=== PATIENT | male | born 1975 | race African-American/Black ===

== ENCOUNTER 2017-08-13 22:10 | Emergency (ER) | payer OTHER ==
[2017-08-13 22:36] VITALS: BP 116/68; PULSE 69; TEMP 97.5; BMI 23.0
--- NOTE | 2017-08-13 23:41 | PDOC ---
History of Present Illness - History of Present Illness Initial Comments: 08/13/17 23:54 The patient is a 41 year old male, with a significant past medical history of asthma, who presents to the emergency department with shortness of breath, wheezing and cough for 4 days. The patient states he was seen at [facility] 2 days ago where he was treated with a breathing treatment and discharged home. He states his breathing has not improved despite using his rescue inhaler since his discharge from [facility]. He reports his cough is productive of green mucus and states he coughs so hard I vomit. He reports chest pain with coughing. He reports night sweats and chills. He states it has never been this bad before. He denies headache and dizziness. He denies fever, nausea, diarrhea and constipation. He denies dysuria, frequency, urgency and hematuria. Allergies: NKDA PCP - Dr. Brodie Yan <Mia Almanzar - Last Filed: 08/13/17 23:54> <Colleen Junior - Last Filed: 08/14/17 02:12> <Marika Ball - Last Filed: 08/16/17 08:46> - General Chief Complaint: Asthma Stated Complaint: SOB/CHEST PAIN Time Seen by Provider: 08/13/17 23:24 Past History <Mia Almanzar - Last Filed: 08/13/17 23:54> <Colleen Junior - Last Filed: 08/14/17 02:12> - Past Medical History Asthma: Yes - Suicide/Smoking/Psychosocial Hx Smoking History: Never smoked Have you smoked in the past 12 months: No Information on smoking cessation initiated: No Hx Alcohol Use: No Drug/Substance Use Hx: No Substance Use Type: Marijuana <Marika Ball - Last Filed: 08/16/17 08:46> - Past Medical History Allergies/Adverse Reactions: Allergies Allergy/AdvReac Type Severity Reaction Status Date / Time No Known Allergies Allergy Verified 08/13/17 22:34 Home Medications: Ambulatory Orders Azithromycin [Zithromax 250mg Tablets -] 250 mg PO UTDICT #6 tab 08/14/17 Prednisone [Deltasone -] 40 mg PO DAILY #8 tablet 08/14/17 Review of Systems - Review of Systems Able to Perform ROS?: Yes Comments:: 08/13/17 23:55 GENERAL/CONSTITUTIONAL:(+)chills and "night sweats". No fever No weakness. HEAD, EYES, EARS, NOSE AND THROAT: No change in vision. No ear pain or discharge. No sore throat. CARDIOVASCULAR: No chest pain or shortness of breath. RESPIRATORY: (+) cough, wheezing, SOB. No hemoptysis. GASTROINTESTINAL: No nausea, vomiting, diarrhea or constipation. GENITOURINARY: No dysuria, frequency, or change in urination. MUSCULOSKELETAL: No joint or muscle swelling or pain. No neck or back pain. SKIN: No rash NEUROLOGIC: No headache, vertigo, loss of consciousness, or change in strength/ sensation. ENDOCRINE: No increased thirst. No abnormal weight change. HEMATOLOGIC/LYMPHATIC: No anemia, easy bleeding, or history of blood clots. ALLERGIC/IMMUNOLOGIC: No hives or skin allergy. <Mia Almanzar - Last Filed: 08/13/17 23:54> *Physical Exam - Vital Signs Last Vital Signs Temp Pulse Resp BP Pulse Ox 97.5 F L 69 26 H 116/68 97 08/13/17 22:34 08/13/17 22:34 08/13/17 22:34 08/13/17 22:34 08/13/17 22:34 <Mia Almanzar - Last Filed: 08/13/17 23:54> - Vital Signs Last Vital Signs Temp Pulse Resp BP Pulse Ox 97.5 F L 69 26 H 116/68 97 08/13/17 22:34 08/13/17 22:34 08/13/17 22:34 08/13/17 22:34 08/13/17 22:34 <Colleen Junior - Last Filed: 08/14/17 02:12> - Vital Signs Last Vital Signs Temp Pulse Resp BP Pulse Ox 97.5 F L 69 26 H 116/68 97 08/13/17 22:34 08/13/17 22:34 08/13/17 22:34 08/13/17 22:34 08/13/17 22:34 - Physical Exam Comments: GENERAL: Awake, alert, and fully oriented. +Tachypnea. HEAD: No signs of trauma EYES: PERRLA, EOMI, sclera anicteric, conjunctiva clear ENT: Auricles normal inspection, hearing grossly normal, nares patent, oropharynx clear without exudates. Moist mucosa NECK: Normal ROM, supple, no lymphadenopathy, JVD, or masses LUNGS: Dec air entry B/L. Diffuse exp wheezes. Speaking 1-2 word sentences. HEART: Regular rate and rhythm, normal S1 and S2, no murmurs, rubs or gallops ABDOMEN: Soft, nontender, normoactive bowel sounds. No guarding, no rebound. No masses EXTREMITIES: Normal range of motion, no edema. No clubbing or cyanosis. No cords, erythema, or tenderness NEUROLOGICAL: Cranial nerves II through XII grossly intact. Normal gait. Motor and sensation intact. SKIN: Warm, Dry, normal turgor, no rashes or lesions noted. <Marika Ball - Last Filed: 08/16/17 08:46> ED Treatment Course - Medications Given in the ED: ED Medications Discontinued Medications Generic Name Dose Route Start Last Admin Trade Name Freq PRN Reason Stop Dose Admin Albuterol/Ipratropium 1 amp 08/13/17 23:45 08/14/17 00:30 Duoneb - NEB 08/14/17 00:16 1 amp Q15M IRVING Administration Sodium Chloride 1,000 mls @ 1,000 mls/hr 08/13/17 23:44 08/14/17 00:16 Normal Saline - IV 08/14/17 00:43 1,000 mls/hr ASDIR STA Administration Magnesium Sulfate 2 gm 08/13/17 23:46 08/14/17 00:35 Magnesium Sulfate IVPB 08/13/17 23:47 2 gm ONCE ONE Administration Methylprednisolone Sodium Succinate 125 mg 08/13/17 23:44 08/14/17 00:16 Solu-Medrol - IVPB 08/13/17 23:45 125 mg ONCE ONE Administration <Colleen Junior - Last Filed: 08/14/17 02:12> Medical Decision Making - Medical Decision Making 08/14/17 02:12 <Colleen Junior - Last Filed: 08/14/17 02:12> - Medical Decision Making 08/14/17 02:[address] Junior. I have reassessed multiple times. He is able to speak full sentences, but still with wheezing on exam. I have given azithro for bronchitis, as he has history of smoking. Would keep in ED for another 1-2 hours of obs before poss DC home. <Marika Ball - Last Filed: 08/16/17 08:46> *DC/Admit/Observation/Transfer - Attestations Scribe Attestion: 08/13/17 23:55 Documentation prepared by Mia Almanzar, acting as medical attendant for Marika Ball MD, <Mia Almanzar - Last Filed: 08/13/17 23:54> - Discharge Dispostion Admit: No <Colleen Junior - Last Filed: 08/14/17 02:12> <Marika Ball - Last Filed: 08/16/17 08:46> Diagnosis at time of Disposition: Bronchitis Asthma Qualifiers: Asthma severity: unspecified severity Asthma persistence: unspecified Asthma complication type: unspecified Qualified Code(s): J45.909 - Unspecified asthma, uncomplicated - Discharge Dispostion Disposition: HOME Condition at time of disposition: Improved - Prescriptions Prescriptions: Prednisone [Deltasone -] 40 mg PO DAILY #8 tablet Azithromycin [Zithromax 250mg Tablets -] 250 mg PO UTDICT #6 tab - Referrals Referrals: Brodie Yan MD [Primary Care Provider] - - Patient Instructions Printed Discharge Instructions: Asthma -- Adult, DI for Chronic Bronchitis
[2017-08-13] MEDS ORDERED: SODIUM CHLORIDE 1,000 ML IV STA (23:44)
[2017-08-13] MEDS ORDERED: methylPREDNISolone NA SUCC 125 MG/2 ML VIAL IVPB ONE (23:44)
[2017-08-13] MEDS ORDERED: MAGNESIUM SULF 50% (8.12 MEQ/2 ML-1 GM VIAL) IVPB ONE (23:46)
[2017-08-14] MEDS ORDERED: ALBUTEROL SO4 2.5/IPRATROPIUM 0.5 INH SOL 3 ML VIAL.NEB. NEB ONE (00:01)
[2017-08-14] MEDS ORDERED: methylPREDNISolone NA SUCC 125 MG/2 ML VIAL ONE (00:01)
[2017-08-14] MEDS ORDERED: MAGNESIUM SULF 50% (8.12 MEQ/2 ML-1 GM VIAL) ONE (00:01)
[2017-08-14] MEDS: ALBUTEROL SO4 2.5/IPRATROPIUM 0.5 INH SOL 3 ML VIAL.NEB. NEB SCH ×3 (00:15→00:30)
[2017-08-14] MEDS ORDERED: AZITHROMYCIN IVPB 500 MG in DEXTROSE 5%-WATER - 250 ML IVPB ONE (01:37)
[2017-08-14] MEDS ORDERED: SODIUM CHLORIDE 1,000 ML IV STA (01:37)
[2017-08-14] MEDS ORDERED: AZITHROMYCIN IVPB 250 ML IVPB ONE (02:04)
--- NOTE | 2017-08-18 09:17 | EKG ---
Test Reason : Blood Pressure : / mmHG Vent. Rate : 069 BPM Atrial Rate : 069 BPM P-R Int : 134 ms QRS Dur : 082 ms QT Int : 384 ms P-R-T Axes : 083 036 048 degrees QTc Int : 411 ms NORMAL SINUS RHYTHM NORMAL ECG NO PREVIOUS ECGS AVAILABLE Confirmed by AGUSTIN ROMANO MD ([id number]) on 08/18/2017 9:17:12 AM Referred By: Confirmed By:AGUSTIN ROMANO MD
== END 2017-08-14 04:31 | disposition home or self-care (01) ==
LOC: JER 22:10
PROC: 3E033GC Introduction of Other Therapeutic Substance into Peripheral Vein, Percutaneous Approach (ICD-10-PCS; principal; 2017-08-13)
PROC: 3E03329 Introduction of Other Anti-infective into Peripheral Vein, Percutaneous Approach (ICD-10-PCS; 2017-08-13)
PROC: 3E0337Z Introduction of Electrolytic and Water Balance Substance into Peripheral Vein, Percutaneous Approach (ICD-10-PCS; 2017-08-13)
PROC: 3E0F7GC Introduction of Other Therapeutic Substance into Respiratory Tract, Via Natural or Artificial Opening (ICD-10-PCS; 2017-08-13)
DX: J42 Unspecified chronic bronchitis (principal); J45.909 Unspecified asthma, uncomplicated
CPT/HCPCS: 71010-TC; 93005; 93010; 99282-25

== ENCOUNTER 2017-08-17 13:34 | Emergency (ER) | payer OTHER ==
[2017-08-17 13:49] VITALS: BMI 23.0
--- NOTE | 2017-08-17 14:06 | PDOC ---
History of Present Illness - General Chief Complaint: Shortness of Breath Stated Complaint: ASTHMA Time Seen by Provider: 08/17/17 13:54 - History of Present Illness Initial Comments: 08/17/17 14:39 41m with with juvenile history of asthma and recent ED visits for bronchitis vs asthma exacerbation 3 days ago presents today with severe shortness of breath and dry cough, speaking in 2 word sentences, tachypnea, diaphoresis despite a ventolin and prednisone prescription from his last visit and having been given an albuterol nebulizer dose by EMS. Patient complains of recent viral URI syndrome. No wheezing no headaches, vomiting, or chest pain. Patient denies history of intubation or chronic asthma treatment. Currently saturating well at 99% 08/17/17 15:00 Past History - Past Medical History Allergies/Adverse Reactions: Allergies Allergy/AdvReac Type Severity Reaction Status Date / Time No Known Allergies Allergy Verified 08/17/17 13:49 Home Medications: Ambulatory Orders Prednisone [Deltasone -] 40 mg PO DAILY #8 tablet 08/14/17 Albuterol Sulfate [Proair Respiclick] 90 mcg IH PRN PRN 08/17/17 Benzonatate [Tessalon Pearls -] 100 mg PO TID #21 capsule 08/17/17 Asthma: Yes Psychiatric Problems: Yes (Depression) - Suicide/Smoking/Psychosocial Hx Smoking History: Former smoker Have you smoked in the past 12 months: Yes If you are a former smoker, when did you quit?: 08/2017 Information on smoking cessation initiated: Yes 'Breaking Loose' booklet given: 08/17/17 Hx Alcohol Use: No Drug/Substance Use Hx: Yes (marijuana) Substance Use Type: None Review of Systems - Review of Systems Able to Perform ROS?: Yes Is the patient limited Ivorian proficient: No Constitutional: Yes: Diaphoresis. No: Fever HEENTM: No: Symptoms Reported Respiratory: Yes: Cough, Shortness of Breath Cardiac (ROS): No: Symptoms Reported ABD/GI: No: Symptoms Reported *Physical Exam - Vital Signs Last Vital Signs Temp Pulse Resp BP Pulse Ox 98.2 F 89 18 116/79 99 08/17/17 13:44 08/17/17 13:44 08/17/17 13:44 08/17/17 13:44 08/17/17 13:44 - Physical Exam General Appearance: Yes: Moderate Distress HEENT: positive: EOMI, Rhinorrhea Respiratory/Chest: positive: Respiratory Distress, Labored Respiration, Rhonchi (b/l). negative: Chest Tender, Wheezing Cardiovascular: positive: Regular Rhythm, Regular Rate, S1, S2 Gastrointestinal/Abdominal: positive: Normal Bowel Sounds, Tender, Flat Integumentary: positive: Diaphoresis ED Treatment Course - LABORATORY CBC & Chemistry Diagram: 08/17/17 14:20 08/17/17 14:20 Medical Decision Making - Medical Decision Making 08/17/17 14:59 41M presenting with moderate resp distress for the past 2 weeks asthma exacerbation vs acute bronchitis 08/17/17 16:37 Xray negative. Symptoms resolved with albuterol and ipratropium nebulizer and IV steroids. *DC/Admit/Observation/Transfer Diagnosis at time of Disposition: Bronchitis - Discharge Dispostion Disposition: HOME Admit: No - Prescriptions Prescriptions: Benzonatate [Tessalon Pearls -] 100 mg PO TID #21 capsule
[2017-08-17] MEDS ORDERED: ALBUTEROL SO4 2.5/IPRATROPIUM 0.5 INH SOL 3 ML VIAL.NEB. NEB ONE (14:09)
[2017-08-17] MEDS ORDERED: methylPREDNISolone NA SUCC 40 MG/1 ML VIAL IVPB ONE (14:11)
[2017-08-17] MEDS ORDERED: MAGNESIUM SULF 50% (8.12 MEQ/2 ML-1 GM VIAL) IVPB ONE (14:14)
[2017-08-17] MEDS ORDERED: methylPREDNISolone NA SUCC 40 MG/1 ML VIAL ONE (14:17)
[2017-08-17 14:39] LABS: BASOPHIL 0.6 % (0-2.0); EOSINOPHIL 13.6 % (0-4.5); MCH 32.5 pg (25.7-33.7); MCHC 33.1 g/dl (32.0-35.9); MEAN CELL VOLUME 98.2 fl (80-96); MEAN PLT VOLUME 8.1 fl (7.5-11.1); NEUTROPHILS 44.7 % (42.8-82.8); PLATELET COUNT 264 K/MM3 (134-434); RDW 13.2 % (11.9-15.9); WHITE BLOOD COUNT 10.1 K/mm3 (4.0-10.0)
--- NOTE | 2017-08-17 14:39 | PDOC ---
Attending Attestation - Resident Resident Name: Modesto Thompson - ED Attending Attestation I have performed the following: I have examined & evaluated the patient, The case was reviewed & discussed with the resident, I agree w/resident's findings & plan, Exceptions are as noted - HPI HPI: 08/17/17 14:36 41y M hx of childhood asthma, daily smoking, presents with complaint of cough. Pt was seen in the ED 2 x previously - cough x 2 weeks, nonproductive, w/o associated fever/chills, was seen [facility] got albuterol, azithromycin, prednisone, was not significantly improved, and came here on the . pt ont significnlty better so came to for evlauation. On exam pt appears in mil drespiratory distress, lungs shows mild rhonchi with minimal wheezing. suspect reactive airway, possible pna will ck labs, cxr will give nebs, steroids will erassess - Physicial Exam PE: 08/17/17 17:13 see above - Medical Decision Making 08/17/17 16:16 cxr negative labs unremarkable will dc the pt with pmd fu [t feeling improved, lungs clear n orespiratory distress, speaking sentences suspect reactive airway disease will dc with pmd fu return precaution swere discussed Heart Score/ECG Review - ECG Impressions Comment:: 08/17/17 16:41 Twelve-lead EKG was performed and reviewed by me. There is normal sinus rhythm with a normal rate. Rate of 71 The axis is normal. The intervals are normal. There is normal R wave progression There are no ST or T wave abnormalities. Impression: Normal twelve-lead EKG
[2017-08-17 15:04] LABS: ALBUMIN 3.7 g/dl (3.4-5.0); ALK PHOS 69 U/L (45-117); ANION GAP 9 (8-16); BILIRUBIN,TOTAL 0.7 mg/dL (0.2-1.0); CALCIUM 8.8 mg/dL (8.5-10.1); CO2 28 mmol/L (21-32); CREATININE 1.2 mg/dL (0.7-1.3); GLUCOSE,RANDOM 75 mg/dL (74-106); SGOT/AST 20 U/L (15-37); SGPT/ALT 25 U/L (12-78); TOT PROT 6.9 g/dl (6.4-8.2)
[2017-08-17 15:22] LABS: VENOUS BLOOD GAS HCO3 30.1 meq/L (19-25); VENOUS PH 7.38 (7.32-7.42)
[2017-08-17 17:03] VITALS: BP 120/81; PULSE 81; TEMP 98.1
--- NOTE | 2017-08-18 09:09 | EKG ---
Test Reason : Blood Pressure : / mmHG Vent. Rate : 071 BPM Atrial Rate : 071 BPM P-R Int : 138 ms QRS Dur : 084 ms QT Int : 382 ms P-R-T Axes : 077 023 037 degrees QTc Int : 415 ms NORMAL SINUS RHYTHM WITH SINUS ARRHYTHMIA POSSIBLE LEFT ATRIAL ENLARGEMENT WHEN COMPARED WITH ECG OF 13-AUG-2017 22:28, NO SIGNIFICANT CHANGE WAS FOUND Confirmed by AGUSTIN ROMANO MD ([id number]) on 08/18/2017 9:09:22 AM Referred By: Confirmed By:AGUSTIN ROMANO MD
== END 2017-08-17 16:45 | disposition home or self-care (01) ==
LOC: JER 13:34
PROC: 3E033GC Introduction of Other Therapeutic Substance into Peripheral Vein, Percutaneous Approach (ICD-10-PCS; principal; 2017-08-17)
PROC: 3E0F7GC Introduction of Other Therapeutic Substance into Respiratory Tract, Via Natural or Artificial Opening (ICD-10-PCS; 2017-08-17)
DX: J20.9 Acute bronchitis, unspecified (principal); Z87.891 Personal history of nicotine dependence
CPT/HCPCS: 36415; 71010-TC; 80053; 82803; 85025; 93005; 93010; 99284-25

== ENCOUNTER 2017-08-18 04:47 | Inpatient (IN) | payer OTHER ==
[2017-08-18] MEDS ORDERED: diphenhydrAMINE HCL 25 MG CAPSULE (FP) PO ONE ×2 (05:26→05:31)
--- NOTE | 2017-08-18 05:50 | PDOC ---
History of Present Illness - General Chief Complaint: Asthma Stated Complaint: ASTHMA/DIFFICULTY BREATHING Time Seen by Provider: 08/18/17 04:53 - History of Present Illness Initial Comments: 08/18/17 05:47 CHIEF COMPLAINT: cough, SOB HISTORY OF PRESENT ILLNESS: 41y M hx of childhood asthma, daily smoking, returns to ED with cough, SOB, and wheezing. Pt was seen in the ED 3x previously for a cough x 2 weeks. Patient was seen by [facility] and received albuterol, azithromycin, prednisone, without significant improvement and was last seen here yesterday for exact same complaint. Patient had negative CXR, was given Mg sulfate and methylprednisone and discharged to home. Patient denies any fever, chills, vomiting, diarrhea. PAST MEDICAL HISTORY: Denies past medical history FAMILY HISTORY: Denies SOCIAL HISTORY: 25 pack year smoking history. Denies alcohol, illicit drug use. SURGICAL HISTORY: Denies ALLERGIES: No known drug allergies REVIEW OF SYSTEMS General/Constitutional: Denies fever or chills. Denies weakness, weight change. HEENT: Denies change in vision. Denies ear pain or discharge. Denies sore throat. Cardiovascular: Denies chest pain. Respiratory: Cough x 2 weeks, wheezing, SOB. Gastrointestinal: Denies nausea, vomiting, diarrhea or constipation. Denies rectal bleeding. Genitourinary: Denies dysuria, frequency, or change in urination. Musculoskeletal: Denies joint or muscle swelling or pain. Denies neck or back pain. Skin and breasts: Denies rash or easy bruising. PHYSICAL EXAM General Appearance: Well-appearing, appropriately dressed. No apparent distress. HEENT: EOMI, PERRLA. No conjunctival pallor. No photophobia, scleral icterus. Respiratory/Chest: Rhonchi to lower lobes b/l. No crackles, rales, stridor. Cardiovascular: RRR. S1, S2. Gastrointestinal/Abdominal: Normal bowel sounds. Abdomen soft, non-distended. No tenderness or rebound tenderness. No organomegaly, pulsatile mass, guarding , hernia, hepatomegaly, splenomegaly. Musculoskeletal/Extremities: Normal inspection. FROM of all extremities, normal capillary refill. Pelvis Stable. No CVA tenderness. No tenderness to extremities, pedal edema, swelling, erythema or deformity. Integumentary: Appropriate color, dry, warm. No cyanosis, erythema, jaundice or rash Neurologic: ladderman II-XII intact. Fully oriented, alert. Appropriate mood/affect. Motor strength 5/5. No appreciable EOM palsy, facial droop or sensory deficit. Past History - Past Medical History Allergies/Adverse Reactions: Allergies Allergy/AdvReac Type Severity Reaction Status Date / Time No Known Allergies Allergy Verified 08/18/17 04:52 Home Medications: Ambulatory Orders Prednisone [Deltasone -] 40 mg PO DAILY #8 tablet 08/14/17 Albuterol Sulfate [Proair Respiclick] 90 mcg IH PRN PRN 08/17/17 Benzonatate [Tessalon Pearls -] 100 mg PO TID #21 capsule 08/17/17 Asthma: Yes Psychiatric Problems: Yes (Depression) - Immunization History Immunization Up to Date: Yes - Suicide/Smoking/Psychosocial Hx Smoking History: Unknown if ever smoked Have you smoked in the past 12 months: No If you are a former smoker, when did you quit?: 08/2017 Information on smoking cessation initiated: No 'Breaking Loose' booklet given: 08/17/17 Hx Alcohol Use: No Drug/Substance Use Hx: No Substance Use Type: None *Physical Exam - Vital Signs Last Vital Signs Temp Pulse Resp BP Pulse Ox 97.4 F L 65 20 131/94 99 08/18/17 04:52 08/18/17 04:52 08/18/17 04:52 08/18/17 04:52 08/18/17 04:52 ED Treatment Course - LABORATORY CBC & Chemistry Diagram: 08/20/17 06:40 08/20/17 06:40 - Medications Given in the ED: ED Medications Discontinued Medications Generic Name Dose Route Start Last Admin Trade Name Litoq PRN Reason Stop Dose Admin Diphenhydramine HCl 25 mg 08/18/17 05:26 08/18/17 05:41 Benadryl - PO 08/18/17 05:27 25 mg ONCE ONE Administration Medical Decision Making - Medical Decision Making 08/18/17 06:11 41y M hx of childhood asthma, daily smoking, returns to ED with cough, SOB, and wheezing. Patient with marked rhonchi to b/l lower lobes. -Duoneb -Benadryl 08/18/17 06:20 Patient continues to have diffuse rhonchi s/p 2x Duoneb treatments and Benadryl. -Mg Sulfate 2g ordered Discussed case with attending MD Encarnacion, will order CTA to r/o PE Case discussed in detail with oncoming emergency provider including history, physical exam and ancillary studies. In brief, this patient is being seen in the ED for a chief complaint of: I have completed the initial assessment interview note and have ordered the following labs: none, labs available from yesterday Pending results: CTA Please call the PCP: Brodie Yan Plan for disposition as follows: pending CTA Oncoming RASHMI Chu has assumed care for the patient and will complete the evaluation and treatment. *DC/Admit/Observation/Transfer Diagnosis at time of Disposition: Respiratory distress, Wheezing
[2017-08-18] MEDS ORDERED: ALBUTEROL SO4 2.5/IPRATROPIUM 0.5 INH SOL 3 ML VIAL.NEB. NEB ONE ×4 (06:07→11:29)
[2017-08-18] MEDS ORDERED: MAGNESIUM SULF 50% (8.12 MEQ/2 ML-1 GM VIAL) IVPB ONE (06:19)
[2017-08-18] MEDS ORDERED: MAGNESIUM SULF 50% (8.12 MEQ/2 ML-1 GM VIAL) ONE (06:21)
--- NOTE | 2017-08-18 07:43 | PDOC ---
*Physical Exam - Vital Signs Last Vital Signs Temp Pulse Resp BP Pulse Ox 97.4 F L 65 20 131/94 99 08/18/17 04:52 08/18/17 04:52 08/18/17 04:52 08/18/17 04:52 08/18/17 04:52 ED Treatment Course - Medications Given in the ED: ED Medications Discontinued Medications Generic Name Dose Route Start Last Admin Trade Name Freq PRN Reason Stop Dose Admin Albuterol/Ipratropium 1 amp 08/18/17 06:07 08/18/17 05:15 Duoneb - NEB 08/18/17 06:08 1 amp ONCE ONE Administration Albuterol/Ipratropium 1 amp 08/18/17 06:07 08/18/17 06:12 Duoneb - NEB 08/18/17 06:08 1 amp ONCE ONE Administration Diphenhydramine HCl 25 mg 08/18/17 05:26 08/18/17 05:41 Benadryl - PO 08/18/17 05:27 25 mg ONCE ONE Administration Magnesium Sulfate 2 gm 08/18/17 06:19 08/18/17 06:32 Magnesium Sulfate IVPB 08/18/17 06:20 2 gm ONCE ONE Administration Medical Decision Making - Medical Decision Making 08/18/17 07:43 Patient received in sign out from SEJAL Carey. Patient awaiting CTA results. Due to patient's frequent ER visits with no official diagnosis or history of respiratory disease including asthma, COPD or obstructive airway disease and will consider observation status along with pulmonary consult. 08/18/17 08:39 CT of the chest shows no evidence of pulmonary embolism. Hyperaeration with focal areas of ground glass opacification seen, most marked within the left upper lobe medially. 08/18/17 08:[address] Yan to discuss admission. Awaiting callback. 08/18/17 10:29 Patient on reexam had inspiratory wheezing with coarse breath sounds to both lung murrell. Patient has mild accessory usage. Case discussed with Dr. Chavez and states patient was to see a sales contractor last year after receiving a PFT that showed restrictive airway. Patient states has a follow-up and Dr. Chavez agrees patient should be observed and consult at by sales contractor. He states to call Dr. Dejesus for admission. 08/18/17 11:[address] Hutton and states to admit to med/surg obs and consult pulmonology. *DC/Admit/Observation/Transfer Diagnosis at time of Disposition: Respiratory distress, Wheezing - Discharge Dispostion Admit: Yes
--- NOTE | 2017-08-18 12:35 | HP ---
Admitting History and Physical - Primary Care Physician PCP: Brodie Yan - Admission Chief Complaint: sob for 2 weeks History of Present Illness: HISTORY OF PRESENT ILLNESS: 41y M hx of childhood asthma, daily smoking, returns to ED with cough, SOB, and wheezing. Pt was seen in the ED 3x previously for a cough x 2 weeks. Patient was seen [facility] and received albuterol, azithromycin, prednisone, without significant improvement and was last seen here yesterday for exact same complaint. Patient had negative CXR, was given Mg sulfate and methylprednisone and discharged to home. Patient denies any fever, chills, vomiting, diarrhea. PAST MEDICAL HISTORY: Denies past medical history FAMILY HISTORY: Denies SOCIAL HISTORY: 25 pack year smoking history. Denies alcohol, illicit drug use. SURGICAL HISTORY: Denies ALLERGIES: No known drug allergies today he comes in with SOB on exertion and dry cough , no fever, no chest discomfort was noted to be wheezing got albuterol and Mg sulfate SOB is more with exertion and talking, per his PMD he was supposed to see lung doctor be never followed up History Source: Patient - Past Medical History Pulmonary: Yes: Asthma - Smoking History Smoking history: Unknown if ever smoked Have you smoked in the past 12 months: No If you are a former smoker, when did you quit?: 08/2017 - Alcohol/Substance Use Hx Alcohol Use: No Home Medications - Allergies Allergies/Adverse Reactions: Allergies Allergy/AdvReac Type Severity Reaction Status Date / Time No Known Allergies Allergy Verified 08/18/17 04:52 - Home Medications Home Medications: Ambulatory Orders Prednisone [Deltasone -] 40 mg PO DAILY #8 tablet 08/14/17 Albuterol Sulfate [Proair Respiclick] 90 mcg IH PRN PRN 08/17/17 Benzonatate [Tessalon Pearls -] 100 mg PO TID #21 capsule 08/17/17 Physical Examination Vital Signs: Vital Signs Temperature 97.8 F 08/18/17 11:41 Pulse Rate 72 08/18/17 11:41 Respiratory Rate 20 08/18/17 11:41 Blood Pressure 117/77 08/18/17 11:41 O2 Sat by Pulse Oximetry (%) 96 08/18/17 11:41 Imaging - Results Cat Scan: Report Reviewed (ground glass opacifications seen) Problem List - Problems (1) Respiratory distress Assessment/Plan: pulm consult nebulizers iv steroids gi/[id number] Code(s): R06.00 - DYSPNEA, UNSPECIFIED (2) Asthma Assessment/Plan: see above Code(s): J45.909 - UNSPECIFIED ASTHMA, UNCOMPLICATED
--- NOTE | 2017-08-18 14:20 | PN ---
Progress Note (short form) - Note Progress Note: PULMONARY CONSULTATION DICTATED 08/22/17 IMP ACUTE HYPERCAPNEIC RESPIRATORY FAILURE ACUTE ASTHMA EXACERBATION GROUND GLASS OPACITIES PLAN IV STEROIDS INHALED BRONCHODILATORS O2 MONITOR PEAK FLOW SERUM IGE LEVEL,ALPHA-1- ANTI-TRYPSIN LEVEL OUTPATIENT PFTS OUTPATIENT F/U CHEST CT OUTPATIENT SMOKING CESSATIONS COUNSELED DR MANCINI Problem List - Problems (1) Respiratory distress Code(s): R06.00 - DYSPNEA, UNSPECIFIED (2) Wheezing Code(s): R06.2 - WHEEZING (3) Acute hypercapnic respiratory failure Code(s): J96.02 - ACUTE RESPIRATORY FAILURE WITH HYPERCAPNIA (4) Asthma exacerbation Code(s): J45.901 - UNSPECIFIED ASTHMA WITH (ACUTE) EXACERBATION (5) Tobacco abuse Code(s): Z72.0 - TOBACCO USE (6) Tobacco abuse counseling Code(s): Z71.6 - TOBACCO ABUSE COUNSELING (7) Ground glass opacity present on imaging of lung Code(s): R91.8 - OTHER NONSPECIFIC ABNORMAL FINDING OF LUNG FIELD
[2017-08-18] MEDS ORDERED: ALBUTEROL SO4 0.5 % INH SOLN 2.5 MG/0.5 ML VIAL.NEB. NEB PRN (14:23)
[2017-08-18 14:24] LABS: ALBUMIN 3.7 g/dl (3.4-5.0); ANION GAP 10 (8-16); BILIRUBIN,TOTAL 0.6 mg/dL (0.2-1.0); CO2 30 mmol/L (21-32); CREATININE 1.1 mg/dL (0.7-1.3); GLUCOSE,RANDOM 106 mg/dL (74-106); SGOT/AST 15 U/L (15-37); SGPT/ALT 23 U/L (12-78); TOT PROT 6.9 g/dl (6.4-8.2)
[2017-08-18 14:25] LABS: ALK PHOS 68 U/L (45-117)
[2017-08-18 14:29] LABS: BASOPHIL 0.2 % (0-2.0); EOSINOPHIL 0.3 % (0-4.5); MCH 32.8 pg (25.7-33.7); MCHC 33.4 g/dl (32.0-35.9); MEAN CELL VOLUME 98.2 fl (80-96); MEAN PLT VOLUME 8.2 fl (7.5-11.1); NEUTROPHILS 86.4 % (42.8-82.8); PLATELET COUNT 244 K/MM3 (134-434); RDW 13.4 % (11.9-15.9)
[2017-08-18 15:14] VITALS: BMI 22.5
--- NOTE | 2017-08-18 16:14 | CONS ---
DATE OF CONSULTATION: 08/18/2017 PULMONARY CONSULTATION REFERRING PHYSICIAN: Anni Carreno M.D. HISTORY OF PRESENT ILLNESS: The patient is a 41-year-old black male with a past medical history of childhood asthma. He has never been intubated. He is currently maintained on an inhaled bronchodilator daily. He has a smoking tobacco, previously smoking 2 packs per day for many years, since age 14. He currently smokes 1 pack a day. History of occasional marijuana smoking. He was admitted to [facility] with complaint of 2-week history of increasing shortness of breath, cough and bronchospasm. The patient apparently was seen in the emergency room 3 times prior. He went to [facility] ER prior to this admission and received albuterol, Zithromax and prednisone, without improvement. He presented yesterday to [facility] ER. In the emergency room, he was found to be in moderate respiratory distress. At that time he was treated with steroids and bronchodilators, and transferred up to the floor for further management. He underwent a CTA of the chest, which revealed no evidence of pulmonary emboli, but did reveal some ground glass opacities in the left upper lobe. The patient states that he has had URI symptoms for the past few days. He denies any hemoptysis. He denies any chest pain or palpitations. He is a retired operations welder. There is no history of recent travel. There is no history of DVT or PE in the past. PAST MEDICAL HISTORY: Asthma since childhood. SOCIAL HISTORY: Smoker. Currently unemployed. MEDICATIONS: Medications prior this admission included Tessalon Perles, ProAir and prednisone. REVIEW OF SYSTEMS: Positive shortness of breath, positive cough, positive bronchospasm. No chest pain, no palpitations, no nausea, no vomiting, no abdominal pain, no fever, no chills, no hemoptysis. PHYSICAL EXAMINATION: General: The patient is a thin black male, well-developed, awake, alert, in no acute distress. Vitals: He is currently afebrile. Heart rate 66. Blood pressure 110/67. Respiratory rate 20. O2 saturation is 95% on room air. HEENT: Normocephalic, atraumatic. Neck: Supple. Heart: Regular S1, S2. Chest: Scattered bilateral wheezes. Abdomen: Soft. Bowel sounds are positive. Extremities: No cyanosis or edema. DIAGNOSTIC STUDIES: WBC 10.1, hemoglobin 13.6, hematocrit 40.9; platelet count 264,000; polys 44, lymphs 35, monos 6, eosinophils 13. Blood gas pH 7.38, pCO2 of 52, venous pO2 of 29, bicarbonate 30.1. Electrolytes essentially normal except potassium 3.4. Chest CT revealed no evidence of pulmonary emboli and ground glass opacities in the left upper lobe. IMPRESSION: 1. Acute asthma exacerbation, likely secondary to upper respiratory infection. 2. Ground glass opacities, likely inflammation. 3. History of tobacco abuse. PLAN: Supplemental oxygen, inhaled bronchodilators, IV steroids. Monitor peak flow. PFT as an outpatient. Also obtain follow-up chest CT in 6 to 8 weeks to document resolution of ground glass opacities. Serum IgE level, alpha-1 antitrypsin level. MENA MANCINI M.D. [id number]
[2017-08-18] MEDS: methylPREDNISolone NA SUCC 40 MG/1 ML VIAL IVPB SCH ×2 (16:56→21:23)
[2017-08-18] MEDS: ALBUTEROL SO4 2.5/IPRATROPIUM 0.5 INH SOL 3 ML VIAL.NEB. NEB SCH ×2 (18:00→23:58)
[2017-08-19] MEDS: methylPREDNISolone NA SUCC 40 MG/1 ML VIAL IVPB SCH ×4 (02:50→22:59)
[2017-08-19] MEDS: ALBUTEROL SO4 2.5/IPRATROPIUM 0.5 INH SOL 3 ML VIAL.NEB. NEB SCH ×3 (06:30→17:59)
[2017-08-19 07:22] LABS: BASOPHIL 0.6 % (0-2.0); MCH 32.3 pg (25.7-33.7); MCHC 32.9 g/dl (32.0-35.9); MEAN CELL VOLUME 98.2 fl (80-96); MEAN PLT VOLUME 8.3 fl (7.5-11.1); NEUTROPHILS 87.7 % (42.8-82.8); PLATELET COUNT 247 K/MM3 (134-434); RDW 13.4 % (11.9-15.9); WHITE BLOOD COUNT 15.7 K/mm3 (4.0-10.0)
[2017-08-19 07:59] LABS: ALBUMIN 3.6 g/dl (3.4-5.0); ANION GAP 8 (8-16); CALCIUM 9.6 mg/dL (8.5-10.1); CO2 29 mmol/L (21-32); GLUCOSE,RANDOM 118 mg/dL (74-106); MAGNESIUM 2.4 mg/dL (1.8-2.4); PHOSPHOROUS 4.1 mg/dL (2.5-4.9); SGOT/AST 12 U/L (15-37); SGPT/ALT 24 U/L (12-78)
[2017-08-19 08:01] LABS: ALK PHOS 68 U/L (45-117); BILIRUBIN,TOTAL 0.7 mg/dL (0.2-1.0); TOT PROT 6.9 g/dl (6.4-8.2)
[2017-08-19] MEDS: PANTOPRAZOLE 40 MG TABLET (FP) PO SCH (09:52)
--- NOTE | 2017-08-19 10:57 | PN ---
Progress Note (short form) - Note Progress Note: Still with congested cough with white sputum. No CP. No Hemoptysis. Intake & Output 08/16/17 08/17/17 08/18/17 08/19/17 23:59 23:59 23:59 23:59 Intake Total 500 Balance 500 Weight 127 lb 6.4 oz Last Vital Signs Temp Pulse Resp BP Pulse Ox 98.2 F 80 18 126/68 97 08/19/17 08:00 08/19/17 08:00 08/19/17 08:00 08/19/17 08:00 08/18/17 20:36 Active Medications Albuterol Sulfate (Ventolin 0.5% -) 1 amp NEB Q4H PRN PRN Reason: SHORT OF BREATH/WHEEZING Albuterol/Ipratropium (Duoneb -) 1 amp NEB QIDR [facility] Last Admin: 08/19/17 06:30 Dose: 1 amp Methylprednisolone Sodium Succinate (Solu-Medrol -) 40 mg IVPB Q6H-IV [facility] Last Admin: 08/19/17 09:52 Dose: 40 mg Pantoprazole Sodium (Protonix -) 40 mg PO DAILY [facility] Last Admin: 08/19/17 09:52 Dose: 40 mg General: NAD HEENT: (-) scleral icterus. Respiratory: Bilateral expiratory wheezing with rhonchi Cardiovascular: RRR. S1, S2. Gastrointestinal: Normal bowel sounds. Musculoskeletal: No tenderness to extremities, pedal edema, swelling, erythema or deformity. Integumentary: Appropriate color, dry, warm. No cyanosis, erythema, jaundice or rash Neurologic: Non-focal Laboratory Results - last 24 hr 08/18/17 08/18/17 08/19/17 13:30 13:30 06:30 WBC 12.0 H 15.7 H D RBC 3.97 L 4.12 Hgb 13.0 13.3 Hct 39.0 40.4 MCV 98.2 H 98.2 H MCH 32.8 32.3 MCHC 33.4 32.9 RDW 13.4 13.4 Plt Count 244 247 MPV 8.2 8.3 Neutrophils % 86.4 H D 87.7 H Lymphocytes % 9.3 D 9.8 Monocytes % 3.8 1.9 L Eosinophils % 0.3 D 0.0 D Basophils % 0.2 0.6 Sodium 139 Potassium 3.9 Chloride 99 Carbon Dioxide 30 Anion Gap 10 BUN 11 Creatinine 1.1 Creat Clearance w eGFR > 60 Random Glucose 106 D Calcium 9.0 Phosphorus Magnesium Total Bilirubin 0.6 AST 15 D ALT 23 Alkaline Phosphatase 68 Total Protein 6.9 Albumin 3.7 08/19/17 06:30 WBC RBC Hgb Hct MCV MCH MCHC RDW Plt Count MPV Neutrophils % Lymphocytes % Monocytes % Eosinophils % Basophils % Sodium 138 Potassium 4.3 Chloride 101 Carbon Dioxide 29 Anion Gap 8 BUN 11 Creatinine 1.0 Creat Clearance w eGFR > 60 Random Glucose 118 H Calcium 9.6 Phosphorus 4.1 Magnesium 2.4 Total Bilirubin 0.7 AST 12 L ALT 24 Alkaline Phosphatase 68 Total Protein 6.9 Albumin 3.6 Problem List - Problems (1) Respiratory distress Code(s): R06.00 - DYSPNEA, UNSPECIFIED (2) Wheezing Code(s): R06.2 - WHEEZING (3) Acute hypercapnic respiratory failure Code(s): J96.02 - ACUTE RESPIRATORY FAILURE WITH HYPERCAPNIA (4) Asthma exacerbation Code(s): J45.901 - UNSPECIFIED ASTHMA WITH (ACUTE) EXACERBATION (5) Tobacco abuse Code(s): Z72.0 - TOBACCO USE (6) Tobacco abuse counseling Code(s): Z71.6 - TOBACCO ABUSE COUNSELING (7) Ground glass opacity present on imaging of lung Code(s): R91.8 - OTHER NONSPECIFIC ABNORMAL FINDING OF LUNG FIELD PLAN IV STEROIDS INHALED BRONCHODILATORS O2 MONITOR PEAK FLOW SERUM IGE LEVEL,ALPHA-1- ANTI-TRYPSIN LEVEL OUTPATIENT PFTS OUTPATIENT F/U CHEST CT OUTPATIENT SMOKING CESSATION COUNSELED Dr Hussein
--- NOTE | 2017-08-19 11:49 | PN ---
Progress Note, Physician - Current Medication List Current Medications: Active Medications Albuterol Sulfate (Ventolin 0.5% -) 1 amp NEB Q4H PRN PRN Reason: SHORT OF BREATH/WHEEZING Albuterol/Ipratropium (Duoneb -) 1 amp NEB QIDR [facility] Last Admin: 08/19/17 06:30 Dose: 1 amp Methylprednisolone Sodium Succinate (Solu-Medrol -) 40 mg IVPB Q6H-IV [facility] Last Admin: 08/19/17 09:52 Dose: 40 mg Pantoprazole Sodium (Protonix -) 40 mg PO DAILY [facility] Last Admin: 08/19/17 09:52 Dose: 40 mg - Objective Vital Signs: Vital Signs Temperature 98.2 F 08/19/17 08:00 Pulse Rate 80 08/19/17 08:00 Respiratory Rate 18 08/19/17 08:00 Blood Pressure 126/68 08/19/17 08:00 O2 Sat by Pulse Oximetry (%) 97 08/18/17 20:36 Labs: CBC, BMP 08/19/17 06:30 08/19/17 06:30 Problem List - Problems (1) Asthma exacerbation Assessment/Plan: IV STEROIDS INHALED BRONCHODILATORS O2 MONITOR PEAK FLOW F/U CHEST CT OUTPATIENT Code(s): J45.901 - UNSPECIFIED ASTHMA WITH (ACUTE) EXACERBATION (2) Tobacco abuse Assessment/Plan: SMOKING CESSATION COUNSELED Code(s): Z72.0 - TOBACCO USE
[2017-08-19] MEDS: MONTELUKAST NA 10 MG TABLET PO SCH (23:00)
[2017-08-20] MEDS: methylPREDNISolone NA SUCC 40 MG/1 ML VIAL IVPB SCH ×4 (04:14→21:52)
[2017-08-20] MEDS: ALBUTEROL SO4 2.5/IPRATROPIUM 0.5 INH SOL 3 ML VIAL.NEB. NEB SCH ×4 (06:20→18:10)
[2017-08-20 07:44] LABS: BASOPHIL 0.3 % (0-2.0); MCH 32.6 pg (25.7-33.7); MCHC 33.3 g/dl (32.0-35.9); MEAN PLT VOLUME 8.3 fl (7.5-11.1); NEUTROPHILS 91.7 % (42.8-82.8); PLATELET COUNT 253 K/MM3 (134-434); RDW 13.2 % (11.9-15.9)
[2017-08-20 08:08] LABS: ALBUMIN 3.5 g/dl (3.4-5.0); ANION GAP 9 (8-16); CALCIUM 9.1 mg/dL (8.5-10.1); CO2 28 mmol/L (21-32); GLUCOSE,RANDOM 121 mg/dL (74-106)
[2017-08-20 08:13] LABS: ALK PHOS 64 U/L (45-117); BILIRUBIN,TOTAL 0.6 mg/dL (0.2-1.0); CREATININE 1.1 mg/dL (0.7-1.3); SGOT/AST 7 U/L (15-37); SGPT/ALT 21 U/L (12-78); TOT PROT 6.7 g/dl (6.4-8.2)
--- NOTE | 2017-08-20 08:59 | PN ---
Progress Note, Physician History of Present Illness: SOME IMPROVEMENT - Current Medication List Current Medications: Active Medications Albuterol Sulfate (Ventolin 0.5% -) 1 amp NEB Q4H PRN PRN Reason: SHORT OF BREATH/WHEEZING Albuterol/Ipratropium (Duoneb -) 1 amp NEB QIDR [facility] Last Admin: 08/20/17 06:20 Dose: 1 amp Methylprednisolone Sodium Succinate (Solu-Medrol -) 40 mg IVPB Q6H-IV [facility] Last Admin: 08/20/17 04:14 Dose: 40 mg Montelukast Sodium (Singulair -) 10 mg PO HS [facility] Last Admin: 08/19/17 23:00 Dose: 10 mg Pantoprazole Sodium (Protonix -) 40 mg PO DAILY [facility] Last Admin: 08/19/17 09:52 Dose: 40 mg - Objective Vital Signs: Vital Signs Temperature 97.8 F 08/20/17 05:56 Pulse Rate 77 08/20/17 05:56 Respiratory Rate 20 08/20/17 05:56 Blood Pressure 123/76 08/20/17 05:56 O2 Sat by Pulse Oximetry (%) 96 08/20/17 04:00 Neck: Yes: Supple Cardiovascular: Yes: Regular Rate and Rhythm Respiratory: Yes: Rhonchi, Wheezes Gastrointestinal: Yes: Normal Bowel Sounds, Soft Labs: CBC, BMP 08/20/17 06:40 08/20/17 06:40 Problem List - Problems (1) Asthma exacerbation Assessment/Plan: IV STEROIDS INHALED BRONCHODILATORS O2 MONITOR PEAK FLOW F/U CHEST CT OUTPATIENT Code(s): J45.901 - UNSPECIFIED ASTHMA WITH (ACUTE) EXACERBATION (2) Tobacco abuse Assessment/Plan: SMOKING CESSATION COUNSELED Code(s): Z72.0 - TOBACCO USE
[2017-08-20] MEDS: PANTOPRAZOLE 40 MG TABLET (FP) PO SCH (09:06)
--- NOTE | 2017-08-20 11:12 | PN ---
Progress Note (short form) - Note Progress Note: Feels a little better today. Less congested cough / SOB. No CP. No Hemoptysis. Intake & Output 08/17/17 08/18/17 08/19/17 08/20/17 23:59 23:59 23:59 23:59 Intake Total 500 450 0 Balance 500 450 0 Weight 127 lb 6.4 oz Last Vital Signs Temp Pulse Resp BP Pulse Ox 98.3 F 76 18 122/75 96 08/20/17 09:00 08/20/17 09:00 08/20/17 09:00 08/20/17 09:00 08/20/17 04:00 Active Medications Albuterol Sulfate (Ventolin 0.5% -) 1 amp NEB Q4H PRN PRN Reason: SHORT OF BREATH/WHEEZING Albuterol/Ipratropium (Duoneb -) 1 amp NEB QIDR [facility] Last Admin: 08/20/17 06:20 Dose: 1 amp Methylprednisolone Sodium Succinate (Solu-Medrol -) 40 mg IVPB Q6H-IV [facility] Last Admin: 08/20/17 09:05 Dose: 40 mg Montelukast Sodium (Singulair -) 10 mg PO HS [facility] Last Admin: 08/19/17 23:00 Dose: 10 mg Pantoprazole Sodium (Protonix -) 40 mg PO DAILY [facility] Last Admin: 08/20/17 09:06 Dose: 40 mg General: NAD HEENT: (-) scleral icterus. Respiratory: Less bilateral expiratory wheezing with rhonchi Cardiovascular: RRR. S1, S2. Gastrointestinal: Normal bowel sounds. Musculoskeletal: No tenderness to extremities, pedal edema, swelling, erythema or deformity. Integumentary: Appropriate color, dry, warm. No cyanosis, erythema, jaundice or rash Neurologic: Non-focal Laboratory Results - last 24 hr 08/20/17 08/20/17 06:40 06:40 WBC 16.0 H RBC 4.00 Hgb 13.1 Hct 39.2 MCV 98.0 H MCH 32.6 MCHC 33.3 RDW 13.2 Plt Count 253 MPV 8.3 Neutrophils % 91.7 H Lymphocytes % 6.3 L D Monocytes % 1.7 L Eosinophils % 0.0 Basophils % 0.3 Sodium 138 Potassium 4.4 Chloride 101 Carbon Dioxide 28 Anion Gap 9 BUN 16 D Creatinine 1.1 Creat Clearance w eGFR > 60 Random Glucose 121 H Calcium 9.1 Total Bilirubin 0.6 AST 7 L D ALT 21 Alkaline Phosphatase 64 Total Protein 6.7 Albumin 3.5 Problem List - Problems (1) Respiratory distress Code(s): R06.00 - DYSPNEA, UNSPECIFIED (2) Wheezing Code(s): R06.2 - WHEEZING (3) Acute hypercapnic respiratory failure Code(s): J96.02 - ACUTE RESPIRATORY FAILURE WITH HYPERCAPNIA (4) Asthma exacerbation Code(s): J45.901 - UNSPECIFIED ASTHMA WITH (ACUTE) EXACERBATION (5) Tobacco abuse Code(s): Z72.0 - TOBACCO USE (6) Tobacco abuse counseling Code(s): Z71.6 - TOBACCO ABUSE COUNSELING (7) Ground glass opacity present on imaging of lung Code(s): R91.8 - OTHER NONSPECIFIC ABNORMAL FINDING OF LUNG FIELD PLAN IV STEROIDS INHALED BRONCHODILATORS O2 MONITOR PEAK FLOW SERUM IGE LEVEL,ALPHA-1- ANTI-TRYPSIN LEVEL OUTPATIENT PFTS OUTPATIENT F/U CHEST CT OUTPATIENT SMOKING CESSATION COUNSELED Dr Hussein
[2017-08-20] MEDS: MONTELUKAST NA 10 MG TABLET PO SCH (21:52)
[2017-08-21] MEDS: ALBUTEROL SO4 2.5/IPRATROPIUM 0.5 INH SOL 3 ML VIAL.NEB. NEB SCH ×4 (00:05→18:51)
[2017-08-21] MEDS: methylPREDNISolone NA SUCC 40 MG/1 ML VIAL IVPB SCH ×4 (02:27→22:00)
[2017-08-21] MEDS: PANTOPRAZOLE 40 MG TABLET (FP) PO SCH (09:20)
--- NOTE | 2017-08-21 11:06 | PN ---
Progress Note (short form) - Note Progress Note: PULMONARY Feels slightly better today. No chest pain. +cough with yellowish sputum. No fevers or chills. Last Vital Signs Temp Pulse Resp BP Pulse Ox 97.8 F 90 20 136/82 96 08/21/17 08:00 08/21/17 08:00 08/21/17 08:00 08/21/17 08:00 08/20/17 20:00 Gen: NAD at rest Heart: RRR Lung: scattered wheeze, good air movement Abd: soft, nontender Ext: no edema CBC, BMP 08/20/17 06:40 08/20/17 06:40 Active Medications Albuterol Sulfate (Ventolin 0.5% -) 1 amp NEB Q4H PRN PRN Reason: SHORT OF BREATH/WHEEZING Albuterol/Ipratropium (Duoneb -) 1 amp NEB QIDR [facility] Last Admin: 08/21/17 06:00 Dose: 1 amp Methylprednisolone Sodium Succinate (Solu-Medrol -) 40 mg IVPB Q6H-IV [facility] Last Admin: 08/21/17 08:42 Dose: 40 mg Montelukast Sodium (Singulair -) 10 mg PO HS [facility] Last Admin: 08/20/17 21:52 Dose: 10 mg Pantoprazole Sodium (Protonix -) 40 mg PO DAILY [facility] Last Admin: 08/21/17 09:20 Dose: 40 mg A/P Acute Asthma Exacerbation Nonspecific Ground Glass Opacities Smoker - will decrease medrol to q8h - inhaled bronchodilators standing and PRN - singulair - outpt f/u of CT findings - outpt PFTs - smoking cessation
[2017-08-21] MEDS ORDERED: guaiFENesin/CODEINE 5 ML UNIT-DOSE CUPS PO PRN (16:08)
--- NOTE | 2017-08-21 16:10 | PN ---
Progress Note, Physician Chief Complaint: AWAKE COUGHING SOB - Current Medication List Current Medications: Active Medications Albuterol Sulfate (Ventolin 0.5% -) 1 amp NEB Q4H PRN PRN Reason: SHORT OF BREATH/WHEEZING Albuterol/Ipratropium (Duoneb -) 1 amp NEB QIDR [facility] Last Admin: 08/21/17 13:02 Dose: 1 amp Methylprednisolone Sodium Succinate (Solu-Medrol -) 40 mg IVPB Q6H-IV [facility] Last Admin: 08/21/17 15:18 Dose: 40 mg Montelukast Sodium (Singulair -) 10 mg PO HS [facility] Last Admin: 08/20/17 21:52 Dose: 10 mg Pantoprazole Sodium (Protonix -) 40 mg PO DAILY [facility] Last Admin: 08/21/17 09:20 Dose: 40 mg - Objective Vital Signs: Vital Signs Temperature 98.5 F 08/21/17 15:12 Pulse Rate 82 08/21/17 15:12 Respiratory Rate 20 08/21/17 15:12 Blood Pressure 130/74 08/21/17 15:12 O2 Sat by Pulse Oximetry (%) 99 08/21/17 12:00 Constitutional: Yes: Mild Distress Eyes: Yes: WNL HENT: Yes: WNL Neck: Yes: WNL Cardiovascular: Yes: WNL Respiratory: Yes: Cough, On Nasal O2, Rhonchi Gastrointestinal: Yes: WNL Genitourinary: Yes: WNL Musculoskeletal: Yes: WNL Extremities: Yes: WNL Edema: No Peripheral Pulses WNL: Yes Integumentary: Yes: WNL Wound/Incision: Yes: Clean/Dry Neurological: Yes: WNL ...Motor Strength: WNL Psychiatric: Yes: WNL Problem List - Problems (1) Asthma exacerbation Code(s): J45.901 - UNSPECIFIED ASTHMA WITH (ACUTE) EXACERBATION Qualifiers: Asthma severity: moderate (2) Respiratory distress Code(s): R06.00 - DYSPNEA, UNSPECIFIED (3) Tobacco abuse Code(s): Z72.0 - TOBACCO USE (4) Tobacco abuse counseling Code(s): Z71.6 - TOBACCO ABUSE COUNSELING (5) Wheezing Code(s): R06.2 - WHEEZING Assessment/Plan IV STEROIDS NEBS ROBITUSSIN AC 02 SUPPORT OOB TO CHAIR PULMONARY F/U
[2017-08-21] MEDS: MONTELUKAST NA 10 MG TABLET PO SCH (22:00)
[2017-08-22] MEDS: methylPREDNISolone NA SUCC 40 MG/1 ML VIAL IVPB SCH ×3 (02:55→21:53)
[2017-08-22] MEDS: ALBUTEROL SO4 2.5/IPRATROPIUM 0.5 INH SOL 3 ML VIAL.NEB. NEB SCH ×5 (05:37→23:40)
--- NOTE | 2017-08-22 07:19 | EKG ---
Test Reason : Blood Pressure : / mmHG Vent. Rate : 069 BPM Atrial Rate : 069 BPM P-R Int : 136 ms QRS Dur : 082 ms QT Int : 408 ms P-R-T Axes : 077 023 031 degrees QTc Int : 437 ms NORMAL SINUS RHYTHM WITH SINUS ARRHYTHMIA POSSIBLE LEFT ATRIAL ENLARGEMENT BORDERLINE ECG NO PREVIOUS ECGS AVAILABLE Confirmed by CHARLES ELIZABETH, CHUY ([id number]) on 08/22/2017 7:19:08 AM Referred By: Confirmed By:CHUY SOTO MD
[2017-08-22] MEDS: PANTOPRAZOLE 40 MG TABLET (FP) PO SCH (09:29)
--- NOTE | 2017-08-22 10:44 | PN ---
Progress Note (short form) - Note Progress Note: PULMONARY Feels slightly improved. No chest pain. +cough with yellowish sputum. No fevers or chills. Last Vital Signs Temp Pulse Resp BP Pulse Ox 97.6 F 64 20 117/72 99 08/22/17 06:00 08/22/17 06:00 08/22/17 06:00 08/22/17 06:00 08/21/17 20:00 Gen: NAD at rest Heart: RRR Lung: scattered wheeze, good air movement Abd: soft, nontender Ext: no edema CBC, BMP 08/20/17 06:40 08/20/17 06:40 Active Medications Albuterol Sulfate (Ventolin 0.5% -) 1 amp NEB Q4H PRN PRN Reason: SHORT OF BREATH/WHEEZING Albuterol/Ipratropium (Duoneb -) 1 amp NEB QIDR [facility] Last Admin: 08/22/17 05:37 Dose: 1 amp Guaifenesin/Codeine Phosphate (Robitussin Ac -) 5 ml PO Q8H PRN PRN Reason: COUGH Methylprednisolone Sodium Succinate (Solu-Medrol -) 40 mg IVPB Q6H-IV [facility] Last Admin: 08/22/17 09:29 Dose: 40 mg Montelukast Sodium (Singulair -) 10 mg PO HS [facility] Last Admin: 08/21/17 22:00 Dose: 10 mg Pantoprazole Sodium (Protonix -) 40 mg PO DAILY [facility] Last Admin: 08/22/17 09:29 Dose: 40 mg A/P Acute Asthma Exacerbation Nonspecific Ground Glass Opacities Smoker - will decrease medrol to q12h - inhaled bronchodilators standing and PRN - singulair - outpt f/u of CT findings - outpt PFTs - smoking cessation
--- NOTE | 2017-08-22 12:51 | PN ---
Progress Note, Physician Chief Complaint: TAPERING STEROIDS DOWN FEELING SLIGHTLY BETTER - Current Medication List Current Medications: Active Medications Albuterol Sulfate (Ventolin 0.5% -) 1 amp NEB Q4H PRN PRN Reason: SHORT OF BREATH/WHEEZING Albuterol/Ipratropium (Duoneb -) 1 amp NEB QIDR [facility] Last Admin: 08/22/17 05:37 Dose: 1 amp Guaifenesin/Codeine Phosphate (Robitussin Ac -) 5 ml PO Q8H PRN PRN Reason: COUGH Methylprednisolone Sodium Succinate (Solu-Medrol -) 40 mg IVPB BID [facility] Montelukast Sodium (Singulair -) 10 mg PO HS [facility] Last Admin: 08/21/17 22:00 Dose: 10 mg Pantoprazole Sodium (Protonix -) 40 mg PO DAILY [facility] Last Admin: 08/22/17 09:29 Dose: 40 mg - Objective Vital Signs: Vital Signs Temperature 97.6 F 08/22/17 06:00 Pulse Rate 64 08/22/17 06:00 Respiratory Rate 20 08/22/17 06:00 Blood Pressure 117/72 08/22/17 06:00 O2 Sat by Pulse Oximetry (%) 99 08/21/17 20:00 Constitutional: Yes: Mild Distress Eyes: Yes: WNL HENT: Yes: WNL Neck: Yes: WNL Cardiovascular: Yes: WNL Respiratory: Yes: Cough, On Nasal O2, Rhonchi Gastrointestinal: Yes: WNL Genitourinary: Yes: WNL Musculoskeletal: Yes: WNL Extremities: Yes: WNL Edema: No Integumentary: Yes: WNL Wound/Incision: Yes: Clean/Dry Neurological: Yes: WNL ...Motor Strength: WNL Psychiatric: Yes: WNL Problem List - Problems (1) Asthma exacerbation Code(s): J45.901 - UNSPECIFIED ASTHMA WITH (ACUTE) EXACERBATION Qualifiers: Asthma severity: moderate (2) Respiratory distress Code(s): R06.00 - DYSPNEA, UNSPECIFIED (3) Tobacco abuse Code(s): Z72.0 - TOBACCO USE (4) Tobacco abuse counseling Code(s): Z71.6 - TOBACCO ABUSE COUNSELING (5) Wheezing Code(s): R06.2 - WHEEZING Assessment/Plan IV STEROIDS TAPER DOEN NEBS ROBITUSSIN AC 02 SUPPORT OOB TO CHAIR PULMONARY F/U
[2017-08-22] MEDS: MONTELUKAST NA 10 MG TABLET PO SCH (21:53)
[2017-08-23] MEDS: ALBUTEROL SO4 2.5/IPRATROPIUM 0.5 INH SOL 3 ML VIAL.NEB. NEB SCH ×3 (05:58→18:32)
[2017-08-23] MEDS: PANTOPRAZOLE 40 MG TABLET (FP) PO SCH (09:57)
[2017-08-23] MEDS: methylPREDNISolone NA SUCC 40 MG/1 ML VIAL IVPB SCH (09:57)
--- NOTE | 2017-08-23 10:47 | DS ---
Physical Examination Vital Signs: Vital Signs Temperature 98.2 F 08/23/17 09:00 Pulse Rate 79 08/23/17 09:00 Respiratory Rate 20 08/23/17 09:00 Blood Pressure 135/83 08/23/17 09:00 O2 Sat by Pulse Oximetry (%) 96 08/23/17 04:00 Constitutional: Yes: No Distress Eyes: Yes: WNL HENT: Yes: WNL Neck: Yes: WNL Cardiovascular: Yes: WNL Respiratory: Yes: Wheezes Gastrointestinal: Yes: WNL Renal/: Yes: WNL Musculoskeletal: Yes: WNL Extremities: Yes: WNL Edema: No Peripheral Pulses WNL: Yes Integumentary: Yes: WNL Wound/Incision: Yes: Clean/Dry Neurological: Yes: WNL ...Motor Strength: WNL Psychiatric: Yes: WNL Discharge Summary Reason For Visit: RESPIRATORY DISTRESS Current Active Problems Acute hypercapnic respiratory failure (Acute) Asthma exacerbation (Acute) Ground glass opacity present on imaging of lung (Acute) Respiratory distress (Acute) Tobacco abuse (Acute) Tobacco abuse counseling (Acute) Wheezing (Acute) Procedures: Principal: CXR/LABS Other Procedures: CTA RULE OUT PE Hospital Course: ADMITTED ACUTE ASTHMA EXACERBATION, TREATED IV ABX/IV STEROIDS, IMPROVED DISCHARGE HOME F/U PULM/PMD IN 1-2 DAYS Condition: Improved - Instructions Diet, Activity, Other Instructions: REG SEE DR ALVARENGA IN [address] MANCINI IN 1 WEEK Referrals: Brodie Alvarenga MD [Primary Care Provider] - Disposition: HOME - Home Medications Comprehensive Discharge Medication List: Ambulatory Orders Prednisone [Deltasone -] 40 mg PO DAILY #8 tablet 08/14/17 Albuterol Sulfate [Proair Respiclick] 90 mcg IH PRN PRN 08/17/17 Benzonatate [Tessalon Pearls -] 100 mg PO TID #21 capsule 08/17/17
--- NOTE | 2017-08-23 12:53 | PN ---
Progress Note (short form) - Note Progress Note: PULMONARY VSS/AFEBRILE ANICTERIC B/L RHONCHI RSR BS+ NO EDEMA LABS/MEDS/NOTES/IMAGING REVIEWED Acute Asthma Exacerbation Nonspecific Ground Glass Opacities Smoker - change to oral prednisone - inhaled bronchodilators standing and PRN - singulair - outpt f/u of CT findings - outpt PFTs - smoking cessation Nabeel JIMENEZ MD
[2017-08-23] MEDS: predniSONE 10 MG TABLET (UD) PO SCH (13:07)
[2017-08-23] MEDS: MONTELUKAST NA 10 MG TABLET PO SCH (22:24)
[2017-08-24] MEDS: ALBUTEROL SO4 2.5/IPRATROPIUM 0.5 INH SOL 3 ML VIAL.NEB. NEB SCH ×4 (06:59→23:19)
[2017-08-24] MEDS: PANTOPRAZOLE 40 MG TABLET (FP) PO SCH (09:11)
[2017-08-24] MEDS: predniSONE 10 MG TABLET (UD) PO SCH (09:11)
--- NOTE | 2017-08-24 10:39 | PN ---
Progress Note, Physician Chief Complaint: CANCEL DISCHARGE RESTART IV STEROIDS FOR RESP DISTRESS COUGH/WHEEZING - Current Medication List Current Medications: Active Medications Albuterol Sulfate (Ventolin 0.5% -) 1 amp NEB Q4H PRN PRN Reason: SHORT OF BREATH/WHEEZING Albuterol/Ipratropium (Duoneb -) 1 amp NEB QIDR [facility] Last Admin: 08/24/17 06:59 Dose: 1 amp Methylprednisolone Sodium Succinate (Solu-Medrol -) 40 mg IVPUSH Q6H-IV [facility] Montelukast Sodium (Singulair -) 10 mg PO HS [facility] Last Admin: 08/23/17 22:24 Dose: 10 mg Pantoprazole Sodium (Protonix -) 40 mg PO DAILY [facility] Last Admin: 08/24/17 09:11 Dose: 40 mg - Objective Vital Signs: Vital Signs Temperature 98.5 F 08/24/17 08:56 Pulse Rate 95 H 08/24/17 08:56 Respiratory Rate 20 08/24/17 08:56 Blood Pressure 126/78 08/24/17 08:56 O2 Sat by Pulse Oximetry (%) 96 08/23/17 20:00 Constitutional: Yes: Moderate Distress Eyes: Yes: WNL HENT: Yes: WNL Neck: Yes: WNL Cardiovascular: Yes: WNL Respiratory: Yes: Cough, On Nasal O2, Rhonchi, SOB on Exertion, Wheezes Gastrointestinal: Yes: WNL Genitourinary: Yes: WNL Musculoskeletal: Yes: WNL Extremities: Yes: WNL Edema: No Peripheral Pulses WNL: Yes Integumentary: Yes: WNL Wound/Incision: Yes: Clean/Dry Neurological: Yes: WNL ...Motor Strength: WNL Psychiatric: Yes: WNL Problem List - Problems (1) Asthma exacerbation Code(s): J45.901 - UNSPECIFIED ASTHMA WITH (ACUTE) EXACERBATION Qualifiers: Asthma severity: moderate (2) Respiratory distress Code(s): R06.00 - DYSPNEA, UNSPECIFIED (3) Tobacco abuse Code(s): Z72.0 - TOBACCO USE (4) Tobacco abuse counseling Code(s): Z71.6 - TOBACCO ABUSE COUNSELING (5) Wheezing Code(s): R06.2 - WHEEZING Assessment/Plan RESTART IV SOLUMEDROL NEBS PULM FOLLOW UP
--- NOTE | 2017-08-24 10:49 | PN ---
Progress Note (short form) - Note Progress Note: PULMONARY Feels slightly improved. No chest pain. Still with cough and wheezing. No fevers or chills. Last Vital Signs Temp Pulse Resp BP Pulse Ox 98.5 F 95 H 20 126/78 96 08/24/17 08:56 08/24/17 08:56 08/24/17 08:56 08/24/17 08:56 08/23/17 20:00 Gen: NAD at rest Heart: RRR Lung: scattered wheeze, good air movement Abd: soft, nontender Ext: no edema CBC, BMP 08/20/17 06:40 08/20/17 06:40 Active Medications Albuterol Sulfate (Ventolin 0.5% -) 1 amp NEB Q4H PRN PRN Reason: SHORT OF BREATH/WHEEZING Albuterol/Ipratropium (Duoneb -) 1 amp NEB QIDR [facility] Last Admin: 08/24/17 06:59 Dose: 1 amp Methylprednisolone Sodium Succinate (Solu-Medrol -) 40 mg IVPUSH Q6H-IV [facility] Mometasone Furoate (Asmanex 220mcg -) 1 puff IH BID [facility] Montelukast Sodium (Singulair -) 10 mg PO HS [facility] Last Admin: 08/23/17 22:24 Dose: 10 mg Pantoprazole Sodium (Protonix -) 40 mg PO DAILY [facility] Last Admin: 08/24/17 09:11 Dose: 40 mg A/P Acute Asthma Exacerbation Nonspecific Ground Glass Opacities Smoker - medrol restarted - can likely change steroids to PO in AM - inhaled bronchodilators standing and PRN - singulair - outpt f/u of CT findings - outpt PFTs - smoking cessation
[2017-08-24] MEDS: MOMETASONE FUROATE 220 MCG/IH INHALER IH SCH ×2 (13:27→21:17)
[2017-08-24] MEDS ORDERED: PT OWN MED DRAWER 7, Y5N ONE ×2 (13:35→21:05)
[2017-08-24] MEDS: methylPREDNISolone NA SUCC 40 MG/1 ML VIAL IVPUSH SCH ×2 (14:54→21:17)
[2017-08-24] MEDS ORDERED: MAGNESIUM HYDROX 2400MG/30ML ORAL SUSPENSION 30 ML CUP PO ONE (19:45)
[2017-08-24] MEDS: MONTELUKAST NA 10 MG TABLET PO SCH (21:17)
[2017-08-25] MEDS: methylPREDNISolone NA SUCC 40 MG/1 ML VIAL IVPUSH SCH ×3 (02:11→14:51)
[2017-08-25] MEDS: ALBUTEROL SO4 2.5/IPRATROPIUM 0.5 INH SOL 3 ML VIAL.NEB. NEB SCH ×2 (06:35→11:11)
[2017-08-25] MEDS ORDERED: PT OWN MED DRAWER 7, Y5N ONE (08:44)
[2017-08-25] MEDS: MOMETASONE FUROATE 220 MCG/IH INHALER IH SCH (09:08)
[2017-08-25] MEDS: PANTOPRAZOLE 40 MG TABLET (FP) PO SCH (09:08)
--- NOTE | 2017-08-25 12:14 | DS ---
Physical Examination Vital Signs: Vital Signs Temperature 97.7 F 08/25/17 05:43 Pulse Rate 85 08/25/17 05:43 Respiratory Rate 20 08/25/17 09:00 Blood Pressure 138/60 08/25/17 05:43 O2 Sat by Pulse Oximetry (%) 97 08/25/17 09:00 Constitutional: Yes: No Distress Eyes: Yes: WNL HENT: Yes: WNL Neck: Yes: WNL Cardiovascular: Yes: WNL Respiratory: Yes: WNL Gastrointestinal: Yes: WNL Renal/: Yes: WNL Musculoskeletal: Yes: WNL Extremities: Yes: WNL Edema: No Peripheral Pulses WNL: Yes Integumentary: Yes: WNL Wound/Incision: Yes: Clean/Dry Neurological: Yes: WNL ...Motor Strength: WNL Psychiatric: Yes: WNL Discharge Summary Reason For Visit: RESPIRATORY DISTRESS Current Active Problems Acute hypercapnic respiratory failure (Acute) Asthma exacerbation (Acute) Ground glass opacity present on imaging of lung (Acute) Respiratory distress (Acute) Tobacco abuse (Acute) Tobacco abuse counseling (Acute) Wheezing (Acute) Procedures: Principal: cta Other Procedures: cxr, labs, admitted iv steroids, nebs, 02 support Hospital Course: see above Condition: Improved - Instructions Diet, Activity, Other Instructions: smoking cessation discussed, REG SEE DR ALVARENGA IN [address] MANCINI IN 1 WEEK Referrals: Brodie Alvarenga MD [Primary Care Provider] - Disposition: HOME - Home Medications Comprehensive Discharge Medication List: Ambulatory Orders Benzonatate [Tessalon Perle -] 100 mg PO TID #21 capsule 08/17/17 Albuterol 2.5/Ipratropium 0.5 [Duoneb -] 1 amp NEB QIDR #120 amp 08/23/17 Albuterol Sulfate [Proair Respiclick] 90 mcg IH PRN PRN #0 inh 08/23/17 Montelukast Na [Singulair -] 10 mg PO HS #30 tablet 08/23/17 Pantoprazole Sodium [Protonix -] 40 mg PO DAILY #30 tab 08/23/17 Prednisone [Deltasone -] 30 mg PO DAILY #30 tablet 08/23/17 Mometasone Furoate [Asmanex 220Mcg -] 1 puff IH BID #1 inhaler 08/25/17
--- NOTE | 2017-08-25 12:15 | PN ---
Progress Note (short form) - Note Progress Note: nicotine patch started f/u with pmd as outpatient Problem List - Problems (1) Asthma exacerbation Code(s): J45.901 - UNSPECIFIED ASTHMA WITH (ACUTE) EXACERBATION Qualifiers: Asthma severity: moderate (2) Respiratory distress Code(s): R06.00 - DYSPNEA, UNSPECIFIED (3) Tobacco abuse Code(s): Z72.0 - TOBACCO USE (4) Tobacco abuse counseling Code(s): Z71.6 - TOBACCO ABUSE COUNSELING (5) Wheezing Code(s): R06.2 - WHEEZING
--- NOTE | 2017-08-25 12:36 | PN ---
Progress Note (short form) - Note Progress Note: PULMONARY VSS/AFEBRILE ANICTERIC MINIMAL END EXP MILD WHEEZE RSR BS+ NO EDEMA LABS/MEDS/NOTES/IMAGING REVIEWED Acute Asthma Exacerbation resolved Nonspecific Ground Glass Opacities to be followed Smoker - changed to oral prednisone with taper as an outpatient - inhaled bronchodilators standing and PRN - singulair - outpt f/u of CT findings - outpt PFTs - smoking cessation - agree with continuing treatment as an outpatient Nabeel JIMENEZ MD
[2017-08-25 13:51] VITALS: BP 131/96; PULSE 89; TEMP 98
== END 2017-08-25 15:39 | disposition home or self-care (01) | DRG 133 ==
LOC: JER 04:47 → JERBED 11:34 → J6S 13:08 → OBSVTOIN 08-21 11:29
PROVIDERS: ADMIT Family Medicine; ATTEND Family Medicine
DX: J96.02 Acute respiratory failure with hypercapnia (principal); J45.901 Unspecified asthma with (acute) exacerbation; F17.210 Nicotine dependence, cigarettes, uncomplicated; F12.10 Cannabis abuse, uncomplicated; J06.9 Acute upper respiratory infection, unspecified; R91.8 Other nonspecific abnormal finding of lung field
CPT/HCPCS: 36415; 71020-TC; 71275-TC; 80053; 83735; 84100; 85025; 93005; 93010; 94640; 99284-25; G0378

== ENCOUNTER 2017-09-02 03:16 | Emergency (ER) | payer OTHER ==
--- NOTE | 2017-09-02 03:21 | PDOC ---
History of Present Illness <Josr Caraballo - Last Filed: 09/02/17 06:26> - General History Source: Patient Exam Limitations: No Limitations - History of Present Illness Initial Comments: 09/02/17 03:22 42 y/o M with a PMHx of asthma presents to the ED via EMS with SOB. Patient was recently admitted with similar symptoms and discharged on 08/25/17. Patient states he was given steroids but has not taken any since he was discharged. He reports associated cough. Denies chest pain. Denies fever, chills, NVD. <Jazmin Oliver - Last Filed: 09/02/17 06:30> <Delaney Suárez - Last Filed: 09/02/17 08:46> - General Chief Complaint: Shortness of Breath Stated Complaint: DIFFICULTY BREATHING Time Seen by Provider: 09/02/17 03:21 Past History - Past Medical History Anemia: No Asthma: Yes Cancer: No Cardiac Disorders: No CVA: No COPD: No CHF: No Dementia: No Diabetes: No GI Disorders: No Disorders: No HTN: No Hypercholesterolemia: No Liver Disease: No Psychiatric Problems: Yes (Depression) Seizures: No Thyroid Disease: No - Surgical History Abdominal Surgery: No Appendectomy: No Cardiac Surgery: No Cholecystectomy: No Lung Surgery: No Neurologic Surgery: No Orthopedic Surgery: No - Immunization History Immunization Up to Date: Yes - Suicide/Smoking/Psychosocial Hx Smoking History: Unknown if ever smoked Have you smoked in the past 12 months: No If you are a former smoker, when did you quit?: 08/2017 'Breaking Loose' booklet given: 08/17/17 Hx Alcohol Use: No Drug/Substance Use Hx: No Substance Use Type: None Hx Substance Use Treatment: No <Josr Caraballo - Last Filed: 09/02/17 06:26> <Jazmin Oliver - Last Filed: 09/02/17 06:30> <Delaney Suárez - Last Filed: 09/02/17 08:46> - Past Medical History Allergies/Adverse Reactions: Allergies Allergy/AdvReac Type Severity Reaction Status Date / Time No Known Allergies Allergy Verified 08/18/17 04:52 Home Medications: Ambulatory Orders Benzonatate [Tessalon Perle -] 100 mg PO TID #21 capsule 08/17/17 Albuterol 2.5/Ipratropium 0.5 [Duoneb -] 1 amp NEB QIDR #120 amp 08/23/17 Albuterol Sulfate [Proair Respiclick] 90 mcg IH PRN PRN #0 inh 08/23/17 Montelukast Na [Singulair -] 10 mg PO HS #30 tablet 08/23/17 Pantoprazole Sodium [Protonix -] 40 mg PO DAILY #30 tab 08/23/17 Prednisone [Deltasone -] 30 mg PO DAILY #30 tablet 08/23/17 Mometasone Furoate [Asmanex 220Mcg -] 1 puff IH BID #1 inhaler 08/25/17 Nicotine [Nicotine Patch] 1 each TD DAILY #30 patch.td24 08/25/17 Review of Systems - Review of Systems Comments:: 09/02/17 03:32 GENERAL/CONSTITUTIONAL: No fever or chills. No weakness. HEAD, EYES, EARS, NOSE AND THROAT: No change in vision. No ear pain or discharge. No sore throat. CARDIOVASCULAR: (+) SOB. No chest pain. RESPIRATORY: (+) cough. No wheezing, or hemoptysis. GASTROINTESTINAL: No nausea, vomiting, diarrhea or constipation. GENITOURINARY: No dysuria, frequency, or change in urination. MUSCULOSKELETAL: No joint or muscle swelling or pain. No neck or back pain. SKIN: No rash NEUROLOGIC: No headache, vertigo, loss of consciousness, or change in strength/ sensation. ENDOCRINE: No increased thirst. No abnormal weight change. HEMATOLOGIC/LYMPHATIC: No anemia, easy bleeding, or history of blood clots. ALLERGIC/IMMUNOLOGIC: No hives or skin allergy. <Jazmin Oliver - Last Filed: 09/02/17 06:30> *Physical Exam - Physical Exam Comments: 09/02/17 03:33 GENERAL: Awake, alert, and fully oriented HEAD: No signs of trauma EYES: PERRLA, EOMI, sclera anicteric, conjunctiva clear ENT: Auricles normal inspection, hearing grossly normal, nares patent, oropharynx clear without exudates. Moist mucosa NECK: Normal ROM, supple, no lymphadenopathy, JVD, or masses LUNGS: Not conversationally dyspneic. Wheezes in all lung murrell. HEART: Regular rate and rhythm, normal S1 and S2, no murmurs, rubs or gallops ABDOMEN: Soft, nontender, normoactive bowel sounds. No guarding, no rebound. No masses EXTREMITIES: Normal range of motion, no edema. No clubbing or cyanosis. No cords, erythema, or tenderness NEUROLOGICAL: Cranial nerves II through XII grossly intact. Normal speech, normal gait SKIN: Warm, Dry, normal turgor, no rashes or lesions noted. <Raad Oliverobhan A - Last Filed: 09/02/17 06:30> - Vital Signs Last Vital Signs Temp Pulse Resp BP Pulse Ox 98.4 F 93 H 32 H 133/83 100 09/02/17 03:29 09/02/17 04:08 09/02/17 03:29 09/02/17 03:29 09/02/17 04:08 <Delaney Suárez - Last Filed: 09/02/17 08:46> Heart Score/ECG Review #1 09/02/17 03:43 NSR with marked sinus arrythmia at 95 bpm #2 09/02/17 06:14 Sinus rhythm with fusion complexes at 96 bpm <Raad Oliverobhan A - Last Filed: 09/02/17 06:30> ED Treatment Course - LABORATORY CBC & Chemistry Diagram: 09/02/17 03:43 09/02/17 03:43 <Josr Caraballo - Last Filed: 09/02/17 06:26> - LABORATORY CBC & Chemistry Diagram: 09/02/17 03:43 09/02/17 03:43 <Raad Oliverobhan A - Last Filed: 09/02/17 06:30> - LABORATORY CBC & Chemistry Diagram: 09/02/17 03:43 09/02/17 03:43 - ADDITIONAL ORDERS Additional order review: Laboratory Results 09/02/17 09/02/17 09/02/17 06:38 03:43 03:43 Sodium 140 Potassium 3.5 D Chloride 105 Carbon Dioxide 25 Anion Gap 10 BUN 16 Creatinine 1.0 Creat Clearance w eGFR > 60 Random Glucose 103 Calcium 8.3 L Total Bilirubin 0.6 AST 18 D ALT 27 D Alkaline Phosphatase 52 Creatine Kinase 160 179 Creatine Kinase Index 0.7 0.7 CK-MB (CK-2) 1.159 1.302 Troponin I < 0.02 < 0.02 Total Protein 6.3 L Albumin 3.5 09/02/17 03:43 RBC 3.82 L MCV 97.7 H MCHC 34.8 RDW 13.7 MPV 7.5 Neutrophils % 72.3 D Lymphocytes % 13.2 D Monocytes % 6.4 D Eosinophils % 7.7 H D Basophils % 0.4 - Medications Given in the ED: ED Medications Discontinued Medications Generic Name Dose Route Start Last Admin Trade Name Cintia PRN Reason Stop Dose Admin Albuterol Sulfate 2 amp 09/02/17 03:23 09/02/17 04:02 Ventolin 0.083% Nebulizer Soln - NEB 09/02/17 03:24 2 amp ONCE ONE Administration Albuterol/Ipratropium 1 amp 09/02/17 03:23 09/02/17 03:57 Duoneb - NEB 09/02/17 03:24 1 amp ONCE ONE Administration Aspirin 324 mg 09/02/17 06:11 09/02/17 06:20 Asa - PO 09/02/17 06:12 324 mg ONCE ONE Administration Sodium Chloride 1,000 mls @ 1,000 mls/hr 09/02/17 03:22 09/02/17 03:57 Normal Saline - IV 09/02/17 04:21 1,000 mls/hr ASDIR STA Administration Levofloxacin 150 mls @ 100 mls/hr 09/02/17 06:25 09/02/17 06:54 Levaquin 750 Mg Premixed Ivpb - IVPB 09/02/17 07:54 100 mls/hr ONCE ONE Administration Magnesium Sulfate 2 gm 09/02/17 03:22 09/02/17 04:49 Magnesium Sulfate IVPB 09/02/17 03:23 2 gm ONCE ONE Administration Methylprednisolone Sodium Succinate 125 mg 09/02/17 03:22 09/02/17 03:57 Solu-Medrol - IVPUSH 09/02/17 03:23 125 mg ONCE ONE Administration <Delaney Suárez - Last Filed: 09/02/17 08:46> Medical Decision Making - Medical Decision Making 09/02/17 06:[address] Dejesus, who believes the patient is homeless and is trying to get admitted for a place to sleep. Dr. Dejesus requests a second set of cardiac enzymes before accepting admission. <Jazmin Oliver - Last Filed: 09/02/17 06:30> - Medical Decision Making 09/02/17 08:45 Dr. Dejesus was paged and notified via phone service. <Delaney Suárez - Last Filed: 09/02/17 08:46> *DC/Admit/Observation/Transfer - Discharge Dispostion Admit: Yes - Attestations Physician Attestion: 09/02/17 03:21 I, Dr. Josr Caraballo, attest that this document has been prepared under my direction and personally reviewed by me in its entirety. I further attest, that it accurately reflects all work, treatment, procedures and medical decision -making performed by me. <Josr Caraballo - Last Filed: 09/02/17 06:26> - Attestations Scribe Attestion: 09/02/17 03:34 Documentation prepared by Jazmin Oliver, acting as front office medical assistant for Josr Caraballo DO. <Jazmin Oliver - Last Filed: 09/02/17 06:30> <Delaney Suárez - Last Filed: 09/02/17 08:46> Diagnosis at time of Disposition: Asthma exacerbation Qualifiers: Asthma severity: moderate Asthma persistence: persistent Qualified Code(s): J45.41 - Moderate persistent asthma with (acute) exacerbation Chest pain Qualifiers: Chest pain type: unspecified Qualified Code(s): R07.9 - Chest pain, unspecified - Discharge Dispostion Condition at time of disposition: Improved
[2017-09-02] MEDS ORDERED: MAGNESIUM SULF 50% (8.12 MEQ/2 ML-1 GM VIAL) IVPB ONE (03:22)
[2017-09-02] MEDS ORDERED: SODIUM CHLORIDE 1,000 ML IV STA (03:22)
[2017-09-02] MEDS ORDERED: methylPREDNISolone NA SUCC 125 MG/2 ML VIAL IVPUSH ONE (03:22)
[2017-09-02] MEDS ORDERED: ALBUTEROL SO4 2.5/IPRATROPIUM 0.5 INH SOL 3 ML VIAL.NEB. NEB ONE ×2 (03:23→03:43)
[2017-09-02] MEDS ORDERED: ALBUTEROL SO4 0.083% IH SOL 2.5 MG/3 ML VIAL.NEB. NEB ONE ×2 (03:23→04:01)
[2017-09-02] MEDS ORDERED: IPRATROPIUM BR 0.02% 0.5 MG/2.5 ML VIAL.NEB. NEB ONE (03:33)
[2017-09-02 03:36] VITALS: BMI 23.0
[2017-09-02] MEDS ORDERED: MAGNESIUM SULF 50% (8.12 MEQ/2 ML-1 GM VIAL) ONE (03:43)
[2017-09-02] MEDS ORDERED: methylPREDNISolone NA SUCC 125 MG/2 ML VIAL ONE (03:44)
[2017-09-02 03:53] LABS: BASOPHIL 0.4 % (0-2.0); EOSINOPHIL 7.7 % (0-4.5); MCHC 34.8 g/dl (32.0-35.9); MEAN CELL VOLUME 97.7 fl (80-96); MEAN PLT VOLUME 7.5 fl (7.5-11.1); NEUTROPHILS 72.3 % (42.8-82.8); PLATELET COUNT 248 K/MM3 (134-434); RDW 13.7 % (11.9-15.9); WHITE BLOOD COUNT 12.8 K/mm3 (4.0-10.0)
[2017-09-02 04:18] LABS: ALBUMIN 3.5 g/dl (3.4-5.0); ALK PHOS 52 U/L (45-117); ANION GAP 10 (8-16); BILIRUBIN,TOTAL 0.6 mg/dL (0.2-1.0); CALCIUM 8.3 mg/dL (8.5-10.1); CO2 25 mmol/L (21-32); CPK 179 IU/L (39-308); SGOT/AST 18 U/L (15-37); SGPT/ALT 27 U/L (12-78); TOT PROT 6.3 g/dl (6.4-8.2); TROPONIN I < 0.02 ng/ml (0.00-0.05)
[2017-09-02 04:27] LABS: GLUCOSE,RANDOM 103 mg/dL (74-106)
[2017-09-02] MEDS ORDERED: NITROGLYCERIN SUBLINGUAL 1/150 0.4 MG TAB SL PRN (06:09)
[2017-09-02] MEDS ORDERED: ASPIRIN 81 MG CHEWABLE TABLETS PO ONE (06:11)
[2017-09-02] MEDS ORDERED: ASPIRIN 325 MG TABLET ONE (06:16)
[2017-09-02] MEDS ORDERED: NITROGLYCERIN SUBLINGUAL 1/150 0.4 MG TAB ONE (06:17)
[2017-09-02] MEDS ORDERED: LEVOFLOXACIN 750 MG IVPB 150 ML IVPB ONE ×2 (06:25→06:49)
[2017-09-02 07:22] LABS: CPK 160 IU/L (39-308); TROPONIN I < 0.02 ng/ml (0.00-0.05)
[2017-09-02] MEDS ORDERED: AZITHROMYCIN 500 MG TABLET PO ONE (09:10)
--- NOTE | 2017-09-02 09:11 | PDOC ---
*Physical Exam - Vital Signs Last Vital Signs Temp Pulse Resp BP Pulse Ox 98.4 F 93 H 32 H 133/83 100 09/02/17 03:29 09/02/17 04:08 09/02/17 03:29 09/02/17 03:29 09/02/17 04:08 ED Treatment Course - LABORATORY CBC & Chemistry Diagram: 09/02/17 03:43 09/02/17 03:43 - ADDITIONAL ORDERS Additional order review: Laboratory Results 09/02/17 09/02/17 09/02/17 06:38 03:43 03:43 Sodium 140 Potassium 3.5 D Chloride 105 Carbon Dioxide 25 Anion Gap 10 BUN 16 Creatinine 1.0 Creat Clearance w eGFR > 60 Random Glucose 103 Calcium 8.3 L Total Bilirubin 0.6 AST 18 D ALT 27 D Alkaline Phosphatase 52 Creatine Kinase 160 179 Creatine Kinase Index 0.7 0.7 CK-MB (CK-2) 1.159 1.302 Troponin I < 0.02 < 0.02 Total Protein 6.3 L Albumin 3.5 09/02/17 03:43 RBC 3.82 L MCV 97.7 H MCHC 34.8 RDW 13.7 MPV 7.5 Neutrophils % 72.3 D Lymphocytes % 13.2 D Monocytes % 6.4 D Eosinophils % 7.7 H D Basophils % 0.4 - Medications Given in the ED: ED Medications Discontinued Medications Generic Name Dose Route Start Last Admin Trade Name Litoq PRN Reason Stop Dose Admin Albuterol Sulfate 2 amp 09/02/17 03:23 09/02/17 04:02 Ventolin 0.083% Nebulizer Soln - NEB 09/02/17 03:24 2 amp ONCE ONE Administration Albuterol/Ipratropium 1 amp 09/02/17 03:23 09/02/17 03:57 Duoneb - NEB 09/02/17 03:24 1 amp ONCE ONE Administration Aspirin 324 mg 09/02/17 06:11 09/02/17 06:20 Asa - PO 09/02/17 06:12 324 mg ONCE ONE Administration Sodium Chloride 1,000 mls @ 1,000 mls/hr 09/02/17 03:22 09/02/17 03:57 Normal Saline - IV 09/02/17 04:21 1,000 mls/hr ASDIR STA Administration Levofloxacin 150 mls @ 100 mls/hr 09/02/17 06:25 09/02/17 06:54 Levaquin 750 Mg Premixed Ivpb - IVPB 09/02/17 07:54 100 mls/hr ONCE ONE Administration Magnesium Sulfate 2 gm 09/02/17 03:22 09/02/17 04:49 Magnesium Sulfate IVPB 09/02/17 03:23 2 gm ONCE ONE Administration Methylprednisolone Sodium Succinate 125 mg 09/02/17 03:22 09/02/17 03:57 Solu-Medrol - IVPUSH 09/02/17 03:23 125 mg ONCE ONE Administration Medical Decision Making - Medical Decision Making 09/02/17 09:13 42 M with h/o asthma, former smoker, presenting with SOB. - CXR clear, no infiltrates - Labs unremarkable, including trop x2 - Pt reassessed s/p nebs, now feeling significantly improved, denying SOB. - Lung exam completely clear at this time - Will DC with course of prednisone and Z-pack for possible COPD exacerbation given h/o smoking - Spoke with Dr. Dejeuss, who agrees that there is no indication for admission at this time and that pt is suitable for outpt f/u. - Discussed plan with pt, who is amenable to outpt f/u Pt is well appearing with normal vitals. He understands need to f/u with PMD on Monday. Clinically stable for DC at this time. *DC/Admit/Observation/Transfer Diagnosis at time of Disposition: Asthma exacerbation Qualifiers: Asthma severity: moderate Asthma persistence: persistent Qualified Code(s): J45.41 - Moderate persistent asthma with (acute) exacerbation Chest pain Qualifiers: Chest pain type: unspecified Qualified Code(s): R07.9 - Chest pain, unspecified - Discharge Dispostion Disposition: HOME Condition at time of disposition: Improved - Prescriptions Prescriptions: Azithromycin 250 mg PO DAILY #4 tablet Prednisone [Prednisone 50 MG TABLETS] 50 mg PO DAILY #5 tablet - Referrals Referrals: Sherrie Dejesus MD [Staff Physician] - - Patient Instructions Printed Discharge Instructions: DI for Acute Bronchitis Additional Instructions: Take the medications as prescribed. Use your albuterol inhaler every 4 hours as needed for coughing or wheezing. Follow up with your primary doctor on Monday. If you experience worsening chest pain, shortness of breath, or any other concerning symptoms, return to the ER immediately. - Attestations Physician Attestion: 09/02/17 09:19 I, Dr. Luke Abreu MD, attest that this document has been prepared under my direction and personally reviewed by me in its entirety. I further attest, that it accurately reflects all work, treatment, procedures and medical decision -making performed by me.
[2017-09-02] MEDS ORDERED: AZITHROMYCIN 500 MG TABLET ONE (09:22)
[2017-09-02 09:37] VITALS: BP 130/80; PULSE 92; TEMP 98.1
--- NOTE | 2017-09-02 09:37 | EKG ---
Test Reason : Blood Pressure : / mmHG Vent. Rate : 095 BPM Atrial Rate : 095 BPM P-R Int : 118 ms QRS Dur : 082 ms QT Int : 310 ms P-R-T Axes : 076 024 037 degrees QTc Int : 389 ms SINUS RHYTHM WITH MARKED SINUS ARRHYTHMIA OTHERWISE NORMAL ECG WHEN COMPARED WITH ECG OF 18-AUG-2017 05:12, NO SIGNIFICANT CHANGE WAS FOUND Confirmed by BHUMIKA MUNROE MD ([id number]) on 09/02/2017 9:37:35 AM Referred By: Confirmed By:BHUMIKA MUNROE MD
--- NOTE | 2017-09-02 09:39 | EKG ---
Test Reason : Blood Pressure : / mmHG Vent. Rate : 096 BPM Atrial Rate : 096 BPM P-R Int : 136 ms QRS Dur : 080 ms QT Int : 350 ms P-R-T Axes : 075 009 030 degrees QTc Int : 442 ms POOR DATA QUALITY, INTERPRETATION MAY BE ADVERSELY AFFECTED SINUS RHYTHM WITH FUSION COMPLEXES OTHERWISE NORMAL ECG WHEN COMPARED WITH ECG OF 02-SEP-2017 03:33, FUSION COMPLEXES ARE NOW PRESENT Confirmed by LUDWIG ELIZABETH, BHUMIKA ([id number]) on 09/02/2017 9:38:57 AM Referred By: Confirmed By:BHUMIKA MUNROE MD
== END 2017-09-02 10:06 | disposition home or self-care (01) ==
LOC: JER 03:16
PROC: 3E0F7GC Introduction of Other Therapeutic Substance into Respiratory Tract, Via Natural or Artificial Opening (ICD-10-PCS; principal; 2017-09-02)
PROC: 3E0F7GC Introduction of Other Therapeutic Substance into Respiratory Tract, Via Natural or Artificial Opening (ICD-10-PCS; 2017-09-02)
PROC: 3E03329 Introduction of Other Anti-infective into Peripheral Vein, Percutaneous Approach (ICD-10-PCS; 2017-09-02)
PROC: 3E033GC Introduction of Other Therapeutic Substance into Peripheral Vein, Percutaneous Approach (ICD-10-PCS; 2017-09-02)
PROC: 3E0233Z Introduction of Anti-inflammatory into Muscle, Percutaneous Approach (ICD-10-PCS; 2017-09-02)
DX: J45.41 Moderate persistent asthma with (acute) exacerbation (principal); R07.9 Chest pain, unspecified; F32.9 Major depressive disorder, single episode, unspecified
CPT/HCPCS: 36415; 71010-TC; 80053; 82550; 82553; 84484; 85025; 93005; 93010; 94640; 96365; 96374; 96375; 99283-25

== ENCOUNTER 2017-09-07 10:47 | Emergency (ER) | payer OTHER ==
[2017-09-07 11:14] VITALS: TEMP 98.2; BMI 23.1
[2017-09-07] MEDS ORDERED: methylPREDNISolone NA SUCC 125 MG/2 ML VIAL IVPB ONE (11:22)
[2017-09-07] MEDS ORDERED: KETOROLAC TROMETHAMINE 30 MG/1 ML VIAL IVPUSH ONE (11:22)
--- NOTE | 2017-09-07 11:53 | PDOC ---
History of Present Illness - General Chief Complaint: Asthma Stated Complaint: DIFFICULTY BREATHING Time Seen by Provider: 09/07/17 11:19 History Source: Patient Exam Limitations: No Limitations - History of Present Illness Initial Comments: 09/07/17 11:25 42-year-old male with long-standing history of asthma presents to the ED with continual cough wheezing and chest achiness for the past day unrelieved with nebulizers and inhalers. Patient states was helping his knees move yesterday and by the evening his symptoms began. Patient denies fever, chills, chest pain , shortness of breath, recent travel, recent illness. patient denies history of intubations. Patient states was seen here a few days ago with similar complaints And was discharged home with antibiotics and steroids which he did not start yet. Timing/Duration: reports: yesterday Severity: reports: moderate Possible Cause: Yes: occasional episodes Modifying Factors: improves with: activity, coughing Associated Symptoms: reports: cough, wheezing Past History - Travel Traveled outside of the country in the last 30 days: No - Past Medical History Allergies/Adverse Reactions: Allergies Allergy/AdvReac Type Severity Reaction Status Date / Time No Known Allergies Allergy Verified 08/18/17 04:52 Home Medications: Ambulatory Orders Benzonatate [Tessalon Perle -] 100 mg PO TID #21 capsule 08/17/17 Albuterol 2.5/Ipratropium 0.5 [Duoneb -] 1 amp NEB QIDR #120 amp 08/23/17 Albuterol Sulfate [Proair Respiclick] 90 mcg IH PRN PRN #0 inh 08/23/17 Montelukast Na [Singulair -] 10 mg PO HS #30 tablet 08/23/17 Pantoprazole Sodium [Protonix -] 40 mg PO DAILY #30 tab 08/23/17 Prednisone [Deltasone -] 30 mg PO DAILY #30 tablet 08/23/17 Mometasone Furoate [Asmanex 220Mcg -] 1 puff IH BID #1 inhaler 08/25/17 Nicotine [Nicotine Patch] 1 each TD DAILY #30 patch.td24 08/25/17 Azithromycin 250 mg PO DAILY #4 tablet 09/02/17 Prednisone [Prednisone 50 MG TABLETS] 50 mg PO DAILY #5 tablet 09/02/17 Anemia: No Asthma: Yes Cancer: No Cardiac Disorders: No CVA: No COPD: No CHF: No Dementia: No Diabetes: No GI Disorders: No Disorders: No HTN: No Hypercholesterolemia: No Liver Disease: No Psychiatric Problems: Yes (Depression) Seizures: No Thyroid Disease: No - Surgical History Abdominal Surgery: No Appendectomy: No Cardiac Surgery: No Cholecystectomy: No Lung Surgery: No Neurologic Surgery: No Orthopedic Surgery: No - Immunization History Immunization Up to Date: Yes - Suicide/Smoking/Psychosocial Hx Smoking History: Former smoker Have you smoked in the past 12 months: Yes Number of Cigarettes Smoked Daily: 60 If you are a former smoker, when did you quit?: 30 days ago Information on smoking cessation initiated: No 'Breaking Loose' booklet given: 08/17/17 Hx Alcohol Use: No Drug/Substance Use Hx: No Substance Use Type: None Hx Substance Use Treatment: No Patient Lives Alone: No Review of Systems - Review of Systems Able to Perform ROS?: Yes Constitutional: No: Symptoms Reported HEENTM: No: Symptoms Reported Respiratory: Yes: Cough, Shortness of Breath. No: Wheezing Cardiac (ROS): No: Symptoms Reported ABD/GI: No: Symptoms Reported Musculoskeletal: Yes: Muscle Pain Integumentary: No: Symptoms Reported Neurological: No: Symptoms reported *Physical Exam - Vital Signs Last Vital Signs Temp Pulse Resp BP Pulse Ox 98.2 F 108 H 20 107/79 100 09/07/17 11:08 09/07/17 11:08 09/07/17 11:08 09/07/17 11:08 09/07/17 11:08 - Physical Exam General Appearance: Yes: Nourished, Appropriately Dressed. No: Apparent Distress HEENT: negative: Pale Conjunctivae Neck: positive: Supple Respiratory/Chest: positive: Lungs Clear, Normal Breath Sounds, Accessory Muscle Use (mild intercostal). negative: Respiratory Distress Cardiovascular: positive: Regular Rhythm, Tachycardia. negative: Murmur Gastrointestinal/Abdominal: positive: Soft. negative: Tenderness Integumentary: positive: Normal Color, Warm, Moist Neurologic: positive: Normal Mood/Affect, Motor Strength 5/5 (ambulatory) ED Treatment Course - LABORATORY CBC & Chemistry Diagram: 09/07/17 11:12 09/07/17 11:12 Medical Decision Making - Medical Decision Making 09/07/17 12:00 Patient here for asthma exacerbation. Patient was given 3 duo nebs in route prior to arrival. Patient had no expiratory expiratory wheeze but was noted with mild intercostal muscle use. Patient was ordered for basic labs, recycling assistant, pulse oximetry and Solu- Medrol. Will reexamine shortly 09/07/17 13:19 Laboratory Tests 09/07/17 09/07/17 11:12 11:12 WBC 10.6 H Hgb 13.1 Hct 39.0 Plt Count 214 Neutrophils % 76.5 Sodium 140 Potassium 3.7 Chloride 105 Carbon Dioxide 27 Anion Gap 8 BUN 12 D Creatinine 1.3 D Random Glucose 92 AST 16 ALT 24 09/07/17 13:21 Patient reexam- lungs clear. No use of accessory muscles. Patient states feeling much better. Patient told to fill the prescription for prednisone and start tomorrow. *DC/Admit/Observation/Transfer Diagnosis at time of Disposition: Asthma exacerbation Qualifiers: Asthma severity: mild Asthma persistence: intermittent Qualified Code(s): J45.21 - Mild intermittent asthma with (acute) exacerbation; J45.21 - Mild intermittent asthma with (acute) exacerbation; J45.21 - Mild intermittent asthma with (acute) exacerbation - Discharge Dispostion Disposition: HOME Condition at time of disposition: Improved - Referrals Referrals: Brodie Yan MD [Primary Care Provider] - - Patient Instructions Printed Discharge Instructions: Asthma -- Adult Additional Instructions: Please take steroids starting tomorrow since your given your first dose here in the ER. Please carry your inhaler with you and use as needed. Please follow up with primary care physician. Return to ED if symptoms worsen despite above recommendations.
[2017-09-07] MEDS ORDERED: KETOROLAC TROMETHAMINE 30 MG/1 ML VIAL ONE (11:57)
[2017-09-07] MEDS ORDERED: methylPREDNISolone NA SUCC 125 MG/2 ML VIAL ONE (11:57)
[2017-09-07 12:26] LABS: BASOPHIL 0.7 % (0-2.0); EOSINOPHIL 9.2 % (0-4.5); MCH 32.9 pg (25.7-33.7); MCHC 33.7 g/dl (32.0-35.9); MEAN CELL VOLUME 97.4 fl (80-96); MEAN PLT VOLUME 7.9 fl (7.5-11.1); NEUTROPHILS 76.5 % (42.8-82.8); PLATELET COUNT 214 K/MM3 (134-434); RDW 13.7 % (11.9-15.9); WHITE BLOOD COUNT 10.6 K/mm3 (4.0-10.0)
[2017-09-07 12:52] LABS: ALBUMIN 3.5 g/dl (3.4-5.0); ALK PHOS 56 U/L (45-117); ANION GAP 8 (8-16); BILIRUBIN,TOTAL 0.6 mg/dL (0.2-1.0); CALCIUM 8.9 mg/dL (8.5-10.1); CO2 27 mmol/L (21-32); CREATININE 1.3 mg/dL (0.7-1.3); GLUCOSE,RANDOM 92 mg/dL (74-106); SGOT/AST 16 U/L (15-37); SGPT/ALT 24 U/L (12-78); TOT PROT 6.8 g/dl (6.4-8.2)
[2017-09-07 13:45] VITALS: BP 117/74; PULSE 74
== END 2017-09-07 13:46 | disposition home or self-care (01) ==
LOC: JER 10:47
PROC: 3E0333Z Introduction of Anti-inflammatory into Peripheral Vein, Percutaneous Approach (ICD-10-PCS; principal; 2017-09-07)
PROC: 3E0333Z Introduction of Anti-inflammatory into Peripheral Vein, Percutaneous Approach (ICD-10-PCS; 2017-09-07)
DX: J45.20 Mild intermittent asthma, uncomplicated (principal)
CPT/HCPCS: 36415; 80053; 85025; 99281-25

== ENCOUNTER 2017-09-28 23:47 | Inpatient (IN) | payer OTHER ==
[2017-09-28] MEDS ORDERED: MAGNESIUM SULF 50% (8.12 MEQ/2 ML-1 GM VIAL) IVPB ONE (23:58)
[2017-09-29] MEDS ORDERED: SODIUM CHLORIDE 0.9% 1000 ML INFUS.BAG IV ONE (00:05)
--- NOTE | 2017-09-29 00:05 | PDOC ---
History of Present Illness - General Stated Complaint: ASTHMA History Source: Patient Exam Limitations: No Limitations - History of Present Illness Initial Comments: 09/29/17 00:00 42-year-old male with a history of smoking and asthma recently admitted in August for asthma/COPD exacerbation here today complaining of cough wheezing and shortness of breath. Patient states symptoms started a few days ago, became progressively worse today. Denies recent fevers chills nausea or vomiting but does have episodes of gagging following coughing fits. Not currently taking steroids, no history of ICU admissions or prior intubations. Unaware of his usual triggers for asthma exacerbations. Patient called EMS and EMS gave him nebulizers, steroids.( decadron 10, and magnesium ) Patient reports minimal relief 09/29/17 00:07 Past History - Past Medical History Allergies/Adverse Reactions: Allergies Allergy/AdvReac Type Severity Reaction Status Date / Time No Known Allergies Allergy Verified 09/29/17 00:11 Home Medications: Ambulatory Orders Albuterol 2.5/Ipratropium 0.5 [Duoneb -] 1 neb NEB Q4H 09/29/17 Gabapentin 100 mg PO DAILY 09/29/17 Mometasone Furoate [Asmanex] 220 mcg IH DAILY 09/29/17 Montelukast Na [Singulair -] 10 mg PO HS 09/29/17 Omeprazole 20 mg PO DAILY 09/29/17 Anemia: No Asthma: Yes Cancer: No Cardiac Disorders: No CVA: No COPD: No CHF: No Dementia: No Diabetes: No GI Disorders: No Disorders: No HTN: No Hypercholesterolemia: No Liver Disease: No Psychiatric Problems: Yes (Depression) Seizures: No Thyroid Disease: No - Surgical History Abdominal Surgery: No Appendectomy: No Cardiac Surgery: No Cholecystectomy: No Lung Surgery: No Neurologic Surgery: No Orthopedic Surgery: No - Immunization History Immunization Up to Date: Yes - Suicide/Smoking/Psychosocial Hx Smoking History: Former smoker Have you smoked in the past 12 months: Yes Number of Cigarettes Smoked Daily: 60 If you are a former smoker, when did you quit?: 30 days ago 'Breaking Loose' booklet given: 08/17/17 Hx Alcohol Use: No Drug/Substance Use Hx: No Substance Use Type: None Hx Substance Use Treatment: No Review of Systems - Review of Systems Constitutional: No: Chills, Diaphoresis HEENTM: No: Eye Pain Respiratory: Yes: Cough, Shortness of Breath, Wheezing, Productive cough Cardiac (ROS): No: Chest Pain, Edema : No: Burning, Dysuria, Discharge Musculoskeletal: No: Back Pain, Gout, Joint Pain Integumentary: No: Bruising, Change in Color All Other Systems: Reviewed and Negative *Physical Exam - Physical Exam General Appearance: Yes: Appropriately Dressed Neck: positive: Trachea midline Respiratory/Chest: positive: Respiratory Distress, Accessory Muscle Use, Wheezing, Other (decreased breath sounds at bases, exp wheezing, mild increase effort) Cardiovascular: positive: Regular Rhythm, S1, S2, Edema, Tachycardia Gastrointestinal/Abdominal: positive: Normal Bowel Sounds, Flat, Soft Integumentary: positive: Normal Color, Dry, Warm Neurologic: positive: Fully Oriented, Alert, Normal Mood/Affect Heart Score/ECG Review #1 General ECG Interpretation: Sinus Rhythm, Normal Rate (sinus tachycardia 104), Normal Intervals, No acute ischemic changes ED Treatment Course - LABORATORY CBC & Chemistry Diagram: 09/29/17 00:53 09/29/17 00:53 - RADIOLOGY Radiology Studies Ordered: Category Date Time Status CXRPORT [CHEST X-RAY PORTABLE*] [RAD] Stat Radiology 09/28/17 23:58 Ordered Medical Decision Making - Medical Decision Making 09/29/17 00:04 42-year-old male with a history of asthma, COPD here with shortness of breath and wheezing and cough. Differential is asthma exacerbation, pneumonia, bronchitis, plan chest x-ray labs do a nabs we'll give magnesium. Steroids given prior to arrival patient will likely require admission based on his initial presentation 09/29/17 01:18 d/w dr. yan, would like pt admitted to dr. alberto. dr alberto [place]. *DC/Admit/Observation/Transfer Diagnosis at time of Disposition: Asthma attack - Referrals Referrals: Brodie Yan MD [Primary Care Provider] - - Patient Instructions - Post Discharge Activity
[2017-09-29] MEDS: ALBUTEROL SO4 2.5/IPRATROPIUM 0.5 INH SOL 3 ML VIAL.NEB. NEB SCH ×8 (00:15→21:48)
[2017-09-29] MEDS ORDERED: MAGNESIUM SULF 50% (8.12 MEQ/2 ML-1 GM VIAL) ONE (00:37)
[2017-09-29] MEDS ORDERED: ALBUTEROL SO4 2.5/IPRATROPIUM 0.5 INH SOL 3 ML VIAL.NEB. NEB ONE (00:37)
[2017-09-29 00:58] LABS: BASOPHIL 0.5 % (0-2.0); EOSINOPHIL 7.5 % (0-4.5); MCH 33.4 pg (25.7-33.7); MCHC 34.3 g/dl (32.0-35.9); MEAN CELL VOLUME 97.2 fl (80-96); MEAN PLT VOLUME 7.8 fl (7.5-11.1); NEUTROPHILS 81.7 % (42.8-82.8); PLATELET COUNT 193 K/MM3 (134-434); RDW 13.6 % (11.9-15.9); WHITE BLOOD COUNT 11.1 K/mm3 (4.0-10.0)
[2017-09-29 01:19] LABS: ALBUMIN 3.2 g/dl (3.4-5.0); ALK PHOS 54 U/L (45-117); ANION GAP 7 (8-16); BILIRUBIN,TOTAL 0.6 mg/dL (0.2-1.0); CALCIUM 8.1 mg/dL (8.5-10.1); CO2 28 mmol/L (21-32); CREATININE 1.4 mg/dL (0.7-1.3); GLUCOSE,RANDOM 108 mg/dL (74-106); SGOT/AST 20 U/L (15-37); SGPT/ALT 30 U/L (12-78); TOT PROT 5.8 g/dl (6.4-8.2)
--- NOTE | 2017-09-29 02:52 | PDOC ---
*Physical Exam - Vital Signs Last Vital Signs Temp Pulse Resp BP Pulse Ox 123 H 16 122/54 100 09/29/17 00:12 09/29/17 00:12 09/29/17 00:12 09/29/17 00:57 ED Treatment Course - LABORATORY CBC & Chemistry Diagram: 09/29/17 00:53 09/29/17 00:53 - ADDITIONAL ORDERS Additional order review: Laboratory Results 09/29/17 00:53 Sodium 143 Potassium 3.5 Chloride 108 H Carbon Dioxide 28 Anion Gap 7 L BUN 11 Creatinine 1.4 H Creat Clearance w eGFR 55.05 Random Glucose 108 H Calcium 8.1 L Total Bilirubin 0.6 AST 20 D ALT 30 D Alkaline Phosphatase 54 Total Protein 5.8 L Albumin 3.2 L 09/29/17 00:53 RBC 3.44 L MCV 97.2 H MCHC 34.3 RDW 13.6 MPV 7.8 Neutrophils % 81.7 Lymphocytes % 6.9 L D Monocytes % 3.4 L Eosinophils % 7.5 H Basophils % 0.5 - Medications Given in the ED: ED Medications Discontinued Medications Generic Name Dose Route Start Last Admin Trade Name Litoq PRN Reason Stop Dose Admin Albuterol/Ipratropium 1 amp 09/28/17 23:45 09/29/17 00:55 Duoneb - NEB 09/29/17 00:31 1 amp Q15M [facility] Administration Magnesium Sulfate 2 gm 09/28/17 23:58 09/29/17 00:56 Magnesium Sulfate IVPB 09/28/17 23:59 2 gm ONCE ONE Administration Sodium Chloride 1,000 ml 09/29/17 00:05 09/29/17 00:55 Normal Saline - IV 09/29/17 00:06 1,000 ml ONCE ONE Administration *DC/Admit/Observation/Transfer Diagnosis at time of Disposition: Asthma attack - Discharge Dispostion Condition at time of disposition: Stable Admit: Yes - Referrals Referrals: Brodie Yan MD [Primary Care Provider] - - Patient Instructions - Post Discharge Activity
[2017-09-29 04:21] VITALS: BMI 24.2
[2017-09-29 09:26] LABS: BASOPHIL 0.8 % (0-2.0); EOSINOPHIL 0.7 % (0-4.5); MCH 32.7 pg (25.7-33.7); MCHC 33.2 g/dl (32.0-35.9); MEAN CELL VOLUME 98.5 fl (80-96); MEAN PLT VOLUME 8.3 fl (7.5-11.1); NEUTROPHILS 90.4 % (42.8-82.8); PLATELET COUNT 185 K/MM3 (134-434); RDW 13.7 % (11.9-15.9); WHITE BLOOD COUNT 9.1 K/mm3 (4.0-10.0)
--- NOTE | 2017-09-29 09:27 | EKG ---
Test Reason : Blood Pressure : / mmHG Vent. Rate : 107 BPM Atrial Rate : 107 BPM P-R Int : 138 ms QRS Dur : 078 ms QT Int : 332 ms P-R-T Axes : 071 014 019 degrees QTc Int : 443 ms SINUS TACHYCARDIA NONSPECIFIC ST ABNORMALITY Confirmed by AGUSTIN ROMANO MD ([id number]) on 09/29/2017 9:26:49 AM Referred By: Confirmed By:AGUSTIN ROMANO MD
[2017-09-29] MEDS: PANTOPRAZOLE 40 MG TABLET (FP) PO SCH (10:08)
[2017-09-29] MEDS: GABAPENTIN 100 MG CAPSULE (FP) PO SCH (10:08)
[2017-09-29] MEDS: methylPREDNISolone NA SUCC 40 MG/1 ML VIAL IVPUSH SCH ×3 (10:09→21:06)
[2017-09-29] MEDS: HEPARIN NA (PORCINE) 5,000 UNITS/ML 1ML VIAL SQ SCH ×2 (10:09→21:10)
--- NOTE | 2017-09-29 10:15 | CON.PULM ---
Consult Consult Specialty:: PULMONARY Referred by:: MULUGETA Reason for Consultation:: COUGH/WHEEZE/SOB - History of Present Illness Chief Complaint: COUGH/WHEEZE/SOB History of Present Illness: 42 AA MALE SMOKER KNOWN TO OUR SERVICE FROM PREVIOUS ADMISSION FOR ASTHMA PRESENTS [place] ACUTE ONSET COUGH/WHEEZE AFTER INHALING SECOND HAND SMOKE AT A DEMOCRAT.M DENIES FEVER CHILLS SWEATS. STATES HE HAS NOT SMOKED. 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 Cardio/Vascular: No: AFIB Pulmonary: Yes: Asthma Gastrointestinal: No: Ascites Hepatobiliary: No: Cirrhosis Renal/: No: Renal Failure Heme/Onc: No: Anemia - Alcohol/Substance Use Hx Alcohol Use: No - Smoking History Smoking history: Former smoker Have you smoked in the past 12 months: Yes Aproximately how many cigarettes per day: 60 If you are a former smoker, when did you quit?: 30 days ago Home Medications - Allergies Allergies/Adverse Reactions: Allergies Allergy/AdvReac Type Severity Reaction Status Date / Time No Known Allergies Allergy Verified 09/29/17 00:11 - Home Medications Home Medications: Ambulatory Orders Albuterol 2.5/Ipratropium 0.5 [Duoneb -] 1 neb NEB Q4H 09/29/17 Gabapentin 100 mg PO DAILY 09/29/17 Mometasone Furoate [Asmanex] 220 mcg IH DAILY 09/29/17 Montelukast Na [Singulair -] 10 mg PO HS 09/29/17 Omeprazole 20 mg PO DAILY 09/29/17 Family Disease History - Family Disease History Family History: Unremarkable Review of Systems - Review of Systems Cardiovascular: reports: Shortness of Breath. denies: Chest Pain Respiratory: reports: Cough, Exercise Intolerance, SOB, SOB on Exertion, Wheezing. denies: Hemoptysis, Orthopnea Gastrointestinal: denies: Abdominal Pain Genitourinary: denies: Burning Breasts: reports: No Symptoms Reported Physical Exam Vital Sings: Vital Signs Temperature 97.4 F L 09/29/17 04:07 Pulse Rate 106 H 09/29/17 04:07 Respiratory Rate 20 09/29/17 04:07 Blood Pressure 120/75 09/29/17 04:07 O2 Sat by Pulse Oximetry (%) 100 09/29/17 04:07 Constitutional: Yes: Calm Eyes: Yes: EOM Intact HENT: Yes: Normocephalic Neck: Yes: Trachea Midline Cardiovascular: Yes: Regular Rate and Rhythm Respiratory: Yes: Wheezes Gastrointestinal: Yes: Normal Bowel Sounds, Soft Edema: No Neurological: Yes: WNL Labs: CBC, BMP 09/29/17 09:00 REST REVIEWED Imaging - Results Chest X-ray: Report Reviewed, Image Reviewed Problem List - Problems (1) Asthma exacerbation Code(s): J45.901 - UNSPECIFIED ASTHMA WITH (ACUTE) EXACERBATION (2) Bronchitis Code(s): J40 - BRONCHITIS, NOT SPECIFIED ACUTE OR CHRONIC (3) Ground glass opacity present on imaging of lung Code(s): R91.8 - OTHER NONSPECIFIC ABNORMAL FINDING OF LUNG FIELD Assessment/Plan A/E ASTHMA NO EVIDENCE TO SUPPORT INFECTIOUS ETIOLOGY STEROIDS/SLAVA/LABA/LAMA/ICS/CHECK IGE LEVEL O2 NEEDED ANTICIPATE 2-3 DAY HOSPITALIZATION DAILY PEAK FLOW ENCOURAGE AMBULATION Nabeel JIMENEZ MD
--- NOTE | 2017-09-29 10:48 | HP ---
Admitting History and Physical - Primary Care Physician PCP: Sherrie Dejesus - Admission Chief Complaint: SOB, Asthma exacerbation History of Present Illness: 42-year-old male with a history of smoking and asthma recently admitted in August for asthma/COPD exacerbation here today complaining of cough wheezing and shortness of breath. Patient states symptoms started a few days ago, became progressively worse today. Denies recent fevers chills nausea or vomiting but does have episodes of gagging following coughing fits. Not currently taking steroids, no history of ICU admissions or prior intubations. Unaware of his usual triggers for asthma exacerbations. 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 Cardiovascular: No: AFIB Pulmonary: Yes: Asthma Gastrointestinal: No: Ascites Hepatobiliary: No: Cirrhosis Renal/: No: Renal Failure Heme/Onc: No: Anemia - Smoking History Smoking history: Former smoker Have you smoked in the past 12 months: Yes Aproximately how many cigarettes per day: 60 If you are a former smoker, when did you quit?: 30 days ago - Alcohol/Substance Use Hx Alcohol Use: No Home Medications - Allergies Allergies/Adverse Reactions: Allergies Allergy/AdvReac Type Severity Reaction Status Date / Time No Known Allergies Allergy Verified 09/29/17 00:11 - Home Medications Home Medications: Ambulatory Orders Albuterol 2.5/Ipratropium 0.5 [Duoneb -] 1 neb NEB Q4H 09/29/17 Gabapentin 100 mg PO DAILY 09/29/17 Mometasone Furoate [Asmanex] 220 mcg IH DAILY 09/29/17 Montelukast Na [Singulair -] 10 mg PO HS 09/29/17 Omeprazole 20 mg PO DAILY 09/29/17 Review of Systems - Review of Systems Constitutional: reports: No Symptoms Eyes: reports: No Symptoms HENT: reports: No Symptoms Neck: reports: No Symptoms Cardiovascular: reports: Shortness of Breath Respiratory: reports: SOB Gastrointestinal: reports: No Symptoms Genitourinary: reports: No Symptoms Breasts: reports: No Symptoms Reported Musculoskeletal: reports: No Symptoms Integumentary: reports: No Symptoms Neurological: reports: No Symptoms Endocrine: reports: No Symptoms Hematology/Lymphatic: reports: No Symptoms Psychiatric: reports: No Symptoms Pain Intensity: 0 Physical Examination Vital Signs: Vital Signs Temperature 97.4 F L 09/29/17 04:07 Pulse Rate 106 H 09/29/17 04:07 Respiratory Rate 20 09/29/17 04:07 Blood Pressure 120/75 09/29/17 04:07 O2 Sat by Pulse Oximetry (%) 100 09/29/17 04:07 Constitutional: Yes: Well Nourished, No Distress, Calm Cardiovascular: Yes: Regular Rate and Rhythm Respiratory: Yes: Regular, Poor Air Entry, SOB, Wheezes (inspiratory RUL) Musculoskeletal: Yes: WNL Extremities: Yes: WNL Edema: No Peripheral Pulses WNL: Yes Labs: CBC, BMP 09/29/17 09:00 Imaging - Results Chest X-ray: Report Reviewed Problem List - Problems (1) Asthma exacerbation Assessment/Plan: -seen by pulmonary -laba/arsh/iv steroids as per pulmonary -nasal o2 as needed Code(s): J45.901 - UNSPECIFIED ASTHMA WITH (ACUTE) EXACERBATION (2) Acute hypercapnic respiratory failure Code(s): J96.02 - ACUTE RESPIRATORY FAILURE WITH HYPERCAPNIA Assessment/Plan see problem list DVT and GI prophylaxis
[2017-09-29 13:20] LABS: ALBUMIN 3.6 g/dl (3.4-5.0); ANION GAP 8 (8-16); BILIRUBIN,TOTAL 0.8 mg/dL (0.2-1.0); CALCIUM 9.1 mg/dL (8.5-10.1); CO2 25 mmol/L (21-32); CREATININE 1.2 mg/dL (0.7-1.3); GLUCOSE,RANDOM 139 mg/dL (74-106); SGOT/AST 19 U/L (15-37); SGPT/ALT 32 U/L (12-78); TOT PROT 6.6 g/dl (6.4-8.2)
[2017-09-29 13:21] LABS: ALK PHOS 57 U/L (45-117)
[2017-09-29 16:38] LABS: FERRITIN 146.926 ng/ml (16.4-293.9); THYROID STIMULATING HORMONE 0.24 uIU/ml (0.358-3.74)
[2017-09-29] MEDS: MONTELUKAST NA 10 MG TABLET PO SCH (21:08)
[2017-09-30] MEDS: methylPREDNISolone NA SUCC 40 MG/1 ML VIAL IVPUSH SCH ×4 (02:55→21:38)
[2017-09-30] MEDS: ALBUTEROL SO4 2.5/IPRATROPIUM 0.5 INH SOL 3 ML VIAL.NEB. NEB SCH ×5 (06:00→22:05)
[2017-09-30 06:06] LABS: SERUM IRON 59 ug/dL (38-169); TOTAL IRON BINDING CAPACITY 307 ug/dL (250-450); UIBC 248 ug/dL (111-343)
--- NOTE | 2017-09-30 09:03 | PN ---
Progress Note, Physician - Current Medication List Current Medications: Active Medications Albuterol/Ipratropium (Duoneb -) 1 amp NEB Q4HWA [facility] Last Admin: 09/30/17 06:00 Dose: Not Given Gabapentin (Neurontin -) 100 mg PO DAILY [facility] Last Admin: 09/29/17 10:08 Dose: 100 mg Heparin Sodium (Porcine) (Heparin -) 5,000 unit SQ BID [facility] Last Admin: 09/29/17 21:10 Dose: 5,000 unit Azithromycin 500 mg/ Dextrose 250 mls @ 250 mls/hr IVPB DAILY [facility] Methylprednisolone Sodium Succinate (Solu-Medrol -) 40 mg IVPUSH Q6H-IV [facility] Last Admin: 09/30/17 08:34 Dose: 40 mg Montelukast Sodium (Singulair -) 10 mg PO HS [facility] Last Admin: 09/29/17 21:08 Dose: 10 mg Pantoprazole Sodium (Protonix -) 40 mg PO DAILY [facility] Last Admin: 09/29/17 10:08 Dose: 40 mg - Objective Vital Signs: Vital Signs Temperature 98 F 09/30/17 06:45 Pulse Rate 96 H 09/30/17 06:45 Respiratory Rate 20 09/30/17 06:45 Blood Pressure 102/65 09/30/17 06:45 O2 Sat by Pulse Oximetry (%) 97 09/29/17 21:00 Cardiovascular: Yes: Regular Rate and Rhythm Respiratory: Yes: Rhonchi, Wheezes Gastrointestinal: Yes: Normal Bowel Sounds, Soft Labs: CBC, BMP 09/29/17 09:00 09/29/17 09:00 Problem List - Problems (1) Asthma exacerbation Assessment/Plan: -seen by pulmonary -laba/arsh/iv steroids as per pulmonary -nasal o2 as needed Code(s): J45.901 - UNSPECIFIED ASTHMA WITH (ACUTE) EXACERBATION (2) Bronchitis Assessment/Plan: ZITHROMAX Code(s): J40 - BRONCHITIS, NOT SPECIFIED ACUTE OR CHRONIC
[2017-09-30] MEDS: ACETAMINOPHEN 325 MG TABLET (FP) PO PRN ×2 (09:10→21:44)
[2017-09-30] MEDS: PANTOPRAZOLE 40 MG TABLET (FP) PO SCH (09:12)
[2017-09-30] MEDS: HEPARIN NA (PORCINE) 5,000 UNITS/ML 1ML VIAL SQ SCH ×2 (09:12→21:38)
[2017-09-30] MEDS: GABAPENTIN 100 MG CAPSULE (FP) PO SCH (09:12)
[2017-09-30] MEDS: AZITHROMYCIN IVPB 500 MG in DEXTROSE 5%-WATER - 250 ML IVPB SCH (10:10)
--- NOTE | 2017-09-30 10:39 | PN ---
Progress Note (short form) - Note Progress Note: Still with congested cough. (+) wheezing No hemoptysis. Intake & Output 09/27/17 09/28/17 09/29/17 09/30/17 23:59 23:59 23:59 23:59 Intake Total 200 Balance 200 Weight 136 lb 9 oz Last Vital Signs Temp Pulse Resp BP Pulse Ox 98.4 F 99 H 20 122/78 97 09/30/17 09:07 09/30/17 09:07 09/30/17 09:07 09/30/17 09:07 09/29/17 21:00 Active Medications Acetaminophen (Tylenol -) 650 mg PO Q4H PRN PRN Reason: HEADACHE Last Admin: 09/30/17 09:10 Dose: 650 mg Albuterol/Ipratropium (Duoneb -) 1 amp NEB Q4HWA [facility] Last Admin: 09/30/17 09:05 Dose: 1 amp Gabapentin (Neurontin -) 100 mg PO DAILY [facility] Last Admin: 09/30/17 09:12 Dose: 100 mg Heparin Sodium (Porcine) (Heparin -) 5,000 unit SQ BID [facility] Last Admin: 09/30/17 09:12 Dose: 5,000 unit Azithromycin 500 mg/ Dextrose 250 mls @ 250 mls/hr IVPB DAILY [facility] Last Admin: 09/30/17 10:10 Dose: 250 mls/hr Methylprednisolone Sodium Succinate (Solu-Medrol -) 40 mg IVPUSH Q6H-IV [facility] Last Admin: 09/30/17 08:34 Dose: 40 mg Montelukast Sodium (Singulair -) 10 mg PO HS [facility] Last Admin: 09/29/17 21:08 Dose: 10 mg Pantoprazole Sodium (Protonix -) 40 mg PO DAILY [facility] Last Admin: 09/30/17 09:12 Dose: 40 mg Constitutional: Yes: NAD Eyes: Yes: EOM Intact HENT: Yes: Normocephalic Neck: Yes: Trachea Midline Cardiovascular: Yes: Regular Rate and Rhythm Respiratory: Yes: Wheezes Gastrointestinal: Yes: Normal Bowel Sounds, Soft Edema: No Neurological: Yes: WNL Labs: Laboratory Results - last 24 hr 09/29/17 09/29/17 09:00 09:00 Sodium 137 Potassium 4.5 D Chloride 104 Carbon Dioxide 25 Anion Gap 8 BUN 11 Creatinine 1.2 Creat Clearance w eGFR > 60 Random Glucose 139 H D Calcium 9.1 Iron 59 TIBC 307 Iron Saturation 19 Ferritin 146.926 Total Bilirubin 0.8 D AST 19 ALT 32 Alkaline Phosphatase 57 Total Protein 6.6 Albumin 3.6 TSH 0.24 L Problem List - Problems (1) Asthma exacerbation Code(s): J45.901 - UNSPECIFIED ASTHMA WITH (ACUTE) EXACERBATION (2) Bronchitis Code(s): J40 - BRONCHITIS, NOT SPECIFIED ACUTE OR CHRONIC (3) Ground glass opacity present on imaging of lung Code(s): R91.8 - OTHER NONSPECIFIC ABNORMAL FINDING OF LUNG FIELD Assessment/Plan BD [place] Medrol O2 as needed Noted on Zmax No smoking Daily PEF Ambulate as tolerated Dr Hussein
[2017-09-30] MEDS: MONTELUKAST NA 10 MG TABLET PO SCH (21:38)
[2017-10-01] MEDS: methylPREDNISolone NA SUCC 40 MG/1 ML VIAL IVPUSH SCH ×4 (02:17→21:00)
[2017-10-01] MEDS: ALBUTEROL SO4 2.5/IPRATROPIUM 0.5 INH SOL 3 ML VIAL.NEB. NEB SCH ×4 (06:46→21:51)
[2017-10-01] MEDS ORDERED: PT OWN MED DRAWER 7, Y5N ONE (09:20)
[2017-10-01] MEDS: GABAPENTIN 100 MG CAPSULE (FP) PO SCH (09:28)
[2017-10-01] MEDS: HEPARIN NA (PORCINE) 5,000 UNITS/ML 1ML VIAL SQ SCH ×2 (09:28→21:00)
[2017-10-01] MEDS: AZITHROMYCIN IVPB 500 MG in DEXTROSE 5%-WATER - 250 ML IVPB SCH (09:28)
[2017-10-01] MEDS: PANTOPRAZOLE 40 MG TABLET (FP) PO SCH (09:28)
--- NOTE | 2017-10-01 10:52 | PN ---
Progress Note (short form) - Note Progress Note: Feels a little better today. Less SOB and wheezing No hemoptysis. Intake & Output 09/28/17 09/29/17 09/30/17 10/01/17 23:59 23:59 23:59 23:59 Intake Total 200 1500 Balance 200 1500 Weight 136 lb 9 oz Last Vital Signs Temp Pulse Resp BP Pulse Ox 98.4 F 92 H 20 150/84 97 10/01/17 09:23 10/01/17 09:23 10/01/17 09:23 10/01/17 09:23 09/30/17 21:00 Active Medications Acetaminophen (Tylenol -) 650 mg PO Q4H PRN PRN Reason: HEADACHE Last Admin: 09/30/17 21:44 Dose: 650 mg Albuterol/Ipratropium (Duoneb -) 1 amp NEB Q4HWA [facility] Last Admin: 10/01/17 09:50 Dose: 1 amp Gabapentin (Neurontin -) 100 mg PO DAILY [facility] Last Admin: 10/01/17 09:28 Dose: 100 mg Heparin Sodium (Porcine) (Heparin -) 5,000 unit SQ BID [facility] Last Admin: 10/01/17 09:28 Dose: 5,000 unit Azithromycin 500 mg/ Dextrose 250 mls @ 250 mls/hr IVPB DAILY [facility] Last Admin: 10/01/17 09:28 Dose: 250 mls/hr Methylprednisolone Sodium Succinate (Solu-Medrol -) 40 mg IVPUSH Q6H-IV [facility] Last Admin: 10/01/17 09:27 Dose: 40 mg Montelukast Sodium (Singulair -) 10 mg PO HS [facility] Last Admin: 09/30/17 21:38 Dose: 10 mg Pantoprazole Sodium (Protonix -) 40 mg PO DAILY [facility] Last Admin: 10/01/17 09:28 Dose: 40 mg Constitutional: Yes: NAD Eyes: Yes: EOM Intact HENT: Yes: Normocephalic Neck: Yes: Trachea Midline Cardiovascular: Yes: Regular Rate and Rhythm Respiratory: Yes: Less Wheezes Gastrointestinal: Yes: Normal Bowel Sounds, Soft Edema: No Neurological: Yes: WNL Labs: Problem List - Problems (1) Asthma exacerbation Code(s): J45.901 - UNSPECIFIED ASTHMA WITH (ACUTE) EXACERBATION (2) Bronchitis Code(s): J40 - BRONCHITIS, NOT SPECIFIED ACUTE OR CHRONIC (3) Ground glass opacity present on imaging of lung Code(s): R91.8 - OTHER NONSPECIFIC ABNORMAL FINDING OF LUNG FIELD Assessment/Plan BD TX Medrol O2 as needed Noted on Zmax No smoking Daily PEF Ambulate as tolerated Can likely change to Prednisone and D/C tomorrow Dr Hussein
--- NOTE | 2017-10-01 14:07 | PN ---
Progress Note, Physician History of Present Illness: feels better less sob - Current Medication List Current Medications: Active Medications Acetaminophen (Tylenol -) 650 mg PO Q4H PRN PRN Reason: HEADACHE Last Admin: 09/30/17 21:44 Dose: 650 mg Albuterol/Ipratropium (Duoneb -) 1 amp NEB Q4HWA [facility] Last Admin: 10/01/17 09:50 Dose: 1 amp Gabapentin (Neurontin -) 100 mg PO DAILY [facility] Last Admin: 10/01/17 09:28 Dose: 100 mg Heparin Sodium (Porcine) (Heparin -) 5,000 unit SQ BID [facility] Last Admin: 10/01/17 09:28 Dose: 5,000 unit Azithromycin 500 mg/ Dextrose 250 mls @ 250 mls/hr IVPB DAILY [facility] Last Admin: 10/01/17 09:28 Dose: 250 mls/hr Methylprednisolone Sodium Succinate (Solu-Medrol -) 40 mg IVPUSH Q6H-IV [facility] Last Admin: 10/01/17 09:27 Dose: 40 mg Montelukast Sodium (Singulair -) 10 mg PO HS [facility] Last Admin: 09/30/17 21:38 Dose: 10 mg Pantoprazole Sodium (Protonix -) 40 mg PO DAILY [facility] Last Admin: 10/01/17 09:28 Dose: 40 mg - Objective Vital Signs: Vital Signs Temperature 98.4 F 10/01/17 09:23 Pulse Rate 92 H 10/01/17 09:23 Respiratory Rate 20 10/01/17 09:23 Blood Pressure 150/84 10/01/17 09:23 O2 Sat by Pulse Oximetry (%) 98 10/01/17 09:00 Cardiovascular: Yes: Regular Rate and Rhythm Respiratory: Yes: Regular, Rhonchi Gastrointestinal: Yes: Normal Bowel Sounds, Soft Labs: CBC, BMP 09/29/17 09:00 09/29/17 09:00 Problem List - Problems (1) Asthma exacerbation Assessment/Plan: -seen by pulmonary -laba/arsh/iv steroids as per pulmonary -nasal o2 as needed Code(s): J45.901 - UNSPECIFIED ASTHMA WITH (ACUTE) EXACERBATION (2) Bronchitis Assessment/Plan: ZITHROMAX Code(s): J40 - BRONCHITIS, NOT SPECIFIED ACUTE OR CHRONIC
[2017-10-01] MEDS: MONTELUKAST NA 10 MG TABLET PO SCH (21:00)
[2017-10-02] MEDS: methylPREDNISolone NA SUCC 40 MG/1 ML VIAL IVPUSH SCH (02:16)
[2017-10-02] MEDS: ALBUTEROL SO4 2.5/IPRATROPIUM 0.5 INH SOL 3 ML VIAL.NEB. NEB SCH ×3 (06:39→10:25)
[2017-10-02] MEDS ORDERED: AZITHROMYCIN 250 MG TABLET PO SCH (06:45)
[2017-10-02] MEDS ORDERED: predniSONE 10 MG TABLET (UD) PO SCH (06:45)
[2017-10-02] MEDS: GABAPENTIN 100 MG CAPSULE (FP) PO SCH (10:26)
[2017-10-02] MEDS: PANTOPRAZOLE 40 MG TABLET (FP) PO SCH (10:26)
[2017-10-02] MEDS: HEPARIN NA (PORCINE) 5,000 UNITS/ML 1ML VIAL SQ SCH (10:26)
--- NOTE | 2017-10-02 11:39 | PN ---
Progress Note (short form) - Note Progress Note: PULMONARY States breathing is better but not at baseline. Still some cough and wheezing. Last Vital Signs Temp Pulse Resp BP Pulse Ox 98.1 F 77 20 118/77 98 10/02/17 07:29 10/02/17 07:29 10/02/17 07:29 10/02/17 07:29 10/01/17 20:47 Gen: NAD at rest, ambulating in halls Heart: RRR Lung: scattered basilar wheezes, rhonchi Abd: soft, nontender Ext: no edema CBC, BMP 09/29/17 09:00 09/29/17 09:00 Active Medications Acetaminophen (Tylenol -) 650 mg PO Q4H PRN PRN Reason: HEADACHE Last Admin: 09/30/17 21:44 Dose: 650 mg Albuterol/Ipratropium (Duoneb -) 1 amp NEB Q4HWA [facility] Last Admin: 10/02/17 09:02 Dose: Not Given Azithromycin (Zithromax -) 250 mg PO DAILY [facility] Last Admin: 10/02/17 10:26 Dose: 250 mg Gabapentin (Neurontin -) 100 mg PO DAILY [facility] Last Admin: 10/02/17 10:26 Dose: 100 mg Heparin Sodium (Porcine) (Heparin -) 5,000 unit SQ BID [facility] Last Admin: 10/02/17 10:26 Dose: 5,000 unit Montelukast Sodium (Singulair -) 10 mg PO HS [facility] Last Admin: 10/01/17 21:00 Dose: 10 mg Pantoprazole Sodium (Protonix -) 40 mg PO DAILY [facility] Last Admin: 10/02/17 10:26 Dose: 40 mg Prednisone (Deltasone -) 30 mg PO DAILY [facility] Last Admin: 10/02/17 10:25 Dose: 30 mg A/P Acute Asthma Exacerbation Acute Bronchitis Smoker - prednisone taper - inhaled bronchodilators - singulair - can be discharged from pulmonary standpoint - should be discharged on a LABA/ICS - outpt PFTs - smoking cessation
[2017-10-02 11:45] VITALS: PULSE 78
[2017-10-02 12:37] VITALS: BP 120/80; TEMP 97.9
== END 2017-10-02 13:54 | disposition home or self-care (01) | DRG 140 ==
LOC: JER 23:47 → JERBED 09-29 02:52 → J8W 09-29 04:03
PROVIDERS: ADMIT Family Medicine; ATTEND Family Medicine
DX: J44.1 Chronic obstructive pulmonary disease with (acute) exacerbation (principal); J96.02 Acute respiratory failure with hypercapnia; F32.89 Other specified depressive episodes; R91.8 Other nonspecific abnormal finding of lung field; J20.9 Acute bronchitis, unspecified; J44.0 Chronic obstructive pulmonary disease with (acute) lower respiratory infection; Z87.891 Personal history of nicotine dependence
CPT/HCPCS: 36415; 71010-TC; 80053; 82728; 83540; 83550; 84443; 85025; 93005; 93010; 94150; 94640; 99284-25; J1644

== ENCOUNTER 2017-10-19 20:20 | Inpatient (IN) | payer OTHER ==
[2017-10-19] MEDS ORDERED: ALBUTEROL SO4 0.083% IH SOL 2.5 MG/3 ML VIAL.NEB. NEB ONE ×2 (20:29→23:11)
[2017-10-19] MEDS ORDERED: DEXAMETHASONE SOD PHOSPHATE 10 MG/1 ML VIAL ONE (20:29)
[2017-10-19] MEDS ORDERED: IPRATROPIUM BR 0.02% 0.5 MG/2.5 ML VIAL.NEB. NEB ONE (20:30)
[2017-10-19] MEDS ORDERED: ACETAMINOPHEN 325 MG TABLET (FP) ONE (20:50)
[2017-10-19] MEDS ORDERED: ACETAMINOPHEN 325 MG TABLET (FP) PO ONE (20:54)
--- NOTE | 2017-10-19 20:58 | PDOC ---
History of Present Illness - General History Source: Patient Exam Limitations: No Limitations - History of Present Illness Initial Comments: 10/19/17 21:04 The patient is a 42 year old male brought via EMS, with a significant past medical history of bronchitis and asthma, who presents to the emergency department with shortness of breath and body aches for the past 4 days. According to EMS they administered Decadron and 2 nebulizer treatments in the field. He reports that he has been hospitalized in the past for his asthma but has never been intubated. The patient denies chest pain, headache and dizziness. Denies fever, chills, nausea, vomit, diarrhea and constipation. Allergies: None Past surgical history: None reported Social history: No alcohol, tobacco or drug use reported <Steven Cazares - Last Filed: 10/19/17 21:36> <Norma Renteria - Last Filed: 10/19/17 23:12> - General Chief Complaint: Asthma Stated Complaint: ASTHMA Time Seen by Provider: 10/19/17 20:43 Past History <Steven Cazares - Last Filed: 10/19/17 21:36> - Past Medical History Anemia: No Asthma: Yes Cancer: No Cardiac Disorders: No CVA: No COPD: No CHF: No Dementia: No Diabetes: No GI Disorders: No Disorders: No HTN: No Hypercholesterolemia: No Liver Disease: No Psychiatric Problems: Yes (Depression) Seizures: No Thyroid Disease: No - Surgical History Abdominal Surgery: No Appendectomy: No Cardiac Surgery: No Cholecystectomy: No Lung Surgery: No Neurologic Surgery: No Orthopedic Surgery: No - Immunization History Immunization Up to Date: Yes - Suicide/Smoking/Psychosocial Hx Smoking History: Unknown if ever smoked Have you smoked in the past 12 months: No Number of Cigarettes Smoked Daily: 60 If you are a former smoker, when did you quit?: 30 days ago Information on smoking cessation initiated: No 'Breaking Loose' booklet given: 08/17/17 Hx Alcohol Use: No Drug/Substance Use Hx: No Substance Use Type: None Hx Substance Use Treatment: No <Norma Renteria - Last Filed: 10/19/17 23:12> - Past Medical History Allergies/Adverse Reactions: Allergies Allergy/AdvReac Type Severity Reaction Status Date / Time No Known Allergies Allergy Verified 10/19/17 20:49 Home Medications: Ambulatory Orders Albuterol 2.5/Ipratropium 0.5 [Duoneb -] 1 neb NEB Q4H 09/29/17 Gabapentin 100 mg PO DAILY 09/29/17 Mometasone Furoate [Asmanex] 220 mcg IH DAILY 09/29/17 Montelukast Na [Singulair -] 10 mg PO HS 09/29/17 Omeprazole 20 mg PO DAILY 09/29/17 Review of Systems - Review of Systems Able to Perform ROS?: Yes Comments:: 10/19/17 21:04 GENERAL/CONSTITUTIONAL: (+) Bodyaches . No fever or chills. No weakness. HEAD, EYES, EARS, NOSE AND THROAT: No change in vision. No ear pain or discharge. No sore throat.- CARDIOVASCULAR: (+) Shortness of breath. No chest pain RESPIRATORY: (+) Cough. No wheezing, or hemoptysis. GASTROINTESTINAL: No nausea, vomiting, diarrhea or constipation. GENITOURINARY: No dysuria, frequency, or change in urination. MUSCULOSKELETAL: No joint or muscle swelling or pain. No neck or back pain. SKIN: No rash NEUROLOGIC: No headache, vertigo, loss of consciousness, or change in strength/ sensation. ENDOCRINE: No increased thirst. No abnormal weight change HEMATOLOGIC/LYMPHATIC: No anemia, easy bleeding, or history of blood clots. ALLERGIC/IMMUNOLOGIC: No hives or skin allergy. <Steven Cazares - Last Filed: 10/19/17 21:36> *Physical Exam - Vital Signs Last Vital Signs Temp Pulse Resp BP Pulse Ox 98.5 F 112 H 20 116/85 100 10/19/17 20:43 10/19/17 20:43 10/19/17 20:43 10/19/17 20:43 10/19/17 20:43 - Physical Exam Comments: 10/19/17 21:05 GENERAL: Awake, alert, and fully oriented, in no acute distress HEAD: No signs of trauma, normocephalic, atraumatic EYES: PERRLA, EOMI, sclera anicteric, conjunctiva clear ENT: Auricles normal inspection, hearing grossly normal, nares patent, oropharynx clear without exudates. Moist mucosa NECK: Normal ROM, supple, no lymphadenopathy, JVD, or masses LUNGS: (+) Diffused wheezing, bronchial cough. Speaks full sentences. HEART: (+) Tachycardia. Normal S1 and S2, no murmurs, rubs or gallops, peripheral pulses normal and equal bilaterally. ABDOMEN: Soft, nontender, normoactive bowel sounds. No guarding, no rebound. No masses EXTREMITIES : Normal inspection, Normal range of motion, no edema. No clubbing or cyanosis. NEUROLOGICAL: Cranial nerves II through XII grossly intact. Normal speech, normal gait, no focal sensorimotor deficits SKIN: Warm, Dry, normal turgor, no rashes or lesions noted. <Steven Cazares - Last Filed: 10/19/17 21:36> - Vital Signs Last Vital Signs Temp Pulse Resp BP Pulse Ox 98.5 F 112 H 20 116/85 100 10/19/17 20:43 10/19/17 20:43 10/19/17 20:43 10/19/17 20:43 10/19/17 20:43 <Norma Renteria - Last Filed: 10/19/17 23:12> Heart Score/ECG Review - ECG Intrepretation Comment:: 10/19/17 23:12 sinus at 100, nl axis, nl interval, no acute st/t wave findings <Norma Renteria - Last Filed: 10/19/17 23:12> ED Treatment Course - Medications Given in the ED: ED Medications Discontinued Medications Generic Name Dose Route Start Last Admin Trade Name Freq PRN Reason Stop Dose Admin Acetaminophen 650 mg 10/19/17 20:54 10/19/17 20:55 Tylenol - PO 10/19/17 20:55 650 mg NOW ONE Administration <tSeven Cazares - Last Filed: 10/19/17 21:36> - LABORATORY CBC & Chemistry Diagram: 10/19/17 21:35 10/19/17 21:35 - Medications Given in the ED: ED Medications Discontinued Medications Generic Name Dose Route Start Last Admin Trade Name Freq PRN Reason Stop Dose Admin Acetaminophen 650 mg 10/19/17 20:54 10/19/17 20:55 Tylenol - PO 10/19/17 20:55 650 mg NOW ONE Administration <Norma Renteria - Last Filed: 10/19/17 23:12> Medical Decision Making - Critical Care Time Total Critical Care Time (minutes): 30 Critical Care Statement: The care of this patient involved high complexity decision making to prevent further life threatening deterioration of the patient 's condition and/or to evaluate & treat vital organ system(s) failure or risk of failure. <Steven Cazares - Last Filed: 10/19/17 21:36> - Critical Care Time Total Critical Care Time (minutes): 30 Critical Care Statement: The care of this patient involved high complexity decision making to prevent further life threatening deterioration of the patient 's condition and/or to evaluate & treat vital organ system(s) failure or risk of failure. - Medical Decision Making 10/19/17 23:01 a/p: 42yo male with asthma exacerbation -hx of asthma, requiring admission, never intubations -c/o subjective f/c -cough- nonproductive -yen -will check labs, nebs, steroids, mag, ivf hydration, reglan -neuro intact will monitor and reassess 10/19/17 23:03 on reassessment, pt with mild end expiraotry wheezing will give another albuterol neb treatment pt will need to stay for obs and further eval of asthma exacerbation 10/19/17 23:11 discussed with [facility] PT for dr. herring who accepts pt to service <Norma Renteria - Last Filed: 10/19/17 23:12> *DC/Admit/Observation/Transfer - Attestations Scribe Attestion: 10/19/17 21:05 Documentation prepared by Steven Cazares, acting as medical record administrator for Norma Renteria MD <Steven Cazares - Last Filed: 10/19/17 21:36> - Discharge Dispostion Admit: Yes - Attestations Physician Attestion: 10/19/17 23:12 I, Dr. Norma Renteria, DO, attest that this document has been prepared under my direction and personally reviewed by me in its entirety. I further attest, that it accurately reflects all work, treatment, procedures and medical decision -making performed by me. <Norma Renteria - Last Filed: 10/19/17 23:12> Diagnosis at time of Disposition: Asthma - Discharge Dispostion Condition at time of disposition: Fair - Referrals Referrals: Brodie Yan MD [Primary Care Provider] - - Patient Instructions - Post Discharge Activity
[2017-10-19] MEDS ORDERED: MAGNESIUM SULF 50% (8.12 MEQ/2 ML-1 GM VIAL) IVPB ONE (20:59)
[2017-10-19] MEDS ORDERED: METOCLOPRAMIDE HCL INJECTION 10 MG/2 ML VIAL IVPUSH ONE (20:59)
[2017-10-19] MEDS ORDERED: ALBUTEROL SO4 2.5/IPRATROPIUM 0.5 INH SOL 3 ML VIAL.NEB. NEB ONE (20:59)
[2017-10-19] MEDS ORDERED: SODIUM CHLORIDE 0.9% 1000 ML INFUS.BAG IV ONE (20:59)
[2017-10-19] MEDS ORDERED: METOCLOPRAMIDE HCL INJECTION 10 MG/2 ML VIAL ONE (21:20)
[2017-10-19] MEDS ORDERED: MAGNESIUM SULF 50% (8.12 MEQ/2 ML-1 GM VIAL) ONE (21:20)
[2017-10-19 21:44] LABS: BASO % 0.5 % (0-2.0); EOS % 9.9 % (0-4.5); MCH 33.2 pg (25.7-33.7); MCHC 33.8 g/dl (32.0-35.9); MEAN CELL VOLUME 98.3 fl (80-96); MEAN PLT VOLUME 8.3 fl (7.5-11.1); NEUT % 79.1 % (42.8-82.8); PLATELET COUNT 214 K/MM3 (134-434); WHITE BLOOD COUNT 11.5 K/mm3 (4.0-10.0)
[2017-10-19 21:54] LABS: VENOUS BLOOD GAS HCO3 28.9 meq/L (19-25); VENOUS PH 7.36 (7.32-7.42)
[2017-10-19 22:16] LABS: ALBUMIN 3.6 g/dl (3.4-5.0); ALK PHOS 60 U/L (45-117); ANION GAP 5 (8-16); BILIRUBIN,TOTAL 0.6 mg/dL (0.2-1.0); CALCIUM 8.8 mg/dL (8.5-10.1); CO2 30 mmol/L (21-32); CREATININE 1.3 mg/dL (0.7-1.3); GLUCOSE,RANDOM 103 mg/dL (74-106); SGPT/ALT 34 U/L (12-78); TOT PROT 6.6 g/dl (6.4-8.2)
[2017-10-19 22:37] LABS: MAGNESIUM 2.2 mg/dL (1.8-2.4); SGOT/AST 23 U/L (15-37)
[2017-10-19] MEDS ORDERED: AZITHROMYCIN IVPB 500 MG in DEXTROSE 5%-WATER - 250 ML IVPB ONE (23:11)
[2017-10-19] MEDS ORDERED: ACETAMINOPHEN 325 MG TABLET (FP) PO PRN (23:37)
[2017-10-19] MEDS ORDERED: SODIUM CHLORIDE 1,000 ML IV SCH (23:45)
[2017-10-20] MEDS ORDERED: ALBUTEROL SO4 2.5/IPRATROPIUM 0.5 INH SOL 3 ML VIAL.NEB. NEB ONE (00:32)
[2017-10-20] MEDS ORDERED: ALBUTEROL SO4 0.083% IH SOL 2.5 MG/3 ML VIAL.NEB. NEB ONE (00:32)
[2017-10-20] MEDS ORDERED: AZITHROMYCIN IVPB 250 ML IVPB ONE (00:32)
[2017-10-20] MEDS: ALBUTEROL SO4 2.5/IPRATROPIUM 0.5 INH SOL 3 ML VIAL.NEB. NEB SCH ×7 (00:33→21:45)
[2017-10-20 02:21] VITALS: BMI 23.9
--- NOTE | 2017-10-20 09:14 | EKG ---
Test Reason : Blood Pressure : / mmHG Vent. Rate : 100 BPM Atrial Rate : 100 BPM P-R Int : 140 ms QRS Dur : 084 ms QT Int : 354 ms P-R-T Axes : 075 023 013 degrees QTc Int : 456 ms NORMAL SINUS RHYTHM NONSPECIFIC ST ABNORMALITY WHEN COMPARED WITH ECG OF 29-SEP-2017 00:59, NO SIGNIFICANT CHANGE WAS FOUND Confirmed by AGUSTIN ROMANO MD ([id number]) on 10/20/2017 9:13:50 AM Referred By: Confirmed By:AGUSTIN ROMANO MD
--- NOTE | 2017-10-20 10:04 | CONSULT ---
Consultation: REQUESTING PROVIDER: CONSULT REQUEST: We have been asked to medically evaluate this patient for asthma exacerbation. HISTORY OF PRESENT ILLNESS: 42M w/ hx of bronchitis, asthma, and depression who presents with 4 days of SOB and body aches. He also endorses fever, chills, productive cough of yellow thick sputum, headaches, wheezing, and chronic URI symptoms. He denies chest pain, abdominal pain, n/v/d/c, and dysuria. Pt was recently hospitalized for an asthma exacerbation from 08/13- 08/23. He states that he does not regularly take his medications. In the ED, pt was given azithromycin, BD, and decadron. Pt states that he was not officially diagnosed with asthma until this year, but he believes that he had it his whole life. He reports having several hospitalizations for asthma this year, but was never intubated. PMH: bronchitis, asthma, and depression PSH: denies Allergies: NKDA Social Hx: 2 PPD since 14yo, quit 3 months ago. former marijuana user, denies alcohol use. Pt lives in a garage alone, and is in and out of a care home. He reports being unemployed and has never worked. Family Hx: denies REVIEW OF SYSTEMS: CONSTITUTIONAL: Absent: diaphoresis, generalized weakness, malaise, loss of appetite, weight change present: fevers, chills HEENT: Absent: throat pain, throat swelling, difficulty swallowing, mouth swelling, ear pain, eye pain, visual changes present: rhinorrhea, nasal congestion, CARDIOVASCULAR: Absent: chest pain, syncope, palpitations, irregular heart rate, lightheadedness , peripheral edema RESPIRATORY: Absent: dyspnea with exertion, orthopnea, stridor, hemoptysis present: cough, shortness of breath, wheezing GASTROINTESTINAL: Absent: abdominal pain, abdominal distension, nausea, vomiting, diarrhea, constipation, melena, hematochezia GENITOURINARY: Absent: dysuria, frequency, urgency, hesitancy, hematuria, flank pain, genital pain MUSCULOSKELETAL: Absent: myalgia, arthralgia, joint swelling, back pain, neck pain SKIN: Absent: rash, itching, pallor HEMATOLOGIC/IMMUNOLOGIC: Absent: easy bleeding, easy bruising, lymphadenopathy, frequent infections ENDOCRINE: Absent: unexplained weight gain, unexplained weight loss, heat intolerance, cold intolerance NEUROLOGIC: Absent: headache, focal weakness or paresthesias, dizziness, unsteady gait, seizure, mental status changes, bladder or bowel incontinence PSYCHIATRIC: Absent: anxiety, depression, suicidal or homicidal ideation, hallucinations. PHYSICAL EXAMINATION Vital Signs - 24 hr 10/19/17 10/19/17 10/20/17 20:43 23:30 00:50 Temperature 98.5 F 98.1 F Pulse Rate 112 H 105 H Pulse Rate [ 89 Apical] Respiratory 20 20 18 Rate Blood Pressure 116/85 114/77 Blood Pressure 112/77 [Left Arm] O2 Sat by Pulse 100 100 Oximetry (%) 10/20/17 10/20/17 06:19 06:57 Temperature 98.1 F Pulse Rate 93 H Pulse Rate [ Apical] Respiratory 20 Rate Blood Pressure 111/67 Blood Pressure [Left Arm] O2 Sat by Pulse 98 Oximetry (%) GENERAL: middle aged male, awake, alert, and fully oriented, in no acute distress. NECK: Normal range of motion, supple without lymphadenopathy, JVD, or masses. LUNGS: diffuse wheezing HEART: Regular rate and rhythm, normal S1 and S2 without murmur, rub or gallop. ABDOMEN: Soft, nontender, not distended, normoactive bowel sounds, no guarding, no rebound, no masses. No hepatomegaly or splenomegaly. MUSCULOSKELETAL: No LE edema NEUROLOGICAL: Cranial nerves II-XII intact. Normal speech. Normal gait. Laboratory Results - last 24 hr 10/19/17 10/19/17 10/19/17 21:35 21:35 21:35 WBC 11.5 H RBC 4.04 Hgb 13.4 Hct 39.7 MCV 98.3 H MCH 33.2 MCHC 33.8 RDW 14.0 Plt Count 214 MPV 8.3 Neutrophils % 79.1 Lymphocytes % 8.3 D Monocytes % 2.2 L Eosinophils % 9.9 H D Basophils % 0.5 VBG pH 7.36 POC VBG pCO2 52.3 H POC VBG pO2 28.7 Mixed VBG HCO3 28.9 H Sodium 139 Potassium 4.3 Chloride 104 Carbon Dioxide 30 Anion Gap 5 L BUN 15 D Creatinine 1.3 Creat Clearance w eGFR 59.97 Random Glucose 103 D Lactic Acid Calcium 8.8 Magnesium 2.2 Total Bilirubin 0.6 D AST 23 D ALT 34 Alkaline Phosphatase 60 Total Protein 6.6 Albumin 3.6 10/20/17 02:05 WBC RBC Hgb Hct MCV MCH MCHC RDW Plt Count MPV Neutrophils % Lymphocytes % Monocytes % Eosinophils % Basophils % VBG pH POC VBG pCO2 POC VBG pO2 Mixed VBG HCO3 Sodium Potassium Chloride Carbon Dioxide Anion Gap BUN Creatinine Creat Clearance w eGFR Random Glucose Lactic Acid 1.3 Calcium Magnesium Total Bilirubin AST ALT Alkaline Phosphatase Total Protein Albumin Active Medications Generic Name Dose Route Start Last Admin Trade Name Freq PRN Reason Stop Dose Admin Acetaminophen 650 mg 10/19/17 23:37 Tylenol - PO Q4H PRN FEVER OR PAIN Albuterol/Ipratropium 1 amp 10/19/17 23:45 10/20/17 06:40 Duoneb - NEB 1 amp Q4HPO [facility] Administration Gabapentin 100 mg 10/20/17 10:00 Neurontin - PO DAILY [facility] Sodium Chloride 1,000 mls @ 75 mls/hr 10/19/17 23:45 10/20/17 00:33 Normal Saline - IV 75 mls/hr ASDIR [facility] Administration Mometasone Furoate 1 puff 10/20/17 22:00 Asmanex 220mcg - IH HS [facility] Montelukast Sodium 10 mg 10/20/17 22:00 Singulair - PO HS [facility] Pantoprazole Sodium 20 mg 10/20/17 10:00 Protonix - PO DAILY [facility] CXR: no acute pathology ASSESSMENT/PLAN: 42M w/ hx of bronchitis, asthma, and depression who presents with 4 days of SOB and body aches. #SOB -likely 2/2 acute asthma exacerbation -BD -steroids -O2 via NC -incentive spirometry -serial peak flows Rest of care per medical team. Case to be discussed with attending, Dr. Martinez. Dispo: We will continue to follow the patient. Thank you for this consultative opportunity. -Gavino Muller MD PGY1 Pulmonology Team Visit type - Emergency Visit Emergency Visit: Yes ED Registration Date: 10/19/17 Care time: The patient presented to the Emergency Department on the above date and was hospitalized for further evaluation of their emergent condition. - New Patient This patient is new to me today: Yes Date on this admission: 10/20/17 - Critical Care Critical Care patient: No
[2017-10-20] MEDS: GABAPENTIN 100 MG CAPSULE (FP) PO SCH (11:00)
[2017-10-20] MEDS: PANTOPRAZOLE 20 MG TABLET (FP) PO SCH (11:01)
--- NOTE | 2017-10-20 11:50 | HP ---
Admitting History and Physical - Past Medical History Pulmonary: Yes: Asthma - Smoking History Smoking history: Unknown if ever smoked Have you smoked in the past 12 months: No Aproximately how many cigarettes per day: 60 If you are a former smoker, when did you quit?: 30 days ago - Alcohol/Substance Use Hx Alcohol Use: No Home Medications - Allergies Allergies/Adverse Reactions: Allergies Allergy/AdvReac Type Severity Reaction Status Date / Time No Known Allergies Allergy Verified 10/19/17 20:49 - Home Medications Home Medications: Ambulatory Orders Albuterol 2.5/Ipratropium 0.5 [Duoneb -] 1 neb NEB Q4H 09/29/17 Gabapentin 200 mg PO DAILY 09/29/17 Mometasone Furoate [Asmanex] 220 mcg IH DAILY 09/29/17 Montelukast Na [Singulair -] 10 mg PO HS 09/29/17 Omeprazole 20 mg PO DAILY 09/29/17 Olanzapine [Zyprexa] 2.5 HS 10/20/17 Omeprazole Magnesium [Prilosec] 40 mg PO 10/20/17 Physical Examination Vital Signs: Vital Signs Temperature 97.9 F 10/20/17 10:00 Pulse Rate 89 10/20/17 10:00 Respiratory Rate 18 10/20/17 10:00 Blood Pressure 127/72 10/20/17 10:00 O2 Sat by Pulse Oximetry (%) 98 10/20/17 06:57 Labs: CBC, BMP 10/19/17 21:35 10/19/17 21:35
--- NOTE | 2017-10-20 13:47 | HP ---
Admitting History and Physical - Primary Care Physician PCP: Sherrie Dejesus - Admission Chief Complaint: DYSONEA/ACUTE ASTHMA History of Present Illness: The patient is a 42 year old male brought via EMS, with a significant past medical history of bronchitis and asthma, who presents to the emergency department with shortness of breath and body aches for the past 4 days. According to EMS they administered Decadron and 2 nebulizer treatments in the field. He reports that he has been hospitalized in the past for his asthma but has never been intubated. History Source: Patient, Medical Record - Past Medical History Pulmonary: Yes: Asthma - Smoking History Smoking history: Unknown if ever smoked Have you smoked in the past 12 months: No Aproximately how many cigarettes per day: 60 If you are a former smoker, when did you quit?: 30 days ago - Alcohol/Substance Use Hx Alcohol Use: No Home Medications - Allergies Allergies/Adverse Reactions: Allergies Allergy/AdvReac Type Severity Reaction Status Date / Time No Known Allergies Allergy Verified 10/19/17 20:49 - Home Medications Home Medications: Ambulatory Orders Albuterol 2.5/Ipratropium 0.5 [Duoneb -] 1 neb NEB Q4H 09/29/17 Gabapentin 200 mg PO DAILY 09/29/17 Mometasone Furoate [Asmanex] 220 mcg IH DAILY 09/29/17 Montelukast Na [Singulair -] 10 mg PO HS 09/29/17 Omeprazole 20 mg PO DAILY 09/29/17 Olanzapine [Zyprexa] 2.5 HS 10/20/17 Omeprazole Magnesium [Prilosec] 40 mg PO 10/20/17 Review of Systems - Review of Systems Constitutional: reports: Loss of Appetite Eyes: reports: No Symptoms HENT: reports: No Symptoms Neck: reports: No Symptoms Cardiovascular: reports: No Symptoms Respiratory: reports: Cough, SOB Gastrointestinal: reports: No Symptoms Genitourinary: reports: No Symptoms Musculoskeletal: reports: No Symptoms Integumentary: reports: No Symptoms Neurological: reports: No Symptoms Endocrine: reports: No Symptoms Hematology/Lymphatic: reports: No Symptoms Psychiatric: reports: No Symptoms Physical Examination Vital Signs: Vital Signs Temperature 97.9 F 10/20/17 10:00 Pulse Rate 89 10/20/17 10:00 Respiratory Rate 18 10/20/17 10:00 Blood Pressure 127/72 10/20/17 10:00 O2 Sat by Pulse Oximetry (%) 98 10/20/17 06:57 Constitutional: Yes: Moderate Distress Eyes: Yes: WNL HENT: Yes: WNL Neck: Yes: WNL Cardiovascular: Yes: WNL Respiratory: Yes: On Nasal O2, Rhonchi, Wheezes Gastrointestinal: Yes: WNL Renal/: Yes: WNL Musculoskeletal: Yes: WNL Extremities: Yes: WNL Edema: No Peripheral Pulses WNL: Yes Integumentary: Yes: WNL Wound/Incision: Yes: Clean/Dry Neurological: Yes: WNL ...Motor Strength: WNL Psychiatric: Yes: WNL Labs: CBC, BMP 10/19/17 21:35 10/19/17 21:35 Imaging - Results Chest X-ray: Report Reviewed Problem List - Problems (1) Asthma Code(s): J45.909 - UNSPECIFIED ASTHMA, UNCOMPLICATED Qualifiers: Asthma severity: severe Asthma persistence: persistent Asthma complication type: with acute exacerbation Qualified Code(s): J45.51 - Severe persistent asthma with (acute) exacerbation (2) Acute hypercapnic respiratory failure Code(s): J96.02 - ACUTE RESPIRATORY FAILURE WITH HYPERCAPNIA (3) Asthma exacerbation Code(s): J45.901 - UNSPECIFIED ASTHMA WITH (ACUTE) EXACERBATION Qualifiers: Asthma severity: severe Asthma persistence: persistent Qualified Code(s) : J45.51 - Severe persistent asthma with (acute) exacerbation (4) Bronchitis Code(s): J40 - BRONCHITIS, NOT SPECIFIED ACUTE OR CHRONIC Assessment/Plan PULMONARY EVAL STEROIDS IV NEBS 02 SUPPORT OOB TO CHAIR DVT PROPHYLAXIS
--- NOTE | 2017-10-20 13:54 | PN ---
Teaching Attending Note Name of Resident: Gavino Muller ATTENDING PHYSICIAN STATEMENT I saw and evaluated the patient. I reviewed the resident's note and discussed the case with the resident. I agree with the resident's findings and plan as documented. SUBJECTIVE:cough/wheeze/sob OBJECTIVE:scattered exp wheeze ASSESSMENT AND PLAN: A/E B.ASTHMA IV STEROIDS/SLAVA/LABA/ICS/SINGULAIR/ANTIBIOTICS DAILY PEAK FLOW/INFLU SWAB/URINE AGS/IGE LEVEL WILL FOLLOW Nabeel JIMENEZ MD
[2017-10-20] MEDS ORDERED: CEFTRIAXONE 1 GM in DEXTROSE 5%-WATER - 50 ML IVPB SCH (14:00)
[2017-10-20] MEDS ORDERED: PT OWN MED DRAWER 7, Y5N ONE (14:14)
[2017-10-20] MEDS: CEFTRIAXONE 1 G/50 ML PREMIX 50 ML IVPB SCH (14:26)
[2017-10-20] MEDS: methylPREDNISolone NA SUCC 40 MG/1 ML VIAL IVPUSH SCH ×2 (14:40→18:37)
[2017-10-20] MEDS: AZITHROMYCIN 250 MG TABLET PO SCH (15:36)
[2017-10-20] MEDS: MONTELUKAST NA 10 MG TABLET PO SCH (22:36)
[2017-10-20] MEDS: MOMETASONE FUROATE 220 MCG/IH INHALER IH SCH (22:36)
[2017-10-21] MEDS: methylPREDNISolone NA SUCC 40 MG/1 ML VIAL IVPUSH SCH ×3 (01:43→17:21)
[2017-10-21] MEDS: ALBUTEROL SO4 2.5/IPRATROPIUM 0.5 INH SOL 3 ML VIAL.NEB. NEB SCH ×6 (02:34→22:20)
[2017-10-21] MEDS: GABAPENTIN 100 MG CAPSULE (FP) PO SCH (09:44)
[2017-10-21] MEDS: AZITHROMYCIN 250 MG TABLET PO SCH (09:44)
[2017-10-21] MEDS: PANTOPRAZOLE 20 MG TABLET (FP) PO SCH (09:44)
[2017-10-21] MEDS: CEFTRIAXONE 1 G/50 ML PREMIX 50 ML IVPB SCH (09:44)
--- NOTE | 2017-10-21 13:44 | PN ---
Progress Note, Physician History of Present Illness: STILL WITH COUGH AND WHEEZING SITTING UP LOOKS COMFORTABLE - Current Medication List Current Medications: Active Medications Acetaminophen (Tylenol -) 650 mg PO Q4H PRN PRN Reason: FEVER OR PAIN Albuterol/Ipratropium (Duoneb -) 1 amp NEB Q4HPO [facility] Last Admin: 10/21/17 09:30 Dose: 1 amp Azithromycin (Zithromax -) 250 mg PO DAILY [facility] Last Admin: 10/21/17 09:44 Dose: 250 mg Gabapentin (Neurontin -) 100 mg PO DAILY [facility] Last Admin: 10/21/17 09:44 Dose: 100 mg CEFTRIAXONE 1 G/50 ML PREMIX (Ceftriaxone 1 Gm-D5w Bag) 50 mls @ 100 mls/hr IVPB DAILY [facility] Last Admin: 10/21/17 09:44 Dose: 100 mls/hr Methylprednisolone Sodium Succinate (Solu-Medrol -) 40 mg IVPUSH Q8H-IV [facility] Last Admin: 10/21/17 09:45 Dose: 40 mg Mometasone Furoate (Asmanex 220mcg -) 1 puff IH HS [facility] Last Admin: 10/20/17 22:36 Dose: 1 puff Montelukast Sodium (Singulair -) 10 mg PO HS [facility] Last Admin: 10/20/17 22:36 Dose: 10 mg Pantoprazole Sodium (Protonix -) 20 mg PO DAILY [facility] Last Admin: 10/21/17 09:44 Dose: 20 mg - Objective Vital Signs: Vital Signs Temperature 98 F 10/21/17 09:43 Pulse Rate 97 H 10/21/17 09:43 Respiratory Rate 21 10/21/17 09:43 Blood Pressure 126/76 10/21/17 09:43 O2 Sat by Pulse Oximetry (%) 98 10/20/17 23:00 Cardiovascular: Yes: Regular Rate and Rhythm Respiratory: Yes: Rhonchi, Wheezes Gastrointestinal: Yes: Normal Bowel Sounds, Soft Edema: No Labs: CBC, BMP 10/19/17 21:35 10/19/17 21:35 Problem List - Problems (1) Asthma exacerbation Assessment/Plan: ON IV STEROIDS ON NEBS ON ABX PULM ON CASE Code(s): J45.901 - UNSPECIFIED ASTHMA WITH (ACUTE) EXACERBATION Qualifiers: Asthma severity: severe Asthma persistence: persistent Qualified Code(s) : J45.51 - Severe persistent asthma with (acute) exacerbation (2) Bronchitis Assessment/Plan: ON BARBARA AND ELIANA Code(s): J40 - BRONCHITIS, NOT SPECIFIED ACUTE OR CHRONIC
--- NOTE | 2017-10-21 14:21 | PN ---
Progress Note (short form) - Note Progress Note: PULMONARY VSS/AFEBRILE SUBJECTIVE IMPROVEMENT ANICTERIC DIFFUSE MODERATE EXP RHONCHI S1S2 BS+ NONTENDER NO EDEMA PEAK FLOW 300 L/M LABS/MEDS/NOTES/IMAGES/MICRO REVIEWED ASSESSMENT AND PLAN: A/E B.ASTHMA IV STEROIDS/SLAVA/LABA/ICS/SINGULAIR/ANTIBIOTICS WILL FOLLOW Nabeel JIMENEZ MD
[2017-10-21] MEDS: HEPARIN NA (PORCINE) 5,000 UNITS/ML 1ML VIAL SQ SCH ×2 (15:43→21:36)
[2017-10-21] MEDS ORDERED: BISACODYL 5 MG TABLET.DR (FP) PO ONE ×2 (16:30→17:15)
[2017-10-21] MEDS ORDERED: PT OWN MED DRAWER 7, Y5N ONE (16:58)
[2017-10-21] MEDS: MONTELUKAST NA 10 MG TABLET PO SCH (21:35)
[2017-10-21] MEDS: MOMETASONE FUROATE 220 MCG/IH INHALER IH SCH (21:35)
[2017-10-21] MEDS: OLANZapine 2.5 MG TABLET PO SCH (21:36)
[2017-10-22] MEDS: methylPREDNISolone NA SUCC 40 MG/1 ML VIAL IVPUSH SCH ×3 (01:35→17:31)
[2017-10-22] MEDS: ALBUTEROL SO4 2.5/IPRATROPIUM 0.5 INH SOL 3 ML VIAL.NEB. NEB SCH ×6 (02:30→22:25)
[2017-10-22] MEDS ORDERED: PT OWN MED DRAWER 7, Y5N ONE (08:54)
[2017-10-22] MEDS: CEFTRIAXONE 1 G/50 ML PREMIX 50 ML IVPB SCH (09:02)
[2017-10-22] MEDS: AZITHROMYCIN 250 MG TABLET PO SCH (09:03)
[2017-10-22] MEDS: PANTOPRAZOLE 20 MG TABLET (FP) PO SCH (09:03)
[2017-10-22] MEDS: HEPARIN NA (PORCINE) 5,000 UNITS/ML 1ML VIAL SQ SCH ×2 (09:03→21:28)
[2017-10-22] MEDS: GABAPENTIN 100 MG CAPSULE (FP) PO SCH (09:03)
--- NOTE | 2017-10-22 12:39 | PN ---
Progress Note (short form) - Note Progress Note: PULMONARY VSS/AFEBRILE SUBJECTIVE IMPROVEMENT ANICTERIC DIFFUSE MODERATE EXP RHONCHI/WHEEZE S1S2 BS+ NONTENDER NO EDEMA PEAK FLOW 310 L/M LABS/MEDS/NOTES/IMAGES/MICRO REVIEWED ASSESSMENT AND PLAN: A/E B.ASTHMA IV STEROIDS/SLAVA/LABA/ICS/SINGULAIR/ANTIBIOTICS WILL FOLLOW HOPEFULLY DISCHARGE MAYA JIMENEZ MD
--- NOTE | 2017-10-22 13:35 | PN ---
Progress Note, Physician - Current Medication List Current Medications: Active Medications Acetaminophen (Tylenol -) 650 mg PO Q4H PRN PRN Reason: FEVER OR PAIN Albuterol/Ipratropium (Duoneb -) 1 amp NEB Q4HPO [facility] Last Admin: 10/22/17 09:30 Dose: 1 amp Azithromycin (Zithromax -) 250 mg PO DAILY [facility] Last Admin: 10/22/17 09:03 Dose: 250 mg Gabapentin (Neurontin -) 100 mg PO DAILY [facility] Last Admin: 10/22/17 09:03 Dose: 100 mg Heparin Sodium (Porcine) (Heparin -) 5,000 unit SQ BID [facility] Last Admin: 10/22/17 09:03 Dose: 5,000 unit CEFTRIAXONE 1 G/50 ML PREMIX (Ceftriaxone 1 Gm-D5w Bag) 50 mls @ 100 mls/hr IVPB DAILY [facility] Last Admin: 10/22/17 09:02 Dose: 100 mls/hr Methylprednisolone Sodium Succinate (Solu-Medrol -) 40 mg IVPUSH Q8H-IV [facility] Last Admin: 10/22/17 09:02 Dose: 40 mg Mometasone Furoate (Asmanex 220mcg -) 1 puff IH HS [facility] Last Admin: 10/21/17 21:35 Dose: 1 puff Montelukast Sodium (Singulair -) 10 mg PO HS [facility] Last Admin: 10/21/17 21:35 Dose: 10 mg Olanzapine (Zyprexa -) 2.5 mg PO HS [facility] Last Admin: 10/21/17 21:36 Dose: 2.5 mg Pantoprazole Sodium (Protonix -) 20 mg PO DAILY [facility] Last Admin: 10/22/17 09:03 Dose: 20 mg - Objective Vital Signs: Vital Signs Temperature 98.1 F 10/21/17 15:04 Pulse Rate 82 10/21/17 23:00 Respiratory Rate 20 10/21/17 23:00 Blood Pressure 130/85 10/21/17 23:00 O2 Sat by Pulse Oximetry (%) 98 10/21/17 21:00 Cardiovascular: Yes: S1, S2 Respiratory: Yes: Rhonchi, Wheezes Gastrointestinal: Yes: Normal Bowel Sounds, Soft Labs: CBC, BMP 10/19/17 21:35 10/19/17 21:35 Problem List - Problems (1) Asthma exacerbation Assessment/Plan: ON IV STEROIDS ON NEBS ON ABX PULM ON CASE Code(s): J45.901 - UNSPECIFIED ASTHMA WITH (ACUTE) EXACERBATION Qualifiers: Asthma severity: severe Asthma persistence: persistent Qualified Code(s) : J45.51 - Severe persistent asthma with (acute) exacerbation (2) Bronchitis Assessment/Plan: ON ROCEPHIN AND ZITHRO Code(s): J40 - BRONCHITIS, NOT SPECIFIED ACUTE OR CHRONIC
[2017-10-22] MEDS: MOMETASONE FUROATE 220 MCG/IH INHALER IH SCH (21:30)
[2017-10-22] MEDS: OLANZapine 2.5 MG TABLET PO SCH (21:31)
[2017-10-22] MEDS: MONTELUKAST NA 10 MG TABLET PO SCH (21:31)
[2017-10-23] MEDS: methylPREDNISolone NA SUCC 40 MG/1 ML VIAL IVPUSH SCH ×2 (01:30→10:47)
[2017-10-23] MEDS: ALBUTEROL SO4 2.5/IPRATROPIUM 0.5 INH SOL 3 ML VIAL.NEB. NEB SCH ×3 (02:30→11:05)
[2017-10-23 10:46] VITALS: TEMP 98.2
[2017-10-23] MEDS: AZITHROMYCIN 250 MG TABLET PO SCH (10:47)
[2017-10-23] MEDS: GABAPENTIN 100 MG CAPSULE (FP) PO SCH (10:47)
[2017-10-23] MEDS: HEPARIN NA (PORCINE) 5,000 UNITS/ML 1ML VIAL SQ SCH (10:47)
[2017-10-23] MEDS: PANTOPRAZOLE 20 MG TABLET (FP) PO SCH (10:47)
[2017-10-23] MEDS: CEFTRIAXONE 1 G/50 ML PREMIX 50 ML IVPB SCH (10:47)
--- NOTE | 2017-10-23 13:36 | PN ---
Progress Note, Physician History of Present Illness: PULMONARY ALERT FEELING BETTER,LESS DYSPNEIC,+COUGH - Current Medication List Current Medications: Active Medications Acetaminophen (Tylenol -) 650 mg PO Q4H PRN PRN Reason: FEVER OR PAIN Albuterol/Ipratropium (Duoneb -) 1 amp NEB Q4HPO [facility] Last Admin: 10/23/17 11:05 Dose: 1 amp Azithromycin (Zithromax -) 250 mg PO DAILY [facility] Last Admin: 10/23/17 10:47 Dose: 250 mg Gabapentin (Neurontin -) 100 mg PO DAILY [facility] Last Admin: 10/23/17 10:47 Dose: 100 mg Heparin Sodium (Porcine) (Heparin -) 5,000 unit SQ BID [facility] Last Admin: 10/23/17 10:47 Dose: 5,000 unit CEFTRIAXONE 1 G/50 ML PREMIX (Ceftriaxone 1 Gm-D5w Bag) 50 mls @ 100 mls/hr IVPB DAILY [facility] Last Admin: 10/23/17 10:47 Dose: 100 mls/hr Methylprednisolone Sodium Succinate (Solu-Medrol -) 40 mg IVPUSH Q8H-IV [facility] Last Admin: 10/23/17 10:47 Dose: 40 mg Mometasone Furoate (Asmanex 220mcg -) 1 puff IH HS [facility] Last Admin: 10/22/17 21:30 Dose: 1 puff Montelukast Sodium (Singulair -) 10 mg PO HS [facility] Last Admin: 10/22/17 21:31 Dose: 10 mg Olanzapine (Zyprexa -) 2.5 mg PO HS [facility] Last Admin: 10/22/17 21:31 Dose: 2.5 mg Pantoprazole Sodium (Protonix -) 20 mg PO DAILY [facility] Last Admin: 10/23/17 10:47 Dose: 20 mg - Objective Vital Signs: Vital Signs Temperature 98.2 F 10/23/17 10:45 Pulse Rate 96 H 10/23/17 10:45 Respiratory Rate 20 10/23/17 10:45 Blood Pressure 130/80 10/23/17 10:45 O2 Sat by Pulse Oximetry (%) 96 10/22/17 21:00 Constitutional: Yes: Well Nourished, Calm Eyes: Yes: WNL HENT: Yes: WNL Neck: Yes: WNL Cardiovascular: Yes: Regular Rate and Rhythm, S1, S2 Respiratory: Yes: Wheezes (SCATTERED MAE WHEEZES) Gastrointestinal: Yes: Normal Bowel Sounds, Soft Extremities: Yes: WNL Edema: No Labs: CBC, BMP Problem List - Problems (1) Asthma Code(s): J45.909 - UNSPECIFIED ASTHMA, UNCOMPLICATED Qualifiers: Asthma severity: severe Asthma persistence: persistent Asthma complication type: with acute exacerbation Qualified Code(s): J45.51 - Severe persistent asthma with (acute) exacerbation (2) Asthma exacerbation Code(s): J45.901 - UNSPECIFIED ASTHMA WITH (ACUTE) EXACERBATION Qualifiers: Asthma severity: severe Asthma persistence: persistent Qualified Code(s) : J45.51 - Severe persistent asthma with (acute) exacerbation Assessment/Plan ASSESSMENT AND PLAN: ASTHMA EXACERBATION STEROID TAPER SYMBICORT 160/4.5 SINGULAIR ANTIBIOTICS PFTS OUTPATIENT DR MANCINI
[2017-10-23 15:39] VITALS: BP 140/84; PULSE 94
--- NOTE | 2017-10-23 15:50 | DS ---
Physical Examination Vital Signs: Vital Signs Temperature 98.2 F 10/23/17 15:36 Pulse Rate 94 H 10/23/17 15:36 Respiratory Rate 20 10/23/17 15:36 Blood Pressure 140/84 10/23/17 15:36 O2 Sat by Pulse Oximetry (%) 96 10/22/17 21:00 Constitutional: Yes: No Distress Eyes: Yes: WNL HENT: Yes: WNL Neck: Yes: WNL Cardiovascular: Yes: WNL Respiratory: Yes: Wheezes (mild exp wheezes) Gastrointestinal: Yes: WNL Renal/: Yes: WNL Musculoskeletal: Yes: WNL Extremities: Yes: WNL Edema: No Peripheral Pulses WNL: Yes Integumentary: Yes: WNL Wound/Incision: Yes: Clean/Dry Neurological: Yes: WNL ...Motor Strength: WNL Psychiatric: Yes: WNL Labs: CBC, BMP 10/19/17 21:35 10/19/17 21:35 Discharge Summary Reason For Visit: EXACERBATION OF ASTHMA Current Active Problems Asthma (Acute) Procedures: Principal: cxr Hospital Course: admitted for iv steroids, resp support, nebs, changed to prednisone and outpatient f/u Condition: Fair - Instructions Diet, Activity, Other Instructions: see dr yan 3 days reg diet Referrals: Brodie Yan MD [Primary Care Provider] - Disposition: HOME - Home Medications Comprehensive Discharge Medication List: Ambulatory Orders Albuterol 2.5/Ipratropium 0.5 [Duoneb -] 1 neb NEB Q4H 09/29/17 Gabapentin 100 mg PO DAILY 09/29/17 Mometasone Furoate [Asmanex] 220 mcg IH DAILY 09/29/17 Montelukast Na [Singulair -] 10 mg PO HS 09/29/17 Omeprazole 20 mg PO DAILY 09/29/17 Olanzapine [Zyprexa] 2.5 mg PO HS 10/20/17 Omeprazole Magnesium [Prilosec] 40 mg PO DAILY 10/20/17
== END 2017-10-23 16:32 | disposition home or self-care (01) | DRG 141 ==
LOC: JER 20:20 → JERBED 23:12 → UNDOADMOB 23:30 → JERBED 23:30 → J5S 10-20 01:15 → OBSVTOIN 10-20 23:26
PROVIDERS: ADMIT Family Medicine; ATTEND Family Medicine
DX: J45.901 Unspecified asthma with (acute) exacerbation (principal); J96.02 Acute respiratory failure with hypercapnia; F32.9 Major depressive disorder, single episode, unspecified; R00.0 Tachycardia, unspecified; R05 Cough; Z79.52 Long term (current) use of systemic steroids; Z87.891 Personal history of nicotine dependence
CPT/HCPCS: 36415; 71010-TC; 80053; 82803; 83605; 83735; 85025; 87070; 87205; 87804; 87899; 93005; 93010; 94150; 94640; 99282-25; G0378; J1644

== ENCOUNTER 2017-12-21 09:20 | Emergency (ER) | payer OTHER ==
[2017-12-21] MEDS ORDERED: ALBUTEROL SO4 2.5/IPRATROPIUM 0.5 INH SOL 3 ML VIAL.NEB. NEB ONE ×4 (09:43→11:20)
[2017-12-21 09:47] VITALS: BMI 24.3
[2017-12-21] MEDS ORDERED: predniSONE 20 MG TABLET (UD) PO ONE (10:26)
[2017-12-21] MEDS ORDERED: predniSONE 20 MG TABLET (UD) ONE (10:44)
--- NOTE | 2017-12-21 10:55 | PDOC ---
Attending Attestation - Resident Resident Name: Kevin Villareal - ED Attending Attestation I have performed the following: I have examined & evaluated the patient, The case was reviewed & discussed with the resident, I agree w/resident's findings & plan, Exceptions are as noted - HPI HPI: 12/21/17 10:47 42-year-old male with history of asthma, with prior hospitalizations, presents with wheezing for one day. The patient reports that he's been having wheezing and congestion. Denies fevers or chills. States that weather changes may be exacerbating the symptoms. The patient was admitted in October 2017 for similar symptoms and was also at [facility] several weeks ago for similar symptoms. He states that the symptom intensity is not quite as severe as those times and he came in early to prevent an admission. Denies other symptoms such as nausea, vomiting or diarrhea. - Physicial Exam PE: 12/21/17 10:55 GENERAL: Awake, alert, and fully oriented, in no acute distress. HEAD: No signs of trauma EYES: PERRLA, EOMI, sclera anicteric, conjunctiva clear ENT: Auricles normal inspection, hearing grossly normal, nares patent NECK: Normal ROM, supple LUNGS: Diffuse expiratory wheezing bilaterally. HEART: Regular rate and rhythm, normal S1 and S2, no murmurs, rubs or gallops ABDOMEN: Soft, nontender, normoactive bowel sounds. No guarding, no rebound. No masses EXTREMITIES: Normal range of motion, no edema. No clubbing or cyanosis. No cords, erythema, or tenderness NEUROLOGICAL: Cranial nerves II through XII grossly intact. Normal speech SKIN: Warm, Dry, normal turgor, no rashes or lesions noted. - Medical Decision Making 12/21/17 10:55 Vital Signs Temp Pulse Resp BP Pulse Ox 97.7 F 88 26 H 132/79 98 12/21/17 09:35 12/21/17 09:35 12/21/17 09:35 12/21/17 09:35 12/21/17 09:35 42-year-old male with asthma exacerbation. He is being full sentences but diffusely wheezy. Agree with the resident's plans to do an abscess and prednisone and reassess. Symptoms are improved, if the patient be discharged with outpatient course of prednisone and DuoNebs.
--- NOTE | 2017-12-21 11:14 | PDOC ---
History of Present Illness - General Chief Complaint: Shortness of Breath Stated Complaint: DIFFICULTY BREATHING Time Seen by Provider: 12/21/17 09:41 History Source: Patient Exam Limitations: No Limitations - History of Present Illness Initial Comments: 12/21/17 11:03 The patient is a 42M with a PMH of asthma who presents to the ER with acute onset cough and SOB. The patient states that he woke up this morning and felt short of breath with a cough since this morning. He denies any complaints of fever, CP, nausea, vomiting, sore throat, congestion. He has never been intubated for his asthma. He follows with Dr. Martinez but hasn't seen him since his discharge. Past History - Past Medical History Allergies/Adverse Reactions: Allergies Allergy/AdvReac Type Severity Reaction Status Date / Time No Known Allergies Allergy Verified 10/19/17 20:49 Home Medications: Ambulatory Orders Albuterol 2.5/Ipratropium 0.5 [Duoneb -] 1 neb NEB Q4H PRN 09/29/17 Prednisone [Deltasone] 20 mg PO BID #14 tablet MDD 2 10/23/17 Acetaminophen [Tylenol .Regular Strength -] 650 mg PO Q6H PRN 12/21/17 Albuterol Sulfate [Proventil HFA Inhaler -] 1 - 2 inh PO TID 12/21/17 Budesonide/Formeterol Fumarate [SYMBICORT 160/4.5mcg -] 1 inh PO BID 12/21/17 Prednisone [Prednisone 50 MG TABLETS] 50 mg PO ONCE #4 tablet 12/21/17 Anemia: No Asthma: Yes Cancer: No Cardiac Disorders: No CVA: No COPD: No CHF: No Dementia: No Diabetes: No GI Disorders: No Disorders: No HTN: No Hypercholesterolemia: No Liver Disease: No Psychiatric Problems: Yes (Depression) Seizures: No Thyroid Disease: No - Surgical History Abdominal Surgery: No Appendectomy: No Cardiac Surgery: No Cholecystectomy: No Lung Surgery: No Neurologic Surgery: No Orthopedic Surgery: No - Immunization History Immunization Up to Date: Yes - Suicide/Smoking/Psychosocial Hx Smoking History: Never smoked Have you smoked in the past 12 months: No Number of Cigarettes Smoked Daily: 60 If you are a former smoker, when did you quit?: 30 days ago Information on smoking cessation initiated: No 'Breaking Loose' booklet given: 08/17/17 Hx Alcohol Use: No Drug/Substance Use Hx: No Substance Use Type: None Hx Substance Use Treatment: No Review of Systems - Review of Systems Able to Perform ROS?: Yes Comments:: 12/21/17 11:33 GENERAL/CONSTITUTIONAL: No fever or chills. No weakness. HEAD, EYES, EARS, NOSE AND THROAT: No change in vision. No ear pain or discharge. No sore throat. CARDIOVASCULAR: No chest pain, palpitations, or lightheadedness. RESPIRATORY: Positive for cough, SOB, and hx of asthma. No hemoptysis. GASTROINTESTINAL: No nausea, vomiting, diarrhea, constipation, or abdominal pain. GENITOURINARY: No dysuria, frequency, hematuria, or change in urination. MUSCULOSKELETAL: No joint or muscle swelling or pain. No neck or back pain. SKIN: No rash or lesions. NEUROLOGIC: No headache, numbness, tingling, weakness, loss of consciousness, or change in strength/sensation. ENDOCRINE: No increased thirst. No abnormal weight change. HEMATOLOGIC/LYMPHATIC: No anemia, easy bleeding, or history of blood clots. ALLERGIC/IMMUNOLOGIC: No hives or skin allergy. Is the patient limited Czech proficient: No *Physical Exam - Vital Signs Last Vital Signs Temp Pulse Resp BP Pulse Ox 97.7 F 88 26 H 132/79 98 12/21/17 09:35 12/21/17 09:35 12/21/17 09:35 12/21/17 09:35 12/21/17 09:35 - Physical Exam Comments: 12/21/17 11:34 GENERAL: Well developed, well nourished. Awake and alert. No acute distress. HEENT: Normocephalic, atraumatic. Hearing grossly normal. Moist mucous membranes. PERRLA, EOMI. No conjunctival pallor. Sclera are non-icteric. NECK: Supple. Full ROM. No JVD. CARDIOVASCULAR: Regular rate and rhythm. No murmurs, rubs, or gallops. PULMONARY: No evidence of respiratory distress. B/l wheezes with increased expiratory phase. ABDOMINAL: Soft. Non-tender. Non-distended. No rebound or guarding. GENITOURINARY: No CVA tenderness bilaterally. MUSCULOSKELETAL: Normal range of motion at all joints. No bony deformities or tenderness. EXTREMITIES: No cyanosis. No clubbing. No edema. No calf tenderness. SKIN: Warm and dry. Normal capillary refill. No rashes. No jaundice. NEUROLOGICAL: Alert, awake, appropriate. Cranial nerves 2-12 intact. Normal speech. Gait is normal without ataxia. PSYCHIATRIC: Cooperative. Good eye contact. Appropriate mood and affect. ED Treatment Course - Medications Given in the ED: ED Medications Discontinued Medications Generic Name Dose Route Start Last Admin Trade Name Cintia PRN Reason Stop Dose Admin Albuterol/Ipratropium 1 amp 12/21/17 09:48 12/21/17 09:52 Duoneb - NEB 12/21/17 09:49 1 amp ONCE ONE Administration Albuterol/Ipratropium 2 amp 12/21/17 10:28 12/21/17 10:45 Duoneb - NEB 12/21/17 10:29 2 amp ONCE ONE Administration Prednisone 60 mg 12/21/17 10:26 12/21/17 10:45 Deltasone - PO 12/21/17 10:27 60 mg ONCE ONE Administration Medical Decision Making - Medical Decision Making 12/21/17 11:20 The patient is a 42M with a PMH of asthma who presents with cough and SOB similar to his previous asthma attacks. Given 3 treatments of duoneb and only mild expiratory wheezes are appreciated diffusely. Also given 60 prednisone. Will give 2 more treatments and likely d/c home with prednisone. *DC/Admit/Observation/Transfer Diagnosis at time of Disposition: Asthma Qualifiers: Asthma severity: mild Asthma persistence: persistent Asthma complication type: with acute exacerbation Qualified Code(s): J45.31 - Mild persistent asthma with (acute) exacerbation - Discharge Dispostion Disposition: HOME Condition at time of disposition: Stable Admit: No - Prescriptions Prescriptions: Prednisone [Prednisone 50 MG TABLETS] 50 mg PO ONCE #4 tablet - Referrals - Patient Instructions Printed Discharge Instructions: DI for Asthma -- Adult Additional Instructions: Please return to the ER if symptoms persist, worsen, or new symptoms arise. Please follow up with your primary care physician in 2-3 days. Also follow up with your lung doctor in 2-3 days. Please return to the ER if you have any signs or symptoms of chest pain, shortness of breath, uncontrollable fever, chills, nausea, vomiting, numbness, tingling, or weakness in any part of your body, changes in vision, or slurred speech. Please take your medications as prescribed. - Post Discharge Activity
[2017-12-21 13:55] VITALS: BP 115/80; PULSE 78; TEMP 98.1
== END 2017-12-21 13:55 | disposition home or self-care (01) ==
LOC: JER 09:20
PROC: 3E0F7GC Introduction of Other Therapeutic Substance into Respiratory Tract, Via Natural or Artificial Opening (ICD-10-PCS; principal; 2017-12-21)
PROC: 3E0F7GC Introduction of Other Therapeutic Substance into Respiratory Tract, Via Natural or Artificial Opening (ICD-10-PCS; 2017-12-21)
PROC: 3E0F7GC Introduction of Other Therapeutic Substance into Respiratory Tract, Via Natural or Artificial Opening (ICD-10-PCS; 2017-12-21)
DX: J45.31 Mild persistent asthma with (acute) exacerbation (principal); F32.9 Major depressive disorder, single episode, unspecified; Z87.891 Personal history of nicotine dependence
CPT/HCPCS: 71046-TC-FY; 99283-25

== ENCOUNTER 2018-08-11 08:02 | Emergency (ER) | payer OTHER ==
[2018-08-11 08:48] VITALS: BMI 23.0
[2018-08-11] MEDS ORDERED: ACETAMINOPHEN 325 MG TABLET (FP) PO ONE (08:50)
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
[2018-08-11] MEDS ORDERED: IBUPROFEN 400 MG TABLET (FP) PO ONE ×2 (09:03→09:16)
[2018-08-11] MEDS ORDERED: ACETAMINOPHEN 325 MG TABLET (FP) ONE (09:09)
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
[2018-08-11] MEDS ORDERED: DIPHTH,PERTUSS(ACELL),TET VAC 0.5 ML VIAL IM ONE (10:12)
[2018-08-11] MEDS ORDERED: BACITRACIN 15 GM TUBE TOPICAL OINTMENT TP ONE (10:29)
[2018-08-11 11:35] VITALS: BP 122/74; PULSE 68; TEMP 97.7
== END 2018-08-11 11:06 | disposition home or self-care (01) ==
LOC: JER 08:02
PROC: 3E0234Z Introduction of Serum, Toxoid and Vaccine into Muscle, Percutaneous Approach (ICD-10-PCS; principal; 2018-08-11)
DX: S83.8X2A Sprain of other specified parts of left knee, initial encounter (principal); S80.211A Abrasion, right knee, initial encounter; F10.120 Alcohol abuse with intoxication, uncomplicated; V18.0XXA Pedal cycle driver injured in noncollision transport accident in nontraffic accident, initial encounter; Y92.410 Unspecified street and highway as the place of occurrence of the external cause; Y93.55 Activity, bike riding; Y99.8 Other external cause status
CPT/HCPCS: 70450-TC; 73562-TC-LT-FY; 90471; 99283-25

== ENCOUNTER 2018-09-18 03:48 | Emergency (ER) | payer OTHER ==
[2018-09-18 04:22] VITALS: BP 131/87; PULSE 96; TEMP 97.7; BMI 23.0
--- NOTE | 2018-09-18 05:10 | PDOC ---
History of Present Illness - General Chief Complaint: Shortness of Breath Stated Complaint: DIFFICULTY BREATHING Time Seen by Provider: 09/18/18 05:10 History Source: Patient Exam Limitations: No Limitations - History of Present Illness Initial Comments: 09/18/18 05:26 Mr Madera is a 43 yo M who yen a h/o asthma (no prior intubations, last exacerbation several months ago requiring prednisone) Pt presents with a complaint of cough and wheezing which began 1 day ago No fevers or chills (+) chest tightness no recent travel No exposures No ill contacts Used MDI Received a single neb via EMS which he states did not improve his symptoms This symptoms began approximately 1 year ago which was when he discontinued smoking and inhaled marijuanna PMH: Asthma PSH: Right thumb surgery Meds: Albuterol ALL: NKDA Social: Denies tobacco, (+) edible marijuanna, occasional alcohol se ROS: GENERAL/CONSTITUTIONAL: No: fever, chills, weakness, loss of appetite. HEAD, EYES, EARS, NOSE AND THROAT: No: change in vision, ear pain, discharge, sore throat, throat swelling. CARDIOVASCULAR: No: chest pain, lightheadedness, palpitations, syncope RESPIRATORY: Yes: wheezing and chest tightness, cough, shortness of breath No: hemoptysis, stridor. GASTROINTESTINAL: No: nausea, vomiting, diarrhea, abdominal cramping, rectal bleeding, constipation. GENITOURINARY: No: dysuria, hematuria, frequency, urgency, flank pain. MUSCULOSKELETAL: No: back pain, neck pain, joint pain, muscle swelling or pain SKIN AND BREASTS: No: lesions, pallor, rash or easy bruising. NEUROLOGIC: No: headache, vertigo, paresthesias, weakness ENDOCRINE: No: unexplained weight gain or loss HEMATOLOGIC/LYMPHATIC: No: anemia, easy bleeding, swelling nodes. PE: GENERAL: The patient is in no acute distress. HEAD: Normal with no signs of trauma. EYES: PERRLA, EOMI, sclera anicteric, conjunctiva clear. ENT: Ears normal, nares patent, oropharynx clear without exudates. Moist mucous membranes. NECK: Normal range of motion, supple without lymphadenopathy, JVD, or masses. LUNGS: Expiratory rhonchi and wheezing noted HEART:Regular rate and rhythm, normal S1 and S2 without murmur, rub or gallop. ABDOMEN: Soft, nontender, normoactive bowel sounds. No guarding, no rebound. No masses palpable. EXTREMITIES: Normal range of motion, no lower extremity edema. NEUROLOGICAL: Cranial nerves II through XII grossly intact. MUSCULOSKELETAL: Back non-tender to palpation, no CVA tenderness SKIN: Warm, Dry, normal turgor, no rashes or lesions noted. Past History - Past Medical History Allergies/Adverse Reactions: Allergies Allergy/AdvReac Type Severity Reaction Status Date / Time No Known Allergies Allergy Verified 08/11/18 08:35 Home Medications: Ambulatory Orders Albuterol 0.083% Nebulizer Анна [Ventolin 0.083% Nebulizer Soln -] 1 neb NEB Q6H #30 vial 09/18/18 Azithromycin [Zithromax 250mg Tablets -] 250 mg PO UTDICT #6 tab 09/18/18 Nebulizer [Aeroeclipse II] 1 each .ROUTE Q6H PRN #30 each 09/18/18 predniSONE [Deltasone -] 60 mg PO DAILY #12 tablet 09/18/18 Anemia: No Asthma: Yes Cancer: No Cardiac Disorders: No CVA: No COPD: No CHF: No Dementia: No Diabetes: No GI Disorders: No Disorders: No HTN: No Hypercholesterolemia: No Liver Disease: No Psychiatric Problems: Yes (Depression) Seizures: No Thyroid Disease: No - Surgical History Abdominal Surgery: No Appendectomy: No Cardiac Surgery: No Cholecystectomy: No Lung Surgery: No Neurologic Surgery: No Orthopedic Surgery: No - Immunization History Immunization Up to Date: Yes - Suicide/Smoking/Psychosocial Hx Smoking History: Never smoked Have you smoked in the past 12 months: No Number of Cigarettes Smoked Daily: 10 If you are a former smoker, when did you quit?: 30 days ago Information on smoking cessation initiated: No 'Breaking Loose' booklet given: 08/17/17 Hx Alcohol Use: No Drug/Substance Use Hx: No Substance Use Type: Marijuana Hx Substance Use Treatment: No *Physical Exam - Vital Signs Last Vital Signs Temp Pulse Resp BP Pulse Ox 97.7 F 96 H 18 131/87 98 09/18/18 03:50 09/18/18 03:50 09/18/18 03:50 09/18/18 03:50 09/18/18 03:50 ED Treatment Course - LABORATORY CBC & Chemistry Diagram: 09/18/18 04:30 09/18/18 04:30 Medical Decision Making - Medical Decision Making 09/18/18 05:32 43 yo M h/o asthma P/w shortness of breath and wheezing Will: Check basic labs EKG CXR Nebs Solumedrol Re assess EKG- Twelve-lead EKG was performed and reviewed by me. There is normal sinus rhythm with a normal rate. The axis is normal. The intervals are normal. There are no ST or T wave abnormalities. Impression: Normal twelve-lead EKG 09/18/18 06:39 Laboratory Tests 09/18/18 09/18/18 04:30 04:30 WBC 8.9 Hgb 13.3 Hct 39.7 Plt Count 198 BUN 11 Creatinine 1.0 Creatine Kinase 153 Troponin I < 0.02 CXR clear Will discharge to home on Azithromycin, Prednisone, Albuterol and neb machine Will ask pt to follow up with PMD Return to the ER for any other concerns or complaints *DC/Admit/Observation/Transfer Diagnosis at time of Disposition: Asthma Qualifiers: Asthma severity: mild Asthma persistence: intermittent Asthma complication type : uncomplicated Qualified Code(s): J45.20 - Mild intermittent asthma, uncomplicated - Discharge Dispostion Disposition: HOME Condition at time of disposition: Stable Decision to Admit order: No - Prescriptions Prescriptions: Albuterol 0.083% Nebulizer Анна [Ventolin 0.083% Nebulizer Soln -] 1 neb NEB Q6H #30 vial Azithromycin [Zithromax 250mg Tablets -] 250 mg PO UTDICT #6 tab Nebulizer [Aeroeclipse II] 1 each .ROUTE Q6H PRN #30 each PRN Reason: Wheezing predniSONE [Deltasone -] 60 mg PO DAILY #12 tablet - Referrals Referrals: Brodie Yan MD [Primary Care Provider] - - Patient Instructions Printed Discharge Instructions: Tylophora (Alternative Therapy), DI for Asthma -- Adult Additional Instructions: Please read the [facility] ED Care Sheets describing your diagnosis. PLEASE NOTE we suggest at a minimum that you review all symptoms and final test results with a physician that will provide ongoing care for you. THANK YOU for allowing us to help begin your care of this latest issue. Keep in mind the treatment performed in the Emergency Department is NOT complete until you have followed up with your Doctor. We want you to return to the ED as soon as possible if symptoms get worse or if you have any problems whatsoever. Please use medications and machine as prescribed Please keep a list of your asthma triggers and avoid them - Post Discharge Activity
[2018-09-18 05:13] LABS: BASO % 0.5 % (0-2.0); EOS % 8.3 % (0-4.5); HEMATOCRIT 39.7 % (35.4-49); HEMOGLOBIN 13.3 GM/dL (11.7-16.9); LYMPH % 12.8 % (8-40); MCH 32.6 pg (25.7-33.7); MCHC 33.5 g/dl (32.0-35.9); MEAN CELL VOLUME 97.4 fl (80-96); MEAN PLT VOLUME 8.3 fl (7.5-11.1); MONO % 3.1 % (3.8-10.2); NEUT % 75.3 % (42.8-82.8); PLATELET COUNT 198 K/MM3 (134-434); RBC 4.08 M/mm3 (4.00-5.60); RDW 13.9 % (11.9-15.9); WHITE BLOOD COUNT 8.9 K/mm3 (4.0-10.0)
[2018-09-18] MEDS ORDERED: ALBUTEROL SO4 2.5/IPRATROPIUM 0.5 INH SOL 3 ML VIAL.NEB. NEB ONE ×3 (05:19→05:25)
[2018-09-18] MEDS ORDERED: methylPREDNISolone NA SUCC 125 MG/2 ML VIAL IVPB ONE (05:19)
[2018-09-18] MEDS ORDERED: AZITHROMYCIN 500 MG TABLET PO ONE (05:20)
[2018-09-18] MEDS ORDERED: methylPREDNISolone NA SUCC 125 MG/2 ML VIAL ONE (05:26)
[2018-09-18] MEDS ORDERED: AZITHROMYCIN 500 MG TABLET ONE (05:26)
[2018-09-18 05:42] LABS: ALBUMIN 3.8 g/dl (3.4-5.0); ALK PHOS 66 U/L (45-117); ANION GAP 7 MMOL/L (8-16); BILIRUBIN,TOTAL 0.6 mg/dL (0.2-1); BLOOD UREA NITROGEN 11 mg/dL (7-18); CALCIUM 8.6 mg/dL (8.5-10.1); CHLORIDE 105 mmol/L (98-107); CO2 27 mmol/L (21-32); GLUCOSE,RANDOM 91 mg/dL (74-106); POTASSIUM 3.6 mmol/L (3.5-5.1); SGOT/AST 18 U/L (15-37); SGPT/ALT 18 U/L (13-61); SODIUM 139 mmol/L (136-145); TOT PROT 6.7 g/dl (6.4-8.2)
--- NOTE | 2018-09-18 16:23 | EKG ---
Test Reason : Blood Pressure : / mmHG Vent. Rate : 077 BPM Atrial Rate : 077 BPM P-R Int : 150 ms QRS Dur : 082 ms QT Int : 366 ms P-R-T Axes : 079 042 043 degrees QTc Int : 414 ms NORMAL SINUS RHYTHM NORMAL ECG WHEN COMPARED WITH ECG OF 19-OCT-2017 21:51, NONSPECIFIC T WAVE ABNORMALITY NO LONGER EVIDENT IN INFERIOR LEADS Confirmed by MD Chad, Aleksey ([id number]) on 09/18/2018 4:23:40 PM Referred By: Confirmed By:Aleksey Bonilla MD
== END 2018-09-18 07:12 | disposition home or self-care (01) ==
LOC: JER 03:48
PROC: 3E0333Z Introduction of Anti-inflammatory into Peripheral Vein, Percutaneous Approach (ICD-10-PCS; principal; 2018-09-18)
PROC: 3E0F7GC Introduction of Other Therapeutic Substance into Respiratory Tract, Via Natural or Artificial Opening (ICD-10-PCS; 2018-09-18)
PROC: 3E0F7GC Introduction of Other Therapeutic Substance into Respiratory Tract, Via Natural or Artificial Opening (ICD-10-PCS; 2018-09-18)
DX: J45.20 Mild intermittent asthma, uncomplicated (principal); F32.9 Major depressive disorder, single episode, unspecified
CPT/HCPCS: 36415; 71045-TC-FY; 80053; 82550; 82553; 84484; 85025; 93005; 93010; 94640; 96374; 99284-25

== ENCOUNTER 2019-05-09 13:08 | Emergency (ER) | payer OTHER ==
--- NOTE | 2019-05-09 13:13 | PDOC ---
History of Present Illness - General Chief Complaint: Shortness of Breath Stated Complaint: Shortness of Breath Time Seen by Provider: 05/09/19 13:11 - History of Present Illness Initial Comments: 05/09/19 14:04 43yo M hx asthma, bronchitis, and unknown psychiatric issues complaining of SOB and chest tightness x1 day. Sx began yesterday; endorses productive cough, wheezing, racing heart, and chest tightness. Sx worsening, exacerbated by heat and exertion. Denies F/C, CP, dizziness, LE edema, recent travel, sick contacts , prior intubations or hospitalizations. Pt tried nebulizer for multiple hours last night and this morning with minimal improvement. Presented to [facility] today but left and came here instead by EMS. Given O2 NC by EMS. Sx similar to last asthma exacerbation in September 2018 when he presented to [facility] and was d/c' ed from ED on Prednisone. Pt however did not take the prednisone until 2 months ago. Endorses smoking hx, quit over 1yr ago. 05/09/19 14:16 Past History - Past Medical History Allergies/Adverse Reactions: Allergies Allergy/AdvReac Type Severity Reaction Status Date / Time No Known Allergies Allergy Verified 05/09/19 13:24 Home Medications: Ambulatory Orders Albuterol 0.083% Nebulizer Анна [Ventolin 0.083% Nebulizer Soln -] 1 neb NEB Q6H #30 vial 05/09/19 Azithromycin [Zithromax 250mg Tablets -] 250 mg PO UTDICT #6 tab 05/09/19 Nebulizer [Aeroeclipse II] 1 each .ROUTE Q6H PRN #30 each 05/09/19 predniSONE [Deltasone -] 60 mg PO DAILY #12 tablet 05/09/19 Anemia: No Asthma: Yes Cancer: No Cardiac Disorders: No CVA: No COPD: No CHF: No Dementia: No Diabetes: No GI Disorders: No Disorders: No HTN: No Hypercholesterolemia: No Liver Disease: No Psychiatric Problems: Yes (Depression) Seizures: No Thyroid Disease: No - Surgical History Abdominal Surgery: No Appendectomy: No Cardiac Surgery: No Cholecystectomy: No Lung Surgery: No Neurologic Surgery: No Orthopedic Surgery: No - Immunization History Immunization Up to Date: Yes - Suicide/Smoking/Psychosocial Hx Smoking History: Never smoked Have you smoked in the past 12 months: No Number of Cigarettes Smoked Daily: 10 If you are a former smoker, when did you quit?: 30 days ago 'Breaking Loose' booklet given: 08/17/17 Hx Alcohol Use: No Drug/Substance Use Hx: No Substance Use Type: Marijuana Hx Substance Use Treatment: No Review of Systems - Review of Systems Comments:: 05/09/19 14:49 Constitutional: Negative for chills and fever. HENT: Negative for sore throat. Eyes: Negative for visual disturbance. Respiratory: Positive for shortness of breath, productive cough, chest tightness , and wheezing. Cardiovascular: Positive for palpitations. Negative for chest pain and leg swelling. Gastrointestinal: Negative for abdominal pain, blood in stool, constipation, diarrhea, nausea and vomiting. Genitourinary: Negative for dysuria, flank pain and hematuria. Musculoskeletal: Negative for back pain and neck pain. Skin: Negative for rash. Neurological: Negative for light-headedness, dizziness, syncope, weakness, numbness and headaches. Psychiatric/Behavioral: Negative for behavioral problems and confusion. *Physical Exam - Physical Exam Comments: 05/09/19 14:53 Gen: Alert, NAD, anxious-appearing, breathing deeply, mumbling and speaks quietly. HEENT: PERRL, EOMI, MMM. CV: Regular rate and rhythm. No murmurs, rubs, or gallops. PULM: Audible wheezing. Expiratory rhonchi and wheezing b/l. ABD: soft, NT/ND, no rebound tenderness or guarding, no CVA tenderness. BACK: No TTP of c/t/l-spine. MSK: No deformities of extremities. Strength grossly intact throughout. NEURO: AAOx3. PERRL. No gross CN deficits. Strength and sensation grossly intact throughout. PSYCH: Normal mood. SKIN: No rashes. Heart Score/ECG Review - ECG Impressions Comment:: 05/09/19 14:44 NSR, 82bpm, no NUNO/TWI ED Treatment Course - LABORATORY CBC & Chemistry Diagram: 05/09/19 13:45 05/09/19 13:45 Medical Decision Making - Medical Decision Making 05/09/19 14:21 43yo M hx asthma, bronchitis, and unknown psychiatric issues presenting with SOB , productive cough, chest tightness, and wheezing x1 day with b/l wheezing and rhonchi on exam s/p at-home neb. Sx similar to last exacerbation/ED visit in September 2018. Due to hx and wheezing on exam, most likely COPD exacerbation - evaluate with CXR and administer solumedrol and albuterol. Also consider pneumonia - assess with CXR and CBC. Cardiac etiology less likely due to lack of cardiac hx and low pre-EKG/trop HEART score, but r/o with CXR, EKG and trop x1 due to chest tightness. -CXR -EKG -Labs: CBC, CMP, cardiac profile (Trop) -Solumedrol 125, 1 amp albuterol nebs, Mg -Reassess s/p meds and consider additional medications -Dispo: most likely d/c home w/PCP f/u pending reassessment and improvement in sx 05/09/19 14:42 1440: reassessed. Still audible wheezing. Ordered 2nd amp albuterol nebs. Will reassess s/p nebs then probably need a 3rd dose before dispo decision. 05/09/19 15:26 Reassessed s/p 2nd neb. Wheezing and speaking improved. Pt requests food. Gave sandwich and juice. Ordered 3rd dose of nebs. Will reassess after 3rd dose for dispo 05/09/19 15:46 CXR: no acute process seen Labs: no values of concern. Trop <0.02. 05/09/19 17:01 Reassess s/p 3rd neb and food. Pt states he's feeling much better and wants to go home. Inspiratory and expiratory wheezing b/l still present but pt appears much better and is speaking in full sentences at a normal volume. Pt O2 sat 100 % and remains 100% during ambulatory testing on RA. Discussed admission but pt refuses. Discussed strict return precautions and follow-up. Will d/c home w/PCP f/u. *DC/Admit/Observation/Transfer Diagnosis at time of Disposition: Wheezing, COPD exacerbation - Discharge Dispostion Disposition: HOME Condition at time of disposition: Improved Decision to Admit order: No - Prescriptions Prescriptions: Albuterol 0.083% Nebulizer Анна [Ventolin 0.083% Nebulizer Soln -] 1 neb NEB Q6H #30 vial Azithromycin [Zithromax 250mg Tablets -] 250 mg PO UTDICT #6 tab Nebulizer [Aeroeclipse II] 1 each .ROUTE Q6H PRN #30 each PRN Reason: Wheezing predniSONE [Deltasone -] 60 mg PO DAILY #12 tablet - Referrals Referrals: Brodie Yan MD [Primary Care Provider] - - Patient Instructions Printed Discharge Instructions: DI for Chronic Obstructive Pulmonary Disease Additional Instructions: Take your albuterol, azithromycin, and prednisone as prescribed. Follow-up with your PCP this week. Return to ED immediately if you experience difficulty breathing, chest pain, dizziness, or any worsening or new concerning symptoms. - Post Discharge Activity
[2019-05-09] MEDS ORDERED: methylPREDNISolone NA SUCC 125 MG/2 ML VIAL IVPUSH ONE (13:32)
[2019-05-09] MEDS ORDERED: ALBUTEROL SO4 0.083% IH SOL 2.5 MG/3 ML VIAL.NEB. NEB ONE ×5 (13:32→15:25)
[2019-05-09] MEDS ORDERED: methylPREDNISolone NA SUCC 125 MG/2 ML VIAL ONE (13:35)
[2019-05-09 13:37] VITALS: TEMP 97.3; BMI 58.6
[2019-05-09] MEDS ORDERED: MAGNESIUM 1GM/D5W - 1 GM/100 ML IVPB IVPB ONE (13:48)
--- NOTE | 2019-05-09 14:18 | PDOC ---
Documentation entered by Dania Chan SCRIBE, acting as scribe for Helen Mazariegos MD. Helen Mazariegos MD: This documentation has been prepared by the Dustin mancilla Nirvannie, SCRIBE, under my direction and personally reviewed by me in its entirety. I confirm that the documentation accurately reflects all work, treatment, procedures, and medical decision making performed by me. Attending Attestation - Resident Resident Name: AlishaMarika - ED Attending Attestation I have performed the following: I have examined & evaluated the patient, The case was reviewed & discussed with the resident, I agree w/resident's findings & plan - HPI HPI: 05/09/19 14:06 The patient is a 43 year old male, with a significant past medical history of asthma (no hx of intubations), who presents to the emergency department with, worsening shortness of breath. Patient notes he has been sick for a long time with associated worsening shortness of breath and has been experiencing new onset chest tightness. He endorses using his nebs multiple times, without relief , prompting his arrival to the ED. He denies any recent fevers, chills, headache or dizziness. He denies any recent nausea, vomit, diarrhea or constipation. He denies any recent dysuria, frequency, urgency or hematuria. Allergies: NKDA Primary Care Physician: Dr. Arlene Yan - Physicial Exam PE: 05/09/19 13:53 GENERAL: The patient is in no acute distress, speaking in 3 word sentences. ENT: Ears normal, nares patent, oropharynx clear without exudates. Moist mucous membranes. NECK: Normal range of motion, supple LUNGS: Inspiratory and expiratory wheezing and rhonchi HEART:Regular rate and rhythm, normal S1 and S2 without murmur, rub or gallop. ABDOMEN: Soft, nontender, normoactive bowel sounds. EXTREMITIES: Normal range of motion, no edema. NEUROLOGICAL: Cranial nerves II through XII grossly intact. Normal speech. No focal neurological deficits. SKIN: Warm, Dry, normal turgor, no rashes or lesions noted. - Medical Decision Making 05/09/19 13:58 43 yo M presenting with severe asthma exacerbation Pt denies recent cold or flu, no cough with sputum No recent travel No ill contacts Pt reports the humidity/this weather has been a trigger for him Will do: Labs CXR EKG Nebs Magnesium Solumedrol Close monitoring ? Peak flow 05/09/19 14:17 EKG - NSR rate of 82 bpm, axis nml, intervals nml, no st elevation or depression , t waves upright 05/09/19 14:18 CXR - hyperinflation, diaphragms clear, no infiltrates/consolidation, no pleural effusion 05/09/19 14:23 Laboratory Tests 05/09/19 13:45 Sodium 142 Potassium 3.7 Chloride 107 Carbon Dioxide 30 BUN 11.6 Creatinine 1.2 Random Glucose 115 H Creatine Kinase 193 Troponin I < 0.02 05/09/19 17:18 Pt re assessed He is adamant about going home Refusing to stay in the hospital Pt continues to have wheezing O2: 100% Walking O2: 97% Pt given strict return precautions Will ask pt to return for ANY worsening of symptoms, or new symptoms Follow up with PMD in 3 days (ON MondayMAY 13) 05/09/19 18:02 Pt yelling at someone on the phone who is supposed to be his ride, speaking in clear and complete sentences Clinical Impression: severe asthma exacerbation, initial presentation
[2019-05-09 14:21] LABS: ALBUMIN 4.1 g/dl (3.4-5.0); ALK PHOS 66 U/L (45-117); ANION GAP 4 MMOL/L (8-16); BASO % 0.5 % (0-2.0); BILIRUBIN,TOTAL 0.5 mg/dL (0.2-1); BLOOD UREA NITROGEN 11.6 mg/dL (7-18); CALCIUM 8.9 mg/dL (8.5-10.1); CHLORIDE 107 mmol/L (98-107); CO2 30 mmol/L (21-32); CREATININE 1.2 mg/dL (0.55-1.3); GLUCOSE,RANDOM 115 mg/dL (74-106); HEMATOCRIT 42.2 % (35.4-49); HEMOGLOBIN 14.2 GM/dL (11.7-16.9); LYMPH % 14.9 % (8-40); MCH 33.6 pg (25.7-33.7); MCHC 33.7 g/dl (32.0-35.9); MEAN PLT VOLUME 8.4 fl (7.5-11.1); MONO % 4.7 % (3.8-10.2); NEUT % 71.9 % (42.8-82.8); POTASSIUM 3.7 mmol/L (3.5-5.1); RBC 4.23 M/mm3 (4.00-5.60); SGOT/AST 17 U/L (15-37); SGPT/ALT 24 U/L (13-61); SODIUM 142 mmol/L (136-145); TOT PROT 7.2 g/dl (6.4-8.2); WHITE BLOOD COUNT 9.7 K/mm3 (4.0-10.0)
[2019-05-09 14:45] LABS: PLATELET COUNT 249 K/MM3 (134-434)
[2019-05-09 17:29] VITALS: BP 142/79; PULSE 85
--- NOTE | 2019-05-10 11:25 | EKG ---
Test Reason : Blood Pressure : / mmHG Vent. Rate : 082 BPM Atrial Rate : 082 BPM P-R Int : 148 ms QRS Dur : 076 ms QT Int : 362 ms P-R-T Axes : 082 017 033 degrees QTc Int : 422 ms NORMAL SINUS RHYTHM WITH SINUS ARRHYTHMIA POSSIBLE LEFT ATRIAL ENLARGEMENT WHEN COMPARED WITH ECG OF 18-SEP-2018 04:48, NO SIGNIFICANT CHANGE WAS FOUND Confirmed by AGUSTIN ROMANO MD ([id number]) on 05/10/2019 11:25:11 AM Referred By: Confirmed By:AGUSTIN ROMANO MD
== END 2019-05-09 18:04 | disposition home or self-care (01) ==
LOC: JER 13:08
PROC: 3E0F7GC Introduction of Other Therapeutic Substance into Respiratory Tract, Via Natural or Artificial Opening (ICD-10-PCS; principal; 2019-05-09)
PROC: 3E033GC Introduction of Other Therapeutic Substance into Peripheral Vein, Percutaneous Approach (ICD-10-PCS; 2019-05-09)
DX: J44.9 Chronic obstructive pulmonary disease, unspecified (principal); R06.2 Wheezing
CPT/HCPCS: 36415; 71046-TC-FY; 80053; 82550; 82553; 84484; 85025; 93005; 93010; 99283-25

== ENCOUNTER 2019-06-05 23:16 | Emergency (ER) | payer OTHER ==
[2019-06-05 23:57] VITALS: BP 115/83; PULSE 68; TEMP 98.4; BMI 23.0
--- NOTE | 2019-06-06 00:17 | PDOC ---
Attending Attestation - Resident Resident Name: Marika Brito - ED Attending Attestation I have performed the following: I have examined & evaluated the patient, The case was reviewed & discussed with the resident, I agree w/resident's findings & plan - HPI HPI: 06/06/19 01:34 43-year-old male with wheezing and history of asthma/bronchitis - Physicial Exam PE: 06/06/19 01:34 GENERAL: Awake, mild distress HEAD: No signs of trauma EYES: ENT:clear without exudates. Moist mucosa NECK: Normal ROM, LUNGS:. exp wheezing with prolonged expiratory phase b/l HEART: Regular rate and rhythm, ABDOMEN: Soft, non distended CHEST WALL: NEUROLOGICAL: Alert, SKIN: Warm, Dry - Medical Decision Making 06/06/19 01:36 43-year-old male with wheezing Patient improved after magnesium, Decadron given by EMS and multiple DuoNeb's EKG shows no acute ST segment abnormalities Chest x-ray shows mild hyperinflation with no acute infiltrate Plan for DC home with outpatient primary care follow-up, prescriptions for Medrol Dosepak and inhaler
--- NOTE | 2019-06-06 00:28 | PDOC ---
History of Present Illness - General Chief Complaint: Asthma Stated Complaint: DIFFICULTY BREATHING Time Seen by Provider: 06/06/19 00:15 - History of Present Illness Initial Comments: 06/06/19 01:12 43yo M hx asthma, bronchitis, and unknown psychiatric issues presents from home complaining of SOB and chest pain x2 hours. Sx woke him from sleep approx 2hrs ago, sudden onset, stabbing substernal chest pain, constant, worse with deep breathes, worsening. Endorses difficulty breathing and dry cough. Pt was given combivent and decadron by EMS with some improvement. Denies F/C, N/V, abdominal pain, dizziness, LE edema, recent travel, sick contacts, prior intubations or hospitalizations. Pt states these sx are exactly the same as prior asthma/ bronchitis exacerbations. Pt was here on 05/09/19 for same sx, improved with multiple nebs, and d/c home. Pt took medications as prescribed and felt better until today. Pt uses albuterol neb 4x/day, one pump 2x/day, and one pump as needed. Endorses smoking hx, quit over 1yr ago. Past History - Past Medical History Allergies/Adverse Reactions: Allergies Allergy/AdvReac Type Severity Reaction Status Date / Time No Known Allergies Allergy Verified 06/05/19 23:59 Home Medications: Ambulatory Orders Albuterol 0.083% Nebulizer Анна [Ventolin 0.083% Nebulizer Soln -] 1 neb NEB Q6H #30 vial 06/06/19 Albuterol Sulfate Inhaler - [Ventolin Hfa Inhaler -] 1 - 2 inh PO QID 06/06/19 Azithromycin [Zithromax -] 250 mg PO UTDICT #6 tab 06/06/19 Nebulizer [Aeroeclipse II] 1 each MC Q6H PRN #30 each 06/06/19 Prednisone 60 mg PO DAILY #12 tablet 06/06/19 Anemia: No Asthma: Yes Cancer: No Cardiac Disorders: No CVA: No COPD: No CHF: No Dementia: No Diabetes: No GI Disorders: No Disorders: No HTN: No Hypercholesterolemia: No Liver Disease: No Psychiatric Problems: Yes (Depression) Seizures: No Thyroid Disease: No - Surgical History Abdominal Surgery: No Appendectomy: No Cardiac Surgery: No Cholecystectomy: No Lung Surgery: No Neurologic Surgery: No Orthopedic Surgery: No - Immunization History Immunization Up to Date: Yes - Suicide/Smoking/Psychosocial Hx Smoking History: Never smoked Have you smoked in the past 12 months: No Number of Cigarettes Smoked Daily: 10 If you are a former smoker, when did you quit?: 30 days ago 'Breaking Loose' booklet given: 08/17/17 Hx Alcohol Use: No Drug/Substance Use Hx: No Substance Use Type: Marijuana Hx Substance Use Treatment: No Review of Systems - Review of Systems Comments:: 06/06/19 01:15 Constitutional: Negative for chills and fever. HENT: Negative for sore throat. Eyes: Negative for visual disturbance. Respiratory: Positive for shortness of breath, nonproductive cough, chest tightness, and wheezing. Cardiovascular: Positive for chest pain. Negative for palpitations and leg swelling. Gastrointestinal: Negative for abdominal pain, blood in stool, constipation, diarrhea, nausea and vomiting. Genitourinary: Negative for dysuria, flank pain and hematuria. Musculoskeletal: Negative for back pain and neck pain. Skin: Negative for rash. Neurological: Negative for light-headedness, dizziness, syncope, weakness, numbness and headaches. Psychiatric/Behavioral: Negative for behavioral problems and confusion. *Physical Exam - Vital Signs Last Vital Signs Temp Pulse Resp BP Pulse Ox 98.4 F 68 18 115/83 97 06/05/19 23:50 06/05/19 23:50 06/05/19 23:50 06/05/19 23:50 06/05/19 23:50 - Physical Exam Comments: 06/06/19 01:12 Gen: Alert, NAD, comfortable-appearing, mumbling and speaking quietly. HEENT: PERRL, EOMI, MMM. No conjunctival pallor. Sclera are non-icteric. CV: Regular rate and rhythm. No murmurs, rubs, or gallops. PULM: Audible wheezing. Inspiratory and expiratory wheezing b/l. No rales or rhonchi. ABD: soft, NT/ND, no rebound tenderness or guarding, no CVA tenderness. BACK: No TTP of c/t/l-spine. No step-offs or deformities. MSK: No bony deformities. 2+ pulses in all extremities. NEURO: AAOx3. PERRL. No gross CN deficits. Strength and sensation grossly intact throughout. EXTREMITIES: No cyanosis. No clubbing. No edema. No calf tenderness. PSYCH: Normal mood and thought pattern. SKIN: Warm and dry. Normal capillary refill. No rashes. No jaundice. Heart Score/ECG Review - ECG Impressions Comment:: 06/06/19 01:26 NSR with sinus arrythmia, 77bpm, normal axis, no NUNO/TWIs, no significant change vs 05/09/19 ED Treatment Course - LABORATORY CBC & Chemistry Diagram: 06/06/19 01:25 06/06/19 01:25 Medical Decision Making - Medical Decision Making 06/06/19 01:21 43yo M hx asthma, bronchitis, and unknown psychiatric issues presenting with SOB , nonproductive cough, substernal chest pain, and wheezing x2hrs with b/l wheezing on exam s/p EMS decadron and combivent. Hemodynamically stable, afebrile. Sx similar to last exacerbation/ED visit in 05/09/19. Due to hx and wheezing on exam, most likely COPD exacerbation - evaluate with CXR and administer Mg and albuterol. Also consider pneumonia - assess with CXR and CBC. Cardiac etiology such as ACS/SD or CHF less likely due to lack of cardiac hx and low pre-EKG/trop HEART score, but r/o with CXR, EKG, BNP, and trop x1 due to chest tightness. -CXR -EKG -Labs: CBC, CMP, cardiac profile (Trop), BNP, Mg, Phos -1 amp albuterol nebs, Mg -Reassess s/p meds and consider additional medications -Dispo: most likely d/c home w/PCP f/u pending reassessment and improvement in sx CXR reviewed. No acute findings. Labs reviewed. No concerning findings. Reassessed s/p neb - still wheezing. Give 2nd. Reassessed s/p 2nd neb - still wheezing but improved. Give duonebs. Reassessed s/p duonebs and food. Mild b/l wheezing still present but pt states he feels much better and wants to go home. Denies chest pain or any complaints. Pt O2 sat 100% and remains 100% during ambulatory testing on RA. Discussed strict return precautions and follow-up. Pt understands all dc instructions and all questions were answered. Will d/c home w/PCP f/u. Pt has no ride. Arranged for ride through insurance. *DC/Admit/Observation/Transfer Diagnosis at time of Disposition: COPD exacerbation - Discharge Dispostion Disposition: HOME Condition at time of disposition: Improved Decision to Admit order: No - Prescriptions Prescriptions: Albuterol 0.083% Nebulizer Анна [Ventolin 0.083% Nebulizer Soln -] 1 neb NEB Q6H #30 vial Azithromycin [Zithromax -] 250 mg PO UTDICT #6 tab Nebulizer [Aeroeclipse II] 1 each MC Q6H PRN #30 each PRN Reason: Wheezing Prednisone 60 mg PO DAILY #12 tablet - Referrals Referrals: Brodie Yan MD [Primary Care Provider] - - Patient Instructions Printed Discharge Instructions: DI for Chronic Obstructive Pulmonary Disease Additional Instructions: You have been seen in the Emergency Department for an exacerbation of your COPD. Take your albuterol, azithromycin, and prednisone as prescribed. Follow- up with your PCP Dr Yan this week. Return to ED immediately if you experience difficulty breathing, chest pain, dizziness, or any worsening or new concerning symptoms. - Post Discharge Activity
[2019-06-06] MEDS ORDERED: ALBUTEROL SO4 0.083% IH SOL 2.5 MG/3 ML VIAL.NEB. NEB PRN (00:40)
[2019-06-06] MEDS ORDERED: methylPREDNISolone NA SUCC 125 MG/2 ML VIAL IVPB ONE (00:40)
[2019-06-06] MEDS ORDERED: ALBUTEROL SO4 0.083% IH SOL 2.5 MG/3 ML VIAL.NEB. NEB ONE ×2 (00:55→01:57)
[2019-06-06] MEDS ORDERED: MAGNESIUM 1GM/D5W - 1 GM/100 ML IVPB IVPB ONE (00:55)
[2019-06-06 01:37] LABS: BASO % 0.5 % (0-2.0); EOS % 7.5 % (0-4.5); HEMATOCRIT 40.3 % (35.4-49); HEMOGLOBIN 13.9 GM/dL (11.7-16.9); LYMPH % 19.3 % (8-40); MCH 33.9 pg (25.7-33.7); MCHC 34.5 g/dl (32.0-35.9); MEAN CELL VOLUME 98.2 fl (80-96); MEAN PLT VOLUME 8.1 fl (7.5-11.1); MONO % 1.7 % (3.8-10.2); PLATELET COUNT 214 K/MM3 (134-434); RDW 13.9 % (11.9-15.9); WHITE BLOOD COUNT 4.8 K/mm3 (4.0-10.0)
[2019-06-06 02:03] LABS: N-TERMINAL BNP 7.7 pg/ml (5-125)
[2019-06-06 02:09] LABS: ALBUMIN 3.8 g/dl (3.4-5.0); BILIRUBIN,TOTAL 0.4 mg/dL (0.2-1); BLOOD UREA NITROGEN 10.3 mg/dL (7-18); CALCIUM 8.6 mg/dL (8.5-10.1); POTASSIUM 4.5 mmol/L (3.5-5.1); TOT PROT 6.8 g/dl (6.4-8.2)
[2019-06-06] MEDS: ALBUTEROL SO4 0.083% IH SOL 2.5 MG/3 ML VIAL.NEB. NEB SCH ×2 (02:10→02:25)
[2019-06-06] MEDS ORDERED: ALBUTEROL SO4 2.5/IPRATROPIUM 0.5 INH SOL 3 ML VIAL.NEB. NEB ONE ×2 (03:12)
--- NOTE | 2019-06-06 14:02 | EKG ---
Test Reason : Blood Pressure : / mmHG Vent. Rate : 077 BPM Atrial Rate : 077 BPM P-R Int : 144 ms QRS Dur : 072 ms QT Int : 398 ms P-R-T Axes : 070 031 039 degrees QTc Int : 450 ms NORMAL SINUS RHYTHM WITH SINUS ARRHYTHMIA POSSIBLE LEFT ATRIAL ENLARGEMENT BORDERLINE ECG WHEN COMPARED WITH ECG OF 09-MAY-2019 13:54, NO SIGNIFICANT CHANGE WAS FOUND Confirmed by NIGEL ELIZABETH, JESSIE ([id number]) on 06/06/2019 2:01:30 PM Referred By: Confirmed By:JESSIE MANNING MD
== END 2019-06-06 05:00 | disposition home or self-care (01) ==
LOC: JER 23:16
PROC: 3E0F7GC Introduction of Other Therapeutic Substance into Respiratory Tract, Via Natural or Artificial Opening (ICD-10-PCS; principal; 2019-06-05)
PROC: 3E033GC Introduction of Other Therapeutic Substance into Peripheral Vein, Percutaneous Approach (ICD-10-PCS; 2019-06-05)
DX: J44.1 Chronic obstructive pulmonary disease with (acute) exacerbation (principal)
CPT/HCPCS: 36415; 71045-TC-FY; 80053; 82550; 82553; 83735; 83880; 84100; 84484; 85025; 93005; 93010; 99282-25

== ENCOUNTER 2019-06-19 19:33 | Emergency (ER) | payer OTHER ==
[2019-06-19] MEDS ORDERED: DEXAMETHASONE SOD PHOSPHATE 10 MG/1 ML VIAL ONE (19:53)
[2019-06-19] MEDS ORDERED: MAGNESIUM SULF 50% (8.12 MEQ/2 ML-1 GM VIAL) ONE (19:53)
[2019-06-19] MEDS ORDERED: ALBUTEROL SO4 2.5/IPRATROPIUM 0.5 INH SOL 3 ML VIAL.NEB. NEB ONE ×3 (19:53→20:07)
[2019-06-19 20:00] VITALS: TEMP 97.5; BMI 28.3
--- NOTE | 2019-06-19 20:00 | PDOC ---
History of Present Illness - General Stated Complaint: ASTHMA EXACERBATION Time Seen by Provider: 06/19/19 19:43 History Source: Patient, EMS Exam Limitations: No Limitations - History of Present Illness Initial Comments: 06/19/19 19:55 43yo M with PMH of Asthma, Bronchitis presenting to ED with complaints of asthma attack. Pt states that the heat from outside induced the attack and states this usually happens when it is hot. He says that he has had 5 hospitalizations since last year for asthma but has never been intubated. He endorses chest tightness and cough productive of phlegm but does not know the color. He used his rescue inhaler "20 times". He used to smoke 1ppd and quit last year and still smokes marijuana daily before bed. Denies fever, chills, lightheadedness, leg swelling, calf pain, recent travel, recent surgeries, family history of CO, n/v/d back pain, headache. Was given Combivent treatments and 10 decadron by EMS PMD: Farrah PMH: see hpi PSH: none Meds: nebulizer, albuterol Allergies: nkda Past History - Past Medical History Allergies/Adverse Reactions: Allergies Allergy/AdvReac Type Severity Reaction Status Date / Time No Known Allergies Allergy Verified 06/19/19 20:00 Home Medications: Ambulatory Orders Albuterol 0.083% Nebulizer Анна [Ventolin 0.083% Nebulizer Soln -] 1 neb NEB Q6H #30 vial 06/06/19 Albuterol Sulfate Inhaler - [Ventolin Hfa Inhaler -] 1 - 2 inh PO QID 06/06/19 Azithromycin [Zithromax -] 250 mg PO UTDICT #6 tab 06/06/19 Nebulizer [Aeroeclipse II] 1 each MC Q6H PRN #30 each 06/06/19 Prednisone 60 mg PO DAILY #12 tablet 06/06/19 Prednisone [Prednisone 50 MG TABLETS] 50 mg PO DAILY #4 tablet 06/19/19 Anemia: No Asthma: Yes Cancer: No Cardiac Disorders: No CVA: No COPD: No CHF: No Dementia: No Diabetes: No GI Disorders: No Disorders: No HTN: No Hypercholesterolemia: No Liver Disease: No Psychiatric Problems: Yes (Depression) Seizures: No Thyroid Disease: No - Surgical History Abdominal Surgery: No Appendectomy: No Cardiac Surgery: No Cholecystectomy: No Lung Surgery: No Neurologic Surgery: No Orthopedic Surgery: No - Immunization History Immunization Up to Date: Yes - Suicide/Smoking/Psychosocial Hx Smoking History: Never smoked Have you smoked in the past 12 months: No Number of Cigarettes Smoked Daily: 10 If you are a former smoker, when did you quit?: 30 days ago 'Breaking Loose' booklet given: 08/17/17 Hx Alcohol Use: No Drug/Substance Use Hx: No Substance Use Type: Marijuana Hx Substance Use Treatment: No Review of Systems - Review of Systems Constitutional: No: Symptoms Reported HEENTM: No: Symptoms Reported Respiratory: Yes: See HPI Cardiac (ROS): Yes: See HPI ABD/GI: No: Symptoms Reported : No: Symptoms Reported Musculoskeletal: No: Symptoms Reported Integumentary: No: Symptoms Reported Neurological: No: Symptoms reported *Physical Exam - Physical Exam General Appearance: Yes: Nourished, Appropriately Dressed. No: Apparent Distress HEENT: positive: EOMI, ZINA Neck: positive: Trachea midline, Supple Respiratory/Chest: positive: Wheezing. negative: Respiratory Distress, Accessory Muscle Use, Crackles, Rhonchi Cardiovascular: positive: Regular Rhythm, Regular Rate, S1, S2. negative: Edema , JVD, Murmur Vascular Pulses: Dorsalis-Pedis (R): 2+, Doralis-Pedis (L): 2+ Gastrointestinal/Abdominal: positive: Normal Bowel Sounds, Soft. negative: Tender Musculoskeletal: negative: CVA Tenderness Extremity: positive: Normal Capillary Refill, Pelvis Stable. negative: Swelling , Calf Tenderness Integumentary: positive: Normal Color, Dry, Warm Neurologic: positive: software configuration analyst II-XII NML intact, Fully Oriented, Alert, Normal Mood/ Affect, Normal Response, Motor Strength 03/10 ED Treatment Course - LABORATORY CBC & Chemistry Diagram: 06/19/19 20:16 06/19/19 20:16 - RADIOLOGY Radiology Studies Ordered: Category Date Time Status CHEST X-RAY PORTABLE* [RAD] Stat Radiology 06/19/19 19:53 Ordered Medical Decision Making - Medical Decision Making 06/19/19 20:00 43yo M with PMH of Asthma, Bronchitis presenting to ED with complaints of asthma attack. Pt states that the heat from outside induced the attack and states this usually happens when it is hot. He says that he has had 5 hospitalizations since last year for asthma but has never been intubated. He endorses chest tightness and cough productive of phlegm but does not know the color. He used his rescue inhaler "20 times". He used to smoke 1ppd and quit last year and still smokes marijuana daily before bed. Denies fever, chills, lightheadedness, leg swelling, calf pain, recent travel, recent surgeries, family history of CO, n/v/d back pain, headache. Vitals: PE: diffuse wheezing in lung murrell likely asthma. PERC negative. low risk acs however will get labs, ekg, cxr. duonebs. given steroids in the field. ekg normal, labs normal pt still has wheezing but states he feels better. is ambulating in room without desating or feeling sob. will give rx for prednisone. pt has pmd. will arrange for fu. given return precatuions. *DC/Admit/Observation/Transfer Diagnosis at time of Disposition: Asthma exacerbation Qualifiers: Asthma severity: unspecified severity Asthma persistence: unspecified Qualified Code(s): J45.901 - Unspecified asthma with (acute) exacerbation - Discharge Dispostion Disposition: HOME Condition at time of disposition: Improved Decision to Admit order: No - Prescriptions Prescriptions: Prednisone [Prednisone 50 MG TABLETS] 50 mg PO DAILY #4 tablet - Referrals Referrals: Brodie Yan MD [Primary Care Provider] - - Patient Instructions Printed Discharge Instructions: Asthma -- Adult Additional Instructions: You were seen in the emergency room today for asthma. Your potassium is a little low but the rest of your blood work is normal. Please make an appointment with your lung specialist and your primary care doctor this week or early next week regarding this ED visit. A prescription for prednisone was sent to your pharmacy. Take as directed. Try to stay away from anything that triggers your asthma. Come back to the emergency room if breathing gets worse, you develop fever, you have chest pain, or if any new concerning symptom develops. Thank you - Post Discharge Activity
[2019-06-19 21:00] LABS: ALK PHOS 46 U/L (45-117); ANION GAP 8 MMOL/L (8-16); BILIRUBIN,TOTAL 0.6 mg/dL (0.2-1); BLOOD UREA NITROGEN 9.4 mg/dL (7-18); CALCIUM 7.4 mg/dL (8.5-10.1); CHLORIDE 112 mmol/L (98-107); CO2 25 mmol/L (21-32); GLUCOSE,RANDOM 95 mg/dL (74-106); POTASSIUM 3.1 mmol/L (3.5-5.1); SGOT/AST 11 U/L (15-37); SGPT/ALT 14 U/L (13-61); SODIUM 144 mmol/L (136-145); TOT PROT 5.2 g/dl (6.4-8.2)
[2019-06-19 21:24] LABS: BASO % 0.4 % (0-2.0); EOS % 8.9 % (0-4.5); HEMATOCRIT 36.8 % (35.4-49); HEMOGLOBIN 12.6 GM/dL (11.7-16.9); MCH 33.9 pg (25.7-33.7); MCHC 34.3 g/dl (32.0-35.9); MEAN CELL VOLUME 98.9 fl (80-96); MEAN PLT VOLUME 8.3 fl (7.5-11.1); NEUT % 66.7 % (42.8-82.8); PLATELET COUNT 253 K/MM3 (134-434); RBC 3.73 M/mm3 (4.00-5.60); RDW 13.6 % (11.9-15.9); WHITE BLOOD COUNT 7.8 K/mm3 (4.0-10.0)
[2019-06-19] MEDS ORDERED: ALBUTEROL SO4 0.083% IH SOL 2.5 MG/3 ML VIAL.NEB. NEB ONE ×2 (21:45→22:19)
--- NOTE | 2019-06-19 21:56 | PDOC ---
Documentation entered by Hammad Wan SCRIBE, acting as scribe for Espinoza Huerta MD. Espinoza Huerta MD: This documentation has been prepared by the Savage mancilla Daniel, SCRIBE, under my direction and personally reviewed by me in its entirety. I confirm that the documentation accurately reflects all work, treatment, procedures, and medical decision making performed by me. Attending Attestation - Resident Resident Name: Fabiola Freeman - ED Attending Attestation I have performed the following: I have examined & evaluated the patient, The case was reviewed & discussed with the resident, I agree w/resident's findings & plan, Exceptions are as noted - HPI HPI: 06/19/19 21:06 The patient is a 43 year old male with a past medical history of asthma ( albuterol PRN, multiple admissions, no ICU or intubations) and bronchitis here today for evaluation of asthma exacerbation. The patient reports that he was out in the heat today and began to have an asthma attack consisting of a nonproductive cough and chest tightness. He notes that he felt better after using his inhaler. He also notes that he has been hospitalized 5 times in the past year for asthma. Patient denies headache, lightheadedness, focal weakness/numbness. Denies fever , chills. Denies nausea, vomiting, diarrhea, abdominal pain. Denies calf tenderness or LE edema. Allergies: NKA Social history: Former pack a day smoker, quit last year. Reports marijuana use. PCP: Brodie Yan - Physicial Exam PE: 06/19/19 21:50 GENERAL: Awake, alert, and fully oriented, in no acute distress HEAD: No signs of trauma EYES: PERRLA, EOMI, sclera anicteric, conjunctiva clear ENT: Auricles normal inspection, hearing grossly normal, nares patent, oropharynx clear without exudates. Moist mucosa NECK: Normal ROM, supple, no lymphadenopathy, JVD, or masses LUNGS: Breath sounds equal, clear to auscultation bilaterally. Mild exp wheezing L>R, and no crackles. No increased WOB. HEART: Regular rate and rhythm, normal S1 and S2, no murmurs, rubs or gallops ABDOMEN: Soft, nontender, normoactive bowel sounds. No guarding, no rebound. No masses EXTREMITIES: Normal range of motion, no edema. No clubbing or cyanosis. No cords, erythema, or tenderness NEUROLOGICAL: Normal speech, cranial nerves intact, equal strength and sensation b/l SKIN: Warm, Dry, normal turgor, no rashes or lesions noted. - Medical Decision Making 06/19/19 21:52 43yo M presents to the ED with SOB and chest tightness consistent with his previous asthma exacerbations. Tachypneic on arrival, improved now to RR 18, remaining vitals wnl Lungs with exp wheezing but good airmovement Plan for serial nebs, Mg, pt got decadron in the field Will reassess post nebs/Mg Labs pending CXR clear so far 06/20/19 00:00 Pt feeling significantly better Tachypnea resolved Lungs clear Ambulatory sat >95% Will DC with course of prednisone for 4 more days He is clinically stable for DC home I discussed the physical exam findings, ancillary test results and final diagnoses with the patient. I answered all of the patient's questions. The patient was satisfied with the care received and felt comfortable with the discharge plan and treatment plan. The patient will call their primary care physician within 24 hours to arrange follow-up and will return to the Emergency Department with any new, persistent or worsening symptoms. Heart Score/ECG Review - History History: Slightly suspicious - Electrocardiogram EKG: Normal - Age Age: </= 45 - Risk Factors Based on the list above the patient has:: No risk factors known - Troponin Troponin: </= normal limit - Score Heart Score - Total: 0 #1 06/19/19 21:55 Twelve-lead EKG was performed and reviewed by me. Normal sinus rhythm, rate 71. Normal axis and intervals. No ST elevations or T-wave inversions.
[2019-06-19] MEDS ORDERED: POTASSIUM CHLORIDE TABS 10 MEQ TABLET.ER (FP) PO ONE (23:06)
[2019-06-19 23:35] VITALS: BP 117/80; PULSE 72
--- NOTE | 2019-06-20 11:03 | EKG ---
Test Reason : Blood Pressure : / mmHG Vent. Rate : 071 BPM Atrial Rate : 071 BPM P-R Int : 146 ms QRS Dur : 080 ms QT Int : 386 ms P-R-T Axes : 076 020 027 degrees QTc Int : 419 ms NORMAL SINUS RHYTHM WHEN COMPARED WITH ECG OF 06-JUN-2019 01:05, NO SIGNIFICANT CHANGE WAS FOUND Confirmed by AGUSTIN ROMANO MD ([id number]) on 06/20/2019 11:03:34 AM Referred By: Confirmed By:AGUSTIN ROMANO MD
== END 2019-06-20 00:44 | disposition home or self-care (01) ==
LOC: JER 19:33
PROC: 3E0F7GC Introduction of Other Therapeutic Substance into Respiratory Tract, Via Natural or Artificial Opening (ICD-10-PCS; principal; 2019-06-19)
DX: J45.901 Unspecified asthma with (acute) exacerbation (principal)
CPT/HCPCS: 36415; 71045-TC-FY; 80053; 84484; 85025; 93005; 93010; 99282-25

== ENCOUNTER 2019-08-30 08:20 | Emergency (ER) | payer OTHER ==
[2019-08-30 08:35] VITALS: TEMP 98; BMI 23.0
[2019-08-30] MEDS ORDERED: MAGNESIUM 1GM/D5W - 1 GM/100 ML IVPB IVPB ONE (09:24)
[2019-08-30 09:26] LABS: BASO % 0.8 % (0-2.0); EOS % 14.4 % (0-4.5); HEMOGLOBIN 14.6 GM/dL (11.7-16.9); LYMPH % 33.9 % (8-40); MCH 33.8 pg (25.7-33.7); MEAN CELL VOLUME 99.5 fl (80-96); MEAN PLT VOLUME 8.5 fl (7.5-11.1); MONO % 7.5 % (3.8-10.2); NEUT % 43.4 % (42.8-82.8); PLATELET COUNT 217 K/MM3 (134-434); RBC 4.33 M/mm3 (4.00-5.60); RDW 13.9 % (11.9-15.9); WHITE BLOOD COUNT 6.2 K/mm3 (4.0-10.0)
[2019-08-30] MEDS ORDERED: MAGNESIUM SULF 50% (8.12 MEQ/2 ML-1 GM VIAL) IVPB ONE (09:33)
--- NOTE | 2019-08-30 09:33 | PDOC ---
History of Present Illness - General Chief Complaint: Shortness of Breath Stated Complaint: SHORTNESS OF BREATH Time Seen by Provider: 08/30/19 08:36 History Source: Patient Exam Limitations: No Limitations - History of Present Illness Initial Comments: 08/30/19 13:33 HPI: 44M PMH asthma, chronic bronchitis BIBEMS w/ SOB, chest pain (substernal, constant, tightness), worsening productive cough, and back muscle tightness since this AM. Symptoms woke patient up. He rcvd 2 albuterol nebs at home, 3 or 4 duonebs and IM decadron by EMS en route. Per pt - never intubated, last admission in 08/2018, and 2-3 ED visits for SOB in the past year. Endorses runny nose and chills. NKDA No current smoking PCP Dr. Yan Past History - Past Medical History Allergies/Adverse Reactions: Allergies Allergy/AdvReac Type Severity Reaction Status Date / Time No Known Allergies Allergy Verified 06/19/19 20:00 Home Medications: Ambulatory Orders Albuterol 0.083% Nebulizer Анна [Ventolin 0.083% Nebulizer Soln -] 1 neb NEB Q6H #30 vial 06/06/19 Albuterol Sulfate Inhaler - [Ventolin Hfa Inhaler -] 1 - 2 inh PO QID 06/06/19 Nebulizer [Aeroeclipse II] 1 each MC Q6H PRN #30 each 06/06/19 Albuterol Sulfate Inhaler - [Ventolin Hfa Inhaler -] 1 - 2 inh PO Q4H #1 inhaler 08/30/19 Budesonide/Formeterol Fumarate [SYMBICORT 160/4.5mcg -] 1 inh IH BID #1 inhaler 08/30/19 Budesonide/Formeterol Fumarate [SYMBICORT 160/4.5mcg -] 1 inh PO BID 08/30/19 Budesonide/Formeterol Fumarate [SYMBICORT 160/4.5mcg -] 1 inh PO BID #1 cannister 08/30/19 Divalproex Sodium mg PO ASDIR 08/30/19 Prednisone [Prednisone 50 MG TABLETS] 50 mg PO DAILY #5 tablet 08/30/19 Quetiapine Fumarate [Quetiapine Fumarate ER] 200 mg PO HS 08/30/19 Anemia: No Asthma: Yes Cancer: No Cardiac Disorders: No CVA: No COPD: No CHF: No Dementia: No Diabetes: No GI Disorders: No Disorders: No HTN: No Hypercholesterolemia: No Liver Disease: No Psychiatric Problems: Yes (Depression) Seizures: No Thyroid Disease: No - Surgical History Abdominal Surgery: No Appendectomy: No Cardiac Surgery: No Cholecystectomy: No Lung Surgery: No Neurologic Surgery: No Orthopedic Surgery: No - Immunization History Immunization Up to Date: Yes - Psycho Social/Smoking Cessation Hx Smoking History: Former smoker Have you smoked in the past 12 months: Yes Number of Cigarettes Smoked Daily: 10 If you are a former smoker, when did you quit?: 30 days ago Information on smoking cessation initiated: No 'Breaking Loose' booklet given: 08/17/17 Hx Alcohol Use: No Drug/Substance Use Hx: No Substance Use Type: Marijuana Hx Substance Use Treatment: No Review of Systems - Review of Systems Able to Perform ROS?: Yes Comments:: 08/30/19 13:33 ROS: CONSTITUTIONAL: Endorses chills yesterday HEENT: Endorses rhinorrhea RESP: Endorses sob, orthopnea, productive cough, wheezing CARD: Endorses substernal tightness GI: Denies N / V / D, abdominal pain : Denies dysuria, frequency SKIN: Endorses dry skin Is the patient limited Bulgarian proficient: No *Physical Exam - Vital Signs Last Vital Signs Temp Pulse Resp BP Pulse Ox 98 F 96 H 28 H 134/94 99 08/30/19 08:20 08/30/19 08:20 08/30/19 08:20 08/30/19 08:20 08/30/19 09:07 - Physical Exam Comments: 08/30/19 13:33 PE: GEN: Moderate discomfort, AAOx3 HEENT: NC/AT. No facial asymmetry. Normal voice. Supple neck w/ FROM. CV: S1/S2, RRR, no m/r/g LUNG: Tachypnic, Increased work of breathing at rest on RA. Diffuse inspiratory and expiratory wheezes b/l. Coarse breath sounds throughout. GI: soft, ndnt, +BS EXTREMITIES: No LE edema. No obvious deformities of all extremities. SKIN: warm, dry, normal turgor PSYCH: normal mood and affect NEURO: Moving all extremities well. ED Treatment Course - LABORATORY CBC & Chemistry Diagram: 08/30/19 09:00 08/30/19 09:00 - RADIOLOGY Radiology Studies Ordered: Category Date Time Status CHEST X-RAY PORTABLE* [RAD] Stat Radiology 08/30/19 09:28 Ordered Medical Decision Making - Medical Decision Making 08/30/19 09:31 MDM: 44M PMH asthma, chronic bronchitis BIBEMS for SOB, chest pain described as tightness, and productive cough. Tachypnic w/ increase work of breathing and diffuse wheezing and coarse breath sounds on exam. - s/p decadron, albuterol, duonebs - continuous albuterol - Mag - Terbutaline - Asthma action plan / case work 08/30/19 10:06 Pt reassessed, improving respiratory status w/ expiratory wheezes 08/30/19 10:44 labs reviewed trop neg. pt feeling better, improved respiratory effort, expiratory wheezes improved exam from previous 1 alb peak flow reassess 08/30/19 11:58 Peak flow 315 Action plan provided Seen by Respiratory Rx: albuterol, symbicort, prednisone Discharged home w/ meds, action plan, return precautions, and PCP f/u w/i 3d Discharge - Discharge Information Problems reviewed: Yes Clinical Impression/Diagnosis: Shortness of breath Condition: Stable Disposition: HOME - Admission No - Additional Discharge Information Prescriptions: Albuterol Sulfate Inhaler - [Ventolin Hfa Inhaler -] 1 - 2 inh PO Q4H #1 inhaler Budesonide/Formeterol Fumarate [SYMBICORT 160/4.5mcg -] 1 inh PO BID #1 cannister Budesonide/Formeterol Fumarate [SYMBICORT 160/4.5mcg -] 1 inh IH BID #1 inhaler Prednisone [Prednisone 50 MG TABLETS] 50 mg PO DAILY #5 tablet - Follow up/Referral Referrals: Brodie Yan MD [Primary Care Provider] - - Patient Discharge Instructions Patient Printed Discharge Instructions: DI for Asthma -- Adult, DI for Shortness of Breath Additional Instructions: You were treated in the Emergency Department. We have provided you with an Asthma Action Plan; please read it over and take the medications as prescribed. We have sent medications to [facility] pharmacy, please take as prescribed: - Albuterol 1-2 puffs every 4-6 hours as needed for immediate symptom control - Symbicort 1 puff every 12 hours EVERY DAY even when you feel good, for intermediate manager symptom control - Prednisone 50mg - 1 tablet once a day for 5 days Follow up with your Primary Care doctor regarding your concerns and this ED visit WITHIN 3 DAYS. IMMEDIATELY return to the ED if you experience any of the following: - Worsening / unresolving shortness of breath - Chest pain - ANYTHING that concerns you - Post Discharge Activity
[2019-08-30] MEDS ORDERED: TERBUTALINE SULFATE 1 MG/1 ML VIAL SQ ONE ×2 (09:43→09:46)
[2019-08-30] MEDS ORDERED: ALBUTEROL SO4 2.5/IPRATROPIUM 0.5 INH SOL 3 ML VIAL.NEB. NEB SCH (09:45)
[2019-08-30] MEDS ORDERED: ALBUTEROL SO4 0.083% IH SOL 2.5 MG/3 ML VIAL.NEB. NEB ONE ×3 (09:46→10:55)
[2019-08-30] MEDS: ALBUTEROL SO4 0.083% IH SOL 2.5 MG/3 ML VIAL.NEB. NEB SCH ×4 (09:51→10:36)
[2019-08-30 10:05] LABS: ALBUMIN 3.9 g/dl (3.4-5.0); ALK PHOS 62 U/L (45-117); ANION GAP 8 MMOL/L (8-16); BILIRUBIN,TOTAL 0.4 mg/dL (0.2-1); BLOOD UREA NITROGEN 12.3 mg/dL (7-18); CALCIUM 9.3 mg/dL (8.5-10.1); CHLORIDE 106 mmol/L (98-107); CO2 26 mmol/L (21-32); CREATININE 1.3 mg/dL (0.55-1.3); GLUCOSE,RANDOM 94 mg/dL (74-106); MAGNESIUM 2.1 mg/dL (1.8-2.4); POTASSIUM 4.6 mmol/L (3.5-5.1); SGOT/AST 23 U/L (15-37); SGPT/ALT 19 U/L (13-61); SODIUM 140 mmol/L (136-145); TOT PROT 7.1 g/dl (6.4-8.2)
[2019-08-30 12:05] VITALS: BP 118/81; PULSE 80
--- NOTE | 2019-08-30 12:28 | PDOC ---
Documentation entered by Tone Moses SCRIBE, acting as scribe for Inocente Purdy MD. Inocente Purdy MD: This documentation has been prepared by the Aurelia mancilla Xhesika, SCRIBE, under my direction and personally reviewed by me in its entirety. I confirm that the documentation accurately reflects all work, treatment, procedures, and medical decision making performed by me. Attending Attestation - Resident Resident Name: NewJose Angel - ED Attending Attestation I have performed the following: I have examined & evaluated the patient, The case was reviewed & discussed with the resident, I agree w/resident's findings & plan, Exceptions are as noted - HPI HPI: 08/30/19 10:02 The patient is a 44 year old male with a PMH of asthma (complaint with meds, albuterol, and pump) who presents to the ED for shortness of breath. Patient notes he endorses chest tightness and back pain from coughing trying to catch his breath. Patient notes his asthma has been controlled since he was a kid, however, patient has been hospitalized 3-4 times since Aug 2018. The patient denies chest pain, headache and dizziness. Denies fever, chills, new cough, nausea, vomiting, diarrhea and constipation. Denies dysuria, frequency, urgency and hematuria. Allergies:, NKDA Social Hx: Denies current smoking. occasional alcohol use. - Physicial Exam PE: 08/30/19 10:03 Vitals: Triage Vital signs reviewed General Appearance: no acute distress, well nourished well developed, Head: Atraumatic, normocephalic Eyes: Pupils equal reactive round, extraocular movement intact Ears: TM's normal bilaterally; Chest Wall: Nontender Cardiac: Regular rate and rhythm, no murmurs, no rubs, no gallops, Lungs: +end expiratory wheezing through lungs bilaterally. Extremities: Full range of motion to all extremities, no cyanosis, clubbing, or edema Skin: Warm and dry, no rashes or lesions, no petechiae Neuro: AOX3; Cranial Nerves 2-12 grossly c intact, Strength intact to all extremities, Sensation intact to all extremities Psych: normal mood, normal affect - Medical Decision Making 08/30/19 15:51 44 years old with known history of asthma presents with moderate to severe asthma exacerbation likely secondary to change in weather Steroids duo nebs and mag ordered We will observe and reassess Patient's baseline peak flow was 350 status post steroids and nebs patient feels much better his wheezing has improved his peak flow here in the emergency department is 315 Asthma action plan initiated will discharge on oral and inhaled steroid as well as rescue nebs at home Findings, the need for follow-up and strict return instructions discussed with patient. Heart Score/ECG Review - ECG Impressions Comment:: 08/30/19 15:52 EKG performed at 946 demonstrates normal sinus rhythm possible left atrial enlargement no ST elevations incomplete right bundle branch block Interpreted by me.
--- NOTE | 2019-08-30 13:21 | EKG ---
Test Reason : Blood Pressure : / mmHG Vent. Rate : 072 BPM Atrial Rate : 072 BPM P-R Int : 148 ms QRS Dur : 074 ms QT Int : 398 ms P-R-T Axes : 073 022 035 degrees QTc Int : 435 ms NORMAL SINUS RHYTHM POSSIBLE LEFT ATRIAL ENLARGEMENT WHEN COMPARED WITH ECG OF 19-JUN-2019 20:39, NO SIGNIFICANT CHANGE WAS FOUND Confirmed by AGUSTIN ROMANO MD ([id number]) on 08/30/2019 1:20:59 PM Referred By: Confirmed By:AGUSTIN ROMANO MD
== END 2019-08-30 13:02 | disposition home or self-care (01) ==
LOC: JER 08:20
PROC: 3E0F7GC Introduction of Other Therapeutic Substance into Respiratory Tract, Via Natural or Artificial Opening (ICD-10-PCS; principal; 2019-08-30)
PROC: 3E0F7GC Introduction of Other Therapeutic Substance into Respiratory Tract, Via Natural or Artificial Opening (ICD-10-PCS; 2019-08-30)
PROC: 3E033GC Introduction of Other Therapeutic Substance into Peripheral Vein, Percutaneous Approach (ICD-10-PCS; 2019-08-30)
PROC: 3E023GC Introduction of Other Therapeutic Substance into Muscle, Percutaneous Approach (ICD-10-PCS; 2019-08-30)
DX: J45.901 Unspecified asthma with (acute) exacerbation (principal)
CPT/HCPCS: 36415; 71045-TC-FY; 80053; 82550; 82553; 83735; 84484; 85025; 93005; 93010; 94640; 94664; 96372; 96374; 99283-25

== ENCOUNTER 2019-11-20 15:25 | Emergency (ER) | payer OTHER ==
[2019-11-20 15:42] VITALS: BP 124/72; PULSE 72; TEMP 97.9; BMI 23.0
--- NOTE | 2019-11-20 15:44 | PDOC ---
Rapid Medical Evaluation Chief Complaint: Asthma Time Seen by Provider: 11/20/19 15:38 Medical Evaluation: Allergies Allergy/AdvReac Type Severity Reaction Status Date / Time No Known Allergies Allergy Verified 06/19/19 20:00 11/20/19 15:38 Pt presents for an asthma exacerbation, BIBA. Received 3 total treatments of albuterol and 10mg of decadron by inside contractor sales prior to arrival. He states his breathing has improved mildly, but it is still hard to catch his breath. Denies fevers, flu like symptoms, n/v/d, sore throat. Exam: lung murrell with expiratory wheezing throughout; using accessory muscles to breathe Orders: Labs, CXR, Duoneb Pt to proceed to the ER for further evaluation Discharge Disposition - Diagnosis Asthma - Referrals - Patient Instructions - Post Discharge Activity
[2019-11-20 16:43] LABS: BASO % 0.5 % (0-2.0); EOS % 7.1 % (0-4.5); HEMATOCRIT 40.9 % (35.4-49); HEMOGLOBIN 13.7 GM/dL (11.7-16.9); LYMPH % 24.4 % (8-40); MCH 33.8 pg (25.7-33.7); MCHC 33.5 g/dl (32.0-35.9); MEAN CELL VOLUME 100.9 fl (80-96); MEAN PLT VOLUME 8.3 fl (7.5-11.1); MONO % 5.3 % (3.8-10.2); NEUT % 62.7 % (42.8-82.8); PLATELET COUNT 239 K/MM3 (134-434); RBC 4.05 M/mm3 (4.00-5.60); RDW 14.3 % (11.9-15.9); WHITE BLOOD COUNT 6.7 K/mm3 (4.0-10.0)
[2019-11-20 17:12] LABS: ALBUMIN 3.8 g/dl (3.4-5.0); BILIRUBIN,TOTAL 0.8 mg/dL (0.2-1); BLOOD UREA NITROGEN 9.6 mg/dL (7-18); CALCIUM 8.8 mg/dL (8.5-10.1); CREATININE 1.2 mg/dL (0.55-1.3); TOT PROT 6.6 g/dl (6.4-8.2)
[2019-11-20] MEDS ORDERED: ALBUTEROL SO4 0.5 % INH SOLN 2.5 MG/0.5 ML VIAL.NEB. NEB ONE (17:38)
--- NOTE | 2019-11-20 18:47 | PDOC ---
History of Present Illness - General Chief Complaint: Asthma Stated Complaint: ASTHMA Time Seen by Provider: 11/20/19 15:38 History Source: Patient Exam Limitations: No Limitations Past History - Past Medical History Allergies/Adverse Reactions: Allergies Allergy/AdvReac Type Severity Reaction Status Date / Time No Known Allergies Allergy Verified 06/19/19 20:00 Home Medications: Ambulatory Orders Albuterol 0.083% Nebulizer Анна [Ventolin 0.083% Nebulizer Soln -] 1 neb NEB Q6H #30 vial 06/06/19 Albuterol Sulfate Inhaler - [Ventolin Hfa Inhaler -] 1 - 2 inh PO QID 06/06/19 Nebulizer [Aeroeclipse II] 1 each MC Q6H PRN #30 each 06/06/19 Albuterol Sulfate Inhaler - [Ventolin Hfa Inhaler -] 1 - 2 inh PO Q4H #1 inhaler 08/30/19 Budesonide/Formeterol Fumarate [SYMBICORT 160/4.5mcg -] 1 inh IH BID #1 inhaler 08/30/19 Budesonide/Formeterol Fumarate [SYMBICORT 160/4.5mcg -] 1 inh PO BID 08/30/19 Budesonide/Formeterol Fumarate [SYMBICORT 160/4.5mcg -] 1 inh PO BID #1 cannister 08/30/19 Divalproex Sodium mg PO ASDIR 08/30/19 Prednisone [Prednisone 50 MG TABLETS] 50 mg PO DAILY #5 tablet 08/30/19 Quetiapine Fumarate [Quetiapine Fumarate ER] 200 mg PO HS 08/30/19 Albuterol 0.083% Nebulizer Анна [Ventolin 0.083% Nebulizer Soln -] 1 neb NEB Q4H PRN #30 vial 11/20/19 predniSONE [Deltasone -] 40 mg PO DAILY #8 tablet 11/20/19 Anemia: No Asthma: Yes Cancer: No Cardiac Disorders: No CVA: No COPD: No CHF: No Dementia: No Diabetes: No GI Disorders: No Disorders: No HTN: No Hypercholesterolemia: No Liver Disease: No Psychiatric Problems: Yes (Depression) Seizures: No Thyroid Disease: No - Surgical History Abdominal Surgery: No Appendectomy: No Cardiac Surgery: No Cholecystectomy: No Lung Surgery: No Neurologic Surgery: No Orthopedic Surgery: No - Immunization History Immunization Up to Date: Yes - Psycho Social/Smoking Cessation Hx Smoking History: Never smoked Have you smoked in the past 12 months: No Number of Cigarettes Smoked Daily: 10 If you are a former smoker, when did you quit?: 30 days ago Information on smoking cessation initiated: No 'Breaking Loose' booklet given: 08/17/17 Hx Alcohol Use: No Drug/Substance Use Hx: No Substance Use Type: Marijuana Hx Substance Use Treatment: No *Physical Exam - Vital Signs Last Vital Signs Temp Pulse Resp BP Pulse Ox 97.9 F 72 22 H 124/72 99 11/20/19 15:38 11/20/19 15:38 11/20/19 15:38 11/20/19 15:38 11/20/19 15:38 - Physical Exam General Appearance: No: Apparent Distress HEENT: negative: Nasal Congestion, Rhinorrhea Respiratory/Chest: positive: Wheezing (minimal expiratory wheeze). negative: Respiratory Distress, Accessory Muscle Use, Labored Respiration, Rapid RR Cardiovascular: positive: Regular Rhythm, Regular Rate, S1, S2. negative: Murmur Gastrointestinal/Abdominal: positive: Normal Bowel Sounds, Soft. negative: Tender, Distended, Guarding, Rebound Neurologic: positive: Alert ED Treatment Course - LABORATORY CBC & Chemistry Diagram: 11/20/19 15:57 11/20/19 15:57 - ADDITIONAL ORDERS Additional order review: Laboratory Results 11/20/19 15:57 Sodium 140 Potassium 4.0 Chloride 107 Carbon Dioxide 30 Anion Gap 3 L BUN 9.6 Creatinine 1.2 Est GFR (CKD-EPI)AfAm 83.54 Est GFR (CKD-EPI)NonAf 72.08 Random Glucose 101 Calcium 8.8 Total Bilirubin 0.8 AST 14 L ALT 18 Alkaline Phosphatase 61 Total Protein 6.6 Albumin 3.8 11/20/19 15:57 RBC 4.05 MCV 100.9 H MCHC 33.5 RDW 14.3 MPV 8.3 Neutrophils % 62.7 D Lymphocytes % 24.4 D Monocytes % 5.3 Eosinophils % 7.1 H Basophils % 0.5 - Medications Given in the ED: ED Medications Discontinued Medications Generic Name Dose Route Start Last Admin Trade Name Freq PRN Reason Stop Dose Admin Albuterol Sulfate 1 amp 11/20/19 17:38 11/20/19 18:05 Ventolin 0.5% - NEB 11/20/19 17:39 1 amp ONCE ONE Administration Medical Decision Making - Medical Decision Making 44 y/o M with hx of asthma (never intubated, never admitted), former smoker ( quit Jun 2019, smoker since age 14, 2-3 ppd) presents with SOB, chest tightness and wheezing from this morning, feeling like his typical asthma attack. Tried using his meds without relief of sxs. States changes in weather can precipitate his sxs. Denies fever, URI sxs, abd pain, n/v/d. Patient was given duonebs x 3 and IV Decadron 10 mg via EMS prior to arrival to ED On my assessment, patient is no respiratory distress, minimal wheeze noted CXR negative Given another albuterol neb Patient feeling much better and requesting to go home Stable for dc 11/20/19 18:40 Discharge - Discharge Information Problems reviewed: Yes Clinical Impression/Diagnosis: Asthma Qualifiers: Asthma severity: unspecified severity Asthma persistence: unspecified Asthma complication type: with acute exacerbation Qualified Code(s): J45.901 - Unspecified asthma with (acute) exacerbation Condition: Improved Disposition: HOME - Admission No - Additional Discharge Information Prescriptions: Albuterol 0.083% Nebulizer Анна [Ventolin 0.083% Nebulizer Soln -] 1 neb NEB Q4H PRN #30 vial PRN Reason: wheezing predniSONE [Deltasone -] 40 mg PO DAILY #8 tablet Prescription Drug Monitoring Program (I-STOP) results: I-STOP not reviewed - Follow up/Referral Referrals: Brodie Yan MD [Primary Care Provider] - 2 Days - Patient Discharge Instructions Patient Printed Discharge Instructions: DI for Asthma -- Adult Additional Instructions: Thank you for choosing [facility]. It was a pleasure taking care of you. Use the albuterol nebulizer as needed for shortness of breath or wheezing Please also take the Prednisone as prescribed (you may start the medication the day after tomorrow) Please follow-up with your regular doctor for further control of asthma Return to the Emergency Department if your symptoms worsen or persist or have other concerning symptoms. - Post Discharge Activity
--- NOTE | 2019-11-21 11:56 | EKG ---
Test Reason : Blood Pressure : / mmHG Vent. Rate : 067 BPM Atrial Rate : 067 BPM P-R Int : 148 ms QRS Dur : 082 ms QT Int : 392 ms P-R-T Axes : 077 027 024 degrees QTc Int : 414 ms NORMAL SINUS RHYTHM POSSIBLE LEFT ATRIAL ENLARGEMENT BORDERLINE ECG WHEN COMPARED WITH ECG OF 30-AUG-2019 09:46, NO SIGNIFICANT CHANGE WAS FOUND Confirmed by JESSIE MANNING MD ([id number]) on 11/21/2019 11:55:49 AM Referred By: Confirmed By:JESSIE MANNING MD
== END 2019-11-20 18:50 | disposition home or self-care (01) ==
LOC: JER 15:25
PROC: 3E0F7GC Introduction of Other Therapeutic Substance into Respiratory Tract, Via Natural or Artificial Opening (ICD-10-PCS; principal; 2019-11-20)
DX: J45.901 Unspecified asthma with (acute) exacerbation (principal); F32.9 Major depressive disorder, single episode, unspecified
CPT/HCPCS: 36415; 71046-TC-FY; 80053; 85025; 93005; 93010; 99282-25

== ENCOUNTER 2019-11-25 05:54 | Inpatient (IN) | payer OTHER ==
[2019-11-25] MEDS ORDERED: DEXAMETHASONE SOD PHOSPHATE 10 MG/1 ML VIAL ONE (05:57)
[2019-11-25 06:38] VITALS: BMI 23.0
[2019-11-25] MEDS ORDERED: ALBUTEROL SO4 2.5/IPRATROPIUM 0.5 INH SOL 3 ML VIAL.NEB. NEB ONE ×3 (06:38→16:02)
--- NOTE | 2019-11-25 06:45 | PDOC ---
History of Present Illness - General Chief Complaint: Asthma Stated Complaint: ASTHMA History Source: Patient Exam Limitations: No Limitations - History of Present Illness Initial Comments: 11/25/19 06:47 44 yo M with a hx of asthma (never intubated), former smoker (cessation June 2019; smoking since age 14 2-3 ppd) presents to the emergency department with SOB since he woke up 2-3 hours ago. Per the patient, he was recently here on for asthma exacerbation with resolution with 3x duoneb and 10 mg of dexamethasone. The patient was BIBEMS and given 10 mg of dexamethasone. The patient denies the following: fevers, chills, nausea, vomiting, abdominal pain, and recent sick contacts and travel. He states he has been sick with URI like symptoms for the past 2 days. Endorses chest tightness since the onset of SOB Allergies: NDKA Past History - Past Medical History Allergies/Adverse Reactions: Allergies Allergy/AdvReac Type Severity Reaction Status Date / Time No Known Allergies Allergy Verified 11/25/19 09:29 Home Medications: Ambulatory Orders Albuterol 0.083% Nebulizer Анна [Ventolin 0.083% Nebulizer Soln -] 1 neb NEB Q6H #30 vial 06/06/19 Albuterol Sulfate Inhaler - [Ventolin Hfa Inhaler -] 1 - 2 inh PO Q4H #1 inhaler 08/30/19 Budesonide/Formeterol Fumarate [SYMBICORT 160/4.5mcg -] 1 inh PO BID 08/30/19 Anemia: No Asthma: Yes Cancer: No Cardiac Disorders: No CVA: No COPD: No CHF: No Dementia: No Diabetes: No GI Disorders: No Disorders: No HTN: No Hypercholesterolemia: No Liver Disease: No Psychiatric Problems: Yes (Depression) Seizures: No Thyroid Disease: No - Surgical History Abdominal Surgery: No Appendectomy: No Cardiac Surgery: No Cholecystectomy: No Lung Surgery: No Neurologic Surgery: No Orthopedic Surgery: No - Immunization History Immunization Up to Date: Yes - Psycho Social/Smoking Cessation Hx Smoking History: Never smoked Have you smoked in the past 12 months: No Number of Cigarettes Smoked Daily: 10 If you are a former smoker, when did you quit?: 30 days ago 'Breaking Loose' booklet given: 08/17/17 Hx Alcohol Use: No Drug/Substance Use Hx: No Substance Use Type: Marijuana Hx Substance Use Treatment: No Review of Systems - Review of Systems Able to Perform ROS?: Yes Is the patient limited Tamaz[place] proficient: No Constitutional: No: Chills, Diaphoresis, Fever, Weakness HEENTM: No: Eye Pain, Ear Pain, Nose Pain, Throat Pain, Mouth Pain Respiratory: Yes: Cough, Shortness of Breath. No: Hemoptysis Cardiac (ROS): Yes: Chest Tightness. No: Chest Pain, Lightheadedness, Palpitations, Syncope ABD/GI: No: Constipated, Diarrhea, Nausea, Rectal Bleeding, Vomiting, Tarry Stools : No: Burning, Dysuria, Hematuria Musculoskeletal: No: Back Pain, Joint Pain, Neck Pain Integumentary: No: Bruising, Erythema, Rash Neurological: No: Headache, Numbness, Tingling, Tremors Psychiatric: No: Change in Appetite Endocrine: No: Unexplained Weight Loss Hematologic/Lymphatic: No: Anemia *Physical Exam - Vital Signs Last Vital Signs Temp Pulse Resp BP Pulse Ox 98.2 F 90 20 140/89 96 11/25/19 06:00 11/25/19 06:00 11/25/19 06:00 11/25/19 06:00 11/25/19 06:00 - Physical Exam General Appearance: Yes: Nourished, Appropriately Dressed. No: Apparent Distress, Disheveled, Alcohol on Breath, Intoxicated HEENT: positive: EOMI, ZINA, Normal Voice, Symmetrical, Pharynx Normal, Hearing Grossly Normal. negative: Pale Conjunctivae, Scleral Icterus (R), Scleral Icterus (L), Muffled/Hoarse voice, Pharyngeal Erythema, Tonsillar Exudate, Tonsillar Erythema, Nasal Congestion, Rhinorrhea, Sinus Tenderness, Excessive drooling Neck: positive: Trachea midline, Supple. negative: Tender, Lymphadenopathy (R) , Lymphadenopathy (L), Tender lateral, Tender midline Respiratory/Chest: positive: Accessory Muscle Use, Decreased Breath Sounds, Rhonchi, Wheezing (bilaterally). negative: Chest Tender, Lungs Clear, Normal Breath Sounds, Respiratory Distress Cardiovascular: positive: Regular Rhythm, Regular Rate, S1, S2. negative: Systolic Murmur Gastrointestinal/Abdominal: positive: Normal Bowel Sounds, Flat, Soft. negative : Tender Lymphatic: negative: Adenopathy Musculoskeletal: positive: Normal Inspection. negative: CVA Tenderness, Vertebral Tenderness Extremity: positive: Normal Capillary Refill, Normal Inspection, Normal Range of Motion. negative: Tender, Swelling, Calf Tenderness Integumentary: positive: Normal Color, Dry, Warm. negative: Swelling, Ecchymosis Neurologic: positive: Fully Oriented, Alert, Normal Mood/Affect ED Treatment Course - LABORATORY CBC & Chemistry Diagram: 11/26/19 05:20 11/26/19 05:20 Medical Decision Making - Medical Decision Making Initial vitals: Initial Vital Signs Temp Pulse Resp BP Pulse Ox 98.2 F 90 20 140/89 96 11/25/19 06:00 11/25/19 06:00 11/25/19 06:00 11/25/19 06:00 11/25/19 06:00 Work up: ddx: patient presents with wheezing and SOB. likely secondary to asthma exacerbation with associated chest tightness. the patient received 10 mg of dexamethasone and 2 amps of duoneb from EMS. will provide additional duonebs, magnesium. Laboratory Tests 11/25/19 11/25/19 08:20 08:20 WBC 8.4 RBC 3.99 L Hgb 13.5 Hct 39.4 MCV 98.8 H MCH 34.0 H MCHC 34.4 RDW 14.3 Plt Count 252 MPV 7.6 Absolute Neuts (auto) 7.0 Neutrophils % 84.0 H D Lymphocytes % 10.4 D Monocytes % 1.2 L Eosinophils % 3.8 Basophils % 0.6 Nucleated RBC % 0 Sodium 138 Potassium 4.3 Chloride 105 Carbon Dioxide 30 Anion Gap 4 L BUN 10.9 Creatinine 1.1 Est GFR (CKD-EPI)AfAm 92.81 Est GFR (CKD-EPI)NonAf 80.08 Random Glucose 125 H Calcium 9.0 Total Bilirubin 0.4 AST 10 L ALT 15 Alkaline Phosphatase 59 Creatine Kinase 143 Troponin I < 0.02 Total Protein 6.7 Albumin 3.8 patient received a total of 6 duonebs. the patient continues to have wheezing throughout the lung murrell and continues to feel SOB. Will admit patient for acute asthma exacerbation. will require further care until resolution of symptoms. EKG: NSR with sinus arrhythmia with TWI in III. No ST elevations or depression. CXR: no definitive acute process noted Dispo: Admit Discharge - Discharge Information Problems reviewed: Yes Clinical Impression/Diagnosis: Asthma exacerbation Qualifiers: Asthma severity: unspecified severity Asthma persistence: unspecified Qualified Code(s): J45.901 - Unspecified asthma with (acute) exacerbation - Follow up/Referral - Patient Discharge Instructions - Post Discharge Activity
[2019-11-25] MEDS ORDERED: ACETAMINOPHEN 1000 MG/100 ML VIAL (NON FORMULARY) IVPB ONE (07:12)
[2019-11-25] MEDS ORDERED: MAGNESIUM SULF 50% (8.12 MEQ/2 ML-1 GM VIAL) IVPB ONE (07:28)
--- NOTE | 2019-11-25 07:28 | PDOC ---
Attending Attestation - Resident Resident Name: ÁngelaAngelito - ED Attending Attestation I have performed the following: I have examined & evaluated the patient, The case was reviewed & discussed with the resident, I agree w/resident's findings & plan, Exceptions are as noted - HPI HPI: 11/25/19 09:19 44 years old history of asthma never intubated last hospitalization 6 months ago former smoker presents with several day history of asthma exacerbation was seen in the ED a few days ago was given steroids and nebs but no significant improvement today brought in by EMS 3 duo nebs 10 mg Decadron given in the field patient still wheezing no fever chills cough no runny nose endorses URI symptoms - Physicial Exam PE: 11/25/19 10:30 Vitals: Triage Vital signs reviewed General Appearance: No acute distress, well nourished well developed, Head: Atraumatic, Eyes: Pupils equal reactive round, extraocular movement intact Cardiac: Regular rate and rhythym, no murmurs, no rubs, no gallops, Lungs: Wheezing B/L Extremities: Full range of motion to all extremities, no cyanosis, clubbing, or edema Psych: Normal mood, normal affect 11/25/19 15:44 - Medical Decision Making 11/25/19 11:12 Second visit to ED for asthma exacerbation former smoker patient given nebs and steroids via EMS additional nebulizer treatments ordered in the emergency department as well as IV magnesium Despite multiple rounds of IV steroids IV magnesium and nebulizer treatments patient still wheezing bilaterally with difficulty breathing patient will require admission for IV steroids continuous nebs and further management.
[2019-11-25] MEDS ORDERED: ACETAMINOPHEN INJECTION 100 ML IVPB ONE (07:42)
[2019-11-25] MEDS ORDERED: MAGNESIUM 1GM/D5W - 1 GM/100 ML IVPB IVPB ONE (07:43)
[2019-11-25 08:37] LABS: BASO % 0.6 % (0-2.0); EOS % 3.8 % (0-4.5); HEMATOCRIT 39.4 % (35.4-49); HEMOGLOBIN 13.5 GM/dL (11.7-16.9); LYMPH % 10.4 % (8-40); MCHC 34.4 g/dl (32.0-35.9); MEAN CELL VOLUME 98.8 fl (80-96); MEAN PLT VOLUME 7.6 fl (7.5-11.1); MONO % 1.2 % (3.8-10.2); PLATELET COUNT 252 K/MM3 (134-434); RBC 3.99 M/mm3 (4.00-5.60); RDW 14.3 % (11.9-15.9); WHITE BLOOD COUNT 8.4 K/mm3 (4.0-10.0)
[2019-11-25 09:12] LABS: ALBUMIN 3.8 g/dl (3.4-5.0); ALK PHOS 59 U/L (45-117); ANION GAP 4 MMOL/L (8-16); BILIRUBIN,TOTAL 0.4 mg/dL (0.2-1); BLOOD UREA NITROGEN 10.9 mg/dL (7-18); CHLORIDE 105 mmol/L (98-107); CO2 30 mmol/L (21-32); CREATININE 1.1 mg/dL (0.55-1.3); GLUCOSE,RANDOM 125 mg/dL (74-106); POTASSIUM 4.3 mmol/L (3.5-5.1); SGOT/AST 10 U/L (15-37); SGPT/ALT 15 U/L (13-61); SODIUM 138 mmol/L (136-145); TOT PROT 6.7 g/dl (6.4-8.2)
[2019-11-25] MEDS ORDERED: ALBUTEROL SO4 0.083% IH SOL 2.5 MG/3 ML VIAL.NEB. NEB ONE ×2 (10:14→10:27)
[2019-11-25] MEDS ORDERED: methylPREDNISolone NA SUCC 125 MG/2 ML VIAL IVPB ONE (10:46)
[2019-11-25] MEDS ORDERED: ALBUTEROL SO4 0.083% IH SOL 2.5 MG/3 ML VIAL.NEB. NEB SCH (11:15)
[2019-11-25] MEDS ORDERED: ALBUTEROL SO4 0.083% IH SOL 2.5 MG/3 ML VIAL.NEB. NEB PRN (11:17)
[2019-11-25] MEDS ORDERED: methylPREDNISolone NA SUCC 125 MG/2 ML VIAL ONE (11:18)
--- NOTE | 2019-11-25 11:27 | HP ---
Admitting History and Physical - Primary Care Physician PCP: Brodie Yan - Admission Chief Complaint: SOB History of Present Illness: Patient is a 44 y/o male with past medical history of Asthma (no history of intubation) and Nicotene Dependence (patient quit 1 yr ago). Patient presented to ER with complaints of worsening SOB accompanied with chest tightness. He states the SOB woke him up this morning at 4am. Despite using inhaler and nebulizer machine he says his SOB worsened. Patient was seen here in [facility] ER on 11/20/19 for same chief complaint and was prescribed prednisone and albuterol nebulizer. Patient states he was unable to pick it up from pharmacy after discharge from the ER. History Source: Patient Limitations to Obtaining History: No Limitations - Past Medical History Pulmonary: Yes: Asthma - Smoking History Smoking history: Never smoked Have you smoked in the past 12 months: No Aproximately how many cigarettes per day: 10 If you are a former smoker, when did you quit?: 30 days ago - Alcohol/Substance Use Hx Alcohol Use: No - Social History ADL: Independent History of Recent Travel: No Home Medications - Allergies Allergies/Adverse Reactions: Allergies Allergy/AdvReac Type Severity Reaction Status Date / Time No Known Allergies Allergy Verified 11/25/19 09:29 - Home Medications Home Medications: Ambulatory Orders Albuterol 0.083% Nebulizer Анна [Ventolin 0.083% Nebulizer Soln -] 1 neb NEB Q6H #30 vial 06/06/19 Albuterol Sulfate Inhaler - [Ventolin Hfa Inhaler -] 1 - 2 inh PO Q4H #1 inhaler 08/30/19 Budesonide/Formeterol Fumarate [SYMBICORT 160/4.5mcg -] 1 inh PO BID 08/30/19 Review of Systems - Review of Systems Constitutional: reports: Weakness Eyes: reports: No Symptoms HENT: reports: No Symptoms Neck: reports: No Symptoms Cardiovascular: reports: No Symptoms Respiratory: reports: Cough, SOB, SOB on Exertion, Other (chest tightness) Gastrointestinal: reports: No Symptoms Genitourinary: reports: No Symptoms Breasts: reports: No Symptoms Reported Musculoskeletal: reports: No Symptoms Integumentary: reports: No Symptoms Neurological: reports: No Symptoms Endocrine: reports: No Symptoms Hematology/Lymphatic: reports: No Symptoms Psychiatric: reports: No Symptoms Physical Examination Vital Signs: Vital Signs Temperature 98.2 F 11/25/19 06:00 Pulse Rate 90 11/25/19 11:15 Respiratory Rate 20 11/25/19 11:15 Blood Pressure 124/73 11/25/19 11:15 O2 Sat by Pulse Oximetry (%) 97 11/25/19 11:15 Constitutional: Yes: No Distress, Calm Eyes: Yes: Conjunctiva Clear HENT: Yes: Atraumatic Neck: Yes: Supple Cardiovascular: Yes: Regular Rate and Rhythm Respiratory: Yes: Cough, Tachypnea, Wheezes Gastrointestinal: Yes: Normal Bowel Sounds, Soft Musculoskeletal: Yes: WNL Extremities: Yes: WNL Edema: No Neurological: Yes: Alert, Oriented Psychiatric: Yes: Alert, Oriented Labs: CBC, BMP 11/25/19 08:20 11/25/19 08:20 Imaging - Results Chest X-ray: Report Reviewed Problem List - Problems (1) Asthma exacerbation Assessment/Plan: -Pulmonary consult -Bronchodilators -O2 via NC -keep SpO2 >90% -CXR shows no acute pathology -in ER received Magnesium 1g IVPB x 1 and Methylprednisone 125mg IVPB x 1 Code(s): J45.901 - UNSPECIFIED ASTHMA WITH (ACUTE) EXACERBATION Qualifiers: Asthma severity: unspecified severity Asthma persistence: unspecified Qualified Code(s): J45.901 - Unspecified asthma with (acute) exacerbation Assessment/Plan see problem list dvt ppx
--- NOTE | 2019-11-25 12:50 | EKG ---
Test Reason : Blood Pressure : / mmHG Vent. Rate : 077 BPM Atrial Rate : 077 BPM P-R Int : 128 ms QRS Dur : 080 ms QT Int : 348 ms P-R-T Axes : 072 012 000 degrees QTc Int : 393 ms NORMAL SINUS RHYTHM WITH SINUS ARRHYTHMIA POSSIBLE LEFT ATRIAL ENLARGEMENT BORDERLINE ECG WHEN COMPARED WITH ECG OF 20-NOV-2019 15:53, NO SIGNIFICANT CHANGE WAS FOUND Confirmed by CHUY SOTO MD ([id number]) on 11/25/2019 12:50:39 PM Referred By: Confirmed By:CHUY SOTO MD
[2019-11-25] MEDS: methylPREDNISolone NA SUCC 40 MG/1 ML VIAL IVPUSH SCH ×2 (13:36→17:54)
--- NOTE | 2019-11-25 13:37 | CON.PULM ---
Consult Consult Specialty:: PULM/CCM Referred by:: MULUGETA Reason for Consultation:: SOB - History of Present Illness Chief Complaint: SOB History of Present Illness: 44 M, apparent history of Mild Persistent Asthma since childhood. No intubations, unknown PEF, never had baseline PFTs. Had several years as an adult with no AE. Does have a smoking history until 1 year ago. Reports the need for Prednisone course at least 5 times in 2019. No travel history or sick contacts. No hemoptysis or night sweats. CXR: no acute process. CT Chest: 2017: ERIK non-specific groundglass opacity : likely infiltrate - History Source History Provided By: Patient Limitations to Obtaining History: No Limitations - Past Medical History Pulmonary: Yes: Asthma, Bronchitis. No: Cancer, COPD, O2 Dependent, Pneumonia, Previously Intubated, Pulmonary Embolus, Pulmonary Fibrosis, Sleep Apnea - Alcohol/Substance Use Hx Alcohol Use: No - Smoking History Smoking history: Never smoked Have you smoked in the past 12 months: No Aproximately how many cigarettes per day: 10 If you are a former smoker, when did you quit?: 30 days ago - Social History ADL: Independent History of Recent Travel: No Home Medications - Allergies Allergies/Adverse Reactions: Allergies Allergy/AdvReac Type Severity Reaction Status Date / Time No Known Allergies Allergy Verified 11/25/19 09:29 - Home Medications Home Medications: Ambulatory Orders Albuterol 0.083% Nebulizer Анна [Ventolin 0.083% Nebulizer Soln -] 1 neb NEB Q6H #30 vial 06/06/19 Albuterol Sulfate Inhaler - [Ventolin Hfa Inhaler -] 1 - 2 inh PO Q4H #1 inhaler 08/30/19 Budesonide/Formeterol Fumarate [SYMBICORT 160/4.5mcg -] 1 inh PO BID 08/30/19 Review of Systems - Review of Systems Constitutional: reports: Malaise. denies: Chills, Fever, Night Sweats, Unintentional Wgt. Loss Eyes: reports: No Symptoms HENT: reports: No Symptoms Neck: reports: No Symptoms Cardiovascular: reports: Chest Pain, Shortness of Breath. denies: Edema, Palpitations Respiratory: reports: Cough, SOB, SOB on Exertion, Wheezing. denies: Hemoptysis , Orthopnea, PND, Snoring Gastrointestinal: reports: No Symptoms Genitourinary: reports: No Symptoms Breasts: reports: No Symptoms Reported Musculoskeletal: reports: No Symptoms Integumentary: reports: No Symptoms Neurological: reports: No Symptoms Endocrine: reports: No Symptoms Hematology/Lymphatic: reports: No Symptoms Psychiatric: reports: No Symptoms Physical Exam Vital Sings: Vital Signs Temperature 98.2 F 11/25/19 06:00 Pulse Rate 90 11/25/19 11:15 Respiratory Rate 20 11/25/19 11:15 Blood Pressure 124/73 11/25/19 11:15 O2 Sat by Pulse Oximetry (%) 97 11/25/19 11:15 Constitutional: Yes: Well Nourished, Mild Distress Eyes: Yes: Conjunctiva Clear, EOM Intact HENT: Yes: Atraumatic, Normocephalic Neck: Yes: Supple, Trachea Midline Cardiovascular: Yes: Regular Rate and Rhythm Respiratory: Yes: Cough, On Nasal O2, Rhonchi, SOB, SOB on Exertion, Tachypnea, Wheezes. No: Accessory Muscle Use, Rales, Stridor ...Inspection: Yes: WNL ...Clubbing: No Gastrointestinal: Yes: Normal Bowel Sounds, Soft Renal/: Yes: WNL Musculoskeletal: Yes: WNL Extremities: Yes: WNL Edema: No Peripheral Pulses WNL: Yes Integumentary: Yes: WNL Neurological: Yes: WNL, Alert, Oriented ...Motor Strength: WNL Psychiatric: Yes: WNL, Alert, Oriented Labs: CBC, BMP 11/25/19 08:20 11/25/19 08:20 Imaging - Results Chest X-ray: Report Reviewed, Image Reviewed Problem List - Problems (1) Asthma Code(s): J45.909 - UNSPECIFIED ASTHMA, UNCOMPLICATED Qualifiers: Asthma severity: unspecified severity Asthma persistence: unspecified Asthma complication type: with acute exacerbation Qualified Code(s): J45.901 - Unspecified asthma with (acute) exacerbation (2) Asthma exacerbation Code(s): J45.901 - UNSPECIFIED ASTHMA WITH (ACUTE) EXACERBATION Qualifiers: Asthma severity: unspecified severity Asthma persistence: unspecified Qualified Code(s): J45.901 - Unspecified asthma with (acute) exacerbation (3) Bronchitis Code(s): J40 - BRONCHITIS, NOT SPECIFIED ACUTE OR CHRONIC (4) COPD exacerbation Code(s): J44.1 - CHRONIC OBSTRUCTIVE PULMONARY DISEASE W (ACUTE) EXACERBATION (5) Shortness of breath Code(s): R06.02 - SHORTNESS OF BREATH (6) Tobacco abuse Code(s): Z72.0 - TOBACCO USE (7) Wheezing Code(s): R06.2 - WHEEZING Assessment/Plan BD TX Medrol No smoking O2 as needed Singulair CT chest for ERIK opacity follow up Will need outpatient PFTs once stable as an outpatient Will follow Thank you. Dr Hussein
[2019-11-25] MEDS: ALBUTEROL SO4 2.5/IPRATROPIUM 0.5 INH SOL 3 ML VIAL.NEB. NEB SCH (16:06)
[2019-11-25] MEDS: INSULIN SLIDING SCALE (NOVOLOG) 1 VIAL SQ SCH ×2 (17:44→21:19)
[2019-11-25] MEDS: HEPARIN NA (PORCINE) 5,000 UNITS/ML 1ML VIAL SQ SCH (21:19)
[2019-11-25] MEDS: BUDESONIDE/FORMETEROL FUMARATE 160/4.5 mcg INHALER IH SCH (21:19)
[2019-11-25] MEDS: MONTELUKAST NA 10 MG TABLET PO SCH (21:19)
[2019-11-26] MEDS: methylPREDNISolone NA SUCC 40 MG/1 ML VIAL IVPUSH SCH ×4 (02:04→19:03)
[2019-11-26] MEDS: INSULIN SLIDING SCALE (NOVOLOG) 1 VIAL SQ SCH ×4 (06:31→21:32)
[2019-11-26 07:08] LABS: BASO % 0.2 % (0-2.0); HEMATOCRIT 39.6 % (35.4-49); HEMOGLOBIN 13.4 GM/dL (11.7-16.9); LYMPH % 6.4 % (8-40); MCH 33.7 pg (25.7-33.7); MCHC 33.9 g/dl (32.0-35.9); MEAN CELL VOLUME 99.5 fl (80-96); MEAN PLT VOLUME 8.6 fl (7.5-11.1); MONO % 1.8 % (3.8-10.2); NEUT % 91.6 % (42.8-82.8); PLATELET COUNT 271 K/MM3 (134-434); RBC 3.99 M/mm3 (4.00-5.60); RDW 14.3 % (11.9-15.9); WHITE BLOOD COUNT 18.3 K/mm3 (4.0-10.0)
[2019-11-26 07:45] LABS: ALBUMIN 3.9 g/dl (3.4-5.0); BILIRUBIN,TOTAL 0.4 mg/dL (0.2-1); CALCIUM 8.9 mg/dL (8.5-10.1); MAGNESIUM 2.1 mg/dL (1.8-2.4); PHOSPHOROUS 3.6 mg/dL (2.5-4.9); POTASSIUM 4.3 mmol/L (3.5-5.1); TOT PROT 6.8 g/dl (6.4-8.2)
[2019-11-26] MEDS: HEPARIN NA (PORCINE) 5,000 UNITS/ML 1ML VIAL SQ SCH ×2 (09:28→21:31)
[2019-11-26] MEDS: BUDESONIDE/FORMETEROL FUMARATE 160/4.5 mcg INHALER IH SCH ×3 (09:29→21:31)
[2019-11-26 11:59] LABS: ANISOCYTOSIS 0; MACROCYTOSIS 0; PLATELET ESTIMATE NORMAL
--- NOTE | 2019-11-26 12:51 | PN ---
Progress Note (short form) - Note Progress Note: PULMONARY Still short of breath with cough and wheezing. Vital Signs Period Temp Pulse Resp BP Sys/Fitch Pulse Ox Last 24 Hr 97.9 F-98.5 F 99-110 18-19 120-132/71-85 100-100 Gen: NAD at rest Heart: RRR Lung: bilateral rhonchi, wheezes Abd: soft, nontender Ext: no edema CBC, BMP 11/26/19 05:20 11/26/19 05:20 Active Medications Albuterol Sulfate (Ventolin 0.083% Nebulizer Soln -) 1 amp NEB Q6H PRN PRN Reason: ASTHMA Albuterol/Ipratropium (Duoneb -) 1 amp NEB RQID [place] Last Admin: 11/25/19 16:06 Dose: 1 amp Budesonide/Formoterol Fumarate (Symbicort 160/4.5mcg -) 1 puff IH BID [place] Last Admin: 11/26/19 09:29 Dose: Not Given Heparin Sodium (Porcine) (Heparin -) 5,000 unit SQ BID [place] Last Admin: 11/26/19 09:28 Dose: 5,000 unit Insulin Aspart (Novolog Vial Sliding Scale -) 1 vial SQ ACHS [facility]; Protocol Last Admin: 11/26/19 06:31 Dose: Not Given Methylprednisolone Sodium Succinate (Solu-Medrol -) 60 mg IVPUSH Q8H-IV [place] Last Admin: 11/26/19 09:28 Dose: 60 mg Montelukast Sodium (Singulair -) 10 mg PO HS [place] Last Admin: 11/25/19 21:19 Dose: 10 mg A/P Acute Asthma Exacerbation - continue medrol at current dose - inhaled bronchodilators standing and PRN - singulair - O2 to keep SpO2 >90% - DVT prophylaxis
[2019-11-26] MEDS: ALBUTEROL SO4 2.5/IPRATROPIUM 0.5 INH SOL 3 ML VIAL.NEB. NEB SCH ×4 (13:16→20:25)
--- NOTE | 2019-11-26 13:29 | PN ---
Progress Note, Physician Chief Complaint: Asthma Exacerbation History of Present Illness: Previous notes and events reviewed awake and alert NAD sts his breathing is improving complain of productive cough with green/brown phlegm leukocytosis 2/2 IV steroids - Current Medication List Current Medications: Active Medications Albuterol Sulfate (Ventolin 0.083% Nebulizer Soln -) 1 amp NEB Q6H PRN PRN Reason: ASTHMA Albuterol/Ipratropium (Duoneb -) 1 amp NEB RQID [facility] Last Admin: 11/26/19 13:16 Dose: 1 amp Budesonide/Formoterol Fumarate (Symbicort 160/4.5mcg -) 1 puff IH BID [facility] Last Admin: 11/26/19 09:29 Dose: Not Given Heparin Sodium (Porcine) (Heparin -) 5,000 unit SQ BID [facility] Last Admin: 11/26/19 09:28 Dose: 5,000 unit Insulin Aspart (Novolog Vial Sliding Scale -) 1 vial SQ ACHS [facility]; Protocol Last Admin: 11/26/19 13:16 Dose: Not Given Methylprednisolone Sodium Succinate (Solu-Medrol -) 60 mg IVPUSH Q8H-IV [place] Last Admin: 11/26/19 09:28 Dose: 60 mg Montelukast Sodium (Singulair -) 10 mg PO HS [facility] Last Admin: 11/25/19 21:19 Dose: 10 mg - Objective Vital Signs: Vital Signs Temperature 97.9 F 11/26/19 06:55 Pulse Rate 110 H 11/26/19 06:55 Respiratory Rate 15 11/26/19 09:00 Blood Pressure 131/76 11/26/19 06:55 O2 Sat by Pulse Oximetry (%) 100 11/26/19 09:00 Constitutional: Yes: No Distress, Calm Eyes: Yes: Conjunctiva Clear HENT: Yes: Atraumatic Cardiovascular: Yes: Regular Rate and Rhythm Respiratory: Yes: Regular, Wheezes Gastrointestinal: Yes: Normal Bowel Sounds, Soft Musculoskeletal: Yes: WNL Extremities: Yes: WNL Edema: No Neurological: Yes: Alert, Oriented Psychiatric: Yes: Alert, Oriented Labs: CBC, BMP 11/26/19 05:20 11/26/19 05:20 - ....Imaging Chest X-ray: Report Reviewed Problem List - Problems (1) Asthma exacerbation Assessment/Plan: -Pulmonary on board -Bronchodilators -O2 via NC -keep SpO2 >90% -CXR shows no acute pathology -IV Medrol -Chest CT Scan shows mild subpleural bulla and centrilobular emphysema, no gross focal infiltrates, pneumothorax or pleural effusion, no enlarged mediastinal or hilar lymph node -SYmbicort -Singulair Code(s): J45.901 - UNSPECIFIED ASTHMA WITH (ACUTE) EXACERBATION Qualifiers: Asthma severity: unspecified severity Asthma persistence: unspecified Qualified Code(s): J45.901 - Unspecified asthma with (acute) exacerbation (2) Hyperthyroidism Assessment/Plan: -TSH 0.19 -Endocrinology consult Code(s): E05.90 - THYROTOXICOSIS, UNSP WITHOUT THYROTOXIC CRISIS OR STORM Assessment/Plan see problem list dvt ppx
[2019-11-26] MEDS: MONTELUKAST NA 10 MG TABLET PO SCH (21:31)
--- NOTE | 2019-11-27 01:37 | CONSULT ---
Consult Consult Specialty:: Endocrine Referred by:: elsa noyola Reason for Consultation:: abnormal thyroid function - History of Present Illness Chief Complaint: shortness of breath and cough History of Present Illness: 44 y/o male with past medical history of Asthma (no history of intubation) and Nicotene Dependence (patient quit 1 yr ago). presented with complaints of worsening SOB accompanied with chest tightness. He states the SOB and cough continued despite using inhaler and nebulizer machine t states he was unable to tolerated the coughing and congestion,and dyspnea which he came to hospital.he was found to have abnormal thyroid function testing.he denies history of weight loss,sweats,or heat intolerance. - Past Medical History Pulmonary: Yes: Asthma - Alcohol/Substance Use Hx Alcohol Use: No - Smoking History Smoking history: Never smoked Have you smoked in the past 12 months: No Aproximately how many cigarettes per day: 10 If you are a former smoker, when did you quit?: 30 days ago - Social History ADL: Independent History of Recent Travel: No Home Medications - Allergies Allergies/Adverse Reactions: Allergies Allergy/AdvReac Type Severity Reaction Status Date / Time No Known Allergies Allergy Verified 11/25/19 09:29 - Home Medications Home Medications: Ambulatory Orders Albuterol 0.083% Nebulizer Анна [Ventolin 0.083% Nebulizer Soln -] 1 neb NEB Q6H #30 vial 06/06/19 Albuterol Sulfate Inhaler - [Ventolin Hfa Inhaler -] 1 - 2 inh PO Q4H #1 inhaler 08/30/19 Budesonide/Formeterol Fumarate [SYMBICORT 160/4.5mcg -] 1 inh PO BID 08/30/19 Review of Systems - Review of Systems Constitutional: reports: Loss of Appetite, Weakness Eyes: reports: No Symptoms HENT: reports: No Symptoms Neck: reports: No Symptoms Cardiovascular: reports: Shortness of Breath Respiratory: reports: Exercise Intolerance, SOB on Exertion, Wheezing Gastrointestinal: reports: No Symptoms Genitourinary: reports: No Symptoms Musculoskeletal: reports: Muscle Cramps, Muscle Weakness Integumentary: reports: No Symptoms Neurological: reports: No Symptoms Endocrine: reports: No Symptoms Physical Exam Vital Signs: Vital Signs Temperature 98.1 F 11/26/19 18:00 Pulse Rate 85 11/26/19 18:00 Respiratory Rate 18 11/26/19 18:00 Blood Pressure 120/70 11/26/19 18:00 O2 Sat by Pulse Oximetry (%) 98 11/26/19 14:30 Constitutional: Yes: Anxious Eyes: Yes: EOM Intact HENT: Yes: Normocephalic Neck: Yes: Trachea Midline Cardiovascular: Yes: Tachycardia Respiratory: Yes: On Nasal O2, Rhonchi, SOB, Tachypnea, Wheezes Gastrointestinal: Yes: Normal Bowel Sounds ...Rectal Exam: Yes: Deferred Renal/: Yes: WNL Musculoskeletal: Yes: WNL Extremities: Yes: WNL Edema: No Neurological: Yes: Alert, Oriented Labs: CBC, BMP 11/26/19 05:20 11/26/19 05:20 Problem List - Problems (1) Hyperthyroidism Code(s): E05.90 - THYROTOXICOSIS, UNSP WITHOUT THYROTOXIC CRISIS OR STORM (2) Acute hypercapnic respiratory failure Problems reviewed: Yes Code(s): J96.02 - ACUTE RESPIRATORY FAILURE WITH HYPERCAPNIA (3) Alcohol intoxication Problems reviewed: Yes Code(s): F10.129 - ALCOHOL ABUSE WITH INTOXICATION, UNSPECIFIED (4) Asthma Problems reviewed: Yes Code(s): J45.909 - UNSPECIFIED ASTHMA, UNCOMPLICATED Qualifiers: Asthma severity: unspecified severity Asthma persistence: unspecified Asthma complication type: with acute exacerbation Qualified Code(s): J45.901 - Unspecified asthma with (acute) exacerbation (5) Asthma exacerbation Problems reviewed: Yes Code(s): J45.901 - UNSPECIFIED ASTHMA WITH (ACUTE) EXACERBATION Qualifiers: Asthma severity: unspecified severity Asthma persistence: unspecified Qualified Code(s): J45.901 - Unspecified asthma with (acute) exacerbation (6) Bronchitis Problems reviewed: Yes Code(s): J40 - BRONCHITIS, NOT SPECIFIED ACUTE OR CHRONIC (7) COPD exacerbation Code(s): J44.1 - CHRONIC OBSTRUCTIVE PULMONARY DISEASE W (ACUTE) EXACERBATION (8) Chest pain Code(s): R07.9 - CHEST PAIN, UNSPECIFIED Qualifiers: Chest pain type: unspecified Qualified Code(s): R07.9 - Chest pain, unspecified Assessment/Plan Current Active Problems Hyperthyroidism (Acute) euthyroid sick syndrome vs thyroiditis copd,asthmaticus bronchitis excarcerberation Abnormal Lab Results 11/26/19 11/26/19 05:20 05:20 WBC 18.3 H RBC 3.99 L MCV 99.5 H Absolute Neuts (auto) 16.7 H Neutrophils % 91.6 H Neutrophils % (Manual) 87.1 H Lymphocytes % 6.4 L D Lymphocytes % (Manual) 2.1 L Monocytes % 1.8 L Monocytes % (Manual) 2 L Anion Gap 6 L Random Glucose 114 H AST 11 L TSH 0.19 L D plan: check free t4 [id number] likely tsh suppressed steroid related vs early hyperthyroid
[2019-11-27] MEDS: methylPREDNISolone NA SUCC 40 MG/1 ML VIAL IVPUSH SCH ×3 (02:29→18:04)
[2019-11-27] MEDS: INSULIN SLIDING SCALE (NOVOLOG) 1 VIAL SQ SCH ×4 (06:39→22:05)
[2019-11-27] MEDS: ALBUTEROL SO4 2.5/IPRATROPIUM 0.5 INH SOL 3 ML VIAL.NEB. NEB SCH ×4 (08:01→20:45)
[2019-11-27 09:01] LABS: HEMATOCRIT 40.6 % (35.4-49); HEMOGLOBIN 13.6 GM/dL (11.7-16.9); MCH 33.1 pg (25.7-33.7); MCHC 33.6 g/dl (32.0-35.9); MEAN CELL VOLUME 98.7 fl (80-96); PLATELET COUNT 274 K/MM3 (134-434); RBC 4.11 M/mm3 (4.00-5.60); RDW 14.6 % (11.9-15.9); WHITE BLOOD COUNT 18.2 K/mm3 (4.0-10.0)
--- NOTE | 2019-11-27 09:02 | PN ---
Progress Note (short form) - Note Progress Note: Had increased chest tightness and SOB this morning requiring a STAT BD TX. Feels a little better now. Intake & Output 11/24/19 11/25/19 11/26/19 11/27/19 23:59 23:59 23:59 23:59 Intake Total 240 1280 Balance 240 1280 Weight 130 lb Last Vital Signs Temp Pulse Resp BP Pulse Ox 98.5 F 67 18 117/58 L 97 11/27/19 04:00 11/27/19 04:00 11/27/19 04:00 11/27/19 04:00 11/26/19 21:00 Active Medications Albuterol Sulfate (Ventolin 0.083% Nebulizer Soln -) 1 amp NEB Q6H PRN PRN Reason: ASTHMA Albuterol/Ipratropium (Duoneb -) 1 amp NEB RQID [place] Last Admin: 11/27/19 08:01 Dose: 1 amp Budesonide/Formoterol Fumarate (Symbicort 160/4.5mcg -) 1 puff IH BID [facility] Last Admin: 11/26/19 21:31 Dose: 1 puff Heparin Sodium (Porcine) (Heparin -) 5,000 unit SQ BID [place] Last Admin: 11/26/19 21:31 Dose: 5,000 unit Insulin Aspart (Novolog Vial Sliding Scale -) 1 vial SQ ACHS [facility]; Protocol Last Admin: 11/27/19 06:39 Dose: Not Given Methylprednisolone Sodium Succinate (Solu-Medrol -) 60 mg IVPUSH Q8H-IV [place] Last Admin: 11/27/19 02:29 Dose: 60 mg Montelukast Sodium (Singulair -) 10 mg PO HS [place] Last Admin: 11/26/19 21:31 Dose: 10 mg Gen: NAD at rest Heart: RRR Lung: bilateral coarse rhonchi, wheezes Abd: soft, nontender Ext: no edema Laboratory Results - last 24 hr 11/26/19 11/26/19 11/26/19 05:20 11:58 16:54 Neutrophils % (Manual) 87.1 H Band Neutrophils % 2.2 Lymphocytes % (Manual) 2.1 L Monocytes % (Manual) 2 L Eosinophils % (Manual) 0.0 Basophils % (Manual) 0.0 Myelocytes % (Man) 1 Promyelocytes % (Man) 0 Blast Cells % (Manual) 0 Metamyelocytes 0 Hypochromia 0 Platelet Estimate Normal Polychromasia 0 Anisocytosis 0 Microcytosis 0 Macrocytosis 0 POC Glucometer 121 117 11/26/19 11/27/19 21:04 06:29 Neutrophils % (Manual) Band Neutrophils % Lymphocytes % (Manual) Monocytes % (Manual) Eosinophils % (Manual) Basophils % (Manual) Myelocytes % (Man) Promyelocytes % (Man) Blast Cells % (Manual) Metamyelocytes Hypochromia Platelet Estimate Polychromasia Anisocytosis Microcytosis Macrocytosis POC Glucometer 116 118 A/P Acute Asthma Exacerbation - continue medrol at current dose - inhaled bronchodilators standing and PRN - singulair - O2 to keep SpO2 >90% - DVT prophylaxis Dr Hussein Problem List - Problems (1) Asthma Code(s): J45.909 - UNSPECIFIED ASTHMA, UNCOMPLICATED Qualifiers: Asthma severity: unspecified severity Asthma persistence: unspecified Asthma complication type: with acute exacerbation Qualified Code(s): J45.901 - Unspecified asthma with (acute) exacerbation (2) Asthma exacerbation Code(s): J45.901 - UNSPECIFIED ASTHMA WITH (ACUTE) EXACERBATION Qualifiers: Asthma severity: unspecified severity Asthma persistence: unspecified Qualified Code(s): J45.901 - Unspecified asthma with (acute) exacerbation (3) Bronchitis Code(s): J40 - BRONCHITIS, NOT SPECIFIED ACUTE OR CHRONIC (4) COPD exacerbation Code(s): J44.1 - CHRONIC OBSTRUCTIVE PULMONARY DISEASE W (ACUTE) EXACERBATION (5) Shortness of breath Code(s): R06.02 - SHORTNESS OF BREATH (6) Tobacco abuse Code(s): Z72.0 - TOBACCO USE (7) Wheezing Code(s): R06.2 - WHEEZING
[2019-11-27] MEDS: HEPARIN NA (PORCINE) 5,000 UNITS/ML 1ML VIAL SQ SCH ×2 (09:07→22:04)
[2019-11-27] MEDS: BUDESONIDE/FORMETEROL FUMARATE 160/4.5 mcg INHALER IH SCH ×2 (09:11→22:05)
[2019-11-27 09:56] LABS: ALBUMIN 3.6 g/dl (3.4-5.0); BILIRUBIN,TOTAL 0.4 mg/dL (0.2-1); BLOOD UREA NITROGEN 15.6 mg/dL (7-18); CALCIUM 9.3 mg/dL (8.5-10.1); CREATININE 1.2 mg/dL (0.55-1.3); POTASSIUM 4.2 mmol/L (3.5-5.1); TOT PROT 6.9 g/dl (6.4-8.2)
--- NOTE | 2019-11-27 10:35 | PN ---
Progress Note, Physician Chief Complaint: Asthma exacerbation History of Present Illness: NAD SOB on exertion +Chest tightness+ phlegm - Current Medication List Current Medications: Active Medications Albuterol Sulfate (Ventolin 0.083% Nebulizer Soln -) 1 amp NEB Q6H PRN PRN Reason: ASTHMA Albuterol/Ipratropium (Duoneb -) 1 amp NEB RQID [facility] Last Admin: 11/27/19 08:01 Dose: 1 amp Budesonide/Formoterol Fumarate (Symbicort 160/4.5mcg -) 1 puff IH BID [facility] Last Admin: 11/27/19 09:11 Dose: 1 puff Heparin Sodium (Porcine) (Heparin -) 5,000 unit SQ BID [facility] Last Admin: 11/27/19 09:07 Dose: 5,000 unit Insulin Aspart (Novolog Vial Sliding Scale -) 1 vial SQ ACHS [facility]; Protocol Last Admin: 11/27/19 06:39 Dose: Not Given Methylprednisolone Sodium Succinate (Solu-Medrol -) 60 mg IVPUSH Q8H-IV [facility] Last Admin: 11/27/19 09:09 Dose: 60 mg Montelukast Sodium (Singulair -) 10 mg PO HS [facility] Last Admin: 11/26/19 21:31 Dose: 10 mg - Objective Vital Signs: Vital Signs Temperature 98.5 F 11/27/19 04:00 Pulse Rate 67 11/27/19 04:00 Respiratory Rate 18 11/27/19 04:00 Blood Pressure 117/58 L 11/27/19 04:00 O2 Sat by Pulse Oximetry (%) 97 11/26/19 21:00 Constitutional: Yes: Well Nourished, No Distress, Calm Cardiovascular: Yes: Regular Rate and Rhythm Respiratory: Yes: Regular, On Nasal O2, Rhonchi (diffuse), Wheezes (diffuse) Gastrointestinal: Yes: Normal Bowel Sounds, Soft Genitourinary: Yes: WNL Musculoskeletal: Yes: WNL Extremities: Yes: WNL Edema: No Peripheral Pulses WNL: Yes Neurological: Yes: Alert, Oriented Psychiatric: Yes: Alert, Oriented Labs: CBC, BMP 11/27/19 08:30 11/27/19 08:30 Problem List - Problems (1) Asthma exacerbation Assessment/Plan: -Pulmonary on board -Bronchodilators -O2 via NC -keep SpO2 >90% -CXR shows no acute pathology -IV Medrol -PPI for GI ppx -Chest CT Scan shows mild subpleural bulla and centrilobular emphysema, no gross focal infiltrates, pneumothorax or pleural effusion, no enlarged mediastinal or hilar lymph node -Symbicort -Singulair Problems reviewed: Yes Code(s): J45.901 - UNSPECIFIED ASTHMA WITH (ACUTE) EXACERBATION Qualifiers: Asthma severity: unspecified severity Asthma persistence: unspecified Qualified Code(s): J45.901 - Unspecified asthma with (acute) exacerbation (2) Hyperthyroidism Assessment/Plan: -likely sick thyroid syndrome -Awaiting T3, FT4 normal -Seen by Endocrinology -no intervention needed at this time -Can repeat thyroid profile in 4 weeks outpatient Problems reviewed: Yes Code(s): E05.90 - THYROTOXICOSIS, UNSP WITHOUT THYROTOXIC CRISIS OR STORM Assessment/Plan see problem list
[2019-11-27] MEDS ORDERED: PT OWN MED DRAWER 7, Y5N ONE ×3 (14:25→23:08)
[2019-11-27] MEDS: guaiFENesin/D-METHORPHAN TAB.ER.12H PO SCH ×2 (16:52→22:04)
[2019-11-27] MEDS: PANTOPRAZOLE 40 MG TABLET PO SCH (16:52)
[2019-11-27] MEDS: LORATADINE 10 MG TABLET PO SCH (16:52)
[2019-11-27] MEDS: MONTELUKAST NA 10 MG TABLET PO SCH (22:04)
[2019-11-28] MEDS: methylPREDNISolone NA SUCC 40 MG/1 ML VIAL IVPUSH SCH ×3 (02:11→17:13)
[2019-11-28] MEDS: INSULIN SLIDING SCALE (NOVOLOG) 1 VIAL SQ SCH ×4 (06:39→21:44)
[2019-11-28] MEDS: ALBUTEROL SO4 2.5/IPRATROPIUM 0.5 INH SOL 3 ML VIAL.NEB. NEB SCH ×4 (07:30→20:48)
[2019-11-28] MEDS: LORATADINE 10 MG TABLET PO SCH (09:31)
[2019-11-28] MEDS: PANTOPRAZOLE 40 MG TABLET PO SCH (09:31)
[2019-11-28] MEDS: HEPARIN NA (PORCINE) 5,000 UNITS/ML 1ML VIAL SQ SCH ×2 (09:32→21:44)
[2019-11-28] MEDS: BUDESONIDE/FORMETEROL FUMARATE 160/4.5 mcg INHALER IH SCH ×2 (09:33→21:48)
[2019-11-28] MEDS: guaiFENesin/D-METHORPHAN TAB.ER.12H PO SCH ×2 (09:33→21:44)
--- NOTE | 2019-11-28 10:18 | PN ---
Progress Note (short form) - Note Progress Note: Feels better today but not at baseline. Less SOB and wheezing. No acute events overnight. Intake & Output 11/25/19 11/26/19 11/27/19 11/28/19 23:59 23:59 23:59 23:59 Intake Total 240 1280 Balance 240 1280 Weight 130 lb Last Vital Signs Temp Pulse Resp BP Pulse Ox 97.6 F 67 20 128/77 100 11/28/19 06:56 11/28/19 06:56 11/28/19 06:56 11/28/19 06:56 11/27/19 21:00 Active Medications Albuterol Sulfate (Ventolin 0.083% Nebulizer Soln -) 1 amp NEB Q6H PRN PRN Reason: ASTHMA Albuterol/Ipratropium (Duoneb -) 1 amp NEB RQID [facility] Last Admin: 11/28/19 07:30 Dose: 1 amp Budesonide/Formoterol Fumarate (Symbicort 160/4.5mcg -) 1 puff IH BID [facility] Last Admin: 11/28/19 09:33 Dose: 1 puff Guaifenesin (Mucinex Dm -) 2 tablet PO BID [facility] Last Admin: 11/28/19 09:33 Dose: 2 tablet Heparin Sodium (Porcine) (Heparin -) 5,000 unit SQ BID [facility] Last Admin: 11/28/19 09:32 Dose: 5,000 unit Insulin Aspart (Novolog Vial Sliding Scale -) 1 vial SQ ACHS [facility]; Protocol Last Admin: 11/28/19 06:39 Dose: Not Given Loratadine (Claritin -) 10 mg PO DAILY [facility] Last Admin: 11/28/19 09:31 Dose: 10 mg Methylprednisolone Sodium Succinate (Solu-Medrol -) 60 mg IVPUSH Q8H-IV [facility] Last Admin: 11/28/19 09:31 Dose: 60 mg Montelukast Sodium (Singulair -) 10 mg PO HS [facility] Last Admin: 11/27/19 22:04 Dose: 10 mg Pantoprazole Sodium (Protonix -) 40 mg PO DAILY [facility] Last Admin: 11/28/19 09:31 Dose: 40 mg Gen: NAD at rest Heart: RRR Lung: Improving bilateral coarse rhonchi and expiratory wheezing Abd: soft, nontender Ext: no edema Laboratory Results - last 24 hr 11/27/19 11/27/19 11/27/19 08:30 08:30 11:18 POC Glucometer 158 Hemoglobin A1c % 5.2 Free T3 1.7 L 11/27/19 11/27/19 11/28/19 18:05 21:43 06:37 POC Glucometer 129 128 116 Hemoglobin A1c % Free T3 A/P Acute Asthma Exacerbation - continue medrol at current dose: may be able to change to Prednisone in AM - inhaled bronchodilators standing and PRN - singulair - O2 to keep SpO2 >90% - DVT prophylaxis Dr Hussein Problem List - Problems (1) Asthma Code(s): J45.909 - UNSPECIFIED ASTHMA, UNCOMPLICATED Qualifiers: Asthma severity: unspecified severity Asthma persistence: unspecified Asthma complication type: with acute exacerbation Qualified Code(s): J45.901 - Unspecified asthma with (acute) exacerbation (2) Asthma exacerbation Code(s): J45.901 - UNSPECIFIED ASTHMA WITH (ACUTE) EXACERBATION Qualifiers: Asthma severity: unspecified severity Asthma persistence: unspecified Qualified Code(s): J45.901 - Unspecified asthma with (acute) exacerbation (3) Bronchitis Code(s): J40 - BRONCHITIS, NOT SPECIFIED ACUTE OR CHRONIC (4) COPD exacerbation Code(s): J44.1 - CHRONIC OBSTRUCTIVE PULMONARY DISEASE W (ACUTE) EXACERBATION (5) Shortness of breath Code(s): R06.02 - SHORTNESS OF BREATH (6) Tobacco abuse Code(s): Z72.0 - TOBACCO USE (7) Wheezing Code(s): R06.2 - WHEEZING
--- NOTE | 2019-11-28 11:21 | PN ---
Progress Note, Physician Chief Complaint: Asthma exacerbation History of Present Illness: NAD SOB on exertion +Chest tightness+ phlegm - Current Medication List Current Medications: Active Medications Albuterol Sulfate (Ventolin 0.083% Nebulizer Soln -) 1 amp NEB Q6H PRN PRN Reason: ASTHMA Albuterol/Ipratropium (Duoneb -) 1 amp NEB RQID [facility] Last Admin: 11/28/19 07:30 Dose: 1 amp Budesonide/Formoterol Fumarate (Symbicort 160/4.5mcg -) 1 puff IH BID [facility] Last Admin: 11/28/19 09:33 Dose: 1 puff Guaifenesin (Mucinex Dm -) 2 tablet PO BID [facility] Last Admin: 11/28/19 09:33 Dose: 2 tablet Heparin Sodium (Porcine) (Heparin -) 5,000 unit SQ BID [facility] Last Admin: 11/28/19 09:32 Dose: 5,000 unit Insulin Aspart (Novolog Vial Sliding Scale -) 1 vial SQ ACHS [facility]; Protocol Last Admin: 11/28/19 06:39 Dose: Not Given Loratadine (Claritin -) 10 mg PO DAILY [facility] Last Admin: 11/28/19 09:31 Dose: 10 mg Methylprednisolone Sodium Succinate (Solu-Medrol -) 60 mg IVPUSH Q8H-IV [facility] Last Admin: 11/28/19 09:31 Dose: 60 mg Montelukast Sodium (Singulair -) 10 mg PO HS [facility] Last Admin: 11/27/19 22:04 Dose: 10 mg Pantoprazole Sodium (Protonix -) 40 mg PO DAILY [facility] Last Admin: 11/28/19 09:31 Dose: 40 mg - Objective Vital Signs: Vital Signs Temperature 97.7 F 11/28/19 09:00 Pulse Rate 82 11/28/19 09:00 Respiratory Rate 20 11/28/19 09:00 Blood Pressure 122/74 11/28/19 09:00 O2 Sat by Pulse Oximetry (%) 100 11/27/19 21:00 Constitutional: Yes: Well Nourished, No Distress, Calm Cardiovascular: Yes: Regular Rate and Rhythm Respiratory: Yes: Regular, SOB on Exertion, Wheezes (diffuse) Gastrointestinal: Yes: Normal Bowel Sounds, Soft Genitourinary: Yes: WNL Musculoskeletal: Yes: WNL Extremities: Yes: WNL Edema: No Peripheral Pulses WNL: Yes Neurological: Yes: Alert, Oriented Psychiatric: Yes: Alert, Oriented Labs: CBC, BMP 11/27/19 08:30 11/27/19 08:30 Problem List - Problems (1) Asthma exacerbation Assessment/Plan: -Pulmonary on board -Bronchodilators -O2 via NC -keep SpO2 >90% -CXR shows no acute pathology -IV Medrol----> can be changed to PO prednisone in AM -PPI for GI ppx -Chest CT Scan shows mild subpleural bulla and centrilobular emphysema, no gross focal infiltrates, pneumothorax or pleural effusion, no enlarged mediastinal or hilar lymph node -Symbicort -Singulair Problems reviewed: Yes Code(s): J45.901 - UNSPECIFIED ASTHMA WITH (ACUTE) EXACERBATION Qualifiers: Asthma severity: unspecified severity Asthma persistence: unspecified Qualified Code(s): J45.901 - Unspecified asthma with (acute) exacerbation (2) Hyperthyroidism Assessment/Plan: -likely sick thyroid syndrome -Awaiting T3, FT4 normal -Seen by Endocrinology -no intervention needed at this time -Can repeat thyroid profile in 4 weeks outpatient Problems reviewed: Yes Code(s): E05.90 - THYROTOXICOSIS, UNSP WITHOUT THYROTOXIC CRISIS OR STORM Assessment/Plan see problem list
[2019-11-28] MEDS: MONTELUKAST NA 10 MG TABLET PO SCH (21:44)
--- NOTE | 2019-11-28 23:31 | PN ---
Progress Note, Physician Chief Complaint: COMFORTABLE NO COMPLAINT - Current Medication List Current Medications: Active Medications Albuterol Sulfate (Ventolin 0.083% Nebulizer Soln -) 1 amp NEB Q6H PRN PRN Reason: ASTHMA Albuterol/Ipratropium (Duoneb -) 1 amp NEB RQID [facility] Last Admin: 11/28/19 20:48 Dose: 1 amp Budesonide/Formoterol Fumarate (Symbicort 160/4.5mcg -) 1 puff IH BID [facility] Last Admin: 11/28/19 21:48 Dose: 1 puff Guaifenesin (Mucinex Dm -) 2 tablet PO BID [facility] Last Admin: 11/28/19 21:44 Dose: 2 tablet Heparin Sodium (Porcine) (Heparin -) 5,000 unit SQ BID [facility] Last Admin: 11/28/19 21:44 Dose: 5,000 unit Loratadine (Claritin -) 10 mg PO DAILY [facility] Last Admin: 11/28/19 09:31 Dose: 10 mg Methylprednisolone Sodium Succinate (Solu-Medrol -) 60 mg IVPUSH Q8H-IV [facility] Last Admin: 11/28/19 17:13 Dose: 60 mg Montelukast Sodium (Singulair -) 10 mg PO HS [facility] Last Admin: 11/28/19 21:44 Dose: 10 mg Pantoprazole Sodium (Protonix -) 40 mg PO DAILY [facility] Last Admin: 11/28/19 09:31 Dose: 40 mg - Objective Vital Signs: Vital Signs Temperature 97.6 F 11/28/19 18:24 Pulse Rate 76 11/28/19 18:24 Respiratory Rate 20 11/28/19 18:24 Blood Pressure 134/66 11/28/19 18:24 O2 Sat by Pulse Oximetry (%) 100 11/28/19 09:00 Constitutional: Yes: Calm Eyes: Yes: EOM Intact HENT: Yes: Normocephalic Neck: Yes: Trachea Midline Cardiovascular: Yes: Regular Rate and Rhythm Respiratory: Yes: CTA Bilaterally Gastrointestinal: Yes: Normal Bowel Sounds ...Rectal Exam: Yes: Deferred Breast(s): Yes: WNL Musculoskeletal: Yes: WNL Extremities: Yes: WNL Edema: No Peripheral Pulses WNL: No Neurological: Yes: Alert, Oriented Labs: CBC, BMP 11/27/19 08:30 11/27/19 08:30 Problem List - Problems (1) Hyperthyroidism Code(s): E05.90 - THYROTOXICOSIS, UNSP WITHOUT THYROTOXIC CRISIS OR STORM (2) Acute hypercapnic respiratory failure Code(s): J96.02 - ACUTE RESPIRATORY FAILURE WITH HYPERCAPNIA (3) Alcohol intoxication Code(s): F10.129 - ALCOHOL ABUSE WITH INTOXICATION, UNSPECIFIED (4) Asthma Code(s): J45.909 - UNSPECIFIED ASTHMA, UNCOMPLICATED Qualifiers: Asthma severity: unspecified severity Asthma persistence: unspecified Asthma complication type: with acute exacerbation Qualified Code(s): J45.901 - Unspecified asthma with (acute) exacerbation (5) Asthma exacerbation Code(s): J45.901 - UNSPECIFIED ASTHMA WITH (ACUTE) EXACERBATION Qualifiers: Asthma severity: unspecified severity Asthma persistence: unspecified Qualified Code(s): J45.901 - Unspecified asthma with (acute) exacerbation (6) Bronchitis Code(s): J40 - BRONCHITIS, NOT SPECIFIED ACUTE OR CHRONIC (7) COPD exacerbation Code(s): J44.1 - CHRONIC OBSTRUCTIVE PULMONARY DISEASE W (ACUTE) EXACERBATION (8) Chest pain Code(s): R07.9 - CHEST PAIN, UNSPECIFIED Qualifiers: Chest pain type: unspecified Qualified Code(s): R07.9 - Chest pain, unspecified Assessment/Plan Current Active Problems Asthma exacerbation (Acute) Hyperthyroidism (Acute) EUTHYROID SICK LIKELY SUPPRESSED TSH Abnormal Lab Results 11/27/19 08:30 Free T3 1.7 L Laboratory Results - last 24 hr 11/27/19 11/28/19 11/28/19 08:30 06:37 12:06 POC Glucometer 116 109 Free T3 1.7 L Laboratory Tests 11/26/19 11/27/19 05:20 08:30 TSH 0.19 L Thyroxine (T4) 7.4 PLAN: REPEAT TSH FREE T4 IN 6-8WEEKS OUTPATIENT SONOGRAPHY THYROID OUTPATIENT
[2019-11-29] MEDS: methylPREDNISolone NA SUCC 40 MG/1 ML VIAL IVPUSH SCH ×2 (03:08→11:18)
[2019-11-29] MEDS: ALBUTEROL SO4 2.5/IPRATROPIUM 0.5 INH SOL 3 ML VIAL.NEB. NEB SCH ×2 (07:30→11:45)
[2019-11-29] MEDS ORDERED: PT OWN MED DRAWER 7, Y5N ONE (10:18)
[2019-11-29] MEDS: PANTOPRAZOLE 40 MG TABLET PO SCH (11:17)
[2019-11-29] MEDS: LORATADINE 10 MG TABLET PO SCH (11:17)
[2019-11-29] MEDS: HEPARIN NA (PORCINE) 5,000 UNITS/ML 1ML VIAL SQ SCH (11:18)
[2019-11-29] MEDS: guaiFENesin/D-METHORPHAN TAB.ER.12H PO SCH (11:27)
[2019-11-29] MEDS: BUDESONIDE/FORMETEROL FUMARATE 160/4.5 mcg INHALER IH SCH (11:27)
--- NOTE | 2019-11-29 11:55 | DS ---
Physical Examination Vital Signs: Vital Signs Temperature 98.2 F 11/29/19 06:43 Pulse Rate 86 11/29/19 06:43 Respiratory Rate 20 11/29/19 06:43 Blood Pressure 134/83 11/29/19 06:43 O2 Sat by Pulse Oximetry (%) 95 11/28/19 21:00 Findings/Remarks: Laboratory Last Values WBC 18.2 K/mm3 (4.0-10.0) H 11/27/19 08:30 RBC 4.11 M/mm3 (4.00-5.60) 11/27/19 08:30 Hgb 13.6 GM/dL (11.7-16.9) 11/27/19 08:30 Hct 40.6 % (35.4-49) 11/27/19 08:30 MCV 98.7 fl (80-96) H 11/27/19 08:30 MCH 33.1 pg (25.7-33.7) 11/27/19 08:30 MCHC 33.6 g/dl (32.0-35.9) 11/27/19 08:30 RDW 14.6 % (11.9-15.9) 11/27/19 08:30 Plt Count 274 K/MM3 (134-434) 11/27/19 08:30 MPV 8.0 fl (7.5-11.1) 11/27/19 08:30 Absolute Neuts (auto) 16.7 K/mm3 (1.5-8.0) H 11/26/19 05:20 Neutrophils % 91.6 % (42.8-82.8) H 11/26/19 05:20 Neutrophils % (Manual) 87.1 % (42.8-82.8) H 11/26/19 05:20 Band Neutrophils % 2.2 % 11/26/19 05:20 Lymphocytes % 6.4 % (8-40) L D 11/26/19 05:20 Lymphocytes % (Manual) 2.1 % (8-40) L 11/26/19 05:20 Monocytes % 1.8 % (3.8-10.2) L 11/26/19 05:20 Monocytes % (Manual) 2 % (3.8-10.2) L 11/26/19 05:20 Eosinophils % 0.0 % (0-4.5) D 11/26/19 05:20 Eosinophils % (Manual) 0.0 % (0-4.5) 11/26/19 05:20 Basophils % 0.2 % (0-2.0) 11/26/19 05:20 Basophils % (Manual) 0.0 % (0-2.0) 11/26/19 05:20 Myelocytes % (Man) 1 % (0-2) 11/26/19 05:20 Promyelocytes % (Man) 0 % (0-2) 11/26/19 05:20 Blast Cells % (Manual) 0 % (0-0) 11/26/19 05:20 Nucleated RBC % 0 % (0-0) 11/26/19 05:20 Metamyelocytes 0 % (0-2) 11/26/19 05:20 Hypochromia 0 11/26/19 05:20 Platelet Estimate Normal 11/26/19 05:20 Polychromasia 0 11/26/19 05:20 Anisocytosis 0 11/26/19 05:20 Microcytosis 0 11/26/19 05:20 Macrocytosis 0 11/26/19 05:20 Sodium 138 mmol/L (136-145) 11/27/19 08:30 Potassium 4.2 mmol/L (3.5-5.1) 11/27/19 08:30 Chloride 103 mmol/L (98-107) 11/27/19 08:30 Carbon Dioxide 29 mmol/L (21-32) 11/27/19 08:30 Anion Gap 7 MMOL/L (8-16) L 11/27/19 08:30 BUN 15.6 mg/dL (7-18) 11/27/19 08:30 Creatinine 1.2 mg/dL (0.55-1.3) 11/27/19 08:30 Est GFR (CKD-EPI)AfAm 83.54 11/27/19 08:30 Est GFR (CKD-EPI)NonAf 72.08 11/27/19 08:30 POC Glucometer 115 UNITS (80-120) 11/28/19 16:29 Random Glucose 105 mg/dL (74-106) 11/27/19 08:30 Hemoglobin A1c % 5.2 % (4.2-6.3) 11/27/19 08:30 Calcium 9.3 mg/dL (8.5-10.1) 11/27/19 08:30 Phosphorus 3.6 mg/dL (2.5-4.9) 11/26/19 05:20 Magnesium 2.1 mg/dL (1.8-2.4) 11/26/19 05:20 Total Bilirubin 0.4 mg/dL (0.2-1) 11/27/19 08:30 AST 10 U/L (15-37) L 11/27/19 08:30 ALT 21 U/L (13-61) 11/27/19 08:30 Alkaline Phosphatase 58 U/L (45-117) 11/27/19 08:30 Creatine Kinase 143 U/L (26-308) 11/25/19 08:20 Troponin I < 0.02 ng/ml (0.00-0.05) 11/25/19 08:20 Total Protein 6.9 g/dl (6.4-8.2) 11/27/19 08:30 Albumin 3.6 g/dl (3.4-5.0) 11/27/19 08:30 TSH 0.19 uIU/ml (0.358-3.74) L 11/27/19 08:30 Free T4 0.79 ng/dl (0.76-1.16) 11/27/19 08:30 Thyroxine (T4) 7.4 ug/dl (4.5-13.9) 11/26/19 05:20 Free T3 1.7 pg/ml (2.0-4.4) L 11/27/19 08:30 Home Medication List Medication Instructions Recorded Confirmed Type Budesonide/Formeterol Fumarate 1 inh PO BID 08/30/19 11/25/19 History [SYMBICORT 160/4.5mcg -] Active Medications Generic Name Dose Route Start Last Admin Trade Name Freq PRN Reason Stop Dose Admin Albuterol Sulfate 1 amp 11/25/19 11:17 Ventolin 0.083% Nebulizer Soln - NEB Q6H PRN ASTHMA Albuterol/Ipratropium 1 amp 11/25/19 16:00 11/29/19 11:45 Duoneb - NEB 1 amp RQID [facility] Administration Budesonide/Formoterol Fumarate 1 puff 11/25/19 22:00 11/29/19 11:27 Symbicort 160/4.5mcg - IH 1 puff BID [facility] Administration Guaifenesin 2 tablet 11/27/19 14:00 11/29/19 11:27 Mucinex Dm - PO 2 tablet BID [facility] Administration Heparin Sodium (Porcine) 5,000 unit 11/25/19 22:00 11/29/19 11:18 Heparin - SQ 5,000 unit BID [facility] Administration Loratadine 10 mg 11/27/19 14:00 11/29/19 11:17 Claritin - PO 10 mg DAILY [facility] Administration Methylprednisolone Sodium Succinate 60 mg 11/25/19 13:30 11/29/19 11:18 Solu-Medrol - IVPUSH 60 mg Q8H-IV [facility] Administration Montelukast Sodium 10 mg 11/25/19 22:00 11/28/19 21:44 Singulair - PO 10 mg HS [facility] Administration Pantoprazole Sodium 40 mg 11/27/19 14:00 11/29/19 11:17 Protonix - PO 40 mg DAILY [facility] Administration Constitutional: Yes: No Distress, Calm Eyes: Yes: Conjunctiva Clear HENT: Yes: Atraumatic Neck: Yes: Supple Cardiovascular: Yes: Regular Rate and Rhythm Respiratory: Yes: Regular, Diminished Gastrointestinal: Yes: Normal Bowel Sounds, Soft Musculoskeletal: Yes: WNL Extremities: Yes: WNL Edema: No Neurological: Yes: Alert, Oriented Psychiatric: Yes: Alert, Oriented Labs: CBC, BMP 11/27/19 08:30 11/27/19 08:30 Discharge Summary Problems reviewed: Yes Reason For Visit: ASTHMA Current Active Problems Asthma exacerbation (Acute) Hyperthyroidism (Acute) Hospital Course: Patient is a 44 y/o male with past medical history of Asthma (no history of intubation) and Nicotene Dependence (patient quit 1 yr ago). Patient presented to ER with complaints of worsening SOB accompanied with chest tightness. He states the SOB woke him up this morning at 4am. Despite using inhaler and nebulizer machine he says his SOB worsened. Patient was seen here in [facility] ER on 11/20/19 for same chief complaint and was prescribed prednisone and albuterol nebulizer. Patient states he was unable to pick it up from pharmacy after discharge from the ER. Patient was evaluated by pulmonary while in patient. Responded well to IV Steroids and CXR was unremarkable. Breathing has significantly improved and will be discharged home. Patient is medically cleared for discharge. Condition: Stable - Instructions Diet, Activity, Other Instructions: Please follow the following prednisone tapering dose schedule: 40 mg po daily x 3 days; 30 mg po daily x 3 days; 20 mg po daily x 3 days; 10 mg po daily x 3 days; 5 mg po daily x 3 days, then stop - Follow up with PCP within next 2 weeks Referrals: Brodie Yan MD [Primary Care Provider] - Disposition: HOME - Home Medications Comprehensive Discharge Medication List: Ambulatory Orders Albuterol 0.083% Nebulizer Анна [Ventolin 0.083% Nebulizer Soln -] 1 neb NEB Q6H #30 vial 06/06/19 Albuterol Sulfate Inhaler - [Ventolin HFA Inhaler -] 1 - 2 inh PO Q4H #1 inhaler 08/30/19 Budesonide/Formeterol Fumarate [SYMBICORT 160/4.5mcg -] 1 inh PO BID 08/30/19 Albuterol 2.5/Ipratropium 0.5 [Duoneb -] 1 amp NEB RQID amp 11/28/19 Guaifenesin Dm [Mucinex Dm -] 2 tablet PO BID tab.er.12h 11/28/19 Loratadine [Claritin -] 10 mg PO DAILY #30 tablet 11/28/19 Montelukast Na [Singulair -] 10 mg PO HS #30 tablet 11/28/19 Pantoprazole Sodium [Protonix -] 40 mg PO DAILY #30 tablet.ec 11/28/19 Prednisone 10 mg PO ASDIR #42 tablet 11/28/19
--- NOTE | 2019-11-29 14:18 | PN ---
Progress Note (short form) - Note Progress Note: Ambulating in hallway. Breathing feels much improved. No acute events overnight. Intake & Output 11/26/19 11/27/19 11/28/19 11/29/19 23:59 23:59 23:59 23:59 Intake Total 1280 1050 Balance 1280 1050 Last Vital Signs Temp Pulse Resp BP Pulse Ox 98.2 F 86 20 134/83 95 11/29/19 06:43 11/29/19 06:43 11/29/19 06:43 11/29/19 06:43 11/28/19 21:00 Active Medications Albuterol Sulfate (Ventolin 0.083% Nebulizer Soln -) 1 amp NEB Q6H PRN PRN Reason: ASTHMA Albuterol/Ipratropium (Duoneb -) 1 amp NEB RQID [facility] Last Admin: 11/29/19 11:45 Dose: 1 amp Budesonide/Formoterol Fumarate (Symbicort 160/4.5mcg -) 1 puff IH BID [facility] Last Admin: 11/29/19 11:27 Dose: 1 puff Guaifenesin (Mucinex Dm -) 2 tablet PO BID [facility] Last Admin: 11/29/19 11:27 Dose: 2 tablet Heparin Sodium (Porcine) (Heparin -) 5,000 unit SQ BID [facility] Last Admin: 11/29/19 11:18 Dose: 5,000 unit Loratadine (Claritin -) 10 mg PO DAILY [facility] Last Admin: 11/29/19 11:17 Dose: 10 mg Methylprednisolone Sodium Succinate (Solu-Medrol -) 60 mg IVPUSH Q8H-IV [facility] Last Admin: 11/29/19 11:18 Dose: 60 mg Montelukast Sodium (Singulair -) 10 mg PO HS [facility] Last Admin: 11/28/19 21:44 Dose: 10 mg Pantoprazole Sodium (Protonix -) 40 mg PO DAILY [facility] Last Admin: 11/29/19 11:17 Dose: 40 mg Gen: NAD at rest Heart: RRR Lung: few scattered rhonchi, expiratory wheezing improved Abd: soft, nontender Ext: no edema Laboratory Results - last 24 hr 11/28/19 16:29 POC Glucometer 115 A/P Acute Asthma Exacerbation: Mild Persistent - Prednisone taper - Can be discharged with a LABA/ICS & SLAVA - singulair - No smoking There is no Pulmonary contraindication for DC Dr Hussein Problem List - Problems (1) Asthma Code(s): J45.909 - UNSPECIFIED ASTHMA, UNCOMPLICATED Qualifiers: Asthma severity: unspecified severity Asthma persistence: unspecified Asthma complication type: with acute exacerbation Qualified Code(s): J45.901 - Unspecified asthma with (acute) exacerbation (2) Asthma exacerbation Code(s): J45.901 - UNSPECIFIED ASTHMA WITH (ACUTE) EXACERBATION Qualifiers: Asthma severity: unspecified severity Asthma persistence: unspecified Qualified Code(s): J45.901 - Unspecified asthma with (acute) exacerbation (3) Bronchitis Code(s): J40 - BRONCHITIS, NOT SPECIFIED ACUTE OR CHRONIC (4) COPD exacerbation Code(s): J44.1 - CHRONIC OBSTRUCTIVE PULMONARY DISEASE W (ACUTE) EXACERBATION (5) Shortness of breath Code(s): R06.02 - SHORTNESS OF BREATH (6) Tobacco abuse Code(s): Z72.0 - TOBACCO USE (7) Wheezing Code(s): R06.2 - WHEEZING
[2019-11-29 18:22] VITALS: BP 145/100; PULSE 78; TEMP 97.7
== END 2019-11-29 14:45 | disposition home or self-care (01) | DRG 140 ==
LOC: JER 05:54 → JERBED 10:29 → J5S 11-26 14:31
PROVIDERS: ADMIT Family Medicine; ATTEND Family Medicine
DX: J44.1 Chronic obstructive pulmonary disease with (acute) exacerbation (principal); E03.9 Hypothyroidism, unspecified; J45.31 Mild persistent asthma with (acute) exacerbation; E05.90 Thyrotoxicosis, unspecified without thyrotoxic crisis or storm; F32.9 Major depressive disorder, single episode, unspecified; J40 Bronchitis, not specified as acute or chronic; J45.30 Mild persistent asthma, uncomplicated; Z87.891 Personal history of nicotine dependence
CPT/HCPCS: 36415; 71045-TC-FY; 71250-TC; 80053; 82550; 82962; 83036; 83735; 84100; 84436; 84439; 84443; 84481; 84484; 85025; 85027; 93005; 93010; 94640; 99285-25; J0131; J1644

== ENCOUNTER 2020-02-28 04:39 | Emergency (ER) | payer OTHER ==
[2020-02-28] MEDS ORDERED: ALBUTEROL SO4 2.5/IPRATROPIUM 0.5 INH SOL 3 ML VIAL.NEB. NEB ONE ×2 (04:54→04:57)
[2020-02-28 04:55] VITALS: BP 128/94; PULSE 98; TEMP 98; BMI 24.7
--- NOTE | 2020-02-28 05:02 | PDOC ---
History of Present Illness - General Stated Complaint: ASTHMA Time Seen by Provider: 02/28/20 04:54 - History of Present Illness Initial Comments: 02/28/20 04:57 44 yo M with h/o asthma who BIBEMS with SOB, Mcclellan. Patient reports acute worsening of SOB, dyspnea on exertion, this morning. Pt. with multiple ED encounters for asthma exacerbations. Denies h/o ICU stay or intubations. recently admitted [facility] hospital for asthma exacerbation (02/16/20), with n egative COVID-19 testing. States that symptoms refractory to albuterol inhaler, and has been taking steroid taper following recent discharge from [facility] (02/17/20). Reports chronic change with absent change in frequency. Denies home oxygen requirements. Patient denies HUMPHERY, vision change, palpitations, cough, wheezing, orthopena, PND, leg swelling/pain, N/V, F,C, CP, urinary complaints, hematuria, BPR, abdominal pain, diarrhea, constipation, lightheadedness, weakness, sensory changes. PMHx: as noted above. Denies h/o abnml stress test, UT, PE/DVT. Denies h/o malignancy. ROS: as noted SHx: + distant tobacco use (2-3 years ago). Denies Etoh, IVDA. No recent travels, surgeries, or prolonged immobilization. Allergies: NKDA Past History - Past Medical History Allergies/Adverse Reactions: Allergies Allergy/AdvReac Type Severity Reaction Status Date / Time No Known Allergies Allergy Verified 02/17/20 10:38 Home Medications: Ambulatory Orders Albuterol 0.083% Nebulizer Анна [Ventolin 0.083% Nebulizer Soln -] 1 neb NEB Q6H #30 vial 06/06/19 Albuterol Sulfate Inhaler - [Ventolin HFA Inhaler -] 1 - 2 inh PO Q4H #1 inhaler 08/30/19 Budesonide/Formeterol Fumarate [SYMBICORT 160/4.5mcg -] 1 inh PO BID 08/30/19 Albuterol 2.5/Ipratropium 0.5 [Duoneb -] 1 amp NEB RQID amp 11/28/19 Guaifenesin Dm [Mucinex Dm -] 2 tablet PO BID tab.er.12h 11/28/19 Loratadine [Claritin -] 10 mg PO DAILY #30 tablet 11/28/19 Montelukast Na [Singulair -] 10 mg PO HS #30 tablet 11/28/19 Pantoprazole Sodium [Protonix -] 40 mg PO DAILY #30 tablet.ec 11/28/19 Azithromycin [Zithromax 250mg Tablets -] 250 mg PO DAILY #6 tab 02/17/20 predniSONE [Deltasone -] 10 mg PO ASDIR #43 tab 02/17/20 Anemia: No Asthma: Yes Cancer: No Cardiac Disorders: No CVA: No COPD: No CHF: No Dementia: No Diabetes: No GI Disorders: No Disorders: No HTN: No Hypercholesterolemia: No Liver Disease: No Psychiatric Problems: Yes (Depression/Anxiety) Seizures: No Thyroid Disease: No - Surgical History Abdominal Surgery: No Appendectomy: No Cardiac Surgery: No Cholecystectomy: No Lung Surgery: No Neurologic Surgery: No Orthopedic Surgery: No - Immunization History Immunization Up to Date: Yes - Psycho Social/Smoking Cessation Hx Smoking History: Unknown if ever smoked Have you smoked in the past 12 months: No Number of Cigarettes Smoked Daily: 10 If you are a former smoker, when did you quit?: 30 days ago 'Breaking Loose' booklet given: 08/17/17 Hx Alcohol Use: No Drug/Substance Use Hx: No Substance Use Type: Marijuana Hx Substance Use Treatment: No Review of Systems - Review of Systems Comments:: 02/28/20 05:52 GENERAL/CONSTITUTIONAL: No fever or chills. No weakness. HEAD, EYES, EARS, NOSE AND THROAT: No change in vision. No ear pain or dischar ge. No sore throat. CARDIOVASCULAR: + SOB, Mcclellan. No chest pain. RESPIRATORY: + Cough, wheezing. No hemoptysis. GASTROINTESTINAL: No nausea, vomiting, diarrhea or constipation. GENITOURINARY: No dysuria, frequency, or change in urination. MUSCULOSKELETAL: No joint or muscle swelling or pain. No neck or back pain. SKIN: No rash NEUROLOGIC: No headache, vertigo, loss of consciousness, or change in st rength/sensation. ENDOCRINE: No increased thirst. No abnormal weight change HEMATOLOGIC/LYMPHATIC: No anemia, easy bleeding, or history of blood clots. ALLERGIC/IMMUNOLOGIC: No hives or skin allergy. *Physical Exam - Vital Signs Last Vital Signs Temp Pulse Resp BP Pulse Ox 98.0 F 98 H 20 128/94 100 02/28/20 04:46 02/28/20 04:46 02/28/20 04:46 02/28/20 04:46 02/28/20 04:46 - Physical Exam 02/28/20 05:53 GENERAL: Awake, alert, and fully oriented, in no acute distress HEAD: No signs of trauma, normocephalic, atraumatic EYES: PERRLA, EOMI, sclera anicteric, conjunctiva clear ENT: Hearing grossly normal, nares patent, oropharynx clear without exudates. Moist mucosa NECK: Normal ROM, supple, no lymphadenopathy, JVD, or masses LUNGS: + Diffuse expiratory wheezing. No distress, speaks full sentences. HEART: Regular rate and rhythm, normal S1 and S2, no murmurs, rubs or gallops, peripheral pulses normal and equal bilaterally. ABDOMEN: Soft, nontender, normoactive bowel sounds. No guarding, no rebound. No masses EXTREMITIES : Normal inspection, Normal range of motion, no edema. No clubbing or cyanosis NEUROLOGICAL: Cranial nerves II through XII grossly intact. Normal speech, normal gait, no focal sensorimotor deficits SKIN: Warm, Dry, normal turgor, no rashes or lesions noted ED Treatment Course - RADIOLOGY Radiology Studies Ordered: Category Date Time Status CXRPORT [CHEST X-RAY PORTABLE*] [RAD] Stat Radiology 02/28/20 04:54 Ordered Medical Decision Making - Medical Decision Making 02/28/20 05:52 44 yo M with h/o asthma BIBEMS with SOB, Mcclellan. EMS reports O2 94 % RA, improved to 100 % with duoneb x 2, and Decadron x 1. HR 98, vitals otherwise wnl, AF, A&Ox3. Physical exam notable for diffuse expiratory wheezing, otherwise unremarkable. Likely asthma exacerbation. R/o PNA. PERC Negative PE. Will provide duoneb therapy and reassess. Ed Course: 02/28/20 07:02 EKG: NSR with absent NUNO, STD. Nml interval duration and axis. Nml R wave progression. Absent Q waves. 02/28/20 07:02 lungs CTA Patient stable for d/c with return precautions Discharge - Discharge Information Problems reviewed: Yes Clinical Impression/Diagnosis: Asthma exacerbation Qualifiers: Asthma severity: mild Asthma persistence: unspecified Qualified Code(s): J45.901 - Unspecified asthma with (acute) exacerbation - Admission No - Follow up/Referral - Patient Discharge Instructions Patient Printed Discharge Instructions: DI for Asthma -- Adult Additional Instructions: Please return to the emergency department with any new or worsening symptoms or concerns. Please follow up with your primary care physician within 72 hours. Please continue to take duoneb therapy as needed. - Post Discharge Activity
--- NOTE | 2020-02-28 05:14 | PDOC ---
Attending Attestation - Resident Resident Name: Christian Arcos - ED Attending Attestation I have performed the following: I have examined & evaluated the patient, The case was reviewed & discussed with the resident, I agree w/resident's findings & plan - HPI HPI: 02/28/20 05:124 44 yo male life long smoker quit 1 year ago here w cough sob and asthma attack no prior intubations EMS given nebs and decadron en route CTA bilat Well appearing - Physicial Exam PE: 02/28/20 19:31 CTA bilat NAD Speaking in full sentences - Medical Decision Making 02/28/20 19:30 44 yo male w/ Asthma exacebation/ mild copd given dex / nebs en route Well appearing Lungs cta on repeat exam EKG wnl CXR clear does not desat w/ walking Stable for dc w/ return precautions Discharge - Discharge Information Problems reviewed: Yes Clinical Impression/Diagnosis: Asthma exacerbation Qualifiers: Asthma severity: mild Asthma persistence: unspecified Qualified Code(s): J45.901 - Unspecified asthma with (acute) exacerbation Disposition: HOME - Additional Discharge Information Prescriptions: Albuterol 2.5/Ipratropium 0.5 [Duoneb -] 1 amp NEB QID PRN #4 amp PRN Reason: Asthma - Follow up/Referral - Patient Discharge Instructions Patient Printed Discharge Instructions: DI for Asthma -- Adult Additional Instructions: Please return to the emergency department with any new or worsening symptoms or concerns. Please follow up with your primary care physician within 72 hours. Please continue to take duoneb therapy as needed. - Post Discharge Activity
--- NOTE | 2020-02-28 10:11 | EKG ---
Test Reason : Blood Pressure : / mmHG Vent. Rate : 078 BPM Atrial Rate : 078 BPM P-R Int : 124 ms QRS Dur : 084 ms QT Int : 378 ms P-R-T Axes : 074 -07 029 degrees QTc Int : 430 ms NORMAL SINUS RHYTHM WITH SINUS ARRHYTHMIA WHEN COMPARED WITH ECG OF 16-FEB-2020 07:39, QUESTIONABLE CHANGE IN QRS AXIS Confirmed by AGUSTIN ROMANO MD ([id number]) on 02/28/2020 10:11:31 AM Referred By: Confirmed By:AGUSTIN ROMANO MD
== END 2020-02-28 07:15 | disposition home or self-care (01) ==
LOC: JER 04:39
PROC: 3E0F7GC Introduction of Other Therapeutic Substance into Respiratory Tract, Via Natural or Artificial Opening (ICD-10-PCS; principal; 2020-02-28)
DX: J45.901 Unspecified asthma with (acute) exacerbation (principal)
CPT/HCPCS: 71045-TC-FY; 93005; 93010; 94640; 99284-25

== ENCOUNTER 2020-05-04 16:16 | Emergency (ER) | payer OTHER ==
[2020-05-04 16:31] VITALS: BMI 24.5
[2020-05-04] MEDS ORDERED: ALBUTEROL SO4 2.5/IPRATROPIUM 0.5 INH SOL 3 ML VIAL.NEB. NEB ONE ×3 (17:10→18:22)
[2020-05-04] MEDS ORDERED: methylPREDNISolone NA SUCC 125 MG/2 ML VIAL IVPB ONE (17:10)
[2020-05-04] MEDS ORDERED: MAGNESIUM SULF 50% (8.12 MEQ/2 ML-1 GM VIAL) IVPB ONE (17:22)
[2020-05-04] MEDS ORDERED: MAGNESIUM 1GM/D5W - 2 GM/200 ML IVPB IVPB ONE (17:36)
[2020-05-04] MEDS ORDERED: methylPREDNISolone NA SUCC 125 MG/2 ML VIAL ONE (17:36)
--- NOTE | 2020-05-04 17:39 | PDOC ---
History of Present Illness - General Chief Complaint: Asthma Stated Complaint: Shortness of Breath Time Seen by Provider: 05/04/20 17:15 History Source: Patient Exam Limitations: No Limitations - History of Present Illness Initial Comments: 05/04/20 17:35 44 yo male pmh asthma (never intubated) and prior hx of smoking with Nicotene dependance (quit 1 year ago) presents to the ED for an asthma exacerbation. Pt seen multiple times for chest tightness and SOB with admissions for asthma exacerbation, presents with similar symptoms and states it is of the same quality and intensity today. Pt admits to SOB and chest tightness that began a few days ago. Pt admits to using greater than 30 treatments yesterday without improvement. Denies contacts recent travel, fevers, back pain, abdominal pain or changes in bowel or bladder habits. Past History - Medical History Allergies/Adverse Reactions: Allergies Allergy/AdvReac Type Severity Reaction Status Date / Time No Known Allergies Allergy Verified 05/04/20 16:21 Home Medications: Ambulatory Orders Albuterol 0.083% Nebulizer Анна [Ventolin 0.083% Nebulizer Soln -] 1 neb NEB Q6H #30 vial 06/06/19 Albuterol Sulfate Inhaler - [Ventolin HFA Inhaler -] 1 - 2 inh PO Q4H #1 inhaler 08/30/19 Budesonide/Formeterol Fumarate [SYMBICORT 160/4.5mcg -] 1 inh PO BID 08/30/19 Albuterol 2.5/Ipratropium 0.5 [Duoneb -] 1 amp NEB RQID amp 11/28/19 Guaifenesin Dm [Mucinex Dm -] 2 tablet PO BID tab.er.12h 11/28/19 Loratadine [Claritin -] 10 mg PO DAILY #30 tablet 11/28/19 Montelukast Na [Singulair -] 10 mg PO HS #30 tablet 11/28/19 Pantoprazole Sodium [Protonix -] 40 mg PO DAILY #30 tablet.ec 11/28/19 Azithromycin [Zithromax 250mg Tablets -] 250 mg PO DAILY #6 tab 02/17/20 predniSONE [Deltasone -] 10 mg PO ASDIR #43 tab 02/17/20 Albuterol 2.5/Ipratropium 0.5 [Duoneb -] 1 amp NEB QID PRN #4 amp 02/28/20 Prednisone [Prednisone 50 MG TABLETS] 50 mg PO DAILY 5 Days #5 tablet 03/23/20 Budesonide/Formeterol Fumarate [SYMBICORT 160/4.5mcg -] 1 inh PO BID #1 cannister 03/31/20 Montelukast Na [Singulair -] 10 mg PO HS #30 tablet 03/31/20 predniSONE [Deltasone -] 40 mg PO DAILY 5 Days #10 tablet 03/31/20 Albuterol Sulfate Inhaler - [Ventolin HFA Inhaler -] 1 - 2 inh PO Q4H PRN #1 inhaler 04/23/20 Fluticasone Propionate [Flovent Hfa] 44 mcg IH BID #1 inh 04/23/20 Prednisone [Prednisone 50 MG TABLETS] 50 mg PO DAILY 5 Days #5 tablet 04/23/20 Albuterol Sulfate [Albuterol Sulfate Hfa] 1 puff IH BID #1 hfa.aer.ad 05/04/20 Fluticasone/Salmeterol [Advair Hfa 115-21 Mcg Inhaler] 1 inh PO BID #1 inhaler 05/04/20 Ipratropium/Albuterol Sulfate [Iprat-Albut 0.5-3(2.5) mg/3 ml] 3 ml IH DAILY PRN 3 Days #3 ampul.neb 05/04/20 Prednisone [Prednisone 50 MG TABLETS] 50 mg PO DAILY 5 Days #5 tablet 05/04/20 Anemia: No Asthma: Yes Cancer: No Cardiac Disorders: No CVA: No COPD: Yes (COPD, CHRONIC BRONCHITIS) CHF: No Dementia: No Diabetes: No GI Disorders: No Disorders: No HTN: No Hypercholesterolemia: No Liver Disease: No Psychiatric Problems: Yes (Depression/Anxiety) Seizures: No Thyroid Disease: No - Surgical History Abdominal Surgery: No Appendectomy: No Cardiac Surgery: No Cholecystectomy: No Lung Surgery: No Neurologic Surgery: No Orthopedic Surgery: No - Immunization History Immunization Up to Date: Yes - Psycho-Social/Smoking History Smoking History: Former smoker Have you smoked in the past 12 months: No Number of Cigarettes Smoked Daily: 10 If you are a former smoker, when did you quit?: 30 days ago Information on smoking cessation initiated: No 'Breaking Loose' booklet given: 08/17/17 - Substance Abuse Hx (Audit-C & DAST Scrn) How often the patient has a drink containing alcohol: Monthly or less Number of drinks the patient has on a typical day: 1 or 2 How often the patient has six or more drinks on one occasion: Less than monthly Score: In Men: 4 or > Positive; In Women: 3 or > Positive: 2 Screen Result (Pos requires Nsg. Audit-10AR): Negative In the last yr the pt used illegal drug/Rx for NonMed reason: No Score: Yes response is considered Positive: 0 Screen Result (Positive result requires Nsg. DAST-10): Negative Review of Systems - Review of Systems Constitutional: Yes: Symptoms Reported HEENTM: Yes: Symptoms Reported Respiratory: Yes: Symptoms reported Cardiac (ROS): Yes: Symptoms Reported ABD/GI: Yes: Symptoms Reported : Yes: Symptoms Reported Musculoskeletal: Yes: Symptoms Reported Integumentary: Yes: Symptoms Reported Neurological: Yes: Symptoms reported *Physical Exam - Vital Signs Last Vital Signs Temp Pulse Resp BP Pulse Ox 98.8 F 78 20 125/81 99 05/04/20 16:29 05/04/20 16:29 05/04/20 16:29 05/04/20 16:29 05/04/20 16:29 - Physical Exam General Appearance: Yes: Nourished, Appropriately Dressed. No: Apparent Distress HEENT: positive: EOMI Neck: positive: Supple. negative: Carotid bruit Respiratory/Chest: positive: Wheezing (diffuse bilateral). negative: Respiratory Distress, Accessory Muscle Use, Rapid RR Cardiovascular: positive: Regular Rhythm, Regular Rate, S1, S2. negative: Edema, JVD, Murmur Vascular Pulses: Dorsalis-Pedis (R): 4+, Doralis-Pedis (L): 4+ Gastrointestinal/Abdominal: positive: Flat, Soft. negative: Pulsatile Mass, Protuberent, Distended, Guarding, Rebound, Tenderness Musculoskeletal: negative: CVA Tenderness Extremity: positive: Normal Capillary Refill, Normal Inspection, Normal Range of Motion Integumentary: positive: Normal Color, Dry, Warm Neurologic: positive: Fully Oriented, Alert ED Treatment Course - LABORATORY CBC & Chemistry Diagram: 05/04/20 17:40 05/04/20 17:40 - RADIOLOGY Radiology Studies Ordered: Category Date Time Status CHEST X-RAY PORTABLE* [RAD] Stat Radiology 05/04/20 17:32 Ordered Medical Decision Making - Medical Decision Making 05/04/20 17:40 44 yo male pmh asthma (never intubated) and prior hx of smoking with Nicotene dependance (quit 1 year ago) presents to the ED for an asthma exacerbation. Pt seen multiple times for chest tightness and SOB with admissions for asthma exacerbation, presents with similar symptoms and states it is of the same quality and intensity today. Pt admits to SOB and chest tightness that began a few days ago. Pt admits to using greater than 30 treatments yesterday without improvement. Denies contacts recent travel, fevers, back pain, abdominal pain or changes in bowel or bladder habits. Vitals including SpoO2 wnl Pt received albuterol inhaler from EMS Given steroids, Mag and 3 Duo nebs After treatments, pt persistently diffuse bilateral wheezing Labs WNL 05/04/20 19:04 S/O to night team for re evaluation and dispo after medications Discharge - Discharge Information Problems reviewed: Yes Clinical Impression/Diagnosis: Asthma exacerbation Condition: Improved Disposition: HOME - Additional Discharge Information Prescriptions: Fluticasone/Salmeterol [Advair Hfa 115-21 Mcg Inhaler] 1 inh PO BID #1 inhaler Albuterol Sulfate [Albuterol Sulfate Hfa] 1 puff IH BID #1 hfa.aer.ad Ipratropium/Albuterol Sulfate [Iprat-Albut 0.5-3(2.5) mg/3 ml] 3 ml IH DAILY PRN 3 Days #3 ampul.neb PRN Reason: Asthma Prednisone [Prednisone 50 MG TABLETS] 50 mg PO DAILY 5 Days #5 tablet - Follow up/Referral Referrals: Angel Jorgensen MD [Staff Physician] - Brodie Yan MD [Primary Care Provider] - Robert Bundy MD, MD [Staff Physician] - - Patient Discharge Instructions Patient Printed Discharge Instructions: Asthma -- Adult Additional Instructions: You were seen in the ER for an asthma exacerbation. Your breathing improved with treatments and medication. We are giving you a referral for a vascular tech (lung doctor) - please call as soon as possible to make an appointment. Follow your asthma action plan as discussed - flovent twice daily to prevent exacerbations. We are also prescribing you 5 days of prednisone - a steroid to help your breathing. Please take it as directed, once daily. Return to the ER if you develop worsening wheezing, difficulty breathing, chest pain, confusion, li ghtheadedness. - Post Discharge Activity
[2020-05-04 17:58] LABS: EOS % 6.6 % (0-4.5); HEMATOCRIT 42.3 % (35.4-49); HEMOGLOBIN 14.2 GM/dL (11.7-16.9); LYMPH % 29.1 % (8-40); MCH 33.3 pg (25.7-33.7); MCHC 33.5 g/dl (32.0-35.9); MEAN CELL VOLUME 99.5 fl (80-96); MEAN PLT VOLUME 7.9 fl (7.5-11.1); MONO % 8.2 % (3.8-10.2); NEUT % 55.1 % (42.8-82.8); PLATELET COUNT 248 K/MM3 (134-434); RBC 4.25 M/mm3 (4.00-5.60); RDW 14.8 % (11.9-15.9); WHITE BLOOD COUNT 7.8 K/mm3 (4.0-10.0)
[2020-05-04 18:31] LABS: ALBUMIN 3.7 g/dl (3.4-5.0); BILIRUBIN,TOTAL 0.5 mg/dL (0.2-1); BLOOD UREA NITROGEN 11.5 mg/dL (7-18); CALCIUM 9.1 mg/dL (8.5-10.1); CREATININE 1.1 mg/dL (0.55-1.3); POTASSIUM 4.5 mmol/L (3.5-5.1); TOT PROT 6.5 g/dl (6.4-8.2)
[2020-05-04] MEDS ORDERED: AZITHROMYCIN IVPB 500 MG in DEXTROSE 5%-WATER - 250 ML IVPB ONE (19:01)
[2020-05-04] MEDS ORDERED: DOXYCYCLINE INJECTION 100 MG in DEXTROSE 5%-WATER - 100 ML IVPB ONE (19:02)
[2020-05-04] MEDS ORDERED: AZITHROMYCIN 250 MG TABLET PO ONE (19:03)
--- NOTE | 2020-05-04 19:16 | PDOC ---
*Physical Exam - Vital Signs Last Vital Signs Temp Pulse Resp BP Pulse Ox 98.8 F 78 20 125/81 99 05/04/20 16:29 05/04/20 16:29 05/04/20 16:29 05/04/20 16:29 05/04/20 16:29 ED Treatment Course - LABORATORY CBC & Chemistry Diagram: 05/04/20 17:40 05/04/20 17:40 - ADDITIONAL ORDERS Additional order review: Laboratory Results 05/04/20 17:40 Sodium 140 Potassium 4.5 Chloride 105 Carbon Dioxide 31 Anion Gap 5 L BUN 11.5 Creatinine 1.1 Est GFR (CKD-EPI)AfAm 92.81 Est GFR (CKD-EPI)NonAf 80.08 Random Glucose 90 Calcium 9.1 Total Bilirubin 0.5 AST 11 L ALT 18 Alkaline Phosphatase 43 L Total Protein 6.5 Albumin 3.7 05/04/20 17:40 RBC 4.25 MCV 99.5 H MCHC 33.5 RDW 14.8 MPV 7.9 Neutrophils % 55.1 D Lymphocytes % 29.1 D Monocytes % 8.2 D Eosinophils % 6.6 H D Basophils % 1.0 D - Medications Given in the ED: ED Medications Discontinued Medications Generic Name Dose Route Start Last Admin Trade Name Freq PRN Reason Stop Dose Admin Albuterol/Ipratropium 3 amp 05/04/20 17:10 05/04/20 17:45 Duoneb - NEB 05/04/20 17:11 3 amp ONCE ONE Administration Magnesium Sulfate 2 gm 05/04/20 17:22 05/04/20 17:45 Magnesium Sulfate IVPB 05/04/20 17:23 2 gm ONCE ONE Administration Methylprednisolone Sodium Succinate 125 mg 05/04/20 17:10 05/04/20 17:45 Solu-Medrol - IVPB 05/04/20 17:11 125 mg ONCE ONE Administration Medical Decision Making - Medical Decision Making Sign out received from Dr. Torres. 44M w/hx asthma with recurrent exacerbations p/w asthma exacerbation. Pending: Reassessment Discharge if breathing improves --- 05/04/20 19:37 On reassessment, he is speaking full sentences, breathing comfortably with O2% at 99% on room air. Ambulatory O2% remains at 100%. Plan for discharge with pulmonology follow up, close PCP follow up. Reviewed asthma action plan with patient including asthma medication regimen and follow up plan. He is able to repeat back plan, dosing, and frequency of medication use. Plan for discharge. Discharge - Discharge Information Problems reviewed: Yes Clinical Impression/Diagnosis: Asthma exacerbation Condition: Improved Disposition: HOME - Admission No - Additional Discharge Information Prescriptions: Fluticasone/Salmeterol [Advair Hfa 115-21 Mcg Inhaler] 1 inh PO BID #1 inhaler Albuterol Sulfate [Albuterol Sulfate Hfa] 1 puff IH BID #1 hfa.aer.ad Ipratropium/Albuterol Sulfate [Iprat-Albut 0.5-3(2.5) mg/3 ml] 3 ml IH DAILY PRN 3 Days #3 ampul.neb PRN Reason: Asthma Prednisone [Prednisone 50 MG TABLETS] 50 mg PO DAILY 5 Days #5 tablet - Follow up/Referral Referrals: Brodie Yan MD [Primary Care Provider] - Robert Bundy MD, MD [Staff Physician] - Angel Jorgensen MD [Staff Physician] - - Patient Discharge Instructions Patient Printed Discharge Instructions: Asthma -- Adult Additional Instructions: You were seen in the ER for an asthma exacerbation. Your breathing improved with treatments and medication. We are giving you a referral for a aviation safety inspector (lung doctor) - please call as soon as possible to make an appointment. Follow your asthma action plan as discussed - flovent twice daily to prevent exacerbations. We are also prescribing you 5 days of prednisone - a steroid to help your breathing. Please take it as directed, once daily. Return to the ER if you develop worsening wheezing, difficulty breathing, chest pain, confusion, lightheadedness. - Post Discharge Activity
[2020-05-04 20:01] VITALS: BP 130/91; PULSE 87; TEMP 98.5
--- NOTE | 2020-05-05 10:13 | EKG ---
Test Reason : Blood Pressure : / mmHG Vent. Rate : 078 BPM Atrial Rate : 078 BPM P-R Int : 134 ms QRS Dur : 078 ms QT Int : 374 ms P-R-T Axes : 067 -09 020 degrees QTc Int : 426 ms NORMAL SINUS RHYTHM NORMAL ECG WHEN COMPARED WITH ECG OF 23-MAR-2020 04:17, VENT. RATE HAS DECREASED BY 42 BPM Confirmed by Mauri Walker MD ([id number]) on 05/05/2020 10:12:43 AM Referred By: Confirmed By:Mauri Walker MD
--- NOTE | 2020-05-19 18:44 | PDOC ---
Documentation entered by Tracie Vazquez SCRIBE, acting as scribe for Inocente Purdy MD. Inocente Purdy MD: This documentation has been prepared by the George mancilla Sydney, SCRIBE, under my direction and personally reviewed by me in its entirety. I confirm that the documentation accurately reflects all work, treatment, procedures, and medical decision making performed by me. Attending Attestation - Resident Resident Name: Lonnie Torres - ED Attending Attestation I have performed the following: I have examined & evaluated the patient, The case was reviewed & discussed with the resident, I agree w/resident's findings & plan, Exceptions are as noted - HPI HPI: 05/04/20 18:01 CC: Chest tightness and shortness of breath HPI: Patient is a 44 year old male with a significant past medical history of asthma, previous cigarette smoking (quit one year ago) who presents to the ED with several days of chest tightness and shortness of breath. Patient notes he took more than 30 treatments yesterday with no relief. He reports his present symptoms are the same in quality and intensity as when he was previously admitted into the hospital for similar symptoms. Allergies: NKDA - Physicial Exam PE: 05/19/20 18:44 Vitals: Triage Vital signs reviewed General Appearance: No acute distress, well nourished well developed, Head: Atraumatic, Cardiac: Regular rate and rhythym, no murmurs, no rubs, no gallops, Lungs: Wheezing bilaterally, no retractions Abdomen: Soft, non distended, normal bowel sounds, non tender to palpation Extremities: Full range of motion to all extremities, no cyanosis, clubbing, or edema Skin: Warm and dry, no rashes or lesions, no rash, no petechiae Psych: Normal mood, normal affect - Medical Decision Making 05/04/20 19:04 05/04/20 19:02 44 years old with asthma/COPD presents with moderate to severe asthma exacerbation 3 DuoNeb Solu-Medrol magnesium given in the emergency department patient still with persistent wheezing Currently receiving duo nebs at this time Patient will require reevaluation and may require admission depending on reevaluation to reevaluate and dispo Discharge - Discharge Information Problems reviewed: Yes Clinical Impression/Diagnosis: Asthma exacerbation Qualifiers: Asthma severity: moderate Asthma persistence: unspecified Qualified Code(s): J45.901 - Unspecified asthma with (acute) exacerbation Condition: Improved Disposition: HOME - Follow up/Referral Referrals: Angel Jorgensen MD [Staff Physician] - Brodie Yan MD [Primary Care Provider] - Robert Bundy MD, MD [Staff Physician] - - Patient Discharge Instructions Patient Printed Discharge Instructions: Asthma -- Adult Additional Instructions: You were seen in the ER for an asthma exacerbation. Your breathing improved with treatments and medication. We are giving you a referral for a quality cloth tester (lung doctor) - please call as soon as possible to make an appointment. Follow your asthma action plan as discussed - flovent twice daily to prevent exacerbations. We are also prescribing you 5 days of prednisone - a steroid to help your breathing. Please take it as directed, once daily. Return to the ER if you develop worsening wheezing, difficulty breathing, chest pain, confusion, lightheadedness. - Post Discharge Activity
== END 2020-05-04 20:01 | disposition home or self-care (01) ==
LOC: JER 16:16
PROC: 3E0F7GC Introduction of Other Therapeutic Substance into Respiratory Tract, Via Natural or Artificial Opening (ICD-10-PCS; principal; 2020-05-04)
PROC: 3E033GC Introduction of Other Therapeutic Substance into Peripheral Vein, Percutaneous Approach (ICD-10-PCS; principal; 2020-05-04)
DX: J45.901 Unspecified asthma with (acute) exacerbation (principal)
CPT/HCPCS: 36415; 71045-TC-FY; 80053; 85025; 93005; 93010; 94640; 96374; 96375; 99285-25; U0003

== ENCOUNTER 2020-05-13 09:15 | Emergency (ER) | payer OTHER ==
[2020-05-13] MEDS ORDERED: DEXAMETHASONE SOD PHOSPHATE 10 MG/1 ML VIAL ONE (09:19)
[2020-05-13] MEDS ORDERED: ALBUTEROL SO4 2.5/IPRATROPIUM 0.5 INH SOL 3 ML VIAL.NEB. NEB ONE (09:19)
[2020-05-13 09:39] VITALS: BMI 22.4
[2020-05-13] MEDS ORDERED: methylPREDNISolone NA SUCC 125 MG/2 ML VIAL IVPB ONE (09:41)
[2020-05-13] MEDS ORDERED: ALBUTEROL SO4 2.5/IPRATROPIUM 0.5 INH SOL 3 ML VIAL.NEB. NEB SCH (09:45)
[2020-05-13] MEDS ORDERED: ALBUTEROL SO4 HFA INHALER IH ONE ×2 (09:50→10:01)
--- NOTE | 2020-05-13 09:52 | PDOC ---
Documentation entered by Lin Odom SCRIBE, acting as scribe for Luke Abreu MD. Luke Abreu MD: This documentation has been prepared by the Lei mancilla Adrianna, SCRIBE, under my direction and personally reviewed by me in its entirety. I confirm that the documentation accurately reflects all work, treatment, procedures, and medical decision making performed by me. History of Present Illness - General Stated Complaint: DIFFICULTY BREATHING - History of Present Illness Initial Comments: The patient is a 44 year old male, with a significant PMH of COPD/asthma (recurrent exacerbations, never intubated), chronic bronchitis, and nicotine dependence, who presents to the ED for evaluation of SOB since earlier this morning. Patient complains of difficulty breathing, which woke him up from his sleep this morning. He endorses associated chest tightness, and notes this feels similar to his asthma exacerbations (has been seen multiple times at [facility] for the same quality and intensity of complaints). Patient has received 6 duonebs treatments (3 at home, 3 en route by EMS with 10 of dex) without any relief, and is currently on 10mg of prednisone). Denies fever, chills, cough, nausea, vomit, diarrhea, or LE edema. Allergies: NKA, NKDA Surgical History: None reported Social History: Nicotine dependence PCP: Dr. Yan [employer]: Dr. Hussein Past History - Medical History Allergies/Adverse Reactions: Allergies Allergy/AdvReac Type Severity Reaction Status Date / Time No Known Allergies Allergy Verified 05/04/20 16:21 Home Medications: Ambulatory Orders Albuterol 0.083% Nebulizer Анна [Ventolin 0.083% Nebulizer Soln -] 1 neb NEB Q6H #30 vial 06/06/19 Albuterol Sulfate Inhaler - [Ventolin HFA Inhaler -] 1 - 2 inh PO Q4H #1 inhaler 08/30/19 Budesonide/Formeterol Fumarate [SYMBICORT 160/4.5mcg -] 1 inh PO BID 08/30/19 Albuterol 2.5/Ipratropium 0.5 [Duoneb -] 1 amp NEB RQID amp 11/28/19 Guaifenesin Dm [Mucinex Dm -] 2 tablet PO BID tab.er.12h 11/28/19 Loratadine [Claritin -] 10 mg PO DAILY #30 tablet 11/28/19 Montelukast Na [Singulair -] 10 mg PO HS #30 tablet 11/28/19 Pantoprazole Sodium [Protonix -] 40 mg PO DAILY #30 tablet.ec 11/28/19 Azithromycin [Zithromax 250mg Tablets -] 250 mg PO DAILY #6 tab 02/17/20 predniSONE [Deltasone -] 10 mg PO ASDIR #43 tab 02/17/20 Albuterol 2.5/Ipratropium 0.5 [Duoneb -] 1 amp NEB QID PRN #4 amp 02/28/20 Prednisone [Prednisone 50 MG TABLETS] 50 mg PO DAILY 5 Days #5 tablet 03/23/20 Budesonide/Formeterol Fumarate [SYMBICORT 160/4.5mcg -] 1 inh PO BID #1 canniste r 03/31/20 Montelukast Na [Singulair -] 10 mg PO HS #30 tablet 03/31/20 predniSONE [Deltasone -] 40 mg PO DAILY 5 Days #10 tablet 03/31/20 Albuterol Sulfate Inhaler - [Ventolin HFA Inhaler -] 1 - 2 inh PO Q4H PRN #1 inhaler 04/23/20 Fluticasone Propionate [Flovent Hfa] 44 mcg IH BID #1 inh 04/23/20 Prednisone [Prednisone 50 MG TABLETS] 50 mg PO DAILY 5 Days #5 tablet 04/23/20 Albuterol Sulfate [Albuterol Sulfate Hfa] 1 puff IH BID #1 hfa.aer.ad 05/04/20 Fluticasone/Salmeterol [Advair Hfa 115-21 Mcg Inhaler] 1 inh PO BID #1 inhaler 05/04/20 Ipratropium/Albuterol Sulfate [Iprat-Albut 0.5-3(2.5) mg/3 ml] 3 ml IH DAILY PRN 3 Days #3 ampul.neb 05/04/20 Prednisone [Prednisone 50 MG TABLETS] 50 mg PO DAILY 5 Days #5 tablet 05/04/20 Anemia: No Asthma: Yes Cancer: No Cardiac Disorders: No CVA: No COPD: Yes (COPD, CHRONIC BRONCHITIS) CHF: No Dementia: No Diabetes: No GI Disorders: No Disorders: No HTN: No Hypercholesterolemia: No Liver Disease: No Psychiatric Problems: Yes (Depression/Anxiety) Seizures: No Thyroid Disease: No - Surgical History Abdominal Surgery: No Appendectomy: No Cardiac Surgery: No Cholecystectomy: No Lung Surgery: No Neurologic Surgery: No Orthopedic Surgery: No - Immunization History Immunization Up to Date: Yes - Psycho-Social/Smoking History Smoking History: Former smoker Have you smoked in the past 12 months: No Number of Cigarettes Smoked Daily: 10 If you are a former smoker, when did you quit?: 30 days ago 'Breaking Loose' booklet given: 08/17/17 Respiratory Specific PMHX - Complaint Specific PMHX Hx Bronchitis: No Hx Pneumonia: No Hx Pulmonary Embolus: No Hx TB (Tuberculosis): No Review of Systems - Review of Systems Comments:: CONSTITUTIONAL: No reported: Fever, Chills, Diaphoresis, Generalized Weakness, Malaise, Loss of Appetite HEENT: No reported: Rhinorrhea, Nasal Congestion, Throat Pain, Throat Swelling, Difficulty Swallowing, Mouth Swelling, Ear Pain, Eye Pain, Visual Changes CARDIOVASCULAR: +Chest tightness. No reported: Chest Pain, Syncope, Palpitations, Irregular Heart Rate, Lightheadedness, Peripheral Edema RESPIRATORY: +SOB. No reported: Cough, Orthopnea, Wheezing, Stridor, Hemoptysis GASTROINTESTINAL: No reported: Abdominal pain, Abdominal Distension, Nausea, Vomiting, Diarrhea, Constipation, Melena, Hematochezia GENITOURINARY: No reported: Dysuria, Frequency, Urgency, Hesitancy, Flank Pain, Genital Pain MUSCULOSKELETAL: No reported: Myalgia, Arthralgia, Joint Swelling, Back pain, Neck Pain SKIN: No reported: Rash, Itching, Pallor HEMATOLOGIC/IMMUNOLOGIC: No reported: Easy Bleeding, Easy Bruising, Lymphadenopathy, Frequent infections ENDOCRINE: No reported: Unexplained Weight Gain, Unexplained Weight Loss, Heat Intolerance, Cold Intolerance NEUROLOGIC: No reported: Headache, Focal Weakness, Paresthesias, Vertigo, Lightheadedness, Unsteady Gait, Seizure, Mental Status Changes, Incontinence PSYCHIATRIC: No reported: Anxiety, Depression *Physical Exam - Physical Exam GENERAL: The patient is awake, alert, and fully oriented, Nontoxic - in no acute distress. HEAD: Normocephalic, atraumatic. EYES: extraocular movements intact, sclera anicteric, conjunctiva clear. ENT: Normal voice, Moist mucous membranes. NECK: Normal range of motion, supple LUNGS: + expiratory wheezes bilaterally HEART: Regular rate and rhythm, without murmur, rub or gallop. ABDOMEN: Soft, nontender, No guarding, no rebound.No CVA tenderness EXTREMITIES: Normal range of motion, no edema. No cyanosis. No erythema, or tenderness. NEUROLOGICAL: No facial asymmetry, Normal speech, PSYCH: Normal mood, normal affect. SKIN: Warm, Dry, normal turgor. Heart Score/ECG Review - ECG Impressions Comment:: 05/13/20 10:38 Sinus tach, no NUNO/STDs, no TWIs, rate 102 ED Treatment Course - LABORATORY CBC & Chemistry Diagram: 05/13/20 10:00 05/13/20 10:00 - RADIOLOGY Radiograph Interpretation: EXAM#: TYPE/EXAM: RESULT: [id number] RAD/CHEST X-RAY PORTABLE* Chest: Shortness of breath \ Impression: No acute chest pathology. No significant change since 05/04/2020. Reported By: Freeman Dias MD 05/13/20 10:32 Medical Decision Making - Medical Decision Making 05/13/20 10:37 44 M with SOB and chest tightness. Likely asthma flare. EKG with no ischemic changes. - Labs, trop - CXR - Albuterol - Steroids given by EMS 05/13/20 11:53 Pt reassessed - feeling much better after albuterol MDI Labs wnl CXR clear Pt is well appearing, with normal vitals. Clinically stable for DC at this time. I discussed the physical exam findings, ancillary test results and final diagnoses with the patient. I answered all of the patient's questions. The patient was satisfied with the care received and felt comfortable with the discharge plan and treatment plan. The patient agrees to follow up with the primary care physician within 24-72 hours. Please note this patient was evaluated during the COVID-19 crisis with the presidential Dickinson Act Declaration and the [place] governor executive order number 202. He/she was evaluated and clinical decisions were made relative to healthcare system resources as well as clinical picture during a pandemic crisis situation. Discharge - Discharge Information Problems reviewed: Yes Clinical Impression/Diagnosis: Shortness of breath, Chest pain, Asthma Disposition: HOME - Follow up/Referral - Patient Discharge Instructions Patient Printed Discharge Instructions: Asthma -- Adult Additional Instructions: Use your albuterol nebulizer or inhaler every 4 hours as needed for wheezing and tightness. If you experience any chest pain, worsening shortness of breath, fevers, or any other concerning symptoms, return to the ER immediately Otherwise, follow up with your primary doctor within 1 week for re-evaluation. - Post Discharge Activity
[2020-05-13 10:23] LABS: BASO % 0.7 % (0-2.0); EOS % 7.9 % (0-4.5); HEMATOCRIT 42.2 % (35.4-49); HEMOGLOBIN 13.9 GM/dL (11.7-16.9); LYMPH % 21.4 % (8-40); MCH 32.5 pg (25.7-33.7); MCHC 32.8 g/dl (32.0-35.9); MEAN CELL VOLUME 98.9 fl (80-96); MEAN PLT VOLUME 8.2 fl (7.5-11.1); MONO % 4.1 % (3.8-10.2); NEUT % 65.9 % (42.8-82.8); PLATELET COUNT 238 K/MM3 (134-434); RBC 4.27 M/mm3 (4.00-5.60); WHITE BLOOD COUNT 7.5 K/mm3 (4.0-10.0)
[2020-05-13 11:01] LABS: ALBUMIN 3.8 g/dl (3.4-5.0); ALK PHOS 51 U/L (45-117); ANION GAP 7 MMOL/L (8-16); BILIRUBIN,TOTAL 0.8 mg/dL (0.2-1); CALCIUM 8.6 mg/dL (8.5-10.1); CHLORIDE 103 mmol/L (98-107); CO2 29 mmol/L (21-32); CREATININE 1.3 mg/dL (0.55-1.3); GLUCOSE,RANDOM 86 mg/dL (74-106); POTASSIUM 3.9 mmol/L (3.5-5.1); SGOT/AST 15 U/L (15-37); SGPT/ALT 18 U/L (13-61); SODIUM 139 mmol/L (136-145); TOT PROT 6.7 g/dl (6.4-8.2)
[2020-05-13 12:22] VITALS: BP 122/91; PULSE 92; TEMP 98.2
--- NOTE | 2020-05-13 13:16 | EKG ---
Test Reason : Blood Pressure : / mmHG Vent. Rate : 102 BPM Atrial Rate : 102 BPM P-R Int : 124 ms QRS Dur : 080 ms QT Int : 366 ms P-R-T Axes : 081 029 034 degrees QTc Int : 477 ms POOR DATA QUALITY, INTERPRETATION MAY BE ADVERSELY AFFECTED SINUS TACHYCARDIA POSSIBLE LEFT ATRIAL ENLARGEMENT BORDERLINE ECG WHEN COMPARED WITH ECG OF 04-MAY-2020 18:49, QT HAS LENGTHENED Confirmed by MD Rolan, Hammad ([id number]) on 05/13/2020 1:15:53 PM Referred By: Confirmed By:Hammad Gongora MD
== END 2020-05-13 12:17 | disposition home or self-care (01) ==
LOC: JER 09:15 → SUPCPDRO 09:15 → JER 12:17
PROC: 3E0F7GC Introduction of Other Therapeutic Substance into Respiratory Tract, Via Natural or Artificial Opening (ICD-10-PCS; principal; 2020-05-13)
DX: R06.02 Shortness of breath (principal); R07.9 Chest pain, unspecified; J45.909 Unspecified asthma, uncomplicated
CPT/HCPCS: 36415; 71045-TC-FY; 80053; 82550; 82553; 84484; 85025; 93005; 93010; 99285-25

== ENCOUNTER 2020-05-21 22:14 | Emergency (ER) | payer OTHER ==
--- NOTE | 2020-05-21 22:19 | PDOC ---
Rapid Medical Evaluation Time Seen by Provider: 05/21/20 22:16 Medical Evaluation: Allergies Allergy/AdvReac Type Severity Reaction Status Date / Time No Known Allergies Allergy Verified 05/04/20 16:21 05/21/20 22:16 I have performed a brief in-person evaluation of this patient. CC: face, c-spine and lumbar pain s/p fall. +LOC for unknown amount of time. PE: midline c-spine tenderness. No deformity, crepitus or step-offs noted. Orders: CT of face, head, c-spine Patient will proceed to ED for further evaluation. Discharge Disposition - Diagnosis Facial pain - Referrals - Patient Instructions - Post Discharge Activity
[2020-05-21] MEDS ORDERED: DIPHTH,PERTUSS(ACELL),TET 0.5 ML DISP.SYRIN IM ONE (22:20)
[2020-05-21] MEDS ORDERED: ACETAMINOPHEN 500 MG TABLET (FP) PO ONE (22:20)
[2020-05-21 22:25] VITALS: TEMP 98.5; BMI 31.6
--- NOTE | 2020-05-21 22:40 | PDOC ---
History of Present Illness - General Chief Complaint: Pain, Acute Stated Complaint: BACK PAIN Time Seen by Provider: 05/21/20 22:16 - History of Present Illness Initial Comments: 05/21/20 23:01 44M PMH Asthma, COPD BIBEMS after slip and fall w/ head strike and LOC. Unknown down time, pt states he slipped on bathroom rug this AM, woke up in bed but states he lives alone. C/o headache, neck, and low back pain. states parasthesia down arm if he turns neck. o/w denies changes in sensation and strength. No preceding chest pain, sob, n/v, lightheadedness. Denies bladder/bowel retention. Denies intox. NKDA. Past History - Medical History Allergies/Adverse Reactions: Allergies Allergy/AdvReac Type Severity Reaction Status Date / Time No Known Allergies Allergy Verified 05/04/20 16:21 Home Medications: Ambulatory Orders Amox-Tr/K Cl [Augmentin - 875Mg Tablet] 1 tab PO BID #14 tablet 05/22/20 Anemia: No Asthma: Yes Cancer: No Cardiac Disorders: No CVA: No COPD: Yes (COPD, CHRONIC BRONCHITIS) CHF: No Dementia: No Diabetes: No GI Disorders: No Disorders: No HTN: No Hypercholesterolemia: No Liver Disease: No Psychiatric Problems: Yes (Depression/Anxiety) Seizures: No Thyroid Disease: No - Surgical History Abdominal Surgery: No Appendectomy: No Cardiac Surgery: No Cholecystectomy: No Lung Surgery: No Neurologic Surgery: No Orthopedic Surgery: No - Immunization History Immunization Up to Date: Yes - Psycho-Social/Smoking History Smoking History: Never smoked Have you smoked in the past 12 months: No Number of Cigarettes Smoked Daily: 10 If you are a former smoker, when did you quit?: 30 days ago 'Breaking Loose' booklet given: 08/17/17 - Substance Abuse Hx (Audit-C & DAST Scrn) How often the patient has a drink containing alcohol: Never Score: In Men: 4 or > Positive; In Women: 3 or > Positive: 0 Screen Result (Pos requires Nsg. Audit-10AR): Negative In the last yr the pt used illegal drug/Rx for NonMed reason: No Score: Yes response is considered Positive: 0 Screen Result (Positive result requires Nsg. DAST-10): Negative Review of Systems - Review of Systems Comments:: 05/22/20 05:29 CONSTITUTIONAL: Denies F / C HEENT: endorses headache, head strike, LOC. Denies visual changes RESP: Denies SOB, cough CARD: Denies chest pain GI: Denies N / V / D, abdominal pain : Denies hematuria NEURO: endorses occasional parasthesia MSK: endorses back pain SKIN: Denies rashes. +abrasions. *Physical Exam - Vital Signs Last Vital Signs Temp Pulse Resp BP Pulse Ox 98.5 F 66 19 142/90 98 05/21/20 22:15 05/21/20 22:15 05/21/20 22:15 05/21/20 22:15 05/21/20 22:15 - Physical Exam 05/22/20 05:30 GEN: NAD, AAOx3. HEENT: Normocephalic, left parietal hematoma but no laceration or active bleed. EAC and TMs clear b/l, no hemotympanium. Nares clear, no hematoma. CN II-XII intact, EOMI, PERRL. No facial asymmetry. Moist mucous membranes, natural teeth intact, lower dental prosthetics, non-through and through lower lip bite w/o active bleed. Normal voice. + C spine TTP. CV: No chest or rib ttp. S1/S2, RRR, no m/r/g LUNG: CTAB, no wheezes, crackles, rales, rhonchi. GI: No bruising of the flanks. Soft, ndnt, +BS, no guarding, no rebound. BACK: +TTP C/T/L midline. No obvious deformities, no step offs. There is no pelvic instability MSK: TTP of the left middle finger w/ swelling but FROM, intact sensation, cap refill brisk. FROM of the UE and LE b/l. NEURO: Moving all extremities well. 5/5 UE strength b/l. 5/5 LE strength b/l. Sensation symmetric and intact throughout. PSYCH: cooperative, coherent, fluent. odd affect but baseline to prior visits. SKIN: superficial abrasions of the left flank, knees, left forearm, and fingertips; no active bleeding. Warm, dry, no rashes appreciated. ED Treatment Course - LABORATORY CBC & Chemistry Diagram: 05/21/20 23:40 05/21/20 23:40 Medical Decision Making - Medical Decision Making 05/22/20 05:30 44M BIBEMS after slip and fall w/ head strike and LOC. denies intox. TTP of C/T/L spine; neuro intact. C-collar placed. will eval primarily for spinal and facial fracture; eval for ICH though unlikely; eval for thoracoabdomo hematomas - CBC, CMP, coags, T&S - CT C/A/P - CT Head/Face/Neck - pain control - boostrix 05/22/20 00:57 CT IOC EXAM: CERVICAL SPINE CT W/O CONTR HISTORY: Trauma COMPARISON: None. FINDINGS: There are mild degenerative changes, predominantly facet joint arthrosis, with a minimal degenerative anterolisthesis of C6 on C7 There is no fracture or prevertebral soft tissue edema. The lung apices are clear. IMPRESSION: No fracture. THIS DOCUMENT HAS BEEN ELECTRONICALLY SIGNED Robert Field MD 05/22/2020 00:35 EST EXAM: HEAD CT WITHOUT CONTRAST HISTORY: 08/11/18 COMPARISON: None. FINDINGS: The ventricular system is midline and nondilated. The sulcal pattern is normal for the patient's age. There is no bleed, mass, extra-axial fluid collection or mass effect. There is a fracture of the left lamina papyracea. No skull fracture or skull lesion is identified. Small air-fluid level left axillary sinus may represent blood from trauma. The visualized paranasal sinuses and mastoid air cells are clear. IMPRESSION: Left lamina papyracea fracture without skull fracture or intracranial hemorrhage. THIS DOCUMENT HAS BEEN ELECTRONICALLY SIGNED Robert Field MD 05/22/2020 00:32 EST EXAM: FACIAL BONES CT W/O CONTRAST HISTORY: Rule out fracture COMPARISON: None. FINDINGS: The intraorbital contents are intact. Left maxillary sinus air-fluid level could represent blood from trauma. The other sinuses and visualized mastoid air cells are well aerated. There is a fracture of the left lamina papyracea without muscle entrapment. No other fractures identified. IMPRESSION: Uncomplicated left lamina papyracea fracture THIS DOCUMENT HAS BEEN ELECTRONICALLY SIGNED Robert Field MD 05/22/2020 00:51 EST awaiting C/A/P 05/22/20 01:22 pt pain is controlled, NAD, c-collar removed. 05/22/20 01:50 no obvious fractures on left hand XR 05/22/20 04:[address] C/A/P EXAM: CHEST CT WITH CONTRAST and CT abdomen and pelvis with contrast HISTORY: Trauma COMPARISON: None. FINDINGS: CT chest:There is no aortic laceration or mediastinal hematoma.. There is no significant mediastinal or hilar adenopathy. The heart size is normal. The trachea and bronchi are patent. There is no pleural or pericardial effusion. The lungs are clear. No pneumothorax. No fracture CT abdomen pelvis: Normal liver, gallbladder, pancreas, spleen, adrenal glands and kidneys. The stomach and abdominal small and large bowel are normal. There is no aortic dissection or aneurysm. There is no significant retroperitoneal lymphadenopathy. No retroperitoneal hematoma. The pelvic small and large bowel are normal. The appendix is normal The urinary bladder and prostate gland are normal. No pelvic free fluid is identified. There is no significant pelvic lymphadenopathy. No fracture. IMPRESSION: No evidence of acute traumatic pathology of the chest, abdomen and pelvis THIS DOCUMENT HAS BEEN ELECTRONICALLY SIGNED Robert Field MD 05/22/2020 03:21 EST augmentin to pharmacy ophtho f/u augmentin here dc home w/ f/u and return precautions plan dw patient, questions and concerns addressed Discharge - Discharge Information Problems reviewed: Yes Clinical Impression/Diagnosis: Facial pain, Closed head injury, Neck pain, Back pain Condition: Stable Disposition: HOME - Admission No - Additional Discharge Information Prescriptions: Amox-Tr/K Cl [Augmentin - 875Mg Tablet] 1 tab PO BID #14 tablet - Follow up/Referral Referrals: Brodie Yan MD [Primary Care Provider] - Mauri Bergman MD [Staff Physician] - - Patient Discharge Instructions Patient Printed Discharge Instructions: DI for Closed Head Injury Additional Instructions: You were found have fracture involving the left eye socket but it is reassuring because there is no entrapment of the eye muscles. The CAT scans were otherwise reassuring. A copy of your CAT scans was provided to you. Follow up with Ophthalmology in the next 3-5 days regarding the fracture. We are referring you to Dr. Bergman, please call and schedule an appointment with the nu mber provided. You may use any Senior [employer] Developer in your network. We are sending an antibiotic to your pharmacy, please pick it up and take as prescribed. Take tylenol, as directed on the label, for pain. Use ice and warm compresses on any sore areas. Continue your home medications as prescribed. Return to the Emergency Department if you experience new or worsening symptoms, including but not limited to: - change in vision (double, blurry, painful, etc.) - changes in sensation or strength - severe pain - anything that concerns you - Post Discharge Activity
[2020-05-21] MEDS ORDERED: ACETAMINOPHEN 325 MG TABLET (FP) ONE (22:42)
[2020-05-21] MEDS ORDERED: SODIUM CHLORIDE 0.9% 500 ML INFUS.BAG IV ONE (23:06)
--- NOTE | 2020-05-21 23:23 | PDOC ---
Documentation entered by Karen Ceron SCRIBE, acting as scribe for Norma Renteria DO. Norma Renteria DO: This documentation has been prepared by the jamese, Karen Ceron SCRIBE, under my direction and personally reviewed by me in its entirety. I confirm that the documentation accurately reflects all work, treatment, procedures, and medical decision making performed by me. Attending Attestation - Resident Resident Name: NewJose Angel - ED Attending Attestation I have performed the following: I have examined & evaluated the patient, The case was reviewed & discussed with the resident, I agree w/resident's findings & plan, Exceptions are as noted - HPI HPI: 05/21/20 22:54 Patient is a 44 year old male with a significant past medical history of COPD asthma (never intubated) and prior hx of smoking with Nicotene dependance (quit 1 year ago), and chronic bronchitis, who presents to the ED with recent fall, LOC (unknown down time), and a potential head injury. Patient stated he slipped in bathroom and "woke up in bed" but said he lives alone at home. Patient states he has a headache, neck pain, parasthesia down arm if he moves his neck and low back pain. Patient denies: lightheadedness, nausea, vomiting, any changes in strength or sensation, SOB, chest pain, or any other related symptoms. Allergies: NKDA PCP: Dr. Brodie Yan - Physicial Exam PE: 05/21/20 23:17 Gen: aaox3, uncomfortable, neck and back pain heent: EOMI, MMM, small laceration not through the bottom lip- no active bleeding, scant dried blood pinna left ear without active bleeding, L zygomatic arch ttp without deformity palpated, hematoma to L temporal region neck: diffuse midline ttp heart: +s1s2 reg lungs: wheezing diffusely, no rib ttp abd: soft, nt/nd +bs, b/l CVA ttp, midline back t and l spine ttp, no stepoffs or deformities but diffusely ttp ext: no c/c/e, swelling L hand middle finger at PIP, FROM of LE and UE, pulses intact, sensation intact, pelvis stable neuro: cn ii-xii grossly intact, muscle strength 5/5 UE and LE, sensation intact - Medical Decision Making 05/21/20 23:21 a/p: 44yo male s/p a mechanical slip and fall on the bathmat in the bathroom, landed in the shower, but then somehow got back into his bed -+loc -pt wiht diffuse neck and back pain -cva ttp -will send labs, urine for heme -will medicate for pain, ivf -c collar placed in the ER -FROM of all extremities and neuro intact -no blood thinners -pt denies etoh or drug use recently -chronic asthmatic, denies sob, is wheezing, but states that is his baseline 05/22/20 00:10 pt pending labs and ct imaging pt signed out to the oncoming ED physician pending ct imaging for his fall Discharge - Discharge Information Problems reviewed: Yes Clinical Impression/Diagnosis: Facial pain, Closed head injury, Neck pain, Back pain - Follow up/Referral Referrals: Brodie Yan MD [Primary Care Provider] - - Patient Discharge Instructions - Post Discharge Activity
[2020-05-21 23:52] LABS: HEMATOCRIT 41.5 % (35.4-49); LYMPH % 32.4 % (8-40); MCH 33.7 pg (25.7-33.7); MCHC 33.8 g/dl (32.0-35.9); MEAN CELL VOLUME 99.6 fl (80-96); MEAN PLT VOLUME 8.2 fl (7.5-11.1); MONO % 8.7 % (3.8-10.2); NEUT % 54.9 % (42.8-82.8); PLATELET COUNT 257 K/MM3 (134-434); RBC 4.16 M/mm3 (4.00-5.60); WHITE BLOOD COUNT 9.7 K/mm3 (4.0-10.0)
[2020-05-22 00:10] LABS: INR 0.91 (0.83-1.09); PROTHROMBIN TIME (PATIENT) 10.7 SEC (9.7-13.0)
[2020-05-22 00:13] LABS: ACTIVATED PTT 27.7 SECONDS (25.2-36.5)
[2020-05-22 00:15] LABS: ALBUMIN 3.6 g/dl (3.4-5.0); ALK PHOS 51 U/L (45-117); ANION GAP 4 MMOL/L (8-16); BILIRUBIN,TOTAL 0.7 mg/dL (0.2-1); BLOOD UREA NITROGEN 15.6 mg/dL (7-18); CALCIUM 8.9 mg/dL (8.5-10.1); CHLORIDE 103 mmol/L (98-107); CO2 31 mmol/L (21-32); CREATININE 1.2 mg/dL (0.55-1.3); GLUCOSE,RANDOM 68 mg/dL (74-106); POTASSIUM 4.1 mmol/L (3.5-5.1); SGOT/AST 23 U/L (15-37); SGPT/ALT 20 U/L (13-61); SODIUM 139 mmol/L (136-145); TOT PROT 6.5 g/dl (6.4-8.2)
[2020-05-22] MEDS ORDERED: AMOX TR/POT CLAV 875MG/125MG TABLETS (FP) PO ONE (04:09)
[2020-05-22] MEDS ORDERED: AMOX TR/POT CLAV 875MG/125MG TABLETS (FP) ONE (04:18)
[2020-05-22] MEDS ORDERED: DIPHTH,PERTUSS(ACELL),TET 0.5 ML DISP.SYRIN IM ONE (04:18)
[2020-05-22 04:29] VITALS: BP 137/75; PULSE 62
--- NOTE | 2020-05-22 09:20 | PDOC ---
*Physical Exam - Vital Signs Last Vital Signs Temp Pulse Resp BP Pulse Ox 98.5 F 62 16 137/75 100 05/21/20 22:15 05/22/20 04:28 05/22/20 04:28 05/22/20 04:28 05/22/20 04:28 ED Treatment Course - LABORATORY CBC & Chemistry Diagram: 05/21/20 23:40 05/21/20 23:40 - ADDITIONAL ORDERS Additional order review: Laboratory Results 05/21/20 05/21/20 05/21/20 23:40 23:40 23:40 PT with INR 10.70 INR 0.91 PTT (Actin FS) 27.7 Sodium 139 Potassium 4.1 Chloride 103 Carbon Dioxide 31 Anion Gap 4 L BUN 15.6 Creatinine 1.2 Est GFR (CKD-EPI)AfAm 83.54 Est GFR (CKD-EPI)NonAf 72.08 Random Glucose 68 L Calcium 8.9 Total Bilirubin 0.7 AST 23 ALT 20 Alkaline Phosphatase 51 Total Protein 6.5 Albumin 3.6 Alcohol, Quantitative < 3 Blood Type A POSITIVE Antibody Screen Negative 05/21/20 23:40 RBC 4.16 MCV 99.6 H MCHC 33.8 RDW 14.0 MPV 8.2 Neutrophils % 54.9 Lymphocytes % 32.4 D Monocytes % 8.7 D Eosinophils % 3.0 Basophils % 1.0 - Medications Given in the ED: ED Medications Discontinued Medications Generic Name Dose Route Start Last Admin Trade Name Freq PRN Reason Stop Dose Admin Acetaminophen 975 mg 05/21/20 22:20 05/21/20 22:49 Tylenol - PO 05/21/20 22:21 975 mg ONCE ONE Administration Amoxicillin/Clavulanate Potassium 1 tab 05/22/20 04:09 05/22/20 04:27 Augmentin - 875mg Tablet PO 05/22/20 04:10 1 tab ONCE ONE Administration Diphtheria/Tetanus/Acell Pertussis 0.5 ml 05/21/20 22:20 05/22/20 04:26 Boostrix - IM 05/21/20 22:21 0.5 ml .ONCE ONE Administration Sodium Chloride 1,000 ml 05/21/20 23:06 05/22/20 04:13 Normal Saline - IV 05/21/20 23:07 Not Given ONCE ONE Medical Decision Making - Medical Decision Making Spoke with radiology (Dr. Blackman) regarding prior nights CT abd/pelvis. Pt was found to have L sided intussusception. Pt was discharged to home with augment for facial fractures. Pt was called on his cell phone. Pt currently asymptomatic other than mild pain in his face/back. Pt has been tolerating PO intake at home, no issues with BMs, nausea/vomiting. Pt does not wish to come back for observation at this time. Provided strict return precautions and risk factors, with pt understanding. Pt will return if worsening. 05/22/20 09:17 Spoke with pts PCP (Dr. Yan) who will f/u with the pt is aware of the results. 05/22/20 11:29 Discharge - Discharge Information Problems reviewed: Yes Clinical Impression/Diagnosis: Facial pain, Neck pain Closed head injury Qualifiers: Encounter type: initial encounter Qualified Code(s): S09.90XA - Unspecified injury of head, initial encounter Condition: Stable Disposition: HOME - Additional Discharge Information Prescriptions: Amox-Tr/K Cl [Augmentin - 875Mg Tablet] 1 tab PO BID #14 tablet - Follow up/Referral Referrals: Mauri Bergman MD [Staff Physician] - Brodie Yan MD [Primary Care Provider] - - Patient Discharge Instructions Patient Printed Discharge Instructions: DI for Closed Head Injury Additional Instructions: You were found have fracture involving the left eye socket but it is reassuring because there is no entrapment of the eye muscles. The CAT scans were otherwise reassuring. A copy of your CAT scans was provided to you. Follow up with Ophthalmology in the next 3-5 days regarding the fracture. We are referring you to Dr. Bergman, please call and schedule an appointment with the number provided. You may use any Clinical Social Work Therapist in your network. We are sending an antibiotic to your pharmacy, please pick it up and take as prescribed. Take tylenol, as directed on the label, for pain. Use ice and warm compresses on any sore areas. Continue your home medications as prescribed. Return to the Emergency Department if you experience new or worsening symptoms, including but not limited to: - change in vision (double, blurry, painful, etc.) - changes in sensation or strength - severe pain - anything that concerns you - Post Discharge Activity
== END 2020-05-22 04:29 | disposition home or self-care (01) ==
LOC: JER 22:14
PROC: 3E0234Z Introduction of Serum, Toxoid and Vaccine into Muscle, Percutaneous Approach (ICD-10-PCS; principal; 2020-05-21)
DX: G50.1 Atypical facial pain (principal); S09.90XA Unspecified injury of head, initial encounter; M54.2 Cervicalgia; M54.5 Low back pain
CPT/HCPCS: 36415; 70450-TC; 70486-TC; 71260-TC; 72125-TC; 73130-TC-LT-FY; 74177-TC; 80053; 80307; 85025; 85610; 85730; 86850; 86900; 86901; 90715; 99285-25; Q9967

== ENCOUNTER 2020-06-06 05:49 | Emergency (ER) | payer OTHER ==
--- NOTE | 2020-06-06 06:04 | PDOC ---
History of Present Illness - General Chief Complaint: Asthma Stated Complaint: DIFFICULTY BREATHING/ASTHMA Time Seen by Provider: 06/06/20 06:03 History Source: Patient Exam Limitations: No Limitations - History of Present Illness Initial Comments: 06/06/20 06:03 HPI: This is a 44 y/o male with a PMH of asthma, COPD, bronchitis, and frequent asthma exacerbations brought to the ER by EMS after he woke up short of breath. He used his albuterol inhaler and nebulizer. EMS gave him 2 duonebs and 10mg of decadron. Patient reports that he usually comes to the ED about every month for an exacerbation, but has never had to be intubated. Denies increased cough, sputum production, sick contacts, fever, chills. Admits to chest tightness. ROS: GENERAL/CONSTITUTIONAL: No fever/chills. No weakness. CARDIOVASCULAR: Yes chest tightness and shortness of breath. RESPIRATORY: Yes wheezing. No cough or hemoptysis. GASTROINTESTINAL: No nausea, vomiting, diarrhea or constipation. GENITOURINARY: No dysuria, frequency MUSCULOSKELETAL: No joint or muscle swelling or pain. No neck or back pain. NEUROLOGIC: No headache, loss of consciousness, or change in strength/sensation. HEMATOLOGIC/LYMPHATIC: No anemia, easy bleeding, or history of blood clots. PMH: Asthma, COPD, bronchitis, asthma exacerbations Social Hx: Denied tobacco. Occasional Etoh. Meds: See nurses note. Steroids Allergies: Denied PE: GENERAL: Awake, alert, and fully oriented, in no acute distress. Laying in bed, conversing normally. HEAD: No signs of trauma EYES: PERRL, EOMI ENT: Oropharynx clear without exudates. Moist mucosa NECK: Normal ROM, supple LUNGS: Breath sounds equal bilaterally. Inspiratory and expiratory wheezing present bilaterally. Saturating well on room air. HEART: Regular rate and rhythm, normal S1 and S2, no murmurs, rubs or gallops ABDOMEN: Soft, nontender, normoactive bowel sounds. No guarding, no rebound EXTREMITIES: Normal range of motion, no edema. No clubbing or cyanosis. No cords, erythema, or tenderness NEUROLOGICAL: Cranial nerves II through XII grossly intact. Normal speech MDM: 06/06/20 06:13 This is a 44 y/o male with a PMH of asthma, COPD, bronchitis, and frequent asthma exacerbations brought to the ER by EMS after he woke up short of breath. - asthma exacerbation vs COPD exacerbation - Frequent asthma exacerbations - Treated by EMS with duoneb x2 and 10mg decadron - Saturating 99% on room air - Bilateral wheezing 06/06/20 07:17 - Signed out to Dr. Zelaya 06/07/20 11:15 Past History - Medical History Allergies/Adverse Reactions: Allergies Allergy/AdvReac Type Severity Reaction Status Date / Time No Known Allergies Allergy Verified 06/06/20 05:54 Home Medications: Ambulatory Orders Albuterol 0.083% Nebulizer Анна [Ventolin 0.083%] 1 neb NEB Q4H 06/06/20 Albuterol 2.5/Ipratropium 0.5 [Duoneb -] 1 neb NEB Q4H 06/06/20 Divalproex 06/06/20 Flovent Hfa 06/06/20 Loratadine 10 mg PO DAILY 06/06/20 Montelukast Na [Singulair -] 10 mg PO HS 06/06/20 Prednisone 5 mg PO BID 06/06/20 Seroquel 06/06/20 predniSONE [Deltasone -] 40 mg PO DAILY 2 Days #4 tablet 06/06/20 Anemia: No Asthma: Yes Cancer: No Cardiac Disorders: No CVA: No COPD: Yes (COPD, CHRONIC BRONCHITIS) CHF: No Dementia: No Diabetes: No GI Disorders: No Disorders: No HTN: No Hypercholesterolemia: No Liver Disease: No Psychiatric Problems: Yes (Depression/Anxiety) Seizures: No Thyroid Disease: No - Surgical History Abdominal Surgery: No Appendectomy: No Cardiac Surgery: No Cholecystectomy: No Lung Surgery: No Neurologic Surgery: No Orthopedic Surgery: No - Immunization History Immunization Up to Date: Yes - Psycho-Social/Smoking History Smoking History: Never smoked Have you smoked in the past 12 months: No Number of Cigarettes Smoked Daily: 10 If you are a former smoker, when did you quit?: 30 days ago Information on smoking cessation initiated: No 'Breaking Loose' booklet given: 08/17/17 - Substance Abuse Hx (Audit-C & DAST Scrn) How often the patient has a drink containing alcohol: Never Score: In Men: 4 or > Positive; In Women: 3 or > Positive: 0 Screen Result (Pos requires Nsg. Audit-10AR): Negative In the last yr the pt used illegal drug/Rx for NonMed reason: No Score: Yes response is considered Positive: 0 Screen Result (Positive result requires Nsg. DAST-10): Negative *Physical Exam - Vital Signs Last Vital Signs Temp Pulse Resp BP Pulse Ox 97.9 F 98 H 20 127/86 100 06/06/20 05:54 06/06/20 05:54 06/06/20 05:54 06/06/20 05:54 06/06/20 05:54 Discharge - Discharge Information Problems reviewed: Yes Clinical Impression/Diagnosis: Asthma exacerbation Qualifiers: Asthma severity: mild Asthma persistence: unspecified Qualified Code(s): J45.901 - Unspecified asthma with (acute) exacerbation Condition: Improved Disposition: HOME - Admission No - Additional Discharge Information Prescriptions: predniSONE [Deltasone -] 40 mg PO DAILY 2 Days #4 tablet - Follow up/Referral Referrals: Brodie Yan MD [Primary Care Provider] - - Patient Discharge Instructions Patient Printed Discharge Instructions: Asthma -- Adult, DI for Asthma -- Adult Additional Instructions: Please take prednisone 40 mg for two days. Please make a follow up appointment with your primary care doctor within the next week. If you experience any new, worsening, or concerning symptoms, including worsening shortness of breath, dizziness, or any other concerns, please return to the emergency department. - Post Discharge Activity
[2020-06-06 06:09] VITALS: TEMP 97.5; BMI 52.7
[2020-06-06] MEDS ORDERED: ALBUTEROL SO4 2.5/IPRATROPIUM 0.5 INH SOL 3 ML VIAL.NEB. NEB ONE ×3 (06:15→06:56)
[2020-06-06] MEDS ORDERED: DEXAMETHASONE SOD PHOSPHATE 10 MG/1 ML VIAL ONE (06:15)
--- NOTE | 2020-06-06 07:21 | PDOC ---
*Physical Exam - Vital Signs Last Vital Signs Temp Pulse Resp BP Pulse Ox 97.5 F L 94 H 21 H 127/86 95 06/06/20 06:01 06/06/20 06:01 06/06/20 06:01 06/06/20 06:01 06/06/20 06:09 ED Treatment Course - Medications Given in the ED: ED Medications Discontinued Medications Generic Name Dose Route Start Last Admin Trade Name Freq PRN Reason Stop Dose Admin Albuterol/Ipratropium 1 amp 06/06/20 06:51 06/06/20 06:55 Duoneb - NEB 06/06/20 06:52 1 amp ONCE ONE Administration Medical Decision Making - Medical Decision Making 06/06/20 07:20 Pt received on s/o from Dr. Gasca. 44M hx of COPD and asthma presenting with asthma exacerbation. No cough. Never intubated. Currently 5-10 mg of prednisone. Will obtain CXR and reassess. 06/06/20 08:48 CXR negative for acute intrathoracic pathology. 06/06/20 08:59 Pt reassessed. Lungs CTAB. No respiratory distress. Plan to d/c home with PCP f/u and prednisone 40 mg QD two days. All questions answered. Return precautions given. Pt verbalized understanding and agreement with plan. Discharge - Discharge Information Problems reviewed: Yes Clinical Impression/Diagnosis: Asthma exacerbation Qualifiers: Asthma severity: mild Asthma persistence: unspecified Qualified Code(s): J45.901 - Unspecified asthma with (acute) exacerbation Condition: Improved Disposition: HOME - Admission No - Additional Discharge Information Prescriptions: predniSONE [Deltasone -] 40 mg PO DAILY 2 Days #4 tablet - Follow up/Referral Referrals: Brodie Yan MD [Primary Care Provider] - - Patient Discharge Instructions Patient Printed Discharge Instructions: Asthma -- Adult, DI for Asthma -- Adult Additional Instructions: Please take prednisone 40 mg for two days. Please make a follow up appointment with your primary care doctor within the next week. If you experience any new, worsening, or concerning symptoms, including worsening shortness of breath, dizziness, or any other concerns, please return to the emergency department. - Post Discharge Activity
--- NOTE | 2020-06-06 07:41 | PDOC ---
Attending Attestation - Resident Resident Name: Hannah Gasca - ED Attending Attestation I have performed the following: I have examined & evaluated the patient, The case was reviewed & discussed with the resident, I agree w/resident's findings & plan, Exceptions are as noted - HPI HPI: 06/06/20 07:40 44 M with h/o asthma, COPD presenting to ED with SOB. Pt states this feels like his usual asthma flares. Used his albuterol inhaler and nebulizer at home with minimal relief. Received 2 duonebs and decadron en route by EMS. Pt denies F/C. Endorses his usual chest tightness. Denies leg swelling. Denies recent travel/immobilization. No prior intubations. - Physicial Exam PE: 06/06/20 07:41 See resident exam - Medical Decision Making 06/06/20 07:41 44 M with asthma/COPD flare. - CXR - Albuterol MDI - Steroids given by EMS Pt reassessed - feels much better s/p albuterol Lungs clear, pt ambulatory with normal O2 sat. Pt is well appearing, with normal vitals. Clinically stable for DC at this time. I discussed the physical exam findings, ancillary test results and final diagnoses with the patient. I answered all of the patient's questions. The patient was satisfied with the care received and felt comfortable with the discharge plan and treatment plan. The patient agrees to follow up with the primary care physician within 24-72 hours. Discharge - Discharge Information Problems reviewed: Yes Clinical Impression/Diagnosis: Asthma exacerbation Qualifiers: Asthma severity: mild Asthma persistence: unspecified Qualified Code(s): J45.901 - Unspecified asthma with (acute) exacerbation Condition: Improved Disposition: HOME - Additional Discharge Information Prescriptions: predniSONE [Deltasone -] 40 mg PO DAILY 2 Days #4 tablet - Follow up/Referral Referrals: Brodie Yan MD [Primary Care Provider] - - Patient Discharge Instructions Patient Printed Discharge Instructions: Asthma -- Adult, DI for Asthma -- Adult Additional Instructions: Please take prednisone 40 mg for two days. Please make a follow up appointment with your primary care doctor within the next week. If you experience any new, worsening, or concerning symptoms, including worsening shortness of breath, dizziness, or any other concerns, please return to the emergency department. - Post Discharge Activity
[2020-06-06 09:17] VITALS: BP 124/78; PULSE 72
== END 2020-06-06 09:31 | disposition home or self-care (01) ==
LOC: JER 05:49
PROC: 3E0F7GC Introduction of Other Therapeutic Substance into Respiratory Tract, Via Natural or Artificial Opening (ICD-10-PCS; principal; 2020-06-06)
DX: J45.901 Unspecified asthma with (acute) exacerbation (principal)
CPT/HCPCS: 71046-TC-FY; 99284-25

== ENCOUNTER 2020-10-01 22:00 | Emergency (ER) | payer OTHER ==
[2020-10-01 22:03] VITALS: BP 129/88; BMI 24.7
[2020-10-01 22:09] VITALS: TEMP 98.3
[2020-10-01] MEDS ORDERED: DEXAMETHASONE SOD PHOSPHATE 10 MG/1 ML VIAL ONE (22:15)
[2020-10-01] MEDS ORDERED: ALBUTEROL SO4 2.5/IPRATROPIUM 0.5 INH SOL 3 ML VIAL.NEB. NEB ONE ×3 (22:16→22:32)
[2020-10-01] MEDS ORDERED: MAGNESIUM SULFATE IN WATER 2 GM/50 ML IVPB IVPB ONE (22:16)
[2020-10-01] MEDS ORDERED: FAMOTIDINE 20 MG/50 ML IVPB 20 MG/50 ML MG IVPB ONE ×2 (22:29→22:32)
[2020-10-01] MEDS ORDERED: MAG HYDROX/AL HYDROX/SIMETH 30 ML UNIT-DOSE CUP PO ONE (22:29)
[2020-10-01] MEDS ORDERED: MAG HYDROX/AL HYDROX/SIMETH 30 ML UNIT-DOSE CUP ONE (22:32)
[2020-10-01 23:05] LABS: BASO % 0.6 % (0-2.0); EOS % 7.3 % (0-4.5); HEMATOCRIT 43.5 % (35.4-49); HEMOGLOBIN 14.6 GM/dL (11.7-16.9); LYMPH % 16.3 % (8-40); MCH 32.8 pg (25.7-33.7); MCHC 33.5 g/dl (32.0-35.9); MEAN CELL VOLUME 97.9 fl (80-96); MEAN PLT VOLUME 8.3 fl (7.5-11.1); MONO % 3.5 % (3.8-10.2); NEUT % 72.3 % (42.8-82.8); PLATELET COUNT 253 K/MM3 (134-434); RBC 4.45 M/mm3 (4.00-5.60); RDW 13.7 % (11.9-15.9)
[2020-10-01 23:19] LABS: CHLORIDE 104 mmol/L (98-107); POTASSIUM 3.6 mmol/L (3.5-5.1); SODIUM 138 mmol/L (136-145)
[2020-10-01 23:21] LABS: ANION GAP 10 MMOL/L (8-16); CALCIUM 9.1 mg/dL (8.5-10.1); CO2 24 mmol/L (21-32); GLUCOSE,RANDOM 109 mg/dL (74-106)
[2020-10-01 23:22] LABS: MAGNESIUM 3.4 mg/dL (1.8-2.4)
[2020-10-01 23:25] LABS: CREATININE 1.2 mg/dL (0.55-1.3); SGOT/AST 20 U/L (15-37); SGPT/ALT 15 U/L (13-61)
[2020-10-01 23:26] LABS: BILIRUBIN,TOTAL 1.2 mg/dL (0.2-1); TOT PROT 7.3 g/dl (6.4-8.2)
[2020-10-01 23:27] LABS: ALK PHOS 81 U/L (45-117)
[2020-10-01] MEDS ORDERED: SODIUM CHLORIDE 0.9% 500 ML INFUS.BAG IV ONE (23:27)
[2020-10-02 02:56] VITALS: PULSE 100
== END 2020-10-02 03:58 | disposition home or self-care (01) ==
LOC: JER 22:00
PROC: 3E033NZ Introduction of Analgesics, Hypnotics, Sedatives into Peripheral Vein, Percutaneous Approach (ICD-10-PCS; principal; 2020-10-01)
PROC: 3E0F7GC Introduction of Other Therapeutic Substance into Respiratory Tract, Via Natural or Artificial Opening (ICD-10-PCS; 2020-10-01)
DX: J45.901 Unspecified asthma with (acute) exacerbation (principal); J44.9 Chronic obstructive pulmonary disease, unspecified
CPT/HCPCS: 36415; 71046-TC-FY; 80053; 82550; 82553; 83735; 84484; 85025; 93005; 93010; 99285-25; C9803; U0003

== ENCOUNTER 2020-10-08 15:48 | Emergency (ER) | payer OTHER ==
[2020-10-08 16:39] VITALS: BP 123/90; PULSE 80; TEMP 97.9; BMI 54.6
[2020-10-08] MEDS ORDERED: predniSONE 20 MG TABLET (UD) PO ONE (16:43)
[2020-10-08] MEDS ORDERED: ALBUTEROL SO4 2.5/IPRATROPIUM 0.5 INH SOL 3 ML VIAL.NEB. NEB SCH (16:45)
[2020-10-08] MEDS ORDERED: ALBUTEROL SO4 2.5/IPRATROPIUM 0.5 INH SOL 3 ML VIAL.NEB. NEB ONE (17:40)
[2020-10-08] MEDS ORDERED: predniSONE 20 MG TABLET (UD) ONE (17:40)
== END 2020-10-08 20:52 | disposition home or self-care (01) ==
LOC: JER 15:48
PROC: 3E0F7GC Introduction of Other Therapeutic Substance into Respiratory Tract, Via Natural or Artificial Opening (ICD-10-PCS; principal; 2020-10-08)
DX: J20.9 Acute bronchitis, unspecified (principal); J45.21 Mild intermittent asthma with (acute) exacerbation
CPT/HCPCS: 71045-TC-FY; 99283-25

== ENCOUNTER 2021-01-02 05:07 | Inpatient (IN) | payer OTHER ==
[2021-01-02] MEDS ORDERED: ALBUTEROL SO4 2.5/IPRATROPIUM 0.5 INH SOL 3 ML VIAL.NEB. NEB ONE ×2 (05:33→05:42)
[2021-01-02 06:08] LABS: HEMATOCRIT 39.1 % (35.4-49); HEMOGLOBIN 13.5 GM/dL (11.7-16.9); MCH 33.8 pg (25.7-33.7); MCHC 34.5 g/dl (32.0-35.9); MEAN CELL VOLUME 98.2 fl (80-96); PLATELET COUNT 237 K/MM3 (134-434); RBC 3.98 M/mm3 (4.00-5.60); RDW 14.1 % (11.9-15.9); WHITE BLOOD COUNT 6.9 K/mm3 (4.0-10.0)
[2021-01-02 06:34] LABS: CHLORIDE 107 mmol/L (98-107); POTASSIUM 3.7 mmol/L (3.5-5.1); SODIUM 139 mmol/L (136-145)
[2021-01-02 06:36] LABS: CALCIUM 8.4 mg/dL (8.5-10.1)
[2021-01-02 06:37] LABS: ALBUMIN 3.8 g/dl (3.4-5.0); ANION GAP 4 MMOL/L (8-16); BLOOD UREA NITROGEN 10.5 mg/dL (7-18); CO2 29 mmol/L (21-32); GLUCOSE,RANDOM 100 mg/dL (74-106)
[2021-01-02 06:40] LABS: CREATININE 1.1 mg/dL (0.55-1.3); SGOT/AST 16 U/L (15-37); SGPT/ALT 15 U/L (13-61)
[2021-01-02 06:41] LABS: BILIRUBIN,TOTAL 0.7 mg/dL (0.2-1); TOT PROT 6.5 g/dl (6.4-8.2)
[2021-01-02 06:43] LABS: ALK PHOS 61 U/L (45-117)
[2021-01-02] MEDS ORDERED: ALBUTEROL SO4 2.5/IPRATROPIUM 0.5 INH SOL 3 ML VIAL.NEB. NEB PRN (11:41)
[2021-01-02] MEDS ORDERED: ACETAMINOPHEN 325 MG TABLET (FP) PO PRN (11:41)
[2021-01-02] MEDS ORDERED: CEFTRIAXONE 1 MG in DEXTROSE 5%-WATER - 50 ML IVPB ONE (12:00)
[2021-01-02] MEDS ORDERED: AZITHROMYCIN 250 MG TABLET PO ONE (12:00)
[2021-01-02] MEDS ORDERED: AZITHROMYCIN 250 MG TABLET ONE (12:25)
[2021-01-02] MEDS ORDERED: CEFTRIAXONE 1 GM/50 ML BAG ONE (12:26)
[2021-01-02] MEDS ORDERED: ALBUTEROL SO4 HFA INHALER IH PRN (13:52)
[2021-01-02] MEDS ORDERED: ALBUTEROL SO4 HFA INHALER IH ONE (16:29)
[2021-01-02] MEDS: ALBUTEROL SO4 HFA INHALER IH SCH ×2 (16:43→22:25)
[2021-01-02] MEDS ORDERED: methylPREDNISolone NA SUCC 40 MG/1 ML VIAL ONE (18:57)
[2021-01-02] MEDS: methylPREDNISolone NA SUCC 40 MG/1 ML VIAL IVPUSH SCH (19:03)
[2021-01-02] MEDS ORDERED: QUEtiapine FUMARATE 25 MG TABLET ONE (21:15)
[2021-01-02] MEDS ORDERED: HEPARIN NA (PORCINE) 5,000 UNITS/ML 1ML VIAL ONE (21:15)
[2021-01-02] MEDS: HEPARIN NA (PORCINE) 5,000 UNITS/ML 1ML VIAL SQ SCH (21:26)
[2021-01-02] MEDS: QUEtiapine FUMARATE 25 MG TABLET PO SCH (21:26)
[2021-01-03 00:12] VITALS: BMI 24.5
[2021-01-03] MEDS: methylPREDNISolone NA SUCC 40 MG/1 ML VIAL IVPUSH SCH ×3 (00:59→17:43)
[2021-01-03 08:08] LABS: HEMATOCRIT 40.9 % (35.4-49); HEMOGLOBIN 14.2 GM/dL (11.7-16.9); MCHC 34.7 g/dl (32.0-35.9); MEAN CELL VOLUME 98.1 fl (80-96); MEAN PLT VOLUME 8.4 fl (7.5-11.1); PLATELET COUNT 244 K/MM3 (134-434); RBC 4.17 M/mm3 (4.00-5.60); RDW 14.1 % (11.9-15.9); WHITE BLOOD COUNT 11.3 K/mm3 (4.0-10.0)
[2021-01-03 08:18] LABS: POTASSIUM 4.5 mmol/L (3.5-5.1)
[2021-01-03 08:20] LABS: BLOOD UREA NITROGEN 15.3 mg/dL (7-18); CALCIUM 9.2 mg/dL (8.5-10.1)
[2021-01-03 08:25] LABS: BILIRUBIN,TOTAL 0.7 mg/dL (0.2-1); TOT PROT 7.1 g/dl (6.4-8.2)
[2021-01-03] MEDS: AZITHROMYCIN 250 MG TABLET PO SCH (09:24)
[2021-01-03] MEDS: FAMOTIDINE 20 MG TABLET PO SCH (09:24)
[2021-01-03] MEDS: HEPARIN NA (PORCINE) 5,000 UNITS/ML 1ML VIAL SQ SCH ×2 (09:24→21:26)
[2021-01-03] MEDS: NICOTINE 21 MG/24 HOURS TOPICAL PATCH TD SCH (09:25)
[2021-01-03] MEDS: ALBUTEROL SO4 HFA INHALER IH SCH ×4 (09:30→20:30)
[2021-01-03] MEDS: QUEtiapine FUMARATE 25 MG TABLET PO SCH (21:27)
[2021-01-04] MEDS: methylPREDNISolone NA SUCC 40 MG/1 ML VIAL IVPUSH SCH ×3 (01:09→17:59)
[2021-01-04] MEDS: ALBUTEROL SO4 2.5/IPRATROPIUM 0.5 INH SOL 3 ML VIAL.NEB. NEB SCH ×4 (08:00→20:27)
[2021-01-04] MEDS: FAMOTIDINE 20 MG TABLET PO SCH (10:59)
[2021-01-04] MEDS: HEPARIN NA (PORCINE) 5,000 UNITS/ML 1ML VIAL SQ SCH ×2 (10:59→22:08)
[2021-01-04] MEDS: NICOTINE 21 MG/24 HOURS TOPICAL PATCH TD SCH (10:59)
[2021-01-04] MEDS: AZITHROMYCIN 250 MG TABLET PO SCH (11:00)
[2021-01-04] MEDS: QUEtiapine FUMARATE 25 MG TABLET PO SCH (22:08)
[2021-01-04] MEDS: ALPRAZolam 0.25 MG TABLET PO PRN (22:08)
[2021-01-05] MEDS: methylPREDNISolone NA SUCC 40 MG/1 ML VIAL IVPUSH SCH ×3 (01:50→18:39)
[2021-01-05] MEDS: ALBUTEROL SO4 2.5/IPRATROPIUM 0.5 INH SOL 3 ML VIAL.NEB. NEB SCH ×3 (08:48→20:05)
[2021-01-05] MEDS: HEPARIN NA (PORCINE) 5,000 UNITS/ML 1ML VIAL SQ SCH ×2 (10:27→21:35)
[2021-01-05] MEDS: AZITHROMYCIN 250 MG TABLET PO SCH (10:27)
[2021-01-05] MEDS: FAMOTIDINE 20 MG TABLET PO SCH (10:27)
[2021-01-05] MEDS: NICOTINE 21 MG/24 HOURS TOPICAL PATCH TD SCH (10:28)
[2021-01-05] MEDS: ALPRAZolam 0.25 MG TABLET PO PRN (10:28)
[2021-01-05] MEDS: QUEtiapine FUMARATE 25 MG TABLET PO SCH (21:35)
[2021-01-05] MEDS ORDERED: SENNOSIDES 8.6MG TABLET (FP) PO PRN (23:08)
[2021-01-06] MEDS: methylPREDNISolone NA SUCC 40 MG/1 ML VIAL IVPUSH SCH ×3 (02:33→17:18)
[2021-01-06] MEDS: ALBUTEROL SO4 2.5/IPRATROPIUM 0.5 INH SOL 3 ML VIAL.NEB. NEB SCH ×4 (07:45→20:00)
[2021-01-06] MEDS: AZITHROMYCIN 250 MG TABLET PO SCH (09:53)
[2021-01-06] MEDS: ALPRAZolam 0.25 MG TABLET PO PRN (09:53)
[2021-01-06] MEDS: FAMOTIDINE 20 MG TABLET PO SCH (09:54)
[2021-01-06] MEDS: HEPARIN NA (PORCINE) 5,000 UNITS/ML 1ML VIAL SQ SCH ×2 (09:54→21:26)
[2021-01-06] MEDS: NICOTINE 21 MG/24 HOURS TOPICAL PATCH TD SCH (09:54)
[2021-01-06] MEDS: QUEtiapine FUMARATE 25 MG TABLET PO SCH (21:26)
[2021-01-07] MEDS: methylPREDNISolone NA SUCC 40 MG/1 ML VIAL IVPUSH SCH ×3 (02:33→18:03)
[2021-01-07] MEDS: ALBUTEROL SO4 2.5/IPRATROPIUM 0.5 INH SOL 3 ML VIAL.NEB. NEB SCH ×3 (07:50→16:36)
[2021-01-07] MEDS: NICOTINE 21 MG/24 HOURS TOPICAL PATCH TD SCH (10:00)
[2021-01-07] MEDS: HEPARIN NA (PORCINE) 5,000 UNITS/ML 1ML VIAL SQ SCH (10:00)
[2021-01-07] MEDS: AZITHROMYCIN 250 MG TABLET PO SCH (10:01)
[2021-01-07] MEDS: FAMOTIDINE 20 MG TABLET PO SCH (10:01)
[2021-01-07 10:19] LABS: POTASSIUM 3.8 mmol/L (3.5-5.1)
[2021-01-07 10:23] LABS: BLOOD UREA NITROGEN 19.1 mg/dL (7-18); CALCIUM 9.3 mg/dL (8.5-10.1)
[2021-01-07 10:26] LABS: CREATININE 1.2 mg/dL (0.55-1.3)
[2021-01-07 14:13] VITALS: BP 143/93; PULSE 87; TEMP 98.4
== END 2021-01-07 18:57 | disposition home or self-care (01) | DRG 140 ==
LOC: JER 05:07 → JERBED 10:12 → J7W 22:07
PROVIDERS: ADMIT Family Medicine; ATTEND Family Medicine
DX: J44.1 Chronic obstructive pulmonary disease with (acute) exacerbation (principal); J44.9 Chronic obstructive pulmonary disease, unspecified; J40 Bronchitis, not specified as acute or chronic; F41.8 Other specified anxiety disorders; F32.9 Major depressive disorder, single episode, unspecified; F17.210 Nicotine dependence, cigarettes, uncomplicated; R06.03 Acute respiratory distress; R44.1 Visual hallucinations; J45.41 Moderate persistent asthma with (acute) exacerbation
CPT/HCPCS: 36415; 71045-TC-FY; 71046-TC-FY; 80048; 80053; 82550; 84484; 85027; 93005; 93010; 94640; 99285-25; C9803; J1644; U0003

== ENCOUNTER 2021-03-14 00:05 | Emergency (ER) | payer OTHER ==
[2021-03-14 00:13] VITALS: TEMP 98.1; BMI 28.0
[2021-03-14] MEDS ORDERED: ALBUTEROL SO4 2.5/IPRATROPIUM 0.5 INH SOL 3 ML VIAL.NEB. NEB SCH (00:45)
[2021-03-14 01:09] LABS: BASO % 0.9 % (0-2.0); EOS % 10.4 % (0-4.5); HEMATOCRIT 40.2 % (35.4-49); HEMOGLOBIN 13.7 GM/dL (11.7-16.9); LYMPH % 24.4 % (8-40); MCH 33.9 pg (25.7-33.7); MCHC 34.2 g/dl (32.0-35.9); MEAN CELL VOLUME 99.2 fl (80-96); NEUT % 60.3 % (42.8-82.8); PLATELET COUNT 244 K/MM3 (134-434); RBC 4.05 M/mm3 (4.00-5.60); RDW 14.3 % (11.9-15.9); WHITE BLOOD COUNT 7.3 K/mm3 (4.0-10.0)
[2021-03-14 01:22] LABS: CALCIUM 8.5 mg/dL (8.5-10.1)
[2021-03-14 01:26] LABS: CREATININE 1.3 mg/dL (0.55-1.3)
[2021-03-14] MEDS ORDERED: POTASSIUM CHLORIDE TABS 20 MEQ TABLET.ER (FP) PO ONE ×2 (02:37→02:40)
[2021-03-14 04:00] VITALS: BP 126/87; PULSE 76
[2021-03-15 02:09] LABS: SARS-CoV-2 NAA Not Detected (Not Detected)
== END 2021-03-14 04:06 | disposition home or self-care (01) ==
LOC: JER 00:05
PROC: 3E0F7GC Introduction of Other Therapeutic Substance into Respiratory Tract, Via Natural or Artificial Opening (ICD-10-PCS; principal; 2021-03-14)
DX: J45.20 Mild intermittent asthma, uncomplicated (principal)
CPT/HCPCS: 36415; 71046-TC-FY; 80048; 85025; 93005; 93010; 99284-25; C9803; U0003; U0005

== ENCOUNTER 2021-03-22 09:38 | Observation (INO) | payer OTHER ==
[2021-03-22] MEDS ORDERED: ALBUTEROL SO4 2.5/IPRATROPIUM 0.5 INH SOL 3 ML VIAL.NEB. NEB ONE ×2 (09:55→10:56)
[2021-03-22] MEDS ORDERED: MAGNESIUM SULF 50% (8.12 MEQ/2 ML-1 GM VIAL) IVPB ONE (09:55)
[2021-03-22] MEDS ORDERED: methylPREDNISolone NA SUCC 125 MG/2 ML VIAL IVPB ONE (09:55)
[2021-03-22] MEDS ORDERED: methylPREDNISolone NA SUCC 125 MG/2 ML VIAL ONE (10:57)
[2021-03-22] MEDS ORDERED: MAGNESIUM 1GM/D5W - 1 GM/100 ML IVPB IVPB ONE (10:57)
[2021-03-22 11:43] LABS: BASO % 0.7 % (0-2.0); EOS % 7.5 % (0-4.5); HEMATOCRIT 42.4 % (35.4-49); HEMOGLOBIN 14.6 GM/dL (11.7-16.9); LYMPH % 25.7 % (8-40); MCH 34.4 pg (25.7-33.7); MCHC 34.5 g/dl (32.0-35.9); MEAN CELL VOLUME 99.8 fl (80-96); MEAN PLT VOLUME 8.2 fl (7.5-11.1); MONO % 7.4 % (3.8-10.2); NEUT % 58.7 % (42.8-82.8); PLATELET COUNT 261 K/MM3 (134-434); RBC 4.25 M/mm3 (4.00-5.60); RDW 14.2 % (11.9-15.9); WHITE BLOOD COUNT 8.4 K/mm3 (4.0-10.0)
[2021-03-22 12:28] LABS: CALCIUM 8.9 mg/dL (8.5-10.1); CREATININE 1.1 mg/dL (0.55-1.3); MAGNESIUM 2.1 mg/dL (1.8-2.4)
[2021-03-22] MEDS ORDERED: D5-1/2NS+20 MEQ KCL - 20 MEQ/1,000 ML INFUS.BAG IV SCH (17:45)
[2021-03-22] MEDS: ALBUTEROL SO4 2.5/IPRATROPIUM 0.5 INH SOL 3 ML VIAL.NEB. NEB SCH (21:40)
[2021-03-22] MEDS: MONTELUKAST NA 10 MG TABLET PO SCH (21:56)
[2021-03-22] MEDS: HEPARIN NA (PORCINE) 5,000 UNITS/ML 1ML VIAL SQ SCH (21:56)
[2021-03-22] MEDS: methylPREDNISolone NA SUCC 40 MG/1 ML VIAL IVPUSH SCH ×2 (21:56→21:57)
[2021-03-22 23:43] LABS: CALCIUM 9.2 mg/dL (8.5-10.1)
[2021-03-22 23:44] LABS: BLOOD UREA NITROGEN 20.7 mg/dL (7-18)
[2021-03-22 23:46] LABS: CREATININE 1.1 mg/dL (0.55-1.3)
[2021-03-23 01:01] VITALS: BMI 23.3
[2021-03-23] MEDS: methylPREDNISolone NA SUCC 40 MG/1 ML VIAL IVPUSH SCH ×4 (03:08→21:36)
[2021-03-23] MEDS: ALBUTEROL SO4 2.5/IPRATROPIUM 0.5 INH SOL 3 ML VIAL.NEB. NEB SCH ×4 (07:40→20:35)
[2021-03-23] MEDS: HEPARIN NA (PORCINE) 5,000 UNITS/ML 1ML VIAL SQ SCH ×2 (09:36→21:36)
[2021-03-23 10:17] LABS: BASO % 0.1 % (0-2.0); EOS % 0.1 % (0-4.5); HEMOGLOBIN 14.5 GM/dL (11.7-16.9); LYMPH % 6.4 % (8-40); MCH 33.5 pg (25.7-33.7); MCHC 33.7 g/dl (32.0-35.9); MEAN CELL VOLUME 99.7 fl (80-96); MEAN PLT VOLUME 8.8 fl (7.5-11.1); MONO % 1.3 % (3.8-10.2); NEUT % 92.1 % (42.8-82.8); PLATELET COUNT 284 K/MM3 (134-434); RBC 4.31 M/mm3 (4.00-5.60); RDW 14.1 % (11.9-15.9); WHITE BLOOD COUNT 18.3 K/mm3 (4.0-10.0)
[2021-03-23 10:44] LABS: BLOOD UREA NITROGEN 19.5 mg/dL (7-18); CALCIUM 9.9 mg/dL (8.5-10.1)
[2021-03-23 10:45] LABS: ALBUMIN 4.1 g/dl (3.4-5.0); MAGNESIUM 2.3 mg/dL (1.8-2.4)
[2021-03-23 10:48] LABS: CREATININE 1.2 mg/dL (0.55-1.3)
[2021-03-23 10:49] LABS: BILIRUBIN,TOTAL 0.8 mg/dL (0.2-1)
[2021-03-23 10:50] LABS: TOT PROT 7.5 g/dl (6.4-8.2)
[2021-03-23 11:01] LABS: ANISOCYTOSIS 1+; MACROCYTOSIS 1+; PLATELET ESTIMATE NORMAL
[2021-03-23] MEDS: QUEtiapine FUMARATE 100 MG TABLET (FP) PO SCH (21:36)
[2021-03-23] MEDS: MONTELUKAST NA 10 MG TABLET PO SCH (21:36)
[2021-03-24] MEDS: methylPREDNISolone NA SUCC 40 MG/1 ML VIAL IVPUSH SCH ×4 (02:28→21:05)
[2021-03-24] MEDS: ALBUTEROL SO4 2.5/IPRATROPIUM 0.5 INH SOL 3 ML VIAL.NEB. NEB SCH ×4 (08:27→20:55)
[2021-03-24] MEDS: HEPARIN NA (PORCINE) 5,000 UNITS/ML 1ML VIAL SQ SCH ×2 (10:20→21:05)
[2021-03-24] MEDS ORDERED: ALBUTEROL SO4 0.083% IH SOL 2.5 MG/3 ML VIAL.NEB. NEB PRN (12:26)
[2021-03-24] MEDS: BUDESONIDE/FORMETEROL FUMARATE 160/4.5 mcg INHALER IH SCH ×2 (15:58→21:06)
[2021-03-24] MEDS ORDERED: PT OWN MED DRAWER 7, Y5N ONE (20:52)
[2021-03-24] MEDS: MONTELUKAST NA 10 MG TABLET PO SCH (21:06)
[2021-03-24] MEDS: QUEtiapine FUMARATE 100 MG TABLET (FP) PO SCH (21:06)
[2021-03-25] MEDS: methylPREDNISolone NA SUCC 40 MG/1 ML VIAL IVPUSH SCH ×2 (02:37→09:56)
[2021-03-25] MEDS: ALBUTEROL SO4 2.5/IPRATROPIUM 0.5 INH SOL 3 ML VIAL.NEB. NEB SCH ×2 (07:30→11:36)
[2021-03-25] MEDS: BUDESONIDE/FORMETEROL FUMARATE 160/4.5 mcg INHALER IH SCH (09:56)
[2021-03-25] MEDS: HEPARIN NA (PORCINE) 5,000 UNITS/ML 1ML VIAL SQ SCH (09:56)
[2021-03-25 14:39] VITALS: BP 140/98; PULSE 90; TEMP 98
== END 2021-03-25 15:01 | disposition home or self-care (01) ==
LOC: JER 09:38 → JERBED 12:31 → UNDOADMOB 12:31 → INTOOBSV 12:31 → JERBED 20:28 → J5S 20:28 → JERBED 03-23 11:06 → J5S 03-23 11:06
PROVIDERS: ADMIT Family Medicine; ATTEND Family Medicine
PROC: 3E023GC Introduction of Other Therapeutic Substance into Muscle, Percutaneous Approach (ICD-10-PCS; principal; 2021-03-23)
PROC: 3E033GC Introduction of Other Therapeutic Substance into Peripheral Vein, Percutaneous Approach (ICD-10-PCS; 2021-03-23)
DX: J45.901 Unspecified asthma with (acute) exacerbation (principal); F20.9 Schizophrenia, unspecified; R61 Generalized hyperhidrosis; I10 Essential (primary) hypertension; R06.82 Tachypnea, not elsewhere classified; E78.5 Hyperlipidemia, unspecified; R42 Dizziness and giddiness; G62.9 Polyneuropathy, unspecified; E66.9 Obesity, unspecified; Z68.35 Body mass index [BMI] 35.0-35.9, adult; F41.8 Other specified anxiety disorders; M54.9 Dorsalgia, unspecified
CPT/HCPCS: 36415; 71045-TC-FY; 80048; 80053; 83735; 84443; 85025; 93005; 93010; 94640; 96372; 96374; 96375; 96376; 99285-25; C9803; G0378; J1644; U0003; U0005

== ENCOUNTER 2021-06-13 03:50 | Emergency (ER) | payer OTHER ==
[2021-06-13 03:58] VITALS: BP 143/72; PULSE 104; TEMP 98.8; BMI 26.4
[2021-06-13] MEDS ORDERED: methylPREDNISolone NA SUCC 125 MG/2 ML VIAL IVPUSH ONE (04:08)
[2021-06-13] MEDS ORDERED: methylPREDNISolone NA SUCC 125 MG/2 ML VIAL ONE (04:12)
[2021-06-13 04:57] LABS: BASO % 0.9 % (0-2.0); EOS % 6.3 % (0-4.5); HEMATOCRIT 40.1 % (35.4-49); HEMOGLOBIN 13.7 GM/dL (11.7-16.9); LYMPH % 30.1 % (8-40); MCH 33.6 pg (25.7-33.7); MCHC 34.1 g/dl (32.0-35.9); MEAN CELL VOLUME 98.6 fl (80-96); MEAN PLT VOLUME 7.9 fl (7.5-11.1); MONO % 6.9 % (3.8-10.2); NEUT % 55.8 % (42.8-82.8); PLATELET COUNT 249 10^3/uL (134-434); RBC 4.07 M/mm3 (4.00-5.60); RDW 13.9 % (11.9-15.9); WHITE BLOOD COUNT 7.1 K/mm3 (4.0-10.0)
[2021-06-13 05:12] LABS: CHLORIDE 106 mmol/L (98-107); SODIUM 139 mmol/L (136-145)
[2021-06-13 05:14] LABS: CALCIUM 8.6 mg/dL (8.5-10.1)
[2021-06-13 05:15] LABS: ALBUMIN 3.6 g/dl (3.4-5.0); ANION GAP 9 MMOL/L (8-16); BLOOD UREA NITROGEN 14.1 mg/dL (7-18); CO2 25 mmol/L (21-32); GLUCOSE,RANDOM 92 mg/dL (74-106)
[2021-06-13 05:18] LABS: CREATININE 1.1 mg/dL (0.55-1.3); SGOT/AST 14 U/L (15-37); SGPT/ALT 15 U/L (13-61)
[2021-06-13 05:20] LABS: BILIRUBIN,TOTAL 0.7 mg/dL (0.2-1); TOT PROT 6.5 g/dl (6.4-8.2)
[2021-06-13 05:21] LABS: ALK PHOS 62 U/L (45-117)
[2021-06-13] MEDS ORDERED: MAGNESIUM SULF 50% (8.12 MEQ/2 ML-1 GM VIAL) IVPB ONE (05:38)
[2021-06-13] MEDS: ALBUTEROL SO4 2.5/IPRATROPIUM 0.5 INH SOL 3 ML VIAL.NEB. NEB SCH ×2 (05:41→05:42)
[2021-06-13] MEDS ORDERED: MAGNESIUM SULFATE IN WATER 2 GM/50 ML IVPB IVPB ONE (06:40)
== END 2021-06-13 07:09 | disposition home or self-care (01) ==
LOC: JER 03:50
PROC: 3E033NZ Introduction of Analgesics, Hypnotics, Sedatives into Peripheral Vein, Percutaneous Approach (ICD-10-PCS; principal; 2021-06-13)
PROC: 3E033GC Introduction of Other Therapeutic Substance into Peripheral Vein, Percutaneous Approach (ICD-10-PCS; 2021-06-13)
PROC: 3E0F7GC Introduction of Other Therapeutic Substance into Respiratory Tract, Via Natural or Artificial Opening (ICD-10-PCS; 2021-06-13)
DX: J45.901 Unspecified asthma with (acute) exacerbation (principal)
CPT/HCPCS: 36415; 80053; 84484; 85025; 93005; 93010; 99285-25; C9803; U0003; U0005

== ENCOUNTER 2021-06-23 15:48 | Emergency (ER) | payer OTHER ==
[2021-06-23 16:29] VITALS: TEMP 98; BMI 24.7
[2021-06-23] MEDS ORDERED: ALBUTEROL SO4 2.5/IPRATROPIUM 0.5 INH SOL 3 ML VIAL.NEB. NEB ONE ×3 (18:02→20:02)
[2021-06-23] MEDS ORDERED: ALBUTEROL SO4 2.5/IPRATROPIUM 0.5 INH SOL 3 ML VIAL.NEB. NEB PRN (18:12)
[2021-06-23] MEDS ORDERED: methylPREDNISolone NA SUCC 125 MG/2 ML VIAL IVPUSH ONE (18:13)
[2021-06-23] MEDS ORDERED: methylPREDNISolone NA SUCC 125 MG/2 ML VIAL ONE (18:29)
[2021-06-23 19:38] LABS: BASO % 0.8 % (0-2.0); EOS % 1.4 % (0-4.5); HEMATOCRIT 40.9 % (35.4-49); HEMOGLOBIN 13.9 GM/dL (11.7-16.9); LYMPH % 7.3 % (8-40); MEAN CELL VOLUME 99.9 fl (80-96); MEAN PLT VOLUME 8.7 fl (7.5-11.1); MONO % 0.8 % (3.8-10.2); NEUT % 89.7 % (42.8-82.8); PLATELET COUNT 265 10^3/uL (134-434); RBC 4.09 M/mm3 (4.00-5.60); RDW 13.9 % (11.9-15.9)
[2021-06-23 20:29] LABS: CHLORIDE 106 mmol/L (98-107); SODIUM 138 mmol/L (136-145)
[2021-06-23 20:31] LABS: ALBUMIN 3.9 g/dl (3.4-5.0); ANION GAP 8 MMOL/L (8-16); BLOOD UREA NITROGEN 8.8 mg/dL (7-18); CALCIUM 8.8 mg/dL (8.5-10.1); CO2 24 mmol/L (21-32)
[2021-06-23 20:32] LABS: GLUCOSE,RANDOM 105 mg/dL (74-106)
[2021-06-23 20:34] LABS: SGPT/ALT 18 U/L (13-61)
[2021-06-23 20:35] LABS: CREATININE 1.2 mg/dL (0.55-1.3); SGOT/AST 11 U/L (15-37)
[2021-06-23 20:36] LABS: BILIRUBIN,TOTAL 0.8 mg/dL (0.2-1); TOT PROT 6.8 g/dl (6.4-8.2)
[2021-06-23 20:37] LABS: ALK PHOS 62 U/L (45-117)
[2021-06-23 22:35] VITALS: BP 119/86; PULSE 85
== END 2021-06-23 22:24 | disposition home or self-care (01) ==
LOC: JER 15:48
PROC: 3E033GC Introduction of Other Therapeutic Substance into Peripheral Vein, Percutaneous Approach (ICD-10-PCS; principal; 2021-06-23)
PROC: 3E0F7GC Introduction of Other Therapeutic Substance into Respiratory Tract, Via Natural or Artificial Opening (ICD-10-PCS; principal; 2021-06-23)
DX: J44.1 Chronic obstructive pulmonary disease with (acute) exacerbation (principal)
CPT/HCPCS: 36415; 71045-TC-FY; 80053; 82550; 82553; 84484; 85025; 93005; 93010; 99285-25; C9803; U0003; U0005

== ENCOUNTER 2022-04-20 05:18 | Inpatient (IN) | payer OTHER ==
[2022-04-20 05:54] LABS: BASO % 0.8 % (0-2.0); EOS % 2.6 % (0-4.5); HEMATOCRIT 42.8 % (35.4-49); HEMOGLOBIN 14.8 GM/dL (11.7-16.9); LYMPH % 31.5 % (8-40); MCH 34.1 pg (25.7-33.7); MCHC 34.7 g/dl (32.0-35.9); MEAN CELL VOLUME 98.3 fl (80-96); MEAN PLT VOLUME 7.8 fl (7.5-11.1); NEUT % 59.1 % (42.8-82.8); PLATELET COUNT 251 10^3/uL (134-434); RBC 4.35 M/mm3 (4.00-5.60); RDW 13.7 % (11.9-15.9); WHITE BLOOD COUNT 7.6 K/mm3 (4.0-10.0)
[2022-04-20 06:19] LABS: ALBUMIN 3.9 g/dl (3.4-5.0); CALCIUM 9.5 mg/dL (8.5-10.1)
[2022-04-20 06:20] LABS: BLOOD UREA NITROGEN 13.8 mg/dL (7-18); MAGNESIUM 2.5 mg/dL (1.8-2.4)
[2022-04-20 06:23] LABS: CREATININE 1.1 mg/dL (0.55-1.3)
[2022-04-20 06:24] LABS: BILIRUBIN,TOTAL 0.9 mg/dL (0.2-1); TOT PROT 6.9 g/dl (6.4-8.2)
[2022-04-20] MEDS ORDERED: AZITHROMYCIN IVPB 500 MG in DEXTROSE 5%-WATER - 250 ML IVPB ONE (06:26)
[2022-04-20 06:28] LABS: N-TERMINAL BNP 10.9 pg/ml (5-125)
[2022-04-20] MEDS ORDERED: AZITHROMYCIN IVPB 500 MG/250 ML BAG IVPB ONE (06:36)
[2022-04-20] MEDS ORDERED: ALBUTEROL SO4 0.083% IH SOL 2.5 MG/3 ML VIAL.NEB. NEB PRN (11:18)
[2022-04-20] MEDS ORDERED: ACETAMINOPHEN 325 MG TABLET (FP) PO PRN (11:18)
[2022-04-20] MEDS ORDERED: methylPREDNISolone NA SUCC 40 MG/1 ML VIAL ONE (11:50)
[2022-04-20] MEDS ORDERED: ALBUTEROL SO4 0.083% IH SOL 2.5 MG/3 ML VIAL.NEB. NEB ONE (11:50)
[2022-04-20] MEDS: methylPREDNISolone NA SUCC 40 MG/1 ML VIAL IVPUSH SCH ×2 (12:14→17:51)
[2022-04-20] MEDS ORDERED: SODIUM CHLORIDE 0.45% 1,000 ML IV SCH (14:00)
[2022-04-20] MEDS ORDERED: ALBUTEROL SO4 2.5/IPRATROPIUM 0.5 INH SOL 3 ML VIAL.NEB. NEB ONE (15:46)
[2022-04-20] MEDS: ALBUTEROL SO4 2.5/IPRATROPIUM 0.5 INH SOL 3 ML VIAL.NEB. NEB SCH ×2 (15:55→20:30)
[2022-04-20 17:50] VITALS: BMI 23.2
[2022-04-20] MEDS: HEPARIN NA (PORCINE) 5,000 UNITS/ML 1ML VIAL SQ SCH (21:49)
[2022-04-20] MEDS ORDERED: QUEtiapine FUMARATE 25 MG TABLET PO SCH (22:00)
[2022-04-20 22:25] VITALS: TEMP 97.8
[2022-04-21] MEDS: methylPREDNISolone NA SUCC 40 MG/1 ML VIAL IVPUSH SCH ×2 (01:21→10:34)
[2022-04-21 05:58] VITALS: BP 111/72; PULSE 65
[2022-04-21] MEDS: ALBUTEROL SO4 2.5/IPRATROPIUM 0.5 INH SOL 3 ML VIAL.NEB. NEB SCH ×2 (07:26→11:31)
[2022-04-21 08:59] LABS: CALCIUM 9.5 mg/dL (8.5-10.1)
[2022-04-21 09:00] LABS: ALBUMIN 3.7 g/dl (3.4-5.0); MAGNESIUM 2.3 mg/dL (1.8-2.4)
[2022-04-21 09:02] LABS: BLOOD UREA NITROGEN 15.7 mg/dL (7-18)
[2022-04-21 09:04] LABS: BILIRUBIN,TOTAL 0.9 mg/dL (0.2-1); TOT PROT 6.7 g/dl (6.4-8.2)
[2022-04-21] MEDS ORDERED: AZITHROMYCIN IVPB 500 MG in DEXTROSE 5%-WATER - 250 ML IVPB SCH (10:00)
[2022-04-21] MEDS ORDERED: AZITHROMYCIN IVPB 500 MG/250 ML BAG IVPB SCH (10:30)
[2022-04-21] MEDS: HEPARIN NA (PORCINE) 5,000 UNITS/ML 1ML VIAL SQ SCH (10:34)
[2022-04-21] MEDS: AZITHROMYCIN IVPB 500 MG/250 ML BAG IVPB SCH ×2 (10:40→10:54)
[2022-04-21 11:15] LABS: PH,URINE 6.5 (5.0-8.0); URINE APPEARANCE CLEAR; URINE BILIRUBIN NEGATIVE (NEGATIVE); URINE COLOR YELLOW; URINE GLUCOSE (UA) NEGATIVE (NEGATIVE); URINE KETONE NEGATIVE (NEGATIVE); URINE LEUK ESTERASE NEGATIVE (NEGATIVE); URINE NITRITE NEGATIVE (NEGATIVE); URINE PROTEIN NEGATIVE (NEGATIVE); URINE UROBILINOGEN 0.2 mg/dL (0.2-1.0)
== END 2022-04-21 13:17 | disposition home or self-care (01) | DRG 140 ==
LOC: JER 05:18 → JERBED 10:06 → J7W 17:17
PROVIDERS: ADMIT Family Medicine; ATTEND Family Medicine
DX: J44.1 Chronic obstructive pulmonary disease with (acute) exacerbation (principal); J45.901 Unspecified asthma with (acute) exacerbation; E83.41 Hypermagnesemia
CPT/HCPCS: 0241U-QW; 36415; 71046-TC-FY; 80053; 81003; 83735; 83880; 84484; 85025; 93005; 93010; 94640; 99285-25; J1644

== ENCOUNTER 2022-08-18 20:36 | Emergency (ER) | payer OTHER ==
[2022-08-18 21:08] VITALS: PULSE 60; TEMP 98.2; BMI 23.8
[2022-08-18] MEDS ORDERED: ALBUTEROL SO4 2.5/IPRATROPIUM 0.5 INH SOL 3 ML VIAL.NEB. NEB ONE (21:44)
[2022-08-18] MEDS ORDERED: ALBUTEROL SO4 2.5/IPRATROPIUM 0.5 INH SOL 3 ML VIAL.NEB. NEB SCH (21:45)
[2022-08-18] MEDS ORDERED: PROPARACAINE 0.5% OPHTH SOLN 15 ML BTL OU ONE (21:45)
[2022-08-18] MEDS ORDERED: FLUORESCEIN NA 1 EA STRIP OU ONE (21:56)
[2022-08-18] MEDS ORDERED: FLUORESCEIN NA 1 EA STRIP ONE ×2 (21:57→22:50)
[2022-08-18] MEDS ORDERED: TETRACAINE 0.5% HCL 0.6ML DROPPER.BOTTLE OU ONE (22:04)
[2022-08-18] MEDS ORDERED: TETRACAINE 0.5% OPHTH SOLN 2 ML BOTTLE ONE (22:05)
[2022-08-18 22:17] LABS: BASO % 0.4 % (0-2.0); EOS % 1.6 % (0-4.5); HEMATOCRIT 46.1 % (35.4-49); HEMOGLOBIN 15.1 GM/dL (11.7-16.9); MCH 32.2 pg (25.7-33.7); MCHC 32.7 g/dl (32.0-35.9); MEAN CELL VOLUME 98.5 fl (80-96); MEAN PLT VOLUME 8.3 fl (7.5-11.1); MONO % 5.8 % (3.8-10.2); NEUT % 65.2 % (42.8-82.8); PLATELET COUNT 333 10^3/uL (134-434); RBC 4.69 M/mm3 (4.00-5.60); RDW 13.6 % (11.9-15.9); WHITE BLOOD COUNT 12.3 K/mm3 (4.0-10.0)
[2022-08-18 22:24] LABS: INR 0.94 (0.83-1.09); PROTHROMBIN TIME (PATIENT) 10.8 SEC (9.7-13.0)
[2022-08-18 22:26] LABS: ACTIVATED PTT 26.2 SECONDS (25.2-36.5)
[2022-08-18 22:36] LABS: CHLORIDE 104 mmol/L (98-107); SODIUM 141 mmol/L (136-145)
[2022-08-18 22:38] LABS: ANION GAP 6 MMOL/L (8-16); CALCIUM 9.1 mg/dL (8.5-10.1); CO2 31 mmol/L (21-32); GLUCOSE,RANDOM 61 mg/dL (74-106)
[2022-08-18 22:42] LABS: CREATININE 1.1 mg/dL (0.55-1.3); SGOT/AST 20 U/L (15-37); SGPT/ALT 25 U/L (13-61)
[2022-08-18 22:43] LABS: BILIRUBIN,TOTAL 0.9 mg/dL (0.2-1); TOT PROT 6.5 g/dl (6.4-8.2)
[2022-08-18 22:44] LABS: ALK PHOS 52 U/L (45-117)
[2022-08-18] MEDS ORDERED: DEXTROSE 50%-WATER - 25 GM/50 ML VIAL IVPUSH ONE (22:44)
[2022-08-18] MEDS ORDERED: DEXTROSE 50%-WATER 25 GM/50 ML DISP.SYRIN ONE (23:14)
[2022-08-19 00:13] VITALS: BP 132/87; RESP 18
[2022-08-19 01:54] LABS: COCAINE, UR NEGATIVE (NEGATIVE); METHADONE, UR NEGATIVE (NEGATIVE); URINE AMPHETAMINES NEGATIVE (NEGATIVE)
[2022-08-19 01:55] LABS: OPIATES, URI NEGATIVE (NEGATIVE); PHENCYCLIDINE,URINE NEGATIVE (NEGATIVE); URINE BARBITURATES NEGATIVE (NEGATIVE)
[2022-08-19 02:12] LABS: URINE BENZODIAZEPINES NEGATIVE (NEGATIVE)
== END 2022-08-19 02:05 | disposition short-term general hospital (02) ==
LOC: JER 20:36
PROC: 3E0F7GC Introduction of Other Therapeutic Substance into Respiratory Tract, Via Natural or Artificial Opening (ICD-10-PCS; principal; 2022-08-18)
PROC: 3E033GC Introduction of Other Therapeutic Substance into Peripheral Vein, Percutaneous Approach (ICD-10-PCS; 2022-08-18)
PROC: 3E033NZ Introduction of Analgesics, Hypnotics, Sedatives into Peripheral Vein, Percutaneous Approach (ICD-10-PCS; 2022-08-18)
DX: H02.846 Edema of left eye, unspecified eyelid (principal); H53.2 Diplopia; S02.832A Fracture of medial orbital wall, left side, initial encounter for closed fracture; R55 Syncope and collapse; Y04.0XXA Assault by unarmed brawl or fight, initial encounter
CPT/HCPCS: 36415; 70450-TC; 70480-TC; 70486-TC; 71045-TC-FY; 71250-TC; 72125-TC; 72128-TC; 72131-TC; 73110-TC-LT-FY; 73130-TC-LT-FY; 73562-TC-LT-FY; 73562-TC-RT-FY; 74176-TC; 80053; 80307; 84484; 85025; 85610; 85730; 86850; 86900; 86901; 93005; 93010; 99285-25; C9803-CS; U0003; U0005

== ENCOUNTER 2023-03-02 19:35 | Emergency (ER) | payer OTHER ==
[2023-03-02 19:44] VITALS: BP 138/83; PULSE 80; RESP 18; TEMP 98.6; BMI 23.8
[2023-03-02 21:18] LABS: HEMATOCRIT 37.9 % (35.4-49); LYMPH % 30.3 % (8-40); MCH 33.5 pg (25.7-33.7); MCHC 34.3 g/dl (32.0-35.9); MEAN CELL VOLUME 97.6 fl (80-96); MEAN PLT VOLUME 8.1 fl (7.5-11.1); MONO % 8.7 % (3.8-10.2); PLATELET COUNT 269 10^3/uL (134-434); RBC 3.88 M/mm3 (4.00-5.60); RDW 14.2 % (11.9-15.9); WHITE BLOOD COUNT 8.1 K/mm3 (4.0-10.0)
[2023-03-02 21:35] LABS: CALCIUM 8.6 mg/dL (8.5-10.1); MAGNESIUM 1.9 mg/dL (1.8-2.4)
[2023-03-02 21:36] LABS: ALBUMIN 3.2 g/dl (3.4-5.0)
[2023-03-02 21:40] LABS: BILIRUBIN,TOTAL 0.5 mg/dL (0.2-1)
[2023-03-02 21:42] LABS: INR 0.95 (0.83-1.09)
[2023-03-02 21:45] LABS: ACTIVATED PTT 28.8 SECONDS (25.2-36.5)
[2023-03-03] MEDS ORDERED: AMOX TR/POT CLAV 875MG/125MG TABLETS (FP) PO ONE ×2 (01:06→01:52)
[2023-03-03] MEDS ORDERED: DIPHTH,PERTUSS(ACELL),TET 0.5 ML DISP.SYRIN IM ONE ×2 (01:06→01:16)
[2023-03-03] MEDS ORDERED: AMOX TR/POT CLAV 875MG/125MG TABLETS (FP) ONE (01:16)
[2023-03-03] MEDS ORDERED: ACETAMINOPHEN 1000 MG/100 ML BAG IVPB ONE (01:20)
[2023-03-03] MEDS ORDERED: ACETAMINOPHEN INJECTION 100 ML IVPB ONE (01:22)
== END 2023-03-03 04:16 | disposition home or self-care (01) ==
LOC: JER 19:35
PROC: 3E033NZ Introduction of Analgesics, Hypnotics, Sedatives into Peripheral Vein, Percutaneous Approach (ICD-10-PCS; principal; 2023-03-02)
DX: S06.0X9A Concussion with loss of consciousness of unspecified duration, initial encounter (principal); S01.511A Laceration without foreign body of lip, initial encounter; W22.01XA Walked into wall, initial encounter; Z20.822 Contact with and (suspected) exposure to COVID-19
CPT/HCPCS: 0241U-QW; 36415; 70450-TC; 70486-TC; 71046-TC-FY; 72125-TC; 80053; 83735; 85025; 85610; 85730; 93005; 93010; 99285-25

== ENCOUNTER 2023-05-18 20:29 | Observation (INO) | payer OTHER ==
[2023-05-18] MEDS ORDERED: ALBUTEROL SO4 2.5/IPRATROPIUM 0.5 INH SOL 3 ML VIAL.NEB. NEB ONE ×3 (21:34→22:11)
[2023-05-18] MEDS ORDERED: ACETAMINOPHEN 1000 MG/100 ML BAG IVPB ONE (21:34)
[2023-05-18] MEDS ORDERED: METOCLOPRAMIDE HCL INJECTION 10 MG/2 ML VIAL IVPUSH ONE (21:34)
[2023-05-18] MEDS ORDERED: SODIUM CHLORIDE 0.9% 1000 ML INFUS.BAG IV ONE (21:34)
[2023-05-18] MEDS ORDERED: FAMOTIDINE 20 MG/50 ML IVPB 20 MG/50 ML MG IVPB ONE ×2 (21:34→22:11)
[2023-05-18] MEDS ORDERED: ACETAMINOPHEN INJECTION 100 ML IVPB ONE (22:10)
[2023-05-18] MEDS ORDERED: METOCLOPRAMIDE HCL INJECTION 10 MG/2 ML VIAL ONE (22:10)
[2023-05-18 22:15] LABS: BASO % 0.8 % (0-2.0); EOS % 1.4 % (0-4.5); HEMATOCRIT 43.8 % (35.4-49); HEMOGLOBIN 14.5 GM/dL (11.7-16.9); LYMPH % 21.2 % (8-40); MCH 32.7 pg (25.7-33.7); MCHC 33.2 g/dl (32.0-35.9); MEAN CELL VOLUME 98.6 fl (80-96); MEAN PLT VOLUME 8.3 fl (7.5-11.1); MONO % 4.1 % (3.8-10.2); NEUT % 72.5 % (42.8-82.8); PLATELET COUNT 279 10^3/uL (134-434); RBC 4.44 M/mm3 (4.00-5.60); RDW 13.2 % (11.9-15.9); VENOUS BASE EXCESS -0.4 mmol/L (-2-2); VENOUS O2 SATURATION 50.9 % (70-80); VENOUS PCO2 46.9 mmHg (38-52); VENOUS PH 7.356 (7.310-7.410); WHITE BLOOD COUNT 9.6 K/mm3 (4.0-10.0)
[2023-05-18 22:23] LABS: INR 1.03 (0.83-1.09); PROTHROMBIN TIME (PATIENT) 11.9 SEC (9.7-13.0)
[2023-05-18 22:46] LABS: POTASSIUM 4.1 mmol/L (3.5-5.1)
[2023-05-18 22:48] LABS: BLOOD UREA NITROGEN 15.3 mg/dL (7-18); CALCIUM 9.3 mg/dL (8.5-10.1); MAGNESIUM 1.9 mg/dL (1.8-2.4)
[2023-05-18 22:49] LABS: ALBUMIN 3.7 g/dl (3.4-5.0)
[2023-05-18 22:53] LABS: BILIRUBIN,TOTAL 0.9 mg/dL (0.2-1); TOT PROT 6.8 g/dl (6.4-8.2)
[2023-05-19] MEDS ORDERED: ACETAMINOPHEN 325 MG TABLET (FP) PO PRN (02:41)
[2023-05-19] MEDS ORDERED: DOCUSATE SODIUM 100 MG CAPSULE (FP) PO PRN (02:41)
[2023-05-19] MEDS ORDERED: ALBUTEROL SO4 HFA INHALER IH PRN (02:48)
[2023-05-19] MEDS: DEXTROSE 5%-NORMAL SALINE 1,000 ML IV SCH (04:35)
[2023-05-19 06:21] LABS: BASO % 0.8 % (0-2.0); EOS % 2.8 % (0-4.5); HEMATOCRIT 36.3 % (35.4-49); HEMOGLOBIN 12.1 GM/dL (11.7-16.9); LYMPH % 30.9 % (8-40); MCH 32.7 pg (25.7-33.7); MCHC 33.4 g/dl (32.0-35.9); MEAN CELL VOLUME 97.8 fl (80-96); MONO % 6.1 % (3.8-10.2); NEUT % 59.4 % (42.8-82.8); PLATELET COUNT 231 10^3/uL (134-434); RBC 3.71 M/mm3 (4.00-5.60); RDW 13.3 % (11.9-15.9); WHITE BLOOD COUNT 7.3 K/mm3 (4.0-10.0)
[2023-05-19 13:32] VITALS: BMI 23.5
[2023-05-19] MEDS: methylPREDNISolone NA SUCC 40 MG/1 ML VIAL IVPUSH SCH (18:07)
[2023-05-19] MEDS: MONTELUKAST NA 10 MG TABLET PO SCH (21:58)
[2023-05-19] MEDS: BUDESONIDE/FORMETEROL FUMARATE 80/4.5 mcg INHALER IH SCH (21:59)
[2023-05-19 23:41] LABS: PH,URINE 7.5 (5.0-8.0); URINE APPEARANCE CLOUDY; URINE BILIRUBIN NEGATIVE (NEGATIVE); URINE COLOR YELLOW; URINE GLUCOSE (UA) NEGATIVE (NEGATIVE); URINE KETONE NEGATIVE (NEGATIVE); URINE LEUK ESTERASE NEGATIVE (NEGATIVE); URINE NITRITE NEGATIVE (NEGATIVE); URINE PROTEIN NEGATIVE (NEGATIVE)
[2023-05-20] MEDS: methylPREDNISolone NA SUCC 40 MG/1 ML VIAL IVPUSH SCH ×3 (01:10→19:40)
[2023-05-20 08:23] LABS: POTASSIUM 4.4 mmol/L (3.5-5.1)
[2023-05-20 08:32] LABS: BLOOD UREA NITROGEN 11.2 mg/dL (7-18); CALCIUM 9.2 mg/dL (8.5-10.1)
[2023-05-20 08:36] LABS: CREATININE 0.9 mg/dL (0.55-1.3)
[2023-05-20] MEDS: BUDESONIDE/FORMETEROL FUMARATE 80/4.5 mcg INHALER IH SCH ×2 (09:45→22:13)
[2023-05-20] MEDS: MONTELUKAST NA 10 MG TABLET PO SCH (22:13)
[2023-05-21] MEDS: methylPREDNISolone NA SUCC 40 MG/1 ML VIAL IVPUSH SCH ×2 (03:19→09:35)
[2023-05-21] MEDS: DEXTROSE 5%-NORMAL SALINE 1,000 ML IV SCH (03:20)
[2023-05-21] MEDS: BUDESONIDE/FORMETEROL FUMARATE 80/4.5 mcg INHALER IH SCH (09:32)
[2023-05-21 10:34] VITALS: BP 128/83; PULSE 65; RESP 18; TEMP 98.4
== END 2023-05-21 12:15 | disposition left against medical advice (07) ==
LOC: JER 20:29 → JERBED 05-19 00:25 → J4W 05-19 11:50
PROVIDERS: ADMIT Internal Medicine; ATTEND Family Medicine
PROC: 3E033NZ Introduction of Analgesics, Hypnotics, Sedatives into Peripheral Vein, Percutaneous Approach (ICD-10-PCS; principal; 2023-05-19)
PROC: 3E0F7GC Introduction of Other Therapeutic Substance into Respiratory Tract, Via Natural or Artificial Opening (ICD-10-PCS; 2023-05-19)
PROC: 3E033GC Introduction of Other Therapeutic Substance into Peripheral Vein, Percutaneous Approach (ICD-10-PCS; 2023-05-19)
PROC: 3E0337Z Introduction of Electrolytic and Water Balance Substance into Peripheral Vein, Percutaneous Approach (ICD-10-PCS; 2023-05-19)
DX: J44.9 Chronic obstructive pulmonary disease, unspecified (principal); F17.210 Nicotine dependence, cigarettes, uncomplicated
CPT/HCPCS: 0241U-QW; 36415; 70450-TC; 71045-TC-FY; 80048; 80053; 81003; 82803; 82962; 83605; 83690; 83735; 84443; 84479; 84484; 85025; 85610; 85730; 86850; 86900; 86901; 87086; 93005; 93010; 93306-TC; 93880-TC; 94640; 96365; 96375; 96376; 99285-25; G0378

== ENCOUNTER 2023-09-25 06:39 | Emergency (ER) | payer OTHER ==
[2023-09-25 06:48] VITALS: BMI 27.4
[2023-09-25] MEDS ORDERED: ALBUTEROL SO4 2.5/IPRATROPIUM 0.5 INH SOL 3 ML VIAL.NEB. NEB ONE ×4 (06:53→07:38)
[2023-09-25] MEDS ORDERED: methylPREDNISolone NA SUCC 125 MG/2 ML VIAL IVPB ONE (06:54)
[2023-09-25] MEDS ORDERED: MAGNESIUM SULF 50% (8.12 MEQ/2 ML-1 GM VIAL) IVPB ONE (06:56)
[2023-09-25] MEDS ORDERED: methylPREDNISolone NA SUCC 125 MG/2 ML VIAL ONE (07:36)
[2023-09-25] MEDS ORDERED: MAGNESIUM 1GM/D5W - 1 GM/100 ML IVPB IVPB ONE (07:36)
[2023-09-25 08:10] LABS: POTASSIUM 3.7 mmol/L (3.5-5.1)
[2023-09-25 08:12] LABS: ALBUMIN 3.8 g/dl (3.4-5.0); CALCIUM 8.9 mg/dL (8.5-10.1)
[2023-09-25 08:13] LABS: BLOOD UREA NITROGEN 12.5 mg/dL (7-18)
[2023-09-25 08:15] LABS: CREATININE 1.1 mg/dL (0.55-1.3)
[2023-09-25 08:17] LABS: BILIRUBIN,TOTAL 0.4 mg/dL (0.2-1)
[2023-09-25 08:18] LABS: BASO % 0.6 % (0-2.0); EOS % 14.5 % (0-4.5); HEMATOCRIT 42.3 % (35.4-49); HEMOGLOBIN 14.5 GM/dL (11.7-16.9); MCH 32.7 pg (25.7-33.7); MCHC 34.2 g/dl (32.0-35.9); MEAN CELL VOLUME 95.7 fl (80-96); MEAN PLT VOLUME 8.1 fl (7.5-11.1); MONO % 7.1 % (3.8-10.2); NEUT % 54.8 % (42.8-82.8); PLATELET COUNT 315 10^3/uL (134-434); RBC 4.42 M/mm3 (4.00-5.60); RDW 14.1 % (11.9-15.9); WHITE BLOOD COUNT 8.3 K/mm3 (4.0-10.0)
[2023-09-25 11:11] LABS: POTASSIUM 4.2 mmol/L (3.5-5.1)
[2023-09-25 11:13] LABS: ALBUMIN 3.6 g/dl (3.4-5.0); CALCIUM 8.9 mg/dL (8.5-10.1)
[2023-09-25 11:15] LABS: BLOOD UREA NITROGEN 11.8 mg/dL (7-18)
[2023-09-25 11:17] LABS: CREATININE 1.2 mg/dL (0.55-1.3)
[2023-09-25 11:18] LABS: BILIRUBIN,TOTAL 0.4 mg/dL (0.2-1); TOT PROT 6.4 g/dl (6.4-8.2)
[2023-09-25] MEDS ORDERED: ALBUTEROL SO4 HFA INHALER IH ONE ×2 (13:04→13:23)
[2023-09-25 13:37] VITALS: BP 122/76; PULSE 87; RESP 20; TEMP 98.7
== END 2023-09-25 13:45 | disposition left against medical advice (07) ==
LOC: JER 06:39
PROC: 3E033NZ Introduction of Analgesics, Hypnotics, Sedatives into Peripheral Vein, Percutaneous Approach (ICD-10-PCS; principal; 2023-09-25)
PROC: 3E033GC Introduction of Other Therapeutic Substance into Peripheral Vein, Percutaneous Approach (ICD-10-PCS; 2023-09-25)
DX: R07.9 Chest pain, unspecified (principal); R06.02 Shortness of breath; J44.1 Chronic obstructive pulmonary disease with (acute) exacerbation; Z20.822 Contact with and (suspected) exposure to COVID-19
CPT/HCPCS: 0241U-QW; 36415; 71046-TC-FY; 80053; 83735; 84484; 85025; 93005; 93010; 99285-25

== ENCOUNTER 2024-01-01 18:54 | Emergency (ER) | payer OTHER ==
[2024-01-01 19:09] VITALS: BMI 22.8
[2024-01-01] MEDS ORDERED: ALBUTEROL SO4 2.5/IPRATROPIUM 0.5 INH SOL 3 ML VIAL.NEB. NEB ONE (20:06)
[2024-01-01] MEDS ORDERED: DEXAMETHASONE SOD PHOSPHATE 10 MG/1 ML VIAL ONE (20:06)
[2024-01-01] MEDS: DEXAMETHASONE SOD PHOSPHATE 10 MG/1 ML VIAL IM ONE (20:12)
[2024-01-01] MEDS: ALBUTEROL SO4 2.5/IPRATROPIUM 0.5 INH SOL 3 ML VIAL.NEB. NEB SCH (20:13)
[2024-01-01 22:59] VITALS: BP 128/76; PULSE 78; RESP 19; TEMP 97.6
== END 2024-01-01 23:00 | disposition home or self-care (01) ==
LOC: JER 18:54
PROC: 3E023GC Introduction of Other Therapeutic Substance into Muscle, Percutaneous Approach (ICD-10-PCS; principal; 2024-01-01)
PROC: 3E0F7GC Introduction of Other Therapeutic Substance into Respiratory Tract, Via Natural or Artificial Opening (ICD-10-PCS; 2024-01-01)
DX: R06.02 Shortness of breath (principal); R07.9 Chest pain, unspecified; R05.9 Cough, unspecified; M25.511 Pain in right shoulder; M25.512 Pain in left shoulder; J45.901 Unspecified asthma with (acute) exacerbation; Z20.822 Contact with and (suspected) exposure to COVID-19
CPT/HCPCS: 0241U-QW; 71046-TC-FY; 73030-TC-LT-FY; 73030-TC-RT-FY; 93005; 93010; 99285-25; J1100

== ENCOUNTER 2024-02-28 04:21 | Day surgery (SDC) | payer OTHER ==
[2024-02-22 12:24] VITALS: BMI 23.3
[2024-02-28] MEDS: TRYPAN BLUE 0.5 ML DISP.SYRIN IO ONE
[~2024-02-28 04:21] MED LIST: ACETAMINOPHEN 325 MG TABLET (FP) PO PRN; CYCLOPENTOLATE HCL 1% OPHTH SOLN 2 ML BOTTLE OP SCH; KETOROLAC TROMETHAMINE 0.5% EYE DROP 1 DROP DROPS OP SCH; OFLOXACIN 0.3% OPHTHALMIC SOLUTION 5 ML BOTTLE OP SCH; PHENYLEPHRINE 2.5% OPHTH SOLN 15 ML BOTTLE OP SCH; TROPICAMIDE 1% OPHTH SOLN 15 ML BOTTLE OP SCH
[2024-02-28] MEDS ORDERED: LIDOCAINE HCL/PF 1% SDV 5ML VIAL ONE (07:19)
[2024-02-28] MEDS ORDERED: POVIDONE-IODINE 5% OPHTHALMIC PREP 30 ML SOLUTION ONE (07:20)
[2024-02-28] MEDS ORDERED: BUPIVACAINE HCL/PF 0.75% 10 ML VIAL ONE (07:20)
[2024-02-28] MEDS ORDERED: LIDOCAINE HCL/PF 2% SDV 5ML VIAL ONE ×2 (07:20→10:41)
[2024-02-28] MEDS: OFLOXACIN 0.3% OPHTHALMIC SOLUTION 5 ML BOTTLE OS ONE (10:30)
[2024-02-28] MEDS: KETOROLAC TROMETHAMINE 0.5% EYE DROP 1 DROP DROPS OS ONE (10:30)
[2024-02-28] MEDS: TROPICAMIDE 1% OPHTH SOLN 15 ML BOTTLE OS ONE (10:30)
[2024-02-28] MEDS: CYCLOPENTOLATE HCL 1% OPHTH SOLN 2 ML BOTTLE OS ONE (10:30)
[2024-02-28] MEDS: PHENYLEPHRINE 2.5% OPHTH SOLN 15 ML BOTTLE OS ONE (10:30)
[2024-02-28] MEDS ORDERED: TRYPAN BLUE 0.5 ML DISP.SYRIN ONE (10:31)
[2024-02-28] MEDS ORDERED: OFLOXACIN 0.3% OPHTHALMIC SOLUTION 5 ML BOTTLE ONE (10:32)
[2024-02-28] MEDS ORDERED: KETOROLAC TROMETHAMINE 0.5% EYE DROP 1 DROP DROPS ONE (10:32)
[2024-02-28] MEDS ORDERED: TROPICAMIDE 1% OPHTH SOLN 15 ML BOTTLE ONE (10:32)
[2024-02-28] MEDS ORDERED: PROPOFOL 20 ML ONE ×2 (10:40→11:29)
[2024-02-28 10:50] VITALS: RESP 16
[2024-02-28] MEDS ORDERED: MIDAZOLAM HCL 2 MG/2 ML SINGLE DOSE VIAL ONE (11:17)
[2024-02-28] MEDS: BUPIVACAINE HCL/PF 0.75% 10 ML VIAL NR ONE ×2 (11:19)
[2024-02-28] MEDS: LIDOCAINE HCL/PF 2% SDV 5ML VIAL INF ONE ×2 (11:19)
[2024-02-28] MEDS: POVIDONE-IODINE 5% OPHTHALMIC PREP 30 ML SOLUTION OS ONE ×2 (11:21)
[2024-02-28] MEDS: BSS (NA/CA/MG/K) BALANCED SALT SOLUTION OPHTH SOLN 15 ML BOTTLE OS ONE ×2 (11:38)
[2024-02-28] MEDS: CHONDROITIN SU A/HYALUR SOD 1 KIT IO ONE ×2 (11:39)
[2024-02-28] MEDS: LIDOCAINE HCL 1% PRESERVATIVE FREE - 30ML VIAL IO ONE ×2 (11:39)
[2024-02-28] MEDS ORDERED: ONDANSETRON 4 MG/2 ML VIAL ONE (11:42)
[2024-02-28] MEDS: EPINEPHrine/PF 1 MG/1 ML (1:1,000) AMPULE SQ ONE ×2 (11:45)
[2024-02-28] MEDS ORDERED: ONDANSETRON 4 MG/2 ML VIAL IVPUSH PRN (12:17)
[2024-02-28] MEDS ORDERED: LACTATED RINGERS SOLUTION 1,000 ML IV SCH (12:30)
[2024-02-28 14:27] VITALS: BP 115/86; PULSE 60; TEMP 987.1
== END 2024-02-28 14:15 | disposition home or self-care (01) ==
LOC: JASU-SURG 04:21
PROVIDERS: ATTEND Ophthalmology
PROC: 08RK3JZ Replacement of Left Lens with Synthetic Substitute, Percutaneous Approach (ICD-10-PCS; principal; 2024-02-28 11:00)
DX: H26.9 Unspecified cataract (principal)
CPT/HCPCS: 94760; V2632

== ENCOUNTER 2024-03-13 04:23 | Day surgery (SDC) | payer OTHER ==
[2024-03-11 09:46] VITALS: BMI 23.6
[~2024-03-13 04:23] MED LIST changes: -CYCLOPENTOLATE HCL 1% OPHTH SOLN 2 ML BOTTLE OP SCH; -KETOROLAC TROMETHAMINE 0.5% EYE DROP 1 DROP DROPS OP SCH; -OFLOXACIN 0.3% OPHTHALMIC SOLUTION 5 ML BOTTLE OP SCH; -PHENYLEPHRINE 2.5% OPHTH SOLN 15 ML BOTTLE OP SCH; -TROPICAMIDE 1% OPHTH SOLN 15 ML BOTTLE OP SCH
[2024-03-13] MEDS ORDERED: LIDOCAINE HCL/PF 1% SDV 5ML VIAL ONE (07:19)
[2024-03-13] MEDS ORDERED: POVIDONE-IODINE 5% OPHTHALMIC PREP 30 ML SOLUTION ONE (07:19)
[2024-03-13] MEDS ORDERED: PHENYLEPHRINE 2.5% OPTHALMIC DROP 2ML BOTTLE ONE (08:08)
[2024-03-13] MEDS ORDERED: CYCLOPENTOLATE HCL 1% OPHTH SOLN 2 ML BOTTLE ONE (08:08)
[2024-03-13] MEDS ORDERED: KETOROLAC TROMETHAMINE 0.5% EYE DROP 1 DROP DROPS ONE (08:08)
[2024-03-13] MEDS ORDERED: OFLOXACIN 0.3% OPHTHALMIC SOLUTION 5 ML BOTTLE ONE (08:09)
[2024-03-13] MEDS ORDERED: TROPICAMIDE 1% OPHTH SOLN 15 ML BOTTLE ONE (08:09)
[2024-03-13] MEDS: TROPICAMIDE 1% OPHTH SOLN 15 ML BOTTLE OP SCH (08:15)
[2024-03-13] MEDS: KETOROLAC TROMETHAMINE 0.5% EYE DROP 1 DROP DROPS OP SCH (08:15)
[2024-03-13] MEDS: CYCLOPENTOLATE HCL 1% OPHTH SOLN 2 ML BOTTLE OP SCH (08:15)
[2024-03-13] MEDS: OFLOXACIN 0.3% OPHTHALMIC SOLUTION 5 ML BOTTLE OP SCH (08:15)
[2024-03-13] MEDS: PHENYLEPHRINE 2.5% OPHTH SOLN 15 ML BOTTLE OP SCH (08:15)
[2024-03-13] MEDS ORDERED: PROPOFOL 20 ML ONE (08:53)
[2024-03-13] MEDS ORDERED: FENTANYL CITRATE/PF 50 MCG/ML VIAL ONE (08:53)
[2024-03-13] MEDS ORDERED: MIDAZOLAM HCL 2 MG/2 ML SINGLE DOSE VIAL ONE (08:54)
[2024-03-13] MEDS ORDERED: ALBUTEROL SO4 HFA INHALER IH ONE (08:55)
[2024-03-13] MEDS ORDERED: LIDOCAINE HCL/PF 2% SDV 5ML VIAL ONE (08:55)
[2024-03-13] MEDS: TETRACAINE 0.5% OPHTH SOLN 2 ML BOTTLE TP ONE (09:16)
[2024-03-13] MEDS ORDERED: MINERAL OIL/PETROLATUM,WHITE 3.5 GM TUBE ONE (09:17)
[2024-03-13] MEDS: POVIDONE-IODINE 5% OPHTHALMIC PREP 30 ML SOLUTION OD ONE (09:17)
[2024-03-13] MEDS ORDERED: DEXAMETHASONE SOD PHOSPHATE 4 MG/1 ML VIAL ONE (09:22)
[2024-03-13] MEDS ORDERED: ONDANSETRON 4 MG/2 ML VIAL ONE (09:22)
[2024-03-13] MEDS: BSS (NA/CA/MG/K) BALANCED SALT SOLUTION OPHTH SOLN 15 ML BOTTLE OD ONE (09:26)
[2024-03-13] MEDS: LIDOCAINE HCL 1% PRESERVATIVE FREE - 30ML VIAL IO ONE (09:27)
[2024-03-13] MEDS: CHONDROITIN SU A/HYALUR SOD 1 KIT IO ONE (09:27)
[2024-03-13] MEDS: EPINEPHrine/PF 1 MG/1 ML (1:1,000) AMPULE SQ ONE (09:33)
[2024-03-13] MEDS ORDERED: ONDANSETRON 4 MG/2 ML VIAL IVPUSH PRN (10:00)
[2024-03-13] MEDS ORDERED: LACTATED RINGERS SOLUTION 1,000 ML IV SCH (10:00)
[2024-03-13] MEDS ORDERED: TETRACAINE 0.5% OPHTH SOLN 2 ML BOTTLE ONE (11:18)
[2024-03-13 11:31] VITALS: RESP 16
[2024-03-13 12:47] VITALS: BP 120/66; PULSE 70; TEMP 98.6
== END 2024-03-13 12:45 | disposition home or self-care (01) ==
LOC: JASU-SURG 04:23
PROVIDERS: ATTEND Ophthalmology
PROC: 08RJ3JZ Replacement of Right Lens with Synthetic Substitute, Percutaneous Approach (ICD-10-PCS; principal; 2024-03-13 09:00)
DX: H26.9 Unspecified cataract (principal)
CPT/HCPCS: 94760; V2632

== ENCOUNTER 2024-08-11 14:45 | Emergency (ER) | payer OTHER ==
[2024-08-11 15:42] VITALS: BP 124/98; PULSE 84; RESP 18; TEMP 98.5; BMI 22.8
[2024-08-11 16:14] LABS: BASO % 0.9 % (0-2.0); EOS % 0.9 % (0-4.5); HEMATOCRIT 42.9 % (35.4-49); HEMOGLOBIN 14.6 GM/dL (11.7-16.9); LYMPH % 19.1 % (8-40); MCH 32.8 pg (25.7-33.7); MCHC 34.1 g/dl (32.0-35.9); MEAN CELL VOLUME 96.2 fl (80-96); MEAN PLT VOLUME 7.4 fl (7.5-11.1); NEUT % 75.1 % (42.8-82.8); PLATELET COUNT 307 10^3/uL (134-434); RBC 4.46 M/mm3 (4.00-5.60); RDW 14.2 % (11.9-15.9); WHITE BLOOD COUNT 20.5 K/mm3 (4.0-10.0)
[2024-08-11 16:21] LABS: INR 0.94 (0.83-1.09); PROTHROMBIN TIME (PATIENT) 10.8 SEC (9.7-13.0)
[2024-08-11] MEDS ORDERED: ACETAMINOPHEN INJECTION 100 ML ONE (16:22)
[2024-08-11] MEDS ORDERED: ALBUTEROL SO4 2.5/IPRATROPIUM 0.5 INH SOL 3 ML VIAL.NEB. NEB ONE (16:22)
[2024-08-11] MEDS ORDERED: ONDANSETRON 4 MG/2 ML VIAL ONE (16:22)
[2024-08-11 16:23] LABS: ACTIVATED PTT 29.1 SECONDS (25.2-36.5)
[2024-08-11] MEDS ORDERED: methylPREDNISolone NA SUCC 125 MG/2 ML VIAL ONE (16:23)
[2024-08-11 16:36] LABS: POTASSIUM 3.8 mmol/L (3.5-5.1)
[2024-08-11] MEDS: ALBUTEROL SO4 2.5/IPRATROPIUM 0.5 INH SOL 3 ML VIAL.NEB. NEB SCH (16:37)
[2024-08-11] MEDS: ACETAMINOPHEN 1000 MG/100 ML BAG IVPB ONE (16:37)
[2024-08-11] MEDS: ONDANSETRON 4 MG/2 ML VIAL IVPUSH ONE (16:37)
[2024-08-11 16:38] LABS: CALCIUM 9.2 mg/dL (8.5-10.1)
[2024-08-11] MEDS ORDERED: methylPREDNISolone NA SUCC 125 MG/2 ML VIAL IVPUSH SCH (16:38)
[2024-08-11 16:39] LABS: ALBUMIN 3.9 g/dl (3.4-5.0)
[2024-08-11 16:42] LABS: CREATININE 0.9 mg/dL (0.55-1.3)
[2024-08-11 16:43] LABS: TOT PROT 6.7 g/dl (6.4-8.2)
[2024-08-11 16:45] LABS: BILIRUBIN,TOTAL 0.8 mg/dL (0.2-1)
[2024-08-11 16:46] LABS: ANISOCYTOSIS 1+; MACROCYTOSIS 0
[2024-08-11] MEDS: predniSONE 5 MG TABLET (UD) PO ONE (16:49)
[2024-08-11] MEDS: methylPREDNISolone NA SUCC 125 MG/2 ML VIAL IVPB ONE (16:49)
[2024-08-11] MEDS: methylPREDNISolone NA SUCC 125 MG/2 ML VIAL IVPUSH ONE (16:50)
[2024-08-11 17:33] LABS: HIV INTERPRETATION NEGATIVE (NEGATIVE)
[2024-08-11] MEDS: ONDANSETRON 4 MG/2 ML VIAL IVPB ONE (17:54)
[2024-08-11] MEDS ORDERED: AMOX TR/POT CLAV 875MG/125MG TABLETS (FP) ONE (19:35)
[2024-08-11] MEDS: AMOX TR/POT CLAV 875MG/125MG TABLETS (FP) PO ONE (19:46)
[2024-08-12] MEDS ORDERED: methylPREDNISolone NA SUCC 125 MG/2 ML VIAL IVPUSH SCH (10:00)
== END 2024-08-11 23:23 | disposition home or self-care (01) ==
LOC: JER 14:45
PROC: 3E033NZ Introduction of Analgesics, Hypnotics, Sedatives into Peripheral Vein, Percutaneous Approach (ICD-10-PCS; principal; 2024-08-11)
PROC: 3E033GC Introduction of Other Therapeutic Substance into Peripheral Vein, Percutaneous Approach (ICD-10-PCS; 2024-08-11)
PROC: 3E033GC Introduction of Other Therapeutic Substance into Peripheral Vein, Percutaneous Approach (ICD-10-PCS; 2024-08-11)
PROC: 3E0F7GC Introduction of Other Therapeutic Substance into Respiratory Tract, Via Natural or Artificial Opening (ICD-10-PCS; 2024-08-11)
DX: R06.02 Shortness of breath (principal); J32.9 Chronic sinusitis, unspecified; R07.9 Chest pain, unspecified; Z20.822 Contact with and (suspected) exposure to COVID-19
CPT/HCPCS: 0241U-QW; 36415; 70450-TC; 71046-TC-FY; 71101-TC-LT-FY; 73030-TC-LT-FY; 73630-TC-RT-FY; 80053; 84484; 85025; 85610; 85730; 86803; 87389; 93005; 93010; 99285-25; J0131